=== PATIENT | female | born 1980 | race Caucasian/White ===

== ENCOUNTER 2024-10-29 12:57 | Emergency (ER) | payer MEDICARE, MEDICAID, SELFPAY ==
[2024-10-29] VITALS (9 sets, daily range): BP systolic 118–160; BP diastolic 70–90; PULSE 81–126; RESP 12–20; TEMP 37.1–37.7; O2SAT 94–99; BMI 34.3
--- NOTE | ~2024-10-29 | XR_ITS ---
CLINICAL HISTORY: Fever, chills, R O pneumonia 2 view chest x-ray Comparison: None Findings: No consolidation or effusion. Heart size is normal. No acute fracture. IMPRESSION: 1. No acute findings. This document has been electronically signed by: uYn Garner MD on 10/29/2024 18:20:11
--- NOTE | 2024-10-29 13:29 | ED_ITS ---
HPI - General Adult General Chief complaint: Upper Respiratory Symptoms Stated complaint: FEVER CHILLS HEADACHE Time Seen by Provider: 10/29/24 16:10 Source: patient Mode of arrival: EMS Limitations: no limitations History of Present Illness ED Provider: Dr. Edin Alcazar HPI narrative: 44-year-old female with a history of right hip bursitis, hypertension, insomnia, depression, PTSD, who presents emergency department for evaluation fever, chills, nausea, headache, throat/chest tightness, fatigue and body aches which began at noon. Patient also states she has been having lower pelvic pain for proximally 1 week. She did see your OBGYN states she had a pelvic exam and was diagnosed with bacterial vaginosis. She states she has been taking oral metronidazole and since this has been recurrent she has been advised to use metronidazole gel monthly. Patient states that despite taking the metronidazole she still having lower pelvic pain which she describes as a constant, severe, cramping sensation and she points to her lower abdomen when asked to localize the pain. She has not noticed any vaginal discharge. She states she was had urinary frequency but no dysuria. Related Data Home Medications ?Medication ?Instructions ?Recorded ?Confirmed acetaminophen 500 mg tablet 1,000 mg PO Q6H PRN Pain (Scale 10/31/24 10/31/24 (Tylenol Extra Strength) Score 1-3) amlodipine 2.5 mg tablet 2.5 mg PO DAILY 10/31/24 10/31/24 clonidine HCl 0.1 mg tablet 0.1 mg PO BEDTIME 10/31/24 10/31/24 cyanocobalamin (vitamin B-12) 1,000 mcg PO DAILY 10/31/24 10/31/24 1,000 mcg tablet hydroxyzine HCl 25 mg tablet 25 mg PO BEDTIME 10/31/24 10/31/24 ibuprofen 400 mg tablet 400 mg PO TID PRN Pain (Scale 10/31/24 10/31/24 Score 4-6) lansoprazole 15 mg capsule,delayed 15 mg PO DAILY 10/31/24 10/31/24 release metronidazole 0.75 % (37.5 mg/5 5 g vaginal 2XW 10/31/24 10/31/24 gram) vaginal gel morphine 15 mg immediate release 15 mg PO Q8H PRN Pain (Scale Score 02/17/25 02/17/25 tablet 7-10) sennosides 8.6 mg-docusate sodium 1 tab PO DAILY 10/31/24 10/31/24 50 mg tablet (Stimulant Laxative Plus) sertraline 50 mg tablet 50 mg PO DAILY 10/31/24 10/31/24 tramadol 50 mg tablet 50 mg PO Q6H PRN Pain (Scale Score 10/31/24 10/31/24 7-10) valacyclovir 1 gram tablet 1,000 mg PO DAILY PRN hsv flare 10/31/24 10/31/24 Previous Rx's ?Medication ?Instructions ?Recorded doxycycline hyclate 100 mg tablet 100 mg PO Q12H 14 days #28 tabs 10/29/24 metronidazole 500 mg tablet 500 mg PO BID 14 days #28 tabs 10/29/24 Allergies Allergy/AdvReac Type Severity Reaction Status Date / Time nitrofurantoin Allergy Severe RASH Verified 10/30/24 15:16 [From MACROBID] Penicillins [PENICILLINS] Allergy Severe RASH Verified 10/30/24 15:16 Review of Systems 2 Review of Systems: Yes all other systems are reviewed and are negative [facility] Past Medical History Medical History (Updated 10/30/24 @ 22:26 by Jennifer Hinds PA-C) Hx of trichomonal vaginitis Endometriosis PTSD (post-traumatic stress disorder) Depression Insomnia Bursitis HTN (hypertension) Social History Social History Unable to assess alcohol history related to: Unknown Smoked in Last 30 Days: No Use of substances other than those prescribed or required for medical reasons: No Advance Directives: No Advance Directives Information Provided: Yes service: No Physical Exam ED Vital Signs: Vital Signs - 24 hr 10/29/24 16:03 10/29/24 16:29 10/29/24 18:12 Temperature 98.7 F 99.8 F Pulse Rate 92 94 87 Respiratory Rate 18 18 12 Blood Pressure 131/74 129/81 127/70 Pulse Oximetry 96 94 96 Oxygen Delivery Method Room Air Room Air 10/29/24 18:33 10/29/24 19:30 10/29/24 19:47 Temperature 99.1 F 99.1 F Pulse Rate 84 81 81 Respiratory Rate 16 16 16 Blood Pressure 126/73 132/75 132/75 Pulse Oximetry 95 95 Oxygen Delivery Method Room Air Room Air 10/29/24 20:01 Temperature Pulse Rate Respiratory Rate Blood Pressure Pulse Oximetry 95 Oxygen Delivery Method Room Air BMI result Body Mass Index 34.3 Vital signs revealed an elevated heart rate, elevated respiratory rate patient had a reported fever of 100.9 degrees F by the paramedics Exam: General: Awake, alert in no distress Head: Normocephalic, atraumatic EENT: PERRL, Lids normal, sclera normal, conjunctiva normal, nose normal , ears normal, throat without erythema or exudates Neck: Supple, no adenopathy Lung: breath sounds symmetric, no wheezing, rales or rhonchi Chest: symmetric movement, nontender Heart: regular rate and rhythm, normal S1, S2 no murmurs or rubs Abdomen: soft, moderate to severe suprapubic tenderness, moderate bilateral lower abdominal tenderness, voluntary guarding but no involuntary guarding Pelvic exam: External: No external vaginal lesions Speculum exam: Thin perfuse, yellowish discharge from the cervix Bimanual exam: Moderate to severe cervical motion tenderness, moderate tenderness palpation over the uterus and adnexal regions bilaterally Back: no vertebral tenderness, no CVAT Extremities: no deformities, moves all extremities symmetrically Neuro: Awake, alert, oriented, normal speech, moves all extremities symmetrically Psych: Pleasant, cooperative Course Course Course Narrative: RME performed by Lina Ken PA-C. Patient is a 44 year old assigned female at presenting to the emergency department with fever, chills, body aches, nausea, and vomiting. Patient states that both of her parents have influenza and she has been helping take care of them. Detailed physical exam and review of systems are deferred to the tool and equipment rental clerk. Swabs ordered. Patient placed back in the waiting room pending room availability and results. Reevaluation(s) Reevaluation #1: 10/30/2024 - [id number] - received phone call from the lab, patient is 1/2 blood culture sets positive for Gram-negative bo. Spoke to patient, she was feeling unwell, recommended to immediately report back to the emergency department due to positive blood culture. Medications Administered Discontinued Medications Generic Name Dose Route Start Last Admin Trade Name Freq PRN Reason Stop Dose Admin Acetaminophen 975 mg 10/29/24 16:30 10/29/24 17:37 Acetaminophen 325 Mg Tablet PO 10/29/24 16:31 975 mg ONCE STA Administration Ceftriaxone Sodium 500 mg/ 0 mg 10/29/24 17:48 10/29/24 18:08 Lidocaine HCl 1 ml IM 10/29/24 17:49 1 kit ONCE ONE Administration Sodium Chloride 1,000 mls @ 999 mls/hr 10/29/24 16:28 10/29/24 18:11 Ns IV 10/29/24 17:28 Infused .Q1H1M STA Infusion Ketorolac Tromethamine 15 mg 10/29/24 16:28 10/29/24 17:20 Ketorolac Tromethamine 15 Mg/Ml Vial IVPUSH 10/29/24 16:29 15 mg ONCE STA Administration Metronidazole 500 mg 10/29/24 17:48 10/29/24 19:11 Metronidazole 500 Mg Tablet PO 10/29/24 17:49 500 mg ONCE ONE Administration Morphine Sulfate 4 mg 10/29/24 17:48 10/29/24 18:39 Morphine Sulfate 4 Mg/Ml Cartridge IVPUSH 10/29/24 17:49 4 mg ONCE STA Administration Protocol Ondansetron HCl 4 mg 10/29/24 16:28 10/29/24 17:20 Ondansetron Hcl 4 Mg/2 Ml Vial IVPUSH 10/29/24 16:29 4 mg ONCE ONE Administration Medical Decision Making Medical Decision Making MDM Narrative: 44-year-old female with a history of right hip bursitis, hypertension, insomnia, depression, PTSD, who presents emergency department for evaluation fever, chills, nausea, headache, throat/chest tightness, fatigue and body aches which began at noon and lower abdominal/pelvic pain x1 week seen by her splicing machine operator automatic is started on oral metronidazole for bacterial vaginosis with no improvement of her symptoms. Patient has noted urinary frequency, no dysuria and no vaginal discharge. Patient had a fever of 100.9 degrees F by the paramedics, had an elevated heart rate of 126 and elevated respiratory rate of 20-patient met SIRS criteria and was made sepsis alert at 16:31 hours. 16:31 Differential diagnosis: ?Includes but is not limited to viral syndrome, COVID- 19, influenza, RSV, pneumonia, pelvic inflammatory disease, Following evaluation was ordered: Patient was initially treated with the following: Course: 16:31 Patient met sirs criteria with elevated fever elevated pulse. Patient was made a sepsis alert. 17:49 My interpretation patient's laboratory evaluation is as follows: WBC elevated 17,200. CMP was normal. COVID-19, influenza and RSV were negative. Urinalysis positive for protein, leukocyte esterase. Negative for nitrates. Microscopic revealed 0-2 RBCs, 10-20 WBCs, 3-5 squamous cells, 4+ bacteria. Non clean catch urine for Neisseria gonorrhea and chlamydia Trichomonas is pending. I did add blood cultures x2 and a lactic acid to the patient's labs. The patient's positive urinalysis is most likely secondary to her vaginal discharge and PID as opposed to a urinary tract infection. Patient's pelvic exam did reveal a yellowish cervical discharge with moderate to severe cervical motion tenderness, positive tenderness over the uterus and adnexa bilaterally. Patient was presentation is consistent with acute pelvic inflammatory disease and I did discuss this with the patient. Patient was treated with ceftriaxone 500 mg IM mixed with 1% lidocaine to reduce the pain of the injection. Patient got only minimal relief of her pain with Tylenol 975 mg orally and Toradol 15 mg IV. Therefore I ordered morphine 4 mg IV. Patient will be discharged home with prescriptions for doxycycline 100 mg q.12 hours times 14 days, Flagyl (metronidazole) 500 mg q.12 hours times 14 days, ibuprofen 400 mg q.6 hours as needed, Tylenol 1000 mg q.6 hours as needed and for pain not relieved by these medications she was prescribed morphine 15 mg every 6 hours as needed for pain. Patient was told to follow-up with her watch assembler in 14 days for re- evaluation, she was not to have sex until she completes her antibiotics and is certain that her gonorrhea and chlamydia tests were negative. I told her if these tests are positive than her sexual partners need to be treated. She was given printed and verbal instructions and discharged home. Admission/Observation Consideration of admission/observation: Escalation of care including admission/observation considered (Yes) Lab Data [facility] Lab Attestation statement: I reviewed the patient's lab results. 10/29/24 13:40 10/29/24 13:40 Labs: Lab Results 10/29/24 10/29/24 10/29/24 Range/Units 13:40 16:39 17:03 WBC 17.2 H (4.8-10.8) X10*3/uL RBC 4.37 (4.20-5.50) X10*6/uL Hgb 13.3 (12.0-16.0) g/dl Hct 39.2 (37.0-47.0) % MCV 89.7 (80.0-98.0) fL MCH 30.4 (27.0-33.0) pg MCHC 33.9 (31.0-35.0) g/dl RDW 12.8 (11.0-16.0) % Plt Count 261 (160-400) X10*3/uL MPV 10.6 (9.4-12.3) fL Immature Gran % (Auto) 0.3 (0.0-0.4) % Neut % (Auto) 59.1 (45-73) % Lymph % (Auto) 37.7 (20-40) % [place] % (Auto) 1.6 L (2-11) % Eos % (Auto) 0.8 (0-4) % Baso % (Auto) 0.5 (0-2) % Lymph # (Auto) 6.5 H (1.2-4.9) X10*3/uL [place] # (Auto) 0.3 (0.1-1.2) X10*3/uL Eos # (Auto) 0.1 (0.0-0.4) X10*3/uL Baso # (Auto) 0.1 (0.0-0.2) X10*3/uL Abs Immat Gran (auto) 0.05 H (0.00-0.03) X10*3/uL Absolute Neuts (auto) 10.2 H (2.0-8.3) x10*3/uL Absolute Nucleated RBC 0.000 (0.0-0.012) X10*3/uL Nucleated RBC % (auto) 0.0 (0.0-0.2) /100WBC Smear Tech's Comments VERIFIED Sodium 141 (135-145) mmol/L Potassium 3.4 (3.3-5.1) mmol/L Chloride 106 (96-108) mmol/L Carbon Dioxide 23 (22-29) mmol/L Anion Gap 15 (12-20) BUN 11 (9-16) mg/dL Creatinine 0.72 (0.5-1.4) mg/dL Estim Creat Clear Calc 106.5 Estimated GFR > 60 Random Glucose 97 (60-115) mg/dL Lactic Acid 0.9 (0.5-2.0) mmol/L Calcium 8.5 (8.4-10.2) mg/dL Magnesium 1.8 (1.6-2.6) mg/dL Total Bilirubin 0.7 (0.0-1.0) mg/dL AST 19 (5-31) U/L ALT 19 (0-31) U/L Alkaline Phosphatase 92 (39-117) U/L Total Protein 7.0 (6.5-8.0) g/dL Albumin 3.8 (3.5-5.0) g/dL Lipase 22 (8-78) U/L Urine Color Yellow Urine Appearance Clear Urine pH 6.5 (5.0-9.0) Ur Specific [place] 1.020 (1.005-1.025) Urine Protein 30 (1+) H (Neg-Trace) mg/dL Urine Glucose (UA) Negative (Negative) mg/dL Urine Ketones Trace (Negative) mg/dL Urine Blood Negative (Negative) Urine Nitrite Negative (Negative) Ur Leukocyte Esterase Moderate (2+) H (Negative) Urine RBC 0-2 (0-2) /HPF Urine WBC 11-20 H (0-5) /HPF Ur Squamous Epith Cells 3-5 (0-2) /HPF Urine Bacteria 4+ (None Seen) Hyaline Casts 0-2 (0-2) /LPF Chlam trachomat DNA PCR NOT DETECTED (Not Detect.) Influenza Type A (PCR) NEGATIVE (Negative) Influenza Type B (PCR) NEGATIVE (Negative) N.gonorrhoeae DNA (PCR) NOT DETECTED (Not Detect.) RSV RNA Qual (PCR) NEGATIVE (Negative) SARS-CoV-2 RNA (RT-PCR) NEGATIVE (Negative) Prescription Management I considered prescription management with: Pain Medication (Ibuprofen, Tylenol, morphine) and Antibiotic (Doxycycline and Flagyl) Chronic Conditions Patient?s care impacted by: Hypertension Discharge Plan Discharge Clinical Impression: Acute pelvic inflammatory disease, Fever, Abdominal pain Patient Disposition: Home, Self-Care Additional Instructions: Pelvic inflammatory disease instructions: Your presentation and physical findings are consistent with pelvic inflammatory disease (PID). Approximately 30% of the time, pelvic inflammatory disease is caused by sexually transmitted diseases such as Trichomonas, gonorrhea or chlamydia. Approximately 70% of the time, pelvic inflammatory disease is caused by abnormal bacteria (anaerobic bacteria) in your vagina that can cause an infection ? Medications You received ceftriaxone 500 mg intramuscularly here in the emergency department Take doxycycline 100 mg, 1 pill twice a day for 14 days. Take metronidazole 500 mg, 1 pill twice a day for 14 days. These 3 antibiotics treat sexually transmitted diseases such as gonorrhea, chlamydia and Trichomonas as well as anaerobic bacteria that can cause pelvic inflammatory disease. Take ibuprofen 200 mg pills, 2 pills every 6 hours as needed for pain. Take Tylenol (acetaminophen) 2 pills every 6 hours as needed for pain. For pain not relieved by ibuprofen or Tylenol take morphine 15 mg pills, 1 pill every 6 hours as needed for pain. This medication will make you sleepy, do not drive or work while taking this medication. Morphine is a narcotic medication and can be addicting. If you are concerned about addiction you can ask the pharmacist for less pills or do not get this prescription filled. Do not have sex until you complete the 14 day course of antibiotics. Also, if your gonorrhea or chlamydia tests are positive then your sexual partner(s) will need to be treated for these infections otherwise if you have sex with the these partner(s) then you can get infected again. Follow-Up Follow-up with your gynecology in ?10-14 days. Pending laboratory tests: The doctor that follows up ?will need to review the following results with you: Gonorrhea and chlamydia (non clean catch urine) You can also check these results on the patient portal. Return precautions: Please return to the emergency department if your symptoms get worse if your pain does not go away in 24-48 hours or if you develop any symptoms that are concerning to you. Prescriptions: New metronidazole 500 mg tablet 500 mg PO BID 14 Days Qty: 28 0RF doxycycline hyclate 100 mg tablet 100 mg PO Q12H 14 Days Qty: 28 0RF No Action clonidine HCl 0.1 mg tablet 0.1 mg PO BEDTIME valacyclovir 1 gram tablet 1,000 mg PO DAILY PRN (Reason: hsv flare) metronidazole 0.75 % (37.5mg/5 gram) gel 5 g vaginal 2XW sennosides-docusate sodium [Stimulant Laxative Plus] 8.6-50 mg tablet 1 tab PO DAILY cyanocobalamin (vitamin B-12) 1,000 mcg Tablet 1,000 mcg PO DAILY amlodipine 2.5 mg tablet 2.5 mg PO DAILY tramadol 50 mg Tablet 50 mg PO Q6H PRN (Reason: Pain (Scale Score 7-10)) lansoprazole 15 mg capsule,delayed release(DR/EC) 15 mg PO DAILY hydroxyzine HCl 25 mg tablet 25 mg PO BEDTIME sertraline 50 mg tablet 50 mg PO DAILY acetaminophen [Tylenol Extra Strength] 500 mg tablet 1,000 mg PO Q6H PRN (Reason: Pain (Scale Score 1-3)) ibuprofen 400 mg tablet 400 mg PO TID PRN (Reason: Pain (Scale Score 4-6)) morphine 15 mg tablet 15 mg PO Q8H PRN (Reason: Pain (Scale Score 7-10)) Rx Instructions: Partial Fill upon patient request. Interventions: ED Discharge Assessment Last Done: 10/29/24 19:47 Discharge Date/Time: 10/29/24 20:01 Print Language: Taiwanese
[2024-10-29 14:03] LABS: Basophils Absolute Auto 0.1 X10*3/uL (0.0-0.2); Basophils Percent Auto 0.5 % (0-2); Eosinophils Absolute Auto 0.1 X10*3/uL (0.0-0.4); Eosinophils Percent Auto 0.8 % (0-4); Hematocrit 39.2 % (37.0-47.0); Hemoglobin 13.3 g/dl (12.0-16.0); Imm Gran Abs Auto 0.05 X10*3/uL (0.00-0.03); Imm Gran Pct Auto 0.3 % (0.0-0.4); Lymphocytes Percent Auto 37.7 % (20-40); MANUAL DIFF FLAG SCAN; Mean Corpuscular HGB Conc 33.9 g/dl (31.0-35.0); Mean Corpuscular Hemoglobin 30.4 pg (27.0-33.0); Mean Corpuscular Volume 89.7 fL (80.0-98.0); Mean Platelet Volume 10.6 fL (9.4-12.3); Monocytes Absolute Auto 0.3 X10*3/uL (0.1-1.2); Monocytes Percent Auto 1.6 % (2-11); Neutrophils Absolute Auto 10.2 x10*3/uL (2.0-8.3); Neutrophils Percent Auto 59.1 % (45-73); Platelet Count 261 X10*3/uL (160-400); Red Blood Count 4.37 X10*6/uL (4.20-5.50); Red Cell Distribution Width 12.8 % (11.0-16.0); SCAN SMEAR FLAG 1; White Blood Count 17.2 X10*3/uL (4.8-10.8)
[2024-10-29 14:04] LABS: Lymphocytes Absolute Auto 6.5 X10*3/uL (1.2-4.9)
[2024-10-29 14:14] LABS: Alanine Aminotransferase 19 U/L (0-31); Albumin Level 3.8 g/dL (3.5-5.0); Anion Gap 15 (12-20); Aspartate Amino Transferase 19 U/L (5-31); Bilirubin Total 0.7 mg/dL (0.0-1.0); Blood Urea Nitrogen 11 mg/dL (9-16); Calcium 8.5 mg/dL (8.4-10.2); Carbon Dioxide 23 mmol/L (22-29); Chloride 106 mmol/L (96-108); Creatinine Clr Calc Pharmacy 106.5; Estimated Glomerular Filt Rate > 60; Glucose Random 97 mg/dL (60-115); Magnesium 1.8 mg/dL (1.6-2.6); Potassium 3.4 mmol/L (3.3-5.1); Sodium 141 mmol/L (135-145)
[2024-10-29 14:36] LABS: Influenza A PCR NEGATIVE (Negative); Influenza B PCR NEGATIVE (Negative); Resp Syncy Virus RNA Qual PCR NEGATIVE (Negative); SARS COV2 PCR INHOUSE NEGATIVE (Negative)
[2024-10-29 14:53] LABS: Alkaline Phosphatase 92 U/L (39-117); SLIDE REVIEW VERIFIED
--- OUTSIDE RECORDS SUMMARY | 2024-10-29 16:11 | XMS_ITS | Encounter Summary ---
Author Organization [facility] Address [address] [place] [address] Care Team Providers Care Boil Off Machine Operator Cloth Name Role Phone Liat Nunez MD Primary Care Provider [phone] Encounter Details Date Type Department Care Team (Late st Contact Info) Description 06/21/2024 3:52 PM EDT Hospital Encounter TH HISTORIC ENCOUNTERS EASTERN CONVERSION ONLY Liat Nunez MD [address] [facility] [address] [place] [phone] Social History Tobacco Use Types Packs/Day Years Used Date Smoking Tobacco: Never Smokeless Tobacco: Never Alcohol Use Standard Drinks/Week Comments Yes 0 (1 standard drink = 0.6 oz pur e alcohol) Comments Unknown Sex and Gender Information Value Date Recorded Sex Assigned at Not on file Legal Sex Female 10:11 AM EST Gender Identity Not on file Sexual Orientation Not on file documented as of this encounter Plan of Treatment Upcoming Encounters Date Type Department Care Team (Late Contact Info) Description 11/23/2024 1:30 PM EDT Office Visit [facility] Hematology Oncology [address] [place] [phone] Michaela Bergeron MD [address] [place] [address] 02/13/2025 11:30 AM EDT Office Visit Internal Medicine - [place] [address] [facility] [address] [place] [phone] Liat Nunez MD [address] [facility] [address] [place] [phone] documented as of this encounter Visit Diagnoses Not on filedocumented in this encounter Care Teams Boil Off Machine Operator Cloth Relationship Specialty Start Date End Date Liat Nunez MD PCP - General Internal Medicine 07/19/18 07/29/24 documented as of this encounter
--- OUTSIDE RECORDS SUMMARY | 2024-10-29 16:11 | XMS_ITS | Clinical Summary ---
Author Organization [facility] Address [address] [place] [address] Care Team Providers Care Change Consultant Name Role Phone Liat Nunez MD Primary Care Provider [phone] Allergies Active Allergy Reactions Criticality Noted Date Comments Lisinopril 02/09/2020 rash Nitrofurantoin 09/19/2011 Other reaction(s): Rash, Rash/Dermatitis Penicillins Low 09/19/2011 Other reaction(s): Hives/Urticaria, Rash Medications Medication Sig Dispensed Refills Start Date End Date Status Acetaminophen Extra Strength 500 MG TABS TAKE 1 TABLET BY MOUTH EVERY 8 HOURS NEEDED FOR MILD PAIN 0 11/17/2023 Active Cholecalciferol 50 MCG (1999 UT) TABS Take 1 tablet by mouth daily. 0 04/21/2023 Active Citalopram Hydrobromide 30 MG CAPS Take by mouth. 0 04/21/2023 Active cloNIDine (CATAPRES) tablet 0.1 mg Take 1 tablet (0.1 mg total) by mouth 2 (two) times a day. 0 12/08/2023 Active hydrOXYzine (ATARAX) 25 MG tablet Take 1 tablet (25 mg total) by mouth 2 (two) times a day. 0 12/15/2023 Active loratadine (Claritin) 10 MG tablet Take 1 tablet (10 mg total) by mouth daily. 0 Active Lansoprazole (PREVACID PO) Take by mouth. 0 Active irbesartan (AVAPRO) 300 MG tablet Take 1 tablet (300 mg total) by mouth every night at bedtime. 0 Active Active Problems No known active problems Social History Tobacco Use Types Packs/Day Years Used Date Smoking Tobacco: Never Smokeless Tobacco: Never Tobacco Cessation:Counseling Given: Not Answered Alcohol Use Standard Drinks/Week Comments Never 0 (1 standard drink = 0.6 oz pur e alcohol) Sex and Gender Information Value Date Recorded Sex Assigned at Female 12/09/2023 7:48 AM EDT Gender Identity Not on file Sexual Orientation Not on file Job Start Date Occupation Industry Not on file Not on file Not on file Last Filed Vital Signs Vital Sign Reading Time Taken Comments Blood Pressure 151/99 01/26/2024 1:40 PM EDT Pulse 82 01/26/2024 1:40 PM EDT Temperature 36.6 ??C (97.8 ??F) 01/26/2024 1:40 PM ED T Respiratory Rate - - Oxygen Saturation 99% 01/26/2024 1:40 PM EDT Inhaled Oxygen Concentration - - Weight 93.4 kg (206 lb) 01/26/2024 1:40 PM EDT Height - - Body Mass Index - - Plan of Treatment Health Maintenance Due Date Last Done Comments Hepatitis B Vaccines (1 of 3 - 3-dose series) 1978 Hepatitis C Screening 1978 COVID-19 Vaccine (#1) 1983 Pneumococcal Vaccine (1 of 2 - PCV) 1984 Depression Screening 1990 Preventative Health Evaluation 1996 Cervical Cancer Screening (Pap Smear) 1999 Colon Cancer Screening (Colonoscopy) 2023 Influenza Vaccine (#1) 2024 DTap / Tdap / Td (3 - Td or Tdap) 04/10/2027 04/10/2017, 09/19/2011 RSV Ped < 20 months Aged Out No longe r eligible based on patient's age to complete this topic Care Teams Change Consultant Relationship Specialty Start Date End Date Liat Nunez MD [address] [place] [phone] PCP - General Internal Medicine 01/04/24
--- NOTE | 2024-10-29 16:28 | PC.NURSE ---
Provider to hold antibiotics orders until pelvic is completed.
--- NOTE | 2024-10-29 16:35 | PC.NURSE ---
Sepsis protocol initiated no antibiotic orders lala, fluids ordered.
[2024-10-29] MEDS: 0.9 % Sodium Chloride 1,000 ML 999 ML IV (16:37)
[2024-10-29 16:59] LABS: Lipase 22 U/L (8-78)
[2024-10-29 17:02] LABS: Lactic Acid 0.9 mmol/L (0.5-2.0)
[2024-10-29 17:13] LABS: Appearance Urine Clear; Color Urine Yellow; Glucose Urine UA Negative (Negative); Leukocyte Esterase Urine Moderate (2+) (Negative); Nitrite Urine Negative (Negative); PH 6.5 (5.0-9.0); UMIC TRIGGER UACC YES; Urine Blood Negative (Negative); Urine Ketones Trace mg/dL (Negative); Urine Protein 30 (1+) mg/dL (Neg-Trace)
[2024-10-29] MEDS: Ketorolac Tromethamine 15 MG/ML VIAL IVPUSH (17:20)
[2024-10-29] MEDS: ondansetron HCL 4 MG/2 ML VIAL IVPUSH (17:20)
[2024-10-29 17:26] LABS: Bacteria Urine 4+ (None Seen); Hyaline Casts Urine 0-2 /LPF (0-2); RBC Urine 0-2 /HPF (0-2); UACC Culture Trigger YES
[2024-10-29] MEDS: Acetaminophen 325 MG TABLET 975 MG PO (17:37)
[2024-10-29] MEDS: cefTRIAXone sodium 500 MG, Lidocaine HCl 1 % MPF 1 ML IM (18:08)
[2024-10-29] MEDS: Morphine Sulfate 4 MG/ML CARTRIDGE IVPUSH (18:39)
[2024-10-29] MEDS: metroNIDAZOLE 500 MG TABLET PO (19:11)
[2024-10-30 02:39] LABS: CT PCR NOT DETECTED (Not Detect.); NG PCR NOT DETECTED (Not Detect.)
== END 2024-10-29 20:01 | disposition home or self-care (01) ==
PROVIDERS: Physician Assistant Medical; Emergency Provider Emergency Medicine Emergency Medical Services; PCP Internal Medicine
DX: N73.0 Acute parametritis and pelvic cellulitis (principal); R50.9 Fever, unspecified; R51.9 Headache, unspecified; R11.0 Nausea; R07.89 Other chest pain; M79.10 Myalgia, unspecified site; R10.2 Pelvic and perineal pain; R10.9 Unspecified abdominal pain; Z03.818 Encounter for observation for suspected exposure to other biological agents ruled out; Z79.899 Other long term (current) drug therapy
CPT/HCPCS: 0241U; 36415; 71046; 80053; 81001; 83605; 83690; 83735; 85025; 87040; 87077; 87086; 87185; 87205; 87491; 87591; 96361; 96372; 96374; 96375; 99284; J0696; J1885; J2003; J2270; J2405

== ENCOUNTER → 2024-10-29 16:11 | Outpatient (BNV) | payer MEDICARE, MEDICAID, SELFPAY | PROVIDERS: Emergency Provider Emergency Medicine Emergency Medical Services; PCP Internal Medicine; Visit Provider Radiology Diagnostic Radiology | DX: R07.89 Other chest pain (principal); R50.9 Fever, unspecified | CPT/HCPCS: 71046 ==

== ENCOUNTER 2024-10-30 14:17 | Inpatient (IN) | payer OTHER, SELFPAY ==
--- NOTE | ~2024-10-30 | CT_ITS ---
CLINICAL HISTORY: right flank pain, pelvic pain CT abdomen and pelvis with contrast Comparison: None Findings: No consolidation or effusion. Unremarkable gallbladder and solid organs. No urolithiasis. Right upper pole kidney 2.6 cm central cyst. No bowel obstruction, pneumoperitoneum, or pneumatosis. Globus appearing uterine fundus with thickening of the endometrium, proximally measuring 2.1 cm. Normal appendix. No acute fracture. IMPRESSION: No acute findings. Globus appearing uterine fundus with apparent thickening of the endometrium measuring up to 2.1 cm. A pelvic ultrasound can be obtained for further evaluation. Right kidney upper pole 2.6 cm simple cyst, no further is required of the cyst. This document has been electronically signed by: Marilee Mills MD on 10/30/2024 20:56:41
[2024-10-30 15:14] VITALS: BP 148/88; PULSE 89; RESP 18; TEMP 36.2; O2SAT 98; BMI 34.0
--- NOTE | 2024-10-30 15:15 | ED_ITS ---
HPI - General Adult General Chief complaint: Recheck/Abnormal Lab/Rx Stated complaint: was told to come back to ED Time Seen by Provider: 10/30/24 17:45 Source: patient, RN notes reviewed and old records reviewed Mode of arrival: ambulatory Limitations: no limitations History of Present Illness ED Provider: Willem LOUIS narrative: 44-year-old female with past medical history significant for bursitis, hypertension, insomnia, depression, PTSD presents for evaluation of ?positive blood cultures. ? She was seen here yesterday due to lower abdominal and pelvic pain. She was diagnosed with pelvic inflammatory disease with positive cervical motion tenderness. She also has right abdominal pain and flank pain. She was called today and told to come back due to positive blood cultures. And a view of her blood cultures from yesterday she had both bottles positive for Gram-negative rods The patient was discharged with doxycycline, metronidazole and was given a dose of ceftriaxone IM in the hospital yesterday. She did not pick up attendant the prescription yet She denies any fevers but endorses continued lower abdominal/right-sided abdominal pain Related Data Previous Rx's ?Medication ?Instructions ?Recorded acetaminophen 500 mg tablet 1,000 mg (2 x 500 mg) PO Q6H PRN 10/29/24 (Tylenol Extra Strength) pain #20 tabs doxycycline hyclate 100 mg tablet 100 mg PO Q12H 14 days #28 tabs 10/29/24 ibuprofen 400 mg tablet 400 mg PO TID PRN fever or pain 10/29/24 #30 tabs metronidazole 500 mg tablet 500 mg PO BID 14 days #28 tabs 10/29/24 morphine 15 mg immediate release 15 mg PO Q8H PRN pain #10 tabs 10/29/24 tablet Allergies Allergy/AdvReac Type Severity Reaction Status Date / Time nitrofurantoin Allergy Severe RASH Verified 10/30/24 15:16 [From MACROBID] Penicillins [PENICILLINS] Allergy Severe RASH Verified 10/30/24 15:16 Review of Systems 2 Constitutional: Constitutional: Reports body ache(s), Denies chills, Denies fever(s) and Denies headache(s) Eyes: Eyes: Denies blurry vision ENT: Denies vertigo, Denies dizziness and Denies headache(s) Cardiovascular: Cardiovascular: Denies chest pain and Denies dyspnea Respiratory: Respiratory: Denies cough and Denies dyspnea Gastrointestinal: Gastrointestinal: Reports abdominal pain, Reports nausea and Denies vomiting Genitourinary: Genitourinary: Denies difficulty voiding, Denies dysuria and Denies vaginal discharge Musculoskeletal: Musculoskeletal: Reports back pain Integumentary/Breasts: Skin/Breast: Denies rash Neurologic: Denies vertigo, Denies dizziness and Denies headache(s) [facility] Social History Social History Unable to assess alcohol history related to: Unknown Advance Directives: No Advance Directives Information Provided: Yes Physical Exam ED Vital Signs: Vital Signs - 24 hr 10/30/24 15:14 10/30/24 20:58 Temperature 97.2 F 98.5 F Pulse Rate 89 76 Respiratory Rate 18 18 Blood Pressure 148/88 H 130/65 Pulse Oximetry 98 98 Oxygen Delivery Method Room Air Room Air BMI result Body Mass Index 34.0 Const General: healthy appearing, comfortable, no acute distress, alert and awake Nutritional Appearance: well nourished Orientation/consciousness: patient oriented x3 HENMT Head: Yes normocephalic and Yes atraumatic Eyes Eyelids: Yes eyelids normal Conjunctivae: conjunctivae normal Sclerae: sclerae normal Corneas: corneas normal Pupils: Equal, round and reactive pupils present EOM: EOMs intact bilaterally Neck Neck: Yes full ROM Resp Effort & Inspection: normal respiratory effort, able to speak in complete sentences and not labored GI Inspection: No distended Palpation (GI): Soft to palpation, not firm, Tenderness to palpation present (GI) in the RLQ and suprapubicly, Guarding due to palpation present (GI) (Suprapubic) and not rigid Skin General skin exam: no rashes or lesions noted and elasticity normal Neuro General: patient oriented x3 Cranial nerves: Yes Equal, round and reactive pupils present and Yes Bilaterally intact EOM present Cognition (Neuro): normal cognition Extrem Other: Moving all extremities well without any obvious deformities Course Course Course Narrative: This is a Rapid Medical Exam performed in triage by Denisa Hughes PA-C. Full HPI, ROS and PE to be performed by primary ED provider. 44yo F presenting to the ED c/o called to return to the ED for 1/2 +blood cultures for gram neg rods. Patient was seen in our ED last night, Dx with PID, denies taking Abx yet. PE: Uncomfortable. Abdomen soft with lower > right and right CVAT Plan: labs, blood cx, UA Medications Administered Discontinued Medications Generic Name Dose Route Start Last Admin Trade Name Heather PRN Reason Stop Dose Admin Acetaminophen 650 mg 10/30/24 15:18 10/30/24 15:38 Acetaminophen 325 Mg Tablet PO 10/30/24 15:19 650 mg ONCE ONE Administration Cefotetan Disodium 2 gm 10/30/24 18:16 10/30/24 19:21 Cefotetan Disodium 2 Gm Vial IVPUSH 10/30/24 18:17 2 gm ONCE ONE Administration Doxycycline Hyclate 100 mg/ 250 mls @ 166.67 mls/hr 10/30/24 18:16 10/30/24 19:21 Sodium Chloride IV 10/30/24 19:45 166.67 mls/hr ONCE ONE Administration Iohexol 100 ml 10/30/24 19:44 10/30/24 19:44 Iohexol 350 Mg/Ml 100 Ml Infus..Btl IV 10/30/24 19:45 85 ml ONCE ONE Administration Ketorolac Tromethamine 30 mg 10/30/24 18:16 10/30/24 19:20 Ketorolac Tromethamine 30 Mg/Ml Vial IVPUSH 10/30/24 18:17 30 mg ONCE ONE Administration Medical Decision Making Medical Decision Making [facility] Narrative: 44-year-old female presents for evaluation of positive blood cultures. She did have both bottles preliminary results positive for gram-negative rods. This is highly unlikely to be a contaminant. The patient was being treated for PID. I did order a CT scan of the abdomen pelvis given her continued abdominal pain and to help rule out obstructive uropathy versus pyelonephritis. The patient will be treated with cefotetan, doxycycline which should cover both PID and pyelonephritis/cystitis. She does have a leukocytosis but is not septic Differential Diagnosis Differential Diagnoses: The differential diagnosis associated with the presentation includes Bacteremia UTI PID Pyelonephritis Obstructive uropathy Intra-abdominal abscess Admission/Observation Consideration of admission/observation: Escalation of care including admission/observation considered Lab Data [facility] Lab Attestation statement: I reviewed the patient's lab results. Patient has a leukocytosis to 16.7 K. No anemia. Normal platelet count. No electrolyte abnormalities warranting intervention 10/30/24 15:35 10/30/24 15:35 Labs: Lab Results 02/16/25 Range/Units 15:35 WBC 16.7 H (4.8-10.8) X10*3/uL RBC 4.36 (4.20-5.50) X10*6/uL Hgb 13.4 (12.0-16.0) g/dl Hct 39.3 (37.0-47.0) % MCV 90.1 (80.0-98.0) fL MCH 30.7 (27.0-33.0) pg MCHC 34.1 (31.0-35.0) g/dl RDW 12.8 (11.0-16.0) % Plt Count 267 (160-400) X10*3/uL MPV 10.7 (9.4-12.3) fL Immature Gran % (Auto) 0.3 (0.0-0.4) % Neut % (Auto) 52.1 (45-73) % Lymph % (Auto) 40.6 H (20-40) % Edwards % (Auto) 5.2 (2-11) % Eos % (Auto) 1.4 (0-4) % Baso % (Auto) 0.4 (0-2) % Lymph # (Auto) 6.8 H (1.2-4.9) X10*3/uL Edwards # (Auto) 0.9 (0.1-1.2) X10*3/uL Eos # (Auto) 0.2 (0.0-0.4) X10*3/uL Baso # (Auto) 0.1 (0.0-0.2) X10*3/uL Abs Immat Gran (auto) 0.05 H (0.00-0.03) X10*3/uL Absolute Neuts (auto) 8.7 H (2.0-8.3) x10*3/uL Absolute Nucleated RBC 0.000 (0.0-0.012) X10*3/uL Nucleated RBC % (auto) 0.0 (0.0-0.2) /100WBC Smear Tech's Comments VERIFIED Sodium 141 (135-145) mmol/L Potassium 3.5 (3.3-5.1) mmol/L Chloride 107 (96-108) mmol/L Carbon Dioxide 24 (22-29) mmol/L Anion Gap 14 (12-20) BUN 7 L (9-16) mg/dL Creatinine 0.65 (0.5-1.4) mg/dL Estim Creat Clear Calc 117.3 Estimated GFR > 60 Random Glucose 103 (60-115) mg/dL Lactic Acid 1.0 (0.5-2.0) mmol/L Calcium 8.8 (8.4-10.2) mg/dL Magnesium 2.0 (1.6-2.6) mg/dL Total Bilirubin 0.4 (0.0-1.0) mg/dL Direct Bilirubin 0.2 (0.0-0.5) mg/dL AST 20 (5-31) U/L ALT 20 (0-31) U/L Alkaline Phosphatase 90 (39-117) U/L Total Protein 7.4 (6.5-8.0) g/dL Albumin 4.0 (3.5-5.0) g/dL Lipase 15 (8-78) U/L Urine Color Yellow Urine Appearance Clear Urine pH 7.5 (5.0-9.0) Ur Specific Alexander 1.010 (1.005-1.025) Urine Protein Negative (Neg-Trace) mg/dL Urine Glucose (UA) Negative (Negative) mg/dL Urine Ketones Negative (Negative) mg/dL Urine Blood Trace H (Negative) Urine Nitrite Negative (Negative) Ur Leukocyte Esterase Trace H (Negative) Urine RBC 6-10 H (0-2) /HPF Urine WBC 0-5 (0-5) /HPF Ur Squamous Epith Cells 0-2 (0-2) /HPF Urine Bacteria None Seen (None Seen) Hyaline Casts 0-2 (0-2) /LPF Urine Test NEGATIVE (NEGATIVE) Radiology Impression Discussion of test interpretation with radiology: I have reviewed the radiologist's reading. Radiologist Impression: Findings: No consolidation or effusion. Unremarkable gallbladder and solid organs. No urolithiasis. Right upper pole kidney 2.6 cm central cyst. No bowel obstruction, pneumoperitoneum, or pneumatosis. Globus appearing uterine fundus with thickening of the endometrium, proximally measuring 2.1 cm. Normal appendix. No acute fracture. IMPRESSION: No acute findings. Globus appearing uterine fundus with apparent thickening of the endometrium measuring up to 2.1 cm. A pelvic ultrasound can be obtained for further evaluation. Right kidney upper pole 2.6 cm simple cyst, no further is required of the cyst. This document has been electronically signed by: Marilee Mills MD on 10/30/2024 20:56:41 Discharge Plan Discharge Clinical Impression: Gram-negative bacteremia, Acute pelvic inflammatory disease Patient Disposition: Admitted As Inpatient Print Language: Nauruan
[2024-10-30] MEDS: Acetaminophen 325 MG TABLET 650 MG PO (15:38)
[2024-10-30 15:42] LABS: Basophils Absolute Auto 0.1 X10*3/uL (0.0-0.2); Basophils Percent Auto 0.4 % (0-2); Eosinophils Absolute Auto 0.2 X10*3/uL (0.0-0.4); Eosinophils Percent Auto 1.4 % (0-4); Hematocrit 39.3 % (37.0-47.0); Hemoglobin 13.4 g/dl (12.0-16.0); Imm Gran Abs Auto 0.05 X10*3/uL (0.00-0.03); Imm Gran Pct Auto 0.3 % (0.0-0.4); Lymphocytes Percent Auto 40.6 % (20-40); MANUAL DIFF FLAG SCAN; Mean Corpuscular HGB Conc 34.1 g/dl (31.0-35.0); Mean Corpuscular Hemoglobin 30.7 pg (27.0-33.0); Mean Corpuscular Volume 90.1 fL (80.0-98.0); Mean Platelet Volume 10.7 fL (9.4-12.3); Monocytes Absolute Auto 0.9 X10*3/uL (0.1-1.2); Monocytes Percent Auto 5.2 % (2-11); Neutrophils Absolute Auto 8.7 x10*3/uL (2.0-8.3); Neutrophils Percent Auto 52.1 % (45-73); Platelet Count 267 X10*3/uL (160-400); Red Blood Count 4.36 X10*6/uL (4.20-5.50); Red Cell Distribution Width 12.8 % (11.0-16.0); SCAN SMEAR FLAG 1; White Blood Count 16.7 X10*3/uL (4.8-10.8)
[2024-10-30 15:43] LABS: Lymphocytes Absolute Auto 6.8 X10*3/uL (1.2-4.9)
[2024-10-30 15:44] LABS: Appearance Urine Clear; Color Urine Yellow; Glucose Urine UA Negative (Negative); Leukocyte Esterase Urine Trace (Negative); Nitrite Urine Negative (Negative); PH 7.5 (5.0-9.0); UMIC TRIGGER UACC YES; Urine Blood Trace (Negative); Urine Ketones Negative (Negative); Urine Protein Negative (Neg-Trace)
[2024-10-30 15:45] LABS: UPreg QC Valid YES; Urine Pregnancy NEGATIVE (NEGATIVE)
[2024-10-30 15:49] LABS: Bacteria Urine None Seen (None Seen); Hyaline Casts Urine 0-2 /LPF (0-2); Squamous Epithelial Cell Urine 0-2 /HPF (0-2); WBC Urine 0-5 /HPF (0-5)
[2024-10-30 15:57] LABS: Alanine Aminotransferase 20 U/L (0-31); Alkaline Phosphatase 90 U/L (39-117); Anion Gap 14 (12-20); Aspartate Amino Transferase 20 U/L (5-31); Bilirubin Direct 0.2 mg/dL (0.0-0.5); Bilirubin Total 0.4 mg/dL (0.0-1.0); Blood Urea Nitrogen 7 mg/dL (9-16); Calcium 8.8 mg/dL (8.4-10.2); Carbon Dioxide 24 mmol/L (22-29); Chloride 107 mmol/L (96-108); Creatinine Clr Calc Pharmacy 117.3; Estimated Glomerular Filt Rate > 60; Glucose Random 103 mg/dL (60-115); Lipase 15 U/L (8-78); Potassium 3.5 mmol/L (3.3-5.1); Sodium 141 mmol/L (135-145); Total Protein 7.4 g/dL (6.5-8.0)
[2024-10-30 16:06] LABS: SLIDE REVIEW VERIFIED
[2024-10-30] MEDS: Ketorolac Tromethamine 30 MG/ML VIAL IVPUSH (19:20)
[2024-10-30] MEDS: Doxycycline Hyclate 100 MG in 0.9 % Sodium Chloride 250 ML 166.67 MG IV (19:21)
[2024-10-30] MEDS: cefoTEtan disodium 2 GM VIAL IVPUSH (19:21)
[2024-10-30] MEDS: iohexoL 350 MG/ML 100 ML INFUS..BTL IV (19:44)
[2024-10-30 20:58] VITALS: BP 130/65; PULSE 76; RESP 18; TEMP 36.9; O2SAT 98
[2024-10-30 22:21] VITALS: RESP 18
[2024-10-30] MEDS: Morphine Sulfate 4 MG/ML CARTRIDGE IVPUSH (22:21)
[2024-10-30] MEDS: ondansetron HCL 4 MG/2 ML VIAL IVPUSH (22:21)
--- NOTE | 2024-10-30 22:21 | PM.IMHP ---
History of Present Illness Date of Service: 10/30/24 <Jennifer Hinds PA-C - Last Filed: 10/30/24 22:37> Attending physician on admission: Bhavana Messina <MANDO Loja Last Filed: 10/30/24 22:37> Chief Complaint: +bacteremia <MANDO Loja Last Filed: 10/30/24 22:37> Patient is a 44-year-old female with a past medical history significant for HTN, bursitis, insomnia, depression, PTSD and multiple STIs including Trichomonas 1 month ago, who presented to the ED yesterday was diagnosed with PID and treated with ceftriaxone, Flagyl and doxycycline. She was called back to the ED today due to positive blood cultures with Gram negative rods. She continues to have lower abdominal discomfort in the suprapubic region and urinary frequency/urgency due to pressure. She denies dysuria or hematuria. She also denies any vaginal discharge. She reports she was recently diagnosed with BV and endometriosis and has not yet started her BV treatment. She does have recurrent BV. <MANDO Loja Last Filed: 10/30/24 22:37> Review of Systems Constitutional: Constitutional: Denies body ache(s), Denies chills, Denies fatigue, Denies fever(s) and Denies headache(s) <MANDO Loja Last Filed: 10/30/24 22:37> Eyes: Eyes: Denies change in vision and Denies photophobia <MANDO Loja Last Filed: 10/30/24 22:37> ENT: Denies headache(s) <MANDO Loja Last Filed: 10/30/24 22:37> Cardiovascular: Cardiovascular: Denies chest pain, Denies rapid heart rate, Denies leg edema, Denies lightheadedness, Denies dyspnea and Denies dyspnea on exertion <MANDO Loja Last Filed: 10/30/24 22:37> Respiratory: Respiratory: Denies chest congestion, Denies cough, Denies dyspnea, Denies dyspnea on exertion and Denies wheezing <MANDO Loja Last Filed: 10/30/24 22:37> Gastrointestinal: Gastrointestinal: Denies diarrhea, Denies nausea and Denies vomiting <Jennifer Hinds PA-C - Last Filed: 10/30/24 22:37> Genitourinary: Genitourinary: Denies hematuria, Denies difficulty voiding, Reports nocturia, Denies dysuria, Reports pelvic pain, Reports urinary urgency and Denies vaginal discharge <Jennifer Hinds PA-C - Last Filed: 10/30/24 22:37> Musculoskeletal: Musculoskeletal: Denies myalgias <Jennifer Hinds PA-C - Last Filed: 10/30/24 22:37> Integumentary/Breasts: Skin/Breast: Denies rash <Jennifer Hinds PA-C - Last Filed: 10/30/24 22:37> Neurologic: Denies confusion and Denies headache(s) <Jennifer Hinds PA-C - Last Filed: 10/30/24 22:37> Psychiatric: Psychiatric: Denies confusion <Jennifer Hinds PA-C - Last Filed: 10/30/24 22:37> Endocrine: Endocrine: Denies fatigue <Jennifer Hinds PA-C - Last Filed: 10/30/24 22:37> Hematologic/Lymphatic: Hematologic/Lymphatic: Denies easy bleeding and Denies easy bruising <Jennifer Hinds PA-C - Last Filed: 10/30/24 22:37> Allergic/Immunologic: Allergic/Immunologic: Denies wheezing <Jennifer Hinds PA-C - Last Filed: 10/30/24 22:37> [facility] Medical History: Medical History (Updated 10/30/24 @ 22:26 by Jennifer Hinds PA-C) Hx of trichomonal vaginitis Endometriosis PTSD (post-traumatic stress disorder) Depression Insomnia Bursitis HTN (hypertension) <Jennifer Hinds PA-C - Last Filed: 10/30/24 22:37> Functional capacity: independent ambulation <Jennifer Hinds PA-C - Last Filed: 10/30/24 22:37> Social History: Social History Unable to assess alcohol history related to: Unknown Advance Directives: No Advance Directives Information Provided: Yes <MANDO Loja Last Filed: 10/30/24 22:37> Meds Allergies/Adverse reactions: Allergies Allergy/AdvReac Type Severity Reaction Status Date / Time nitrofurantoin Allergy Severe RASH Verified 10/30/24 15:16 [From MACROBID] Penicillins [PENICILLINS] Allergy Severe RASH Verified 10/30/24 15:16 <MANDO Loja Last Filed: 10/30/24 22:37> Active Medications: Current Medications Acetaminophen (Acetaminophen 325 Mg Tablet) 650 mg PO Q6H PRN PRN Reason: Pain, Mild 1-3,fever,headache Calcium Carbonate (Calcium Carbonate 750 Mg Tab.Chew) 750 mg PO Q4H PRN PRN Reason: Heartburn Ceftriaxone Sodium (Ceftriaxone Sodium 2 Gm Vial) 2 gm IVPUSH Q24H GLORIA Enoxaparin Sodium (Enoxaparin Sodium 40 Mg/0.4 Ml Syringe) 40 mg SUBCUT Q24H GLORIA Metronidazole (Flagyl) 500 mg in 100 mls @ 100 mls/hr IV Q12H GLORIA Magnesium Hydroxide (Milk Of Magnesia 30 Ml Oral.Susp) 30 ml PO DAILY PRN PRN Reason: Constipation Melatonin (Melatonin 3 Mg Tablet) 6 mg PO BEDTIME PRN PRN Reason: Insomnia Ondansetron HCl (Ondansetron Hcl 4 Mg/2 Ml Vial) 4 mg IVPUSH Q8H PRN PRN Reason: Nausea and Vomiting Sodium Chloride (0.9 % Sodium Chloride Flush 3 Ml Syringe) 3 ml IVFLUSH QSHIFT GLORIA <MANDO Loja Last Filed: 10/30/24 22:37> Physical Exam Vital Signs and Narrative: Vital Signs: Last Vital Signs Temp 98.5 F 10/30/24 20:58 Pulse 76 10/30/24 20:58 Resp 18 10/30/24 20:58 BP 130/65 10/30/24 20:58 Pulse Ox 98 10/30/24 20:58 O2 Del Method Room Air 10/30/24 20:58 BMI result Body Mass Index 34.0 <MANDO Loja Last Filed: 10/30/24 22:37> General: AOx3, no acute distress Resp: CTA bilaterally CVS: S1, S2, RRR GI: +BS, lower abd tenderness, no distention Skin: Warm, dry Neuro: Cranial nerves II-XII grossly intact bilaterally. Motor grossly intact bilaterally Extremities: No LE edema Psych: Appropriate affect <Jennifer GuzmanMANDO carrion - Last Filed: 10/30/24 22:37> Const: General: No confusion <Jennifer GrajedaPOOL carrionSpencer - Last Filed: 10/30/24 22:37> Orientation/consciousness: No confusion <Jennifer GrajedaPOOL carrionSpencer - Last Filed: 10/30/24 22:37> Eyes: Direct Ophthalmoscopy: No photophobia <Jennifer Guzman, PASpencer - Last Filed: 10/30/24 22:37> Neuro: General: No confusion <Jennifer Guzman, MANDO - Last Filed: 10/30/24 22:37> Results Labs CBC and Chem 7: 10/30/24 15:35 10/30/24 15:35 <Jennifer GrajedaPOOL carrionSpencer - Last Filed: 10/30/24 22:37> Labs: Laboratory Results - last 24 hr 10/30/24 15:35 MCV 90.1 MCH 30.7 MCHC 34.1 RDW 12.8 Plt Count 267 MPV 10.7 Immature Gran % (Auto) 0.3 Neut % (Auto) 52.1 Lymph % (Auto) 40.6 H Hidalgo % (Auto) 5.2 Eos % (Auto) 1.4 Baso % (Auto) 0.4 Lymph # (Auto) 6.8 H Hidalgo # (Auto) 0.9 Eos # (Auto) 0.2 Baso # (Auto) 0.1 Abs Immat Gran (auto) 0.05 H Absolute Neuts (auto) 8.7 H Absolute Nucleated RBC 0.000 Nucleated RBC % (auto) 0.0 Smear Tech's Comments VERIFIED Anion Gap 14 Estim Creat Clear Calc 117.3 Estimated GFR > 60 Random Glucose 103 Lactic Acid 1.0 Calcium 8.8 Magnesium 2.0 Total Bilirubin 0.4 Direct Bilirubin 0.2 AST 20 ALT 20 Alkaline Phosphatase 90 Total Protein 7.4 Albumin 4.0 Lipase 15 Urine Color Yellow Urine Appearance Clear Urine pH 7.5 Ur Specific Floyd 1.010 Urine Protein Negative Urine Glucose (UA) Negative Urine Ketones Negative Urine Blood Trace H Urine Nitrite Negative Ur Leukocyte Esterase Trace H Urine RBC 6-10 H Urine WBC 0-5 Ur Squamous Epith Cells 0-2 Urine Bacteria None Seen Hyaline Casts 0-2 Urine Test NEGATIVE <Jennifer Hinds PA-C - Last Filed: 10/30/24 22:37> Assessment and Plan (1) Sepsis: Status: Acute <Jennifer Hinds PA-C - Last Filed: 10/30/24 22:37> (2) Gram-negative bacteremia: Status: Acute <Jennifer Hinds PA-C - Last Filed: 10/30/24 22:37> (3) Acute pelvic inflammatory disease: Status: Acute <Jennifer Hinds PA-C - Last Filed: 10/30/24 22:37> (4) UTI (urinary tract infection): Status: Acute <Jennifer Hinds PA-C - Last Filed: 10/30/24 22:37> Patient is a 44-year-old female with a past medical history significant for HTN, bursitis, insomnia, depression, PTSD and multiple STIs including Trichomonas 1 month ago, who presented to the ED yesterday was diagnosed with PID and treated with ceftriaxone, Flagyl and doxycycline. Sent home yesterday, but called back today due to +blood culture with gram negative rods. sepsis, gram neg bo bacteremia, PID, suspected UTI - WBC 16.7, vitals stable today but was tachy yesterday, lactic normal, blood cultures + gram neg rods from yesterday, repeat blood culture pending - + cervical motion tenderness on exam yesterday in ED, treated for PID yesterday with doxy, flagyl and ceftriaxone - A/P CT with globus appearing uterine fundus with the parent thickening of the endometrium measuring up to 2.1 cm. likely due to endometriosis patient is scheduled for outpatient pelvic ultrasound with her [employer] - UA yesterday with possible UTI, cx pending still - chlamydia and gonorrhea negative yesterday - continue ceftraixone, doxy and flagyl - monitor CBC and BMP HTN - no home meds, monitor obesity - BMI 34.0 - weight loss encouraged full code VTE prophy: lovenox Patient with sepsis secondary to Gram-negative bo bacteremia, PID and a suspected UTI, requiring admission for at least 2 midnights stay for IV antibiotics. <Jennifer Hinds PA-C - Last Filed: 10/30/24 22:37> Patient is a 44-year-old female with a past medical history significant for HTN, bursitis, insomnia, depression, PTSD and multiple STIs including Trichomonas 1 month ago, who presented to the ED yesterday was diagnosed with PID and treated with ceftriaxone, Flagyl and doxycycline. Sent home yesterday, but called back today due to +blood culture with gram negative rods. sepsis, gram neg bo bacteremia, PID, suspected UTI - WBC 16.7, vital stable, lactic normal, blood cultures + gram neg rods from yesterday, repeat blood culture pending - + cervical motion tenderness on exam yesterday in ED, treated for PID yesterday with doxy, flagyl and ceftriaxone - A/P CT with globus appearing uterine fundus with the parent thickening of the endometrium measuring up to 2.1 cm. likely due to endometriosis patient is scheduled for outpatient pelvic ultrasound with her [employer] - UA yesterday with possible UTI, cx pending still - chlamydia and gonorrhea negative yesterday - continue ceftraixone, doxy and flagyl - monitor CBC and BMP HTN - no home meds, monitor obesity - BMI 34.0 - weight loss encouraged full code VTE prophy: lovenox Patient with sepsis secondary to Gram-negative bo bacteremia, PID and a suspected UTI, requiring admission for at least 2 midnights stay for IV antibiotics. <Bhavana Messina MD - Last Filed: 10/30/24 22:37> Quality Stroke Does the patient have a stroke diagnosis?: No <Jennifer Hinds PA-C - Last Filed: 10/30/24 22:37> VTE Prior VTE?: No <Jennifer Hinds PA-C - Last Filed: 10/30/24 22:37> VTE Risk Level:: Medical - moderate - high <Jennifer Hinds PA-C - Last Filed: 10/30/24 22:37> VTE Device Contraindication: Treatment Not Indicated <Jennifer Hinds PA-C - Last Filed: 10/30/24 22:37> VTE Drug Contraindication: N/A - Med Ordered <Jennifer Hinds PA-C - Last Filed: 10/30/24 22:37>
--- NOTE | 2024-10-30 23:32 | PC.NURSE ---
This RN assumed pt care @ [id number]. Plan of care ongoing.
--- NOTE | 2024-10-31 00:09 | PC.NURSE ---
Per Dr Mcdonald pt should only receive Flagyl other meds should be given in the am. Plan of care ongoing.
--- NOTE | 2024-10-31 00:13 | PC.NURSE ---
This RN called and spoke to cardinal regarding changing rocephin for 0900. Plan of care ongoing.
[2024-10-31] MEDS: Enoxaparin Sodium 40 MG/0.4 ML SYRINGE SUBCUT ×2 (00:20→21:50)
[2024-10-31] MEDS: metroNIDAZOLE/NS 500 MG/100 ML PIGGYBACK 100 MG IV ×2 (00:20→10:03)
[2024-10-31] MEDS: 0.9 % Sodium Chloride Flush 3 ML SYRINGE IVFLUSH ×4 (00:20→21:45)
--- NOTE | 2024-10-31 00:29 | PC.NURSE ---
Pt medicated per [facility] Plan of care ongoing
[2024-10-31] MEDS: Acetaminophen 325 MG TABLET 650 MG PO ×2 (01:42→20:15)
[2024-10-31 03:09] VITALS: BP 129/75; PULSE 75; RESP 16; TEMP 36.8; O2SAT 98
--- NOTE | 2024-10-31 03:29 | PC.NURSE ---
Took over care From [place], pt sleeping at this time no sign of distress.
--- NOTE | 2024-10-31 03:43 | MHC.EDTECH ---
Pt requested food
--- NOTE | 2024-10-31 04:47 | PC.NURSE ---
pt is sleeping, no sign of distress
[2024-10-31 05:50] LABS: Basophils Absolute Auto 0.1 X10*3/uL (0.0-0.2); Basophils Percent Auto 0.4 % (0-2); Eosinophils Absolute Auto 0.2 X10*3/uL (0.0-0.4); Eosinophils Percent Auto 1.6 % (0-4); Hematocrit 35.5 % (37.0-47.0); Hemoglobin 12.1 g/dl (12.0-16.0); Imm Gran Abs Auto 0.05 X10*3/uL (0.00-0.03); Imm Gran Pct Auto 0.4 % (0.0-0.4); Lymphocytes Percent Auto 46.2 % (20-40); MANUAL DIFF FLAG SCAN; Mean Corpuscular HGB Conc 34.1 g/dl (31.0-35.0); Mean Corpuscular Hemoglobin 30.9 pg (27.0-33.0); Mean Corpuscular Volume 90.8 fL (80.0-98.0); Mean Platelet Volume 10.8 fL (9.4-12.3); Monocytes Absolute Auto 0.9 X10*3/uL (0.1-1.2); Monocytes Percent Auto 6.6 % (2-11); Neutrophils Absolute Auto 6.4 x10*3/uL (2.0-8.3); Neutrophils Percent Auto 44.8 % (45-73); Platelet Count 248 X10*3/uL (160-400); Red Blood Count 3.91 X10*6/uL (4.20-5.50); Red Cell Distribution Width 12.8 % (11.0-16.0); SCAN SMEAR FLAG 1; White Blood Count 14.1 X10*3/uL (4.8-10.8)
[2024-10-31 05:51] LABS: Lymphocytes Absolute Auto 6.5 X10*3/uL (1.2-4.9)
[2024-10-31 06:07] LABS: SLIDE REVIEW VERIFIED
[2024-10-31 06:10] LABS: Anion Gap 12 (12-20); Blood Urea Nitrogen 6 mg/dL (9-16); Calcium 8.8 mg/dL (8.4-10.2); Carbon Dioxide 25 mmol/L (22-29); Chloride 106 mmol/L (96-108); Creatinine Clr Calc Pharmacy 104.5; Estimated Glomerular Filt Rate > 60; Glucose Random 158 mg/dL (60-115); Potassium 2.9 mmol/L (3.3-5.1); Sodium 140 mmol/L (135-145)
--- NOTE | 2024-10-31 06:11 | PC.NURSE ---
critical lab reported to Dr. Messina
[2024-10-31] MEDS: Potassium Chloride Packet 20 MEQ PACKET 40 MEQ PO (06:24)
--- NOTE | 2024-10-31 06:27 | PC.NURSE ---
medicated per mar.
[2024-10-31] MEDS: cefTRIAXone sodium 2 GM VIAL IVPUSH (08:20)
[2024-10-31] MEDS: Ibuprofen 600 MG TABLET PO (08:27)
[2024-10-31] MEDS: ondansetron HCL 4 MG/2 ML VIAL IVPUSH (08:28)
[2024-10-31] MEDS: Doxycycline Hyclate 100 MG in 0.9 % Sodium Chloride 250 ML 166.67 MG IV ×2 (09:26→21:43)
--- NOTE | 2024-10-31 10:00 | MHC.CM.PN ---
PT REPORTS SHE LIVES ALONE AND HAS [employer] AROUND 15 HRS PER WEEK SHE USES NO DME SHE IS NOT INTERESTED IN COMPLETING A HCP PCP: RADHA WHITNEY IMM DELIVERED DCP: HOME, RESUME [employer] PT WILL ARRANGE TRANSPORT
[2024-10-31 12:04] VITALS: BP 126/71; PULSE 68; RESP 16; TEMP 37.2; O2SAT 96
--- NOTE | 2024-10-31 13:24 | HO.PM.IMPN ---
Subjective Subjective Date of Service: 10/31/24 Review of Systems Follow up sepsis, bacteremia, UTI no pain or discomfort Physical Exam Vital Signs: Vital Signs: Last Vital Signs Temp 98.9 F 10/31/24 12:04 Pulse 68 10/31/24 12:04 Resp 16 10/31/24 12:04 BP 126/71 10/31/24 12:04 Pulse Ox 96 10/31/24 12:04 O2 Del Method Room Air 10/31/24 12:04 BMI result Body Mass Index 34.0 Appearing in no acute distress head is normocephalic atraumatic eyes pupils are PERRLA sclera is anicteric mouth throat mucous membranes are intact and moist neck is supple no lymphadenopathy, no JVD noted lung sounds are clear to auscultation heart regular rate rhythm, clear S1, S2 positive bowel sounds, abdomen is soft, nontender neuro patient is alert x3, no focal deficits Objective Data Active Medications Acetaminophen (Acetaminophen 325 Mg Tablet) 650 mg PO Q6H PRN PRN Reason: Pain, Mild 1-3,fever,headache Last Admin: 10/31/24 01:42 Dose: 650 mg Documented By: NAY Calcium Carbonate (Calcium Carbonate 750 Mg Tab.Chew) 750 mg PO Q4H PRN PRN Reason: Heartburn Ceftriaxone Sodium (Ceftriaxone Sodium 2 Gm Vial) 2 gm IVPUSH Q24H [facility] Last Admin: 10/31/24 08:20 Dose: 2 gm Documented By: KIARRA Enoxaparin Sodium (Enoxaparin Sodium 40 Mg/0.4 Ml Syringe) 40 mg SUBCUT Q24H [facility] Last Admin: 10/31/24 00:20 Dose: 40 mg Documented By: NAY Metronidazole (Flagyl) 500 mg in 100 mls @ 100 mls/hr IV Q12H [facility] Last Infusion: 10/31/24 11:56 Dose: Infused Documented By: KIARRA Doxycycline Hyclate 100 mg/ (Sodium Chloride) 250 mls @ 166.67 mls/hr IV Q12H [facility] Last Infusion: 10/31/24 11:56 Dose: Infused Documented By: KIARRA Ibuprofen (Ibuprofen 600 Mg Tablet) 600 mg PO Q6H PRN PRN Reason: Pain, Moderate(Pain Scale 4-6) Last Admin: 10/31/24 08:27 Dose: 600 mg Documented By: KIARRA Magnesium Hydroxide (Milk Of Magnesia 30 Ml Oral.Susp) 30 ml PO DAILY PRN PRN Reason: Constipation Melatonin (Melatonin 3 Mg Tablet) 6 mg PO BEDTIME PRN PRN Reason: Insomnia Ondansetron HCl (Ondansetron Hcl 4 Mg/2 Ml Vial) 4 mg IVPUSH Q8H PRN PRN Reason: Nausea and Vomiting Last Admin: 10/31/24 08:28 Dose: 4 mg Documented By: KIARRA Sodium Chloride (0.9 % Sodium Chloride Flush 3 Ml Syringe) 3 ml IVFLUSH [facility] Last Admin: 10/31/24 08:22 Dose: 3 ml Documented By: KIARRA Labs 10/31/24 05:40 10/31/24 05:40 Labs: Laboratory Results - last 24 hr 10/30/24 10/31/24 15:35 05:40 MCV 90.1 90.8 MCH 30.7 30.9 MCHC 34.1 34.1 RDW 12.8 12.8 Plt Count 267 248 MPV 10.7 10.8 Immature Gran % (Auto) 0.3 0.4 Neut % (Auto) 52.1 44.8 L Lymph % (Auto) 40.6 H 46.2 H [place] % (Auto) 5.2 6.6 Eos % (Auto) 1.4 1.6 Baso % (Auto) 0.4 0.4 Lymph # (Auto) 6.8 H 6.5 H [place] # (Auto) 0.9 0.9 Eos # (Auto) 0.2 0.2 Baso # (Auto) 0.1 0.1 Abs Immat Gran (auto) 0.05 H 0.05 H Absolute Neuts (auto) 8.7 H 6.4 Absolute Nucleated RBC 0.000 0.000 Nucleated RBC % (auto) 0.0 0.0 Smear Tech's Comments VERIFIED VERIFIED Anion Gap 14 12 Estim Creat Clear Calc 117.3 104.5 Estimated GFR > 60 > 60 Random Glucose 103 158 H Lactic Acid 1.0 Calcium 8.8 8.8 Magnesium 2.0 Total Bilirubin 0.4 Direct Bilirubin 0.2 AST 20 ALT 20 Alkaline Phosphatase 90 Total Protein 7.4 Albumin 4.0 Lipase 15 Urine Color Yellow Urine Appearance Clear Urine pH 7.5 Ur Specific [place] 1.010 Urine Protein Negative Urine Glucose (UA) Negative Urine Ketones Negative Urine Blood Trace H Urine Nitrite Negative Ur Leukocyte Esterase Trace H Urine RBC 6-10 H Urine WBC 0-5 Ur Squamous Epith Cells 0-2 Urine Bacteria None Seen Hyaline Casts 0-2 Urine Test NEGATIVE Assessment and Plan (1) UTI (urinary tract infection): Status: Acute Plan Patient is a 44-year-old female with a past medical history significant for HTN, bursitis, insomnia, depression, PTSD and multiple STIs including Trichomonas 1 month ago, who presented to the ED yesterday was diagnosed with PID and treated with ceftriaxone, Flagyl and doxycycline. Sent home yesterday, but called back today due to +blood culture with gram negative rods. Sepsis, haemophilus bacteremia, PID, suspected UTI WBC 16.7, vitals stable + cervical motion tenderness on exam in ED, treated for PID with doxy, flagyl and ceftriaxone A/P CT with globus appearing uterine fundus with the parent thickening of the endometrium measuring up to 2.1 cm. likely due to endometriosis patient is scheduled for outpatient pelvic exam UA with possible UTI, cx pending still chlamydia and gonorrhea negative yesterday continue ceftraixone, doxy and flagyl monitor CBC and BMP ID consult hypokalemia replete HTN no home meds, monitor obesity BMI 34.0 weight loss encouraged full code VTE prophy: lovenox Quality Stroke Does the patient have a stroke diagnosis?: No VTE Prior VTE?: No VTE Risk Level:: Medical - moderate - high VTE Device Contraindication: Treatment Not Indicated VTE Drug Contraindication: N/A - Med Ordered
[2024-10-31 21:09] VITALS: BP 144/72; PULSE 82; RESP 18; TEMP 36.4; O2SAT 97
[2024-10-31 21:25] VITALS: BMI 32.5
[2024-10-31] MEDS: traMADoL HCL 50 MG TABLET 25 MG PO (21:54)
[2024-10-31 23:44] VITALS: BP 143/83; PULSE 64; RESP 16; TEMP 36; O2SAT 96
[2024-11-01] MEDS: metroNIDAZOLE/NS 500 MG/100 ML PIGGYBACK 100 MG IV ×2 (00:10→11:04)
[2024-11-01] MEDS: Ibuprofen 600 MG TABLET PO ×2 (00:12→08:47)
[2024-11-01] MEDS: 0.9 % Sodium Chloride Flush 3 ML SYRINGE IVFLUSH (07:14)
[2024-11-01 07:15] VITALS: BP 146/90; PULSE 68; RESP 18; TEMP 36.2; O2SAT 97
[2024-11-01 08:33] LABS: Anion Gap 12 (12-20); Blood Urea Nitrogen 13 mg/dL (9-16); Calcium 8.3 mg/dL (8.4-10.2); Carbon Dioxide 19 mmol/L (22-29); Chloride 110 mmol/L (96-108); Creatinine Clr Calc Pharmacy 120.3; Estimated Glomerular Filt Rate > 60; Glucose Random 104 mg/dL (60-115); Potassium 3.5 mmol/L (3.3-5.1); Sodium 137 mmol/L (135-145)
--- NOTE | 2024-11-01 08:36 | HO.PM.IMPN ---
Subjective Subjective Date of Service: 11/01/24 Review of Systems Follow up sepsis, bacteremia, UTI no pain or discomfort Physical Exam Vital Signs: Vital Signs: Last Vital Signs Temp 97.2 F 11/01/24 07:15 Pulse 68 11/01/24 07:15 Resp 18 11/01/24 07:15 BP 146/90 H 11/01/24 07:15 Pulse Ox 97 11/01/24 07:15 O2 Del Method Room Air 11/01/24 07:15 BMI result Body Mass Index 32.5 Appearing in no acute distress lung sounds are clear to auscultation heart regular rate rhythm, clear S1, S2 positive bowel sounds, abdomen is soft, nontender neuro patient is alert x3, no focal deficits Objective Data Active Medications Acetaminophen (Acetaminophen 325 Mg Tablet) 650 mg PO Q6H PRN PRN Reason: Pain, Mild 1-3,fever,headache Last Admin: 10/31/24 20:15 Dose: 650 mg Documented By: HODA Calcium Carbonate (Calcium Carbonate 750 Mg Tab.Chew) 750 mg PO Q4H PRN PRN Reason: Heartburn Ceftriaxone Sodium (Ceftriaxone Sodium 2 Gm Vial) 2 gm IVPUSH Q24H [facility] Last Admin: 10/31/24 08:20 Dose: 2 gm Documented By: KIARRA Enoxaparin Sodium (Enoxaparin Sodium 40 Mg/0.4 Ml Syringe) 40 mg SUBCUT Q24H [facility] Last Admin: 10/31/24 21:50 Dose: 40 mg Documented By: PRINCESS Metronidazole (Flagyl) 500 mg in 100 mls @ 100 mls/hr IV Q12H [facility] Last Infusion: 11/01/24 01:06 Dose: Infused Documented By: PRINCESS Doxycycline Hyclate 100 mg/ (Sodium Chloride) 250 mls @ 166.67 mls/hr IV Q12H [facility] Last Infusion: 11/01/24 00:10 Dose: Infused Documented By: PRINCESS Ibuprofen (Ibuprofen 600 Mg Tablet) 600 mg PO Q6H PRN PRN Reason: Pain, Moderate(Pain Scale 4-6) Last Admin: 11/01/24 00:12 Dose: 600 mg Documented By: PRINCESS Magnesium Hydroxide (Milk Of Magnesia 30 Ml Oral.Susp) 30 ml PO DAILY PRN PRN Reason: Constipation Melatonin (Melatonin 3 Mg Tablet) 6 mg PO BEDTIME PRN PRN Reason: Insomnia Ondansetron HCl (Ondansetron Hcl 4 Mg/2 Ml Vial) 4 mg IVPUSH Q8H PRN PRN Reason: Nausea and Vomiting Last Admin: 10/31/24 08:28 Dose: 4 mg Documented By: KIARRA Sodium Chloride (0.9 % Sodium Chloride Flush 3 Ml Syringe) 3 ml IVFLUSH QSHIFT [facility] Last Admin: 11/01/24 07:14 Dose: 3 ml Documented By: CLAUDIA Labs 10/31/24 05:40 11/01/24 08:06 Labs: Laboratory Results - last 24 hr 11/01/24 08:06 Anion Gap 12 Estim Creat Clear Calc 120.3 Estimated GFR > 60 Random Glucose 104 Calcium 8.3 L Microbiology Microbiology Results: Microbiology 10/30/24 22:45 Blood Culture - Preliminary Blood - Venous No growth after 24 hours. 10/30/24 15:35 Blood Culture - Preliminary Blood - Venous No growth after 24 hours. Assessment and Plan (1) UTI (urinary tract infection): Status: Acute Plan Patient is a 44-year-old female with a past medical history significant for HTN, bursitis, insomnia, depression, PTSD and multiple STIs including Trichomonas 1 month ago, who presented to the ED yesterday was diagnosed with PID and treated with ceftriaxone, Flagyl and doxycycline. Sent home yesterday, but called back today due to +blood culture with gram negative rods. Sepsis, haemophilus bacteremia, PID Sepsis resolved + cervical motion tenderness on exam in ED, treated for PID with doxy, flagyl and ceftriaxone A/P CT with globus appearing uterine fundus with the parent thickening of the endometrium measuring up to 2.1 cm. likely due to endometriosis patient is scheduled for outpatient pelvic exam chlamydia and gonorrhea negative yesterday continue ceftriaxone, doxy and flagyl ID consult Hypokalemia replete and resolved HTN amlodipine, clonidine Obesity class I BMI 32.5 weight loss encouraged full code VTE prophy: lovenox Quality Stroke Does the patient have a stroke diagnosis?: No VTE Prior VTE?: No VTE Risk Level:: Medical - moderate - high VTE Device Contraindication: Treatment Not Indicated VTE Drug Contraindication: N/A - Med Ordered
--- NOTE | 2024-11-01 08:56 | PHA.MEDREC ---
Pharmacy Consult ? Medication Reconciliation Pharmacy has completed the medication reconciliation. CHECKED NURSE MED REC WITH CLAIM HISTORY
[2024-11-01] MEDS: Doxycycline Hyclate 100 MG in 0.9 % Sodium Chloride 250 ML 166.67 MG IV (08:57)
[2024-11-01 09:38] VITALS: BP 144/90
[2024-11-01] MEDS: Sertraline HCL 50 MG TABLET PO (09:38)
[2024-11-01] MEDS: Cyanocobalamin (Vitamin B-12) 1,000 MCG TABLET 1000 MCG PO (09:38)
[2024-11-01] MEDS: amLODIPine Besylate 2.5 MG TABLET PO (09:38)
[2024-11-01] MEDS: cefTRIAXone sodium 2 GM VIAL IVPUSH (11:03)
--- NOTE | 2024-11-01 14:28 | PM.DS ---
DS: Providers Provider Date of Service: 11/01/24 Date of admission: 10/30/24 21:52 Date of discharge: 11/01/24 Primary care physician: Liat Nunez MD Consults: 10/31/24 14:57 Consult to Infectious Diseases Routine Consulting Provider: [facility] Reason for consultation: bacteremia DS: Diagnosis Discharge Diagnosis (1) UTI (urinary tract infection): Status: Acute DS: Summary Hospital Course Hospital Course: History and physical as per admitting provider. Patient is a 44-year-old female with a past medical history significant for HTN, bursitis, insomnia, depression, PTSD and multiple STIs including Trichomonas 1 month ago, who presented to the ED yesterday was diagnosed with PID and treated with ceftriaxone, Flagyl and doxycycline. She was called back to the ED today due to positive blood cultures with Gram negative rods. She continues to have lower abdominal discomfort in the suprapubic region and urinary frequency/urgency due to pressure. She denies dysuria or hematuria. She also denies any vaginal discharge. She reports she was recently diagnosed with BV and endometriosis and has not yet started her BV treatment. She does have recurrent BV. Sepsis, haemophilus bacteremia, PID. Sepsis resolved . + cervical motion tenderness on exam in ED, treated for PID with doxy, flagyl and ceftriaxone. A/P CT with globus appearing uterine fundus with the parent thickening of the endometrium measuring up to 2.1 cm. likely due to endometriosis patient is scheduled for outpatient pelvic exam . chlamydia and gonorrhea negative yesterday.Treated with ceftriaxone, doxy and flagyl, ID consult> rec Levaquin for 14 days. She should continue the abx she received in the ED previously as well. Hypokalemia . repleted and resolved HTN. amlodipine, clonidine Obesity class I. BMI 32.5. weight loss encouraged Time Attestation Discharge Coordination Time (in mins): 40 Quality: Safe Use of Opioids Does Pt have an Active Cancer Diagnosis on the Problem List?: No Quality: Stroke Does the patient have a stroke diagnosis?: No Physical Exam Vital Signs: Vital Signs: Last Vital Signs Temp 97.2 F 11/01/24 07:15 Pulse 68 11/01/24 07:15 Resp 18 11/01/24 07:15 BP 144/90 H 11/01/24 09:38 Pulse Ox 97 11/01/24 07:15 O2 Del Method Room Air 11/01/24 07:15 BMI result Body Mass Index 32.5 Appearing in no acute distress head is normocephalic atraumatic eyes pupils are PERRLA sclera is anicteric mouth throat mucous membranes are intact and moist neck is supple no lymphadenopathy, no JVD noted lung sounds are clear to auscultation heart regular rate rhythm, clear S1, S2 positive bowel sounds, abdomen is soft, nontender neuro patient is alert x3, no focal deficits DS: Data Data Completed and Pending Labs on day of discharge: Laboratory Results - last 24 hr 11/01/24 08:06 Sodium 137 Potassium 3.5 D Chloride 110 H Carbon Dioxide 19 L Anion Gap 12 BUN 13 Creatinine 0.62 Estim Creat Clear Calc 120.3 Estimated GFR > 60 Random Glucose 104 Calcium 8.3 L Preliminary micro results at discharge 10/30/24 22:45 Blood Culture - Preliminary Blood - Venous No growth after 24 hours. 10/30/24 15:35 Blood Culture - Preliminary Blood - Venous No growth after 24 hours. Discharge Plan Discharge Anticipated Discharge Date/Time: 11/01/24 14:07 Patient Disposition: Home, Self-Care Discharge Diagnosis: Haemophilus species bacteremia Discharge Medications: New levofloxacin 500 mg tablet 500 mg PO DAILY Qty: 14 0RF Continued metronidazole 500 mg tablet 500 mg PO BID 14 Days Qty: 28 0RF doxycycline hyclate 100 mg tablet 100 mg PO Q12H 14 Days Qty: 28 0RF clonidine HCl 0.1 mg tablet 0.1 mg PO BEDTIME valacyclovir 1 gram tablet 1,000 mg PO DAILY PRN (Reason: hsv flare) metronidazole 0.75 % (37.5mg/5 gram) gel 5 g vaginal 2XW sennosides-docusate sodium [Stimulant Laxative Plus] 8.6-50 mg tablet 1 tab PO DAILY cyanocobalamin (vitamin B-12) 1,000 mcg Tablet 1,000 mcg PO DAILY amlodipine 2.5 mg tablet 2.5 mg PO DAILY tramadol 50 mg Tablet 50 mg PO Q6H PRN (Reason: Pain (Scale Score 7-10)) lansoprazole 15 mg capsule,delayed release(DR/EC) 15 mg PO DAILY hydroxyzine HCl 25 mg tablet 25 mg PO BEDTIME sertraline 50 mg tablet 50 mg PO DAILY acetaminophen [Tylenol Extra Strength] 500 mg tablet 1,000 mg PO Q6H PRN (Reason: Pain (Scale Score 1-3)) ibuprofen 400 mg tablet 400 mg PO TID PRN (Reason: Pain (Scale Score 4-6)) morphine 15 mg tablet 15 mg PO Q8H PRN (Reason: Pain (Scale Score 7-10)) Rx Instructions: Partial Fill upon patient request. Discharge Orders: Discharge Order (Routine); Ordered 11/01/24 Ordered By: Kay Alvarez Diet: Advance to usual diet Activity on Discharge: As tolerated Stand Alone Forms: Patient Portal Discharge page Print Language: Cambodian Care Plan Goals: Complete all antibiotics Health Concerns: Haemophilus species bacteremia Plan of Treatment: Follow-up with primary care provider as needed Follow up with Gynecology for next scheduled appointment Take all medications as prescribed Assessment: See discharge summary
--- NOTE | 2024-11-01 14:29 | MHC.CLN ---
NUTRITION ROUTINE NUTRITION CONSULT. SUSPECT CONSULT TRIGGERED DUE TO UNSURE OF WEIGHT LOSS . PATIENT OBESE WITH BMI=32.5. NO ADDITIONAL WEIGHT HX VIEWED. DIET=REGULAR AND NO NOTED CONCERNS WITH CURRENT PO INTAKE.
--- NOTE | 2024-11-01 14:45 | MHC.CM.PN ---
Patient is discharged to home self care today. She has arranged for a ride home.
[2024-11-01 15:09] VITALS: BP 137/82; PULSE 78; RESP 18; TEMP 36.6; O2SAT 97
--- NOTE | 2024-11-01 23:35 | P.CNID_ITS ---
History of Present Illness Data of Consult Service Date: 10/25/24 Requesting physician: Kay Alvarez Primary Care Provider: Liat Nunez MD HPI Reason for consult: bacteremia She presents with RLQ pain for two to three days and had fever to 101 at home. She had cervical motion tenderness thought to be PID. She has hemophilus influenza bacteremia. She has no cough or respiratory symptoms. Review of Systems 2 Review of Systems: Yes all other systems are reviewed and are negative PMFSH Past Medical History Medical History Hx of trichomonal vaginitis Endometriosis PTSD (post-traumatic stress disorder) Depression Insomnia Bursitis HTN (hypertension) Family History Family history: reviewed and not pertinent Social History Social History Household Members: None Housing: Apartment Do you presently have visiting nurse or other home services: Yes (RN ANESTHESIOLOGY) Unable to assess alcohol history related to: Unknown Patient Tobacco Use Status: Never used Tobacco Substance Use Type: Marijuana service: No Meds Allergies Allergy/AdvReac Type Severity Reaction Status Date / Time nitrofurantoin Allergy Severe RASH Verified 10/30/24 15:16 [From MACROBID] Penicillins [PENICILLINS] Allergy Severe RASH Verified 10/30/24 15:16 Home Medications ?Medication ?Instructions ?Recorded ?Confirmed ?Last Taken ?Type acetaminophen 500 mg tablet 1,000 mg PO Q6H PRN Pain (Scale 10/31/24 10/31/24 10/29/24 History (Tylenol Extra Strength) Score 1-3) amlodipine 2.5 mg tablet 2.5 mg PO DAILY 10/31/24 10/31/24 10/29/24 History clonidine HCl 0.1 mg tablet 0.1 mg PO BEDTIME 10/31/24 10/31/24 10/29/24 History cyanocobalamin (vitamin B-12) 1,000 mcg PO DAILY 10/31/24 10/31/24 10/29/24 History 1,000 mcg tablet hydroxyzine HCl 25 mg tablet 25 mg PO BEDTIME 10/31/24 10/31/24 10/29/24 History ibuprofen 400 mg tablet 400 mg PO TID PRN Pain (Scale 10/31/24 10/31/24 10/29/24 History Score 4-6) lansoprazole 15 mg capsule,delayed 15 mg PO DAILY 10/31/24 10/31/24 10/29/24 History release metronidazole 0.75 % (37.5 mg/5 5 g vaginal 2XW 10/31/24 10/31/24 10/29/24 History gram) vaginal gel morphine 15 mg immediate release 15 mg PO Q8H PRN Pain (Scale Score 10/31/24 10/31/24 10/29/24 History tablet 7-10) sennosides 8.6 mg-docusate sodium 1 tab PO DAILY 10/31/24 10/31/24 10/29/24 History 50 mg tablet (Stimulant Laxative Plus) sertraline 50 mg tablet 50 mg PO DAILY 10/31/24 10/31/24 10/29/24 History tramadol 50 mg tablet 50 mg PO Q6H PRN Pain (Scale Score 10/31/24 10/31/24 10/29/24 History 7-10) valacyclovir 1 gram tablet 1,000 mg PO DAILY PRN hsv flare 10/31/24 10/31/24 10/29/24 History Physical Exam 2 Vital Signs: Vital Signs: Last Vital Signs Temp 98 F 11/01/24 15:09 Pulse 78 11/01/24 15:09 Resp 18 11/01/24 15:09 BP 137/82 11/01/24 15:09 Pulse Ox 97 11/01/24 15:09 O2 Del Method Room Air 11/01/24 15:09 BMI result Body Mass Index 32.5 Const: General: cooperative HEENT: Head: Yes normal to inspection Face and sinus: Yes normal facial exam Mouth: Normal oral and palatal mucosa present Teeth and gingiva: d entition normal Eyes: General: appearance normal, both eyes and all related structures P upils: Equal, round and reactive pupils present Resp: Effort & Inspection: normal respiratory effort Cardio: Rate: regular rate Rhythm: regular rhythm GI: Other: RLQ pain,no rebound Palpation (GI): Soft to palpation and nontender : General: Yes no CVA tenderness Back/Spine/Pelvis: Back: no CVA tenderness Skin: General skin exam: no rashes or lesions noted Neuro: General: moves all extremities Cranial nerves: Yes Equal, round and reactive pupils present Extrem: General: Yes normal to inspection Psych: Appearance: grossly normal Results Labs 10/31/24 05:40 11/01/24 08:06 Labs: BMP 11/01/24 08:06 Sodium 137 Potassium 3.5 D Chloride 110 H Carbon Dioxide 19 L BUN 13 Creatinine 0.62 Calcium 8.3 L Microbiology Microbiology Results: Microbiology 10/30/24 15:35 Blood - Venous Blood Culture - Preliminary No growth after 48 hours. 10/30/24 22:45 Blood - Venous Blood Culture - Preliminary No growth after 24 hours. Assessment and Plan (1) Sepsis: Status: Acute (2) Acute pelvic inflammatory disease: Status: Acute Plan She has Hemophilus influenza bacteremia. This is unusual with PID but possible. Would check HIV and HepatitisC. Po Levaquin for 14 days. Followup STD check.
== END 2024-11-01 16:11 | disposition home or self-care (01) | DRG 872 ==
LOC: HO.ED 21:04 → HO.EDOVER 22:02 → HO.S3 10-31 19:40
PROVIDERS: Physician Assistant; Admitting Provider Student in an Organized Health Care Education/Training Program; Emergency Provider Emergency Medicine Emergency Medical Services; PCP Internal Medicine; Visit Provider Nurse Practitioner Acute Care
DX: A41.9 Sepsis, unspecified organism (principal); N73.0 Acute parametritis and pelvic cellulitis; E87.6 Hypokalemia; F43.10 Post-traumatic stress disorder, unspecified; B96.89 Other specified bacterial agents as the cause of diseases classified elsewhere; I10 Essential (primary) hypertension; E66.811 Obesity, class 1; Z71.3 Dietary counseling and surveillance; N80.9 Endometriosis, unspecified; Z79.899 Other long term (current) drug therapy
CPT/HCPCS: 36415; 74177; 80048; 80076; 81001; 81025; 83605; 83690; 83735; 85025; 87040; 99285; J0696; J1650; J1836; J1885; J2270; J2405; Q9967

== ENCOUNTER → 2024-10-30 18:16 | Outpatient (BNV) | payer OTHER, SELFPAY | PROVIDERS: Emergency Provider Emergency Medicine Emergency Medical Services; Visit Provider Student in an Organized Health Care Education/Training Program | DX: R10.2 Pelvic and perineal pain (principal); N80.9 Endometriosis, unspecified; N28.1 Cyst of kidney, acquired | CPT/HCPCS: 74177 ==

== ENCOUNTER → 2024-10-30 21:52 | Outpatient (BNV) | payer OTHER, SELFPAY | PROVIDERS: Admitting Provider Student in an Organized Health Care Education/Training Program; Emergency Provider Emergency Medicine Emergency Medical Services; Visit Provider Physician Assistant | DX: N39.0 Urinary tract infection, site not specified (principal) | CPT/HCPCS: 99223; 99232; 99239 ==

== ENCOUNTER → 2024-10-30 21:52 | Outpatient (BNV) | payer OTHER, SELFPAY | PROVIDERS: Admitting Provider Student in an Organized Health Care Education/Training Program; Emergency Provider Emergency Medicine Emergency Medical Services; PCP Internal Medicine; Visit Provider Internal Medicine | DX: A41.9 Sepsis, unspecified organism (principal); N73.0 Acute parametritis and pelvic cellulitis | CPT/HCPCS: 99222 ==

== ENCOUNTER 2025-06-02 12:23 | Emergency (ER) | payer OTHER, SELFPAY ==
--- OUTSIDE RECORDS SUMMARY | 2024-06-21 15:52 | XMS_ITS | Encounter Summary ---
Author Organization [facility] Address [address] [place] [address] Care Team Providers Care Strawhat Sizer Name Role Phone Liat Nnuez MD Primary Care Provider [phone] Encounter Details Date Type Department Care Team (Late st Contact Info) Description 06/21/2024 3:52 PM EDT Hospital Encounter TH HISTORIC ENCOUNTERS [facility] CONVERSION ONLY Liat Nunez MD [address] [phone] Social History Tobacco Use Types Packs/Day Years Used Date Smoking Tobacco: Never Smokeless Tobacco: Never Alcohol Use Standard Drinks/Week Comments Yes 0 (1 standard drink = 0.6 oz pur e alcohol) Interpersonal Safety Answer Date Record ed Physical Abuse 01/27/2025 Verbal Abuse 01/27/2025 Comments No Sex and Gender Information Value Date Recorded Sex Assigned at Female 02/20/2025 1:28 PM EDT Legal Sex Female 10:11 AM EST Gender Identity Female 02/20/2025 1:28 PM EDT Sexual Orientation Choose not to disclose 2024 1:28 PM EDT documented as of this encounter Plan of Treatment Upcoming Encounters Date Type Department Care Team (Late st Contact Info) Description 06/05/2025 2:00 PM EDT Hospital Encounter [facility] Endoscopy [address] [place] [phone] Carter Chadwick MD 299 [facility] [address] [place] [address] Concepcion Serna CRNA [address] [place] [address] Kyra Lopes MD [address] [place] [address] 07/26/2025 2:00 PM EST Office Visit Internal Medicine - [place] 175 [facility] 200 [place] [address] Sabrina Lynn NP 175 [facility] [address] [place] [address] 12/06/2025 1:00 PM EDT Office Visit [facility] Hematology Oncology [address] [place] [phone] Michaela Bergeron MD [address] [place] [address] documented as of this encounter Goals Goal [...] on filedocumented in this encounter Care Teams Strawhat Sizer Relationship Specialty Start Date End Date Liat Nunez MD PCP - General Internal Medicine 07/19/18 07/29/24 documented as of this encounter
[2025-06-02 12:30] VITALS: BP 152/88; PULSE 74; O2SAT 98
[2025-06-02 12:53] VITALS: BP 142/85; PULSE 68; RESP 16; TEMP 36.1; O2SAT 97; BMI 32.3
--- NOTE | 2025-06-02 13:00 | ECG_ITS ---
Test Reason : N/V/D Blood Pressure : */* mmHG Vent. Rate : 69 BPM Atrial Rate : 69 BPM P-R Int : 170 ms QRS Dur : 86 ms QT Int : 418 ms P-R-T Axes : 37 74 32 degrees QTcB Int : 447 ms Normal sinus rhythm Normal ECG No previous ECGs available Referred By: Ranjana Montanez Electronically Signed By: JAMILAH GIBSON
[2025-06-02 13:24] VITALS: RESP 18
[2025-06-02 13:29] LABS: Hematocrit 40.3 % (37.0-47.0); Hemoglobin 13.8 g/dl (12.0-16.0); Imm Gran Abs Auto 0.07 X10*3/uL (0.00-0.03); Imm Gran Pct Auto 0.3 % (0.0-0.4); MANUAL DIFF FLAG SCAN; Mean Corpuscular HGB Conc 34.2 g/dl (31.0-35.0); Mean Corpuscular Hemoglobin 30.6 pg (27.0-33.0); Mean Corpuscular Volume 89.4 fL (80.0-98.0); NRBC Abs Auto 0.000 X10*3/uL (0.0-0.012); NRBC Pct Auto 0.0 /100WBC (0.0-0.2); Platelet Count 272 X10*3/uL (160-400); Red Blood Count 4.51 X10*6/uL (4.20-5.50); SCAN SMEAR FLAG 1; White Blood Count 20.2 X10*3/uL (4.8-10.8)
[2025-06-02 13:30] LABS: Lymphocytes Absolute Auto 13.4 X10*3/uL (1.2-4.9)
--- OUTSIDE RECORDS SUMMARY | 2025-06-02 13:52 | XMS_ITS | Encounter Summary ---
Author Organization [facility] Address [address] [place] [address] Care Team Providers Care Plunger Machine Operator Name Role Phone Liat Nunez MD Primary Care Provider [phone] Encounter Details Date Type Department Care Team (Late st Contact Info) Description 05/30/2025 Telephone Internal Medicine - [place] [address] [facility] [address] [place] [phone] Liat Nunez MD [address] [facility] [address] [place] [phone] Social History Tobacco Use Types Packs/Day Years [...] PM EDT documented as of this encounter Progress Notes * Oralia Bueno MA - 05/31/2025 3:21 PM EDT Called patient, and informed she must get referral from surgeon's office. * Liat Nunez MD - 05/31/2025 2:44 PM EDT Patient needs to contact the surgeon whoever did the surgery * Sarah Gagnon MA - 05/31/2025 2:34 PM EDT Patient is calling because physical therapy for shoulder pain due to a surgery she had is not working and would like to now if she could have an referral to go to [facility] they provide message therapy andshe said it helps. * Torrie Kothari - 05/30/2025 2:42 PM EDT Patient extremely abrupt in conversation today did not explain why her physical therapy is not working Unsure of where this therapy is done however her request for PCP to order Massage therapy for her documented in this encounter Plan of Treatment Upcoming Encounters Date Type Department Care Team (Late st Contact Info) Description 06/05/2025 2:00 PM EDT Hospital Encounter [facility] Endoscopy [address] [place] [phone] Carter Chadwick MD [address] [facility] [address] [place] [address] Concepcion Serna CRNA [address] [place] [address] Kyra Lopes MD [address] [place] [address] 07/26/2025 2:00 PM EST Office Visit Internal Medicine - [place] [address] [phone] Sabrina Lynn NP [address] [address] 12/06/2025 1:00 PM EDT Office Visit [facility] Hematology Oncology [address] [place] [phone] Michaela Bergeron MD [address] [place] [address] documented as of this encounter Goals Goal [...] on filedocumented in this encounter Care Teams Plunger Machine Operator Relationship Specialty Start Date End Date Liat Nunez MD [address] [phone] PCP - General Internal Medicine 07/30/24 documented as of this encounter
--- OUTSIDE RECORDS SUMMARY | 2025-06-02 13:52 | XMS_ITS | Clinical Summary ---
Author Organization [facility] Address [address] [place] [phone] Phone Care Team Providers Care Business Intelligence Manager Name Role Phone Liat Nunez MD Primary Care Provider [phone] Social History Tobacco Use Types Packs/Day Years Used Date Smoking Tobacco: Never Assessed Education Answer Date Recorded Are you interested in more education? Not on denia e 05/25/2025 Are you concerned about learning? Not on file 05/25/2025 No 05/25/2025 No 05/25/2025 Digital Access Answer Date Recorded No 05/25/2025 No 05/25/2025 Reliable internet access at home? Not on file 05/25/2025 Device with a working camera? Not on file Comments Unknown Sex and Gender Information Value Date Recorded Sex Assigned at Not on file Legal Sex Female 12:51 PM EDT Gender Identity Not on file Sexual Orientation Not on file Plan of Treatment Upcoming Encounters Date Type Department Care Team (Late st Contact Info) Description 06/06/2025 1:00 PM EDT Office Visit [facility] Orthopedics & Sports Medicine [address] [place] [phone] Flavio Robles MD [address] [place] [address] Orthopedics & Sports Medicine, [facility] [place], [place] [phone] Health Maintenance Due Date Last Done Comments Adult Td,Tdap Booster 1978 LIPID PANEL 1978 DEPRESSION SCREENING 1990 SMOKING Hx and SMOKELESS TOB ACCO SCREENING 1991 HEPATITIS C SCREENING 1996 HIV ONE-TIME SCREENING (18-6 5 YEARS) 1996 PAP SMEAR 1999 MAMMOGRAM 2018 COLOGUARD 2023 COLONOSCOPY 2023 COLORECTAL CANCER SCREENING 2023 FIT TEST 2023 FOBT 2023 SIGMOIDOSCOPY 2023 VIRTUAL COLONOSCOPY 2023 INFLUENZA VACCINE (#1) 2025 COVID-19 VACCINE (1 - 2023-2 5 season) 2025 HEPATITIS A VACCINES Aged Out No long er eligible based on patient's age to complete this topic HIB VACCINES Aged Out No longer eligi ble based on patient's age to complete this topic MENINGOCOCCAL VACCINES (ACWY) Aged Out No longer eligible based on patient's age to complete this topic MENINGOCOCCAL VACCINES (B) Aged Out N o longer eligible based on patient's age to complete this topic PNEUMOCOCCAL VACCINES (0-49 years) Aged Out No longer eligible based on patient's age to complete this topic Medical Devices Not on file Insurance [facility] MEDICARE REPLACEMENT [place] [id number] [facility] MEDICARE REPLACEMENT [facility] MEDICARE REPLACEMENT [facility] MEDICARE REPLACEMENT [facility] MEDICARE REPLACEMENT [facility] ONE CARE MEDICARE REPLACEMENT Care Teams Business Intelligence Manager Relationship Specialty Start Date End Date Liat Nunez MD [address] [address] PCP - General Internal Medicine 05/25/25 Additional Source Comments The information contained in this document represents components of the legal health record. It is not the complete legal health record.[facility]
--- OUTSIDE RECORDS SUMMARY | 2025-06-02 13:52 | XMS_ITS | Clinical Summary ---
Author Organization [facility] Address [address] [place] [address] Phone Care Team Providers Care Manager Cash Name Role Phone Liat Nunez MD Primary Care Provider [phone] Allergies Active Allergy Reactions Criticality Noted Date Comments Lisinopril Rash Low 02/09/2020 rash Nitrofurantoin Rash Low 09/19/2011 Other reaction(s): Rash, Rash/Dermatitis Penicillins Rash Low 09/19/2011 Other reaction(s): Hives/Urticaria, Rash Medications acetaminophen (TYLENOL) 500 mg tablet 11/17/19 24 Active cloNIDine (CATAPRES) 0.1 mg tablet Take 1 tablet (0.1 mg total) by mouth 2 (two) times a day. 12/08/19 24 Active hydrOXYzine HCL (ATARAX) 25 mg tablet Take 1 tablet (25 mg total) by mouth 2 (two) times a day. 12/15/19 24 Active loratadine (CLARITIN) 10 mg tablet Take 1 tablet (10 mg total) by mouth daily. Active LANSOPRAZOLE ORAL Take by mouth. Active amLODIPine (NORVASC) 2.5 mg tablet Take 1 tablet (2.5 mg total) by mouth 1 (one) time each day. 30 each 5 09/27/19 25 Active senna-docusate (PERICOLACE) 8.6-50 mg per tablet Take 1 tablet by mouth 1 (one) time each day. 30 each 3 09/27/19 25 026 Active doxycycline hyclate (VIBRA-TABS) 100 mg tablet 11/08/19 25 Active metroNIDAZOLE (FLAGYL) 500 mg tablet Take 1 tablet (500 mg total) by mouth 2 (two) times a day. for 14 days 10/30/19 25 Active ibuprofen (ADVIL,MOTRIN) 600 mg tablet Take 1 tablet (600 mg total) by mouth. Active omeprazole (PriLOSEC) [address] capsule TAKE 1 CAPSULE BY MOUTH DAILY 90 capsule 2 02/14/20 25 Active irbesartan (AVAPRO) 300 mg tablet TAKE 1 TABLET BY MOUTH DAILY 90 tablet 1 02/21/20 25 Active propranoloL (INDERAL) 20 mg tablet Take 1 tablet (20 mg total) by mouth 2 (two) times a day. 03/14/20 25 Active tiZANidine (ZANAFLEX) 4 mg tablet Take 1 tablet (4 mg total) by mouth if needed for muscle spasms. Active sertraline (ZOLOFT) 100 mg tablet Take 1 tablet (100 mg total) by mouth 1 (one) time each day. Active cholecalciferol (VITAMIN D-3) 50 mcg (2,000 unit) tabletIndications: Vitamin D deficiency Take 1 tablet (2,000 Units total) by mouth 1 (one) time each day. 90 tablet 03/23/20 25 Active magnesium oxide 400 mg magnesium capsuleIndications :Leg cramps Take 1 capsule by mouth at bedtime. 90 capsule 03/23/20 25 Active ketoconazole (NIZORAL) 2 % shampooIndications :Tinea capitis Shampoo daily, leave on for 5-10 minutes on scalp, then rinse. 120 mL 11 03/23/20 25 Active hydrocortisone 2.5 % creamIndications:I tch Apply topically 2 (two) times a day if needed for irritation or rash. 30 g 03/23/20 25 026 Active phentermine 15 mg capsuleIndications :BMI 34.0-34.9,adult,HT N (hypertension), benign,Hyperlipide gallo, unspecified hyperlipidemia type Take 1 capsule (15 mg total) by mouth 1 (one) time each day before breakfast. Max Daily Amount: 15 mg 30 each 3 04/13/20 25 Active bisacodyL (DULCOLAX) 5 mg EC tablet Take 2 tablets by mouth right before beginning bowel prep. See instructions provided by the office 2 tablet 05/22/20 25 Active polyethylene glycol (Golytely) 236-22.74-6.74 -5.86 gram solution Take 4L by mouth once for one dose. May substitue any PEG. Starting at 2PM the day before your procedure drink 1 8oz glasses at your own pace until you complete half of the gallon. Finish 2nd half of the gallon at 8PM. 4000 mL 05/22/20 25 Active Active Problems Problem Noted Date Diagnosed Date Atypical lobular hyperplasia (ALH) of left breas t 11/22/2024 Class 1 obesity 11/22/2024 Herpes 11/22/2024 PTSD (post-traumatic stress disorder) 11/14/2024 Depression 11/14/2024 HTN (hypertension), benign 11/14/2024 Adenomyosis 07/20/2023 Tremor of left hand 04/22/2023 Pyelonephritis, acute 04/25/2022 Chalazion 08/14/2021 Onychomycosis 08/14/2021 Kidney calculi 06/11/2018 Anxiety 04/16/2018 Hyperlipidemia 01/12/2018 Vitamin B12 deficiency 01/12/2018 Insomnia 07/02/2016 GERD (gastroesophageal reflux disease) 5 Vitamin D deficiency 11/07/2013 Arthritis 06/07/2013 Overview (11/22/2024): Comments: left hip Cervical disc herniation 10/27/2012 Overview (11/22/2024): Last Assessment & Plan: Ms. Evans is suffering with neck pain and shoulder pain. I explained to her that I did not think that her shoulder pain was coming from the neck. She has a disc bulge at C6-7 but no nerve impingement. We talked about physical therapy for the neck pain as well as acupuncture. I did provide a prescription for physical therapy and some information on acupuncture. I warned her against chiropractic treatment neck but told her it is okay back. She can follow-up with us in the future on an as-needed basis. Resolved Problems Problem Noted Date Diagnosed Date Resolved Date Foreign body in left foot 01/16/2025 Encounters Date Type Department Care Team Description 05/30/2025 Telephone Internal Medicine [facility] 175 [facility] [address] [place] [phone] Liat Nunez MD 05/22/2025 1:45 PM EDT Office Visit Orthopedic Surgery [facility] 250 175 [facility] [address] [place] [phone] Carlos Osborn DPM Pain (Primary Dx); Contusion of left great toe with damage to nail, subsequent encounter; Lumbosacral radiculopathy; Dermatophytosis, nail 04/17/2025 Telephone Internal Medicine [facility] 175 [facility] [address] [place] [phone] Liat Nunez MD 03/30/2025 Telephone Internal Medicine [facility] 175 [facility] [address] [place] [phone] Liat Nunez MD 03/23/2025 2:00 PM EDT Office Visit Internal Medicine [facility] 175 [facility] [address] [place] [phone] Sabrina Lynn NP Constipation, unspecified constipation type (Primary Dx); Colon cancer screening; Family history of colon cancer; Itch; Tinea capitis; Leg cramps; BMI 34.0-34.9,adult; Depression, unspecified depression type; Chronic pain of both shoulders; HTN (hypertension), benign; Hyperlipidemia, unspecified hyperlipidemia type; Vitamin D deficiency 03/22/2025 12:30 PM EDT Treatment [address] [address] Daniel Brenner, PT Cervicalgia (Primary Dx) 03/14/2025 1:30 PM EDT Treatment [address] [phone] Daniel Brenner, PT Cervicalgia (Primary Dx) 03/06/2025 3:00 PM EDT Treatment [address] [address] Daniel Brenner, PT Cervicalgia (Primary Dx) 03/02/2025 11:00 AM EDT Office Visit Orthopedic Surgery - [place] 250 175 [facility] [address] [place] [address] Carlos Osborn, DPM Pain in left foot (Primary Dx); Contusion of left great toe with damage to nail, subsequent encounter; Cellulitis of left foot from Last 3 Months Surgical History Surgery Date Site/Laterality Comments OTHER SURGICAL HISTORY PROCEDURE: HISTORY OTHER; COMMENT: excision of Bartolin's gland/cyst OTHER SURGICAL HISTORY PROCEDURE: DENIES PREVIOUS SURGERY ROTATOR CUFF REPAIR 11/17/2023 Left PROCEDURE: HISTORICAL ROTATOR CUFF REPAIR; COMMENT: left rotator cuff augmentation and subacromial decompression Medical History Medical History Date Comments Anxiety 04/16/2018 DX:Anxiety Arthritis 06/07/2013 DX:Arthritis; CO MMENT: Comments: left hip Bulging disc 10/27/2012 DX:Bulging disc Depression 07/02/2016 DX:Depression GERD (gastroesophageal reflux disease) DX:GERD (gastroesophageal reflux disease) Hyperlipidemia 01/12/2018 DX:Hyperlipidemi a Hypertension 04/16/2018 DX:Hypertension Insomnia 07/02/2016 DX:Insomnia Kidney calculi 06/11/2018 DX:Kidney calcul i Vitamin B12 deficiency 01/12/2018 DX:Vitami n B12 deficiency Vitamin D deficiency 11/07/2013 DX:Vitamin D deficiency Family History Relation Name Status Comments Father Alive htn, hyperlipid Mother Alive htn, hyperlipid , dm Social History Tobacco Use Types Packs/Day Years Used Date Smoking Tobacco: Never Smokeless Tobacco: Never Tobacco Cessation:Counseling Given: Not Answered Alcohol Use Standard Drinks/Week Comments Yes 0 [...] not to disclose 2024 1:28 PM EDT Obstetrics History Last Filed Vital Signs Vital Sign Reading Time Taken Comments Blood Pressure 132/84 03/23/2025 2:01 PM EDT Pulse 72 03/23/2025 2:01 PM EDT Temperature 36.2 C (97.1 F) 03/23/2025 2:01 PM EDT Respiratory Rate 18 03/23/2025 2:01 PM EDT Oxygen Saturation 99% 03/23/2025 2:01 PM EDT Inhaled Oxygen Concentration - - Weight 92.5 kg (204 lb) 03/23/2025 2:01 PM EDT Height 162.6 cm (5' 4.02 ) 03/23/2025 2:01 PM ED T Body Mass Index 34.99 03/23/2025 2:01 PM EDT Plan of Treatment Upcoming Encounters Date Type Department Care Team (Late st Contact Info) Description 06/05/2025 2:00 PM EDT Hospital Encounter [facility] Endoscopy [address] [place] [phone] Carter Chadwick MD [address] [address] Concepcion Serna CRNA [address] [place] [address] Kyra Lopes MD [address] [place] [address] 07/26/2025 2:00 PM EST Office Visit Internal Medicine - [place] 175 [facility] [address] [place] [phone] Sabrina Lynn NP 175 [facility] 200 [place] [address] 12/06/2025 1:00 PM EDT Office Visit [facility] Hematology Oncology [address] [place] [phone] Michaela Bergeron MD [address] [place] [address] Health Maintenance Due Date Last Done Comments Breast Cancer Screening 1978 Hepatitis B Vaccines (1 of 3 - 19+ 3-dose series) 1997 Cervical Cancer Screening: P ap Smear 1999 Colorectal Cancer Screening: Colonoscopy 08/23/2022 HIV Screening 08/23/2022 Hepatitis C Screening 08/23/2022 Medicare Annual Wellness Visit 08/23/2022 Social Influencers of Health Screening 08/23/2022 Depression Screening 09/14/2024 COVID-19 Vaccine (1 - 2023-2 5 season) 2025 Influenza Vaccine (#1) 2025 08/07/2010 Hypertension/CHF/CAD Annual BMP Blood Test 07/30/2025 07/30/2024 DTaP,Tdap,and Td Vaccines (4 - Td or Tdap) 04/10/2027 04/10/2017, 03/16/2013, 09/19/2011 Cholesterol Screening (Lipid Panel) 11/22/2029 11/22/2024 HIB Vaccines Aged Out No longer eligi ble based on patient's age to complete this topic HPV Vaccines Aged Out No longer eligi ble based on patient's age to complete this topic Hepatitis A Vaccines Aged Out No long er eligible based on patient's age to complete this topic IPV Vaccines Aged Out No longer eligi ble based on patient's age to complete this topic MMR Vaccines Aged Out No longer eligi ble based on patient's age to complete this topic Meningococcal ACWY Vaccine Aged Out N o longer eligible based on patient's age to complete this topic Meningococcal B Vaccine Aged Out No l onger eligible based on patient's age to complete this topic Pneumococcal Vaccine: Pediatrics (0 to 5 Years) and At-Risk Patients (6 to 49 Years) Aged Out No longer eligible b ased on patient's age to complete this topic RSV Immunization Patients Under 20 months Aged Out No longer eligible b ased on patient's age to complete this topic Varicella Vaccines Aged Out No longer eligible based on patient's age to complete this topic Goals Goal Patient Goal Type Associated Problems Recent Progress Patient-Stated? Author PT LTGs General No Daniel Brenner, PT Note: Pt will report cervical pain no greater than 5/10 with cervical AROM testing Pt will report cervical pain no greater than 3/10 with morning ADLs Pt will be independent with HEP Procedures Procedure Name Priority Date/Time Associated Diagnosis Comments LIPID PANEL WITH REFLEX TO DIRECT LDL Routine 11/22/2024 2:46 PM EDT Dyslipidemia Adult general medical examination Other fatigue COMPREHENSIVE METABOLIC PANEL STAT 07/30/2024 9:16 PM EST from Last 3 Months or Most Recently Relevant to Health Maintenance Results * (ABNORMAL) Lipid panel with reflex to direct LDL (11/22/2024 2:46 PM EDT) Cholesterol 235(H) 0 - 200 mg/dL LAB CHEMISTRY METHOD 11/22/2024 5:47 PM EDT [facility] Triglycerides 192(H) 0 - 150 mg/dL LAB CHEMISTRY METHOD 11/22/2024 5:47 PM EDT [facility] HDL 69 >=40 mg/dL LAB CHEMISTRY METHOD 11/22/2024 5:47 PM EDT [facility] LDL Calculated 128(H) 0 - 100 mg/dL LAB CHEMISTRY METHOD 11/22/2024 5:47 PM EDT [facility] VLDL Cholesterol Cristino 38.4 mg/dL LAB CHEMISTRY METHOD 11/22/2024 5:47 PM EDT [facility] Non HDL Chol. (LDL+VLDL) 166(H) <145 mg/dL LAB CHEMISTRY METHOD 11/22/2024 5:47 PM EDT [facility] Chol/HDL Ratio 3.4 0.0 - 4.4 LAB CHEMISTRY METHOD 11/22/2024 5:47 PM EDT [facility] Blood Venous blood specimen / Unknown Venipuncture / Unknown 11/22/2024 2:46 PM EDT 11/22/2024 4:15 PM EDT us Liat Nunez MD LAB BLOOD ORDERABLES Final Res ult [facility] [address] [place] [address], [place] [phone] * Comprehensive metabolic panel (07/30/2024 9:16 PM EST) Sodium 141 133 - 145 mmol/L LAB CHEMISTRY METHOD 07/30/2024 10:01 PM [facility] Potassium 3.6 3.5 - 5.5 mmol/L LAB CHEMISTRY METHOD 07/30/2024 10:01 PM [facility] Chloride 107 96 - 110 mmol/L LAB CHEMISTRY METHOD 07/30/2024 10:01 PM [facility] CO2 27 21 - 32 mmol/L LAB CHEMISTRY METHOD 07/30/2024 10:01 PM [facility] Anion Gap 7 3 - 11 LAB CHEMISTRY METHOD 07/30/2024 10:01 PM [facility] Glucose 96 70 - 100 mg/dL LAB CHEMISTRY METHOD 07/30/2024 10:01 PM [facility] BUN 15 5 - 25 mg/dL LAB CHEMISTRY METHOD 07/30/2024 10:01 PM [facility] Creatinine 0.87 0.50 - 1.10 mg/dL LAB CHEMISTRY METHOD 07/30/2024 10:01 PM [facility] eGFR 83 >=60 mL/min/1. 73m2 LAB CHEMISTRY METHOD 07/30/2024 10:01 PM [facility] Comment:Calculation based on the Chronic Kidney Disease Epidemiology Collaboration (CKD-EPI) equation refit without adjustment for race. BUN/Creatinine Ratio 17.2 LAB CHEMISTRY METHOD 07/30/2024 10:01 PM [facility] Calcium 9.2 8.5 - 10.5 mg/dL LAB CHEMISTRY METHOD 07/30/2024 10:01 PM [facility] AST (SGOT) 17 10 - 42 unit/L LAB CHEMISTRY METHOD 07/30/2024 10:01 PM [facility] ALT (SGPT) 22 10 - 60 unit/L LAB CHEMISTRY METHOD 07/30/2024 10:01 PM EST [facility] Alkaline Phosphatase 98 42 - 121 unit/L LAB CHEMISTRY METHOD 07/30/2024 10:01 PM [facility] Total Protein 7.0 6.0 - 8.0 g/dL LAB CHEMISTRY METHOD 07/30/2024 10:01 PM EST [facility] Albumin 4.0 3.2 - 5.0 g/dL LAB CHEMISTRY METHOD 07/30/2024 10:01 PM [facility] Total Bilirubin 0.9 0.0 - 1.4 mg/dL LAB CHEMISTRY METHOD 07/30/2024 10:01 PM [facility] Blood Venous blood specimen / Unknown Venipuncture / Unknown 07/30/2024 9:16 PM EST 07/30/2024 9:32 PM EST us Lore Sharpe MD LAB BLOOD ORDERABLES Fin al Result [facility] [address] [place] [address], from Last 3 Months or Most Recently Relevant to Health Maintenance Insurance [facility] MEDICARE Member Subscriber Plan / Payer (Ef fective 2019-Present) Name:ANJELICA EVANS Relation to Subscriber:Self Name:Anjelica Evans I Payer ID:[id number] Group ID:[id number] Type:Not on file Address: [place] [address] [place] [id number] Advance Directives * Full Code - Default (Latest Code Status on File) Date Activated Date Inactivated Comments 01/27/2025 1:07 PM 01/27/2025 5:44 PM This is orde r is used when code status has not been discussed with the patient, or code status is otherwise unknown/unconfirmed To update the patient's code status, place a code status order. Do not modify or discontinue any currently active code status orders. Care Teams Manager Cash Relationship Specialty Start Date End Date Liat Nunez MD [address] [place] [phone] PCP - General Internal Medicine 07/30/24
--- OUTSIDE RECORDS SUMMARY | 2025-06-02 13:52 | XMS_ITS | Clinical Summary ---
Author Organization [facility] Address [address] [place] [address] Care Team Providers Care Core Driller Helper Name Role Phone Liat Nunez MD Primary Care Provider [phone] Allergies Active Allergy Reactions Criticality Noted Date [...] 82 01/26/2024 1:40 PM EDT Temperature 36.6 C (97.8 F) 01/26/2024 1:40 PM EDT Respiratory Rate - - Oxygen Saturation 99% 01/26/2024 1:40 PM EDT Inhaled Oxygen Concentration - - Weight 93.4 kg (206 lb) 01/26/2024 1:40 PM EDT Height - - Body Mass Index - - Plan of Treatment Health Maintenance Due Date Last Done Comments Hepatitis B Vaccines (1 of 3 - 3-dose series) 1978 Hepatitis C Screening 1978 COVID-19 Vaccine (#1) 1978 Depression Screening 1990 Preventative Health Evaluation 1996 Cervical Cancer Screening (Pap Smear) 1999 Colon Cancer Screening (Colonoscopy) 2023 Influenza Vaccine (#1) 2025 DTap / Tdap / Td (3 - Td or Tdap) 04/10/2027 04/10/2017, 09/19/2011 Pneumococcal Vaccine Aged Out No long er eligible based on patient's age to complete this topic RSV Ped < 20 months Aged Out No longe r eligible based on patient's age to complete this topic Care Teams Core Driller Helper Relationship Specialty Start Date End Date Liat Nunez MD [address] [place] [phone] PCP - General Internal Medicine 01/04/24
--- NOTE | 2025-06-02 14:01 | ED.NAVMDI ---
HPI - Nausea/Vomiting/Diarrhea General Chief complaint: Abdominal Pain Stated complaint: NAUSEA,VOMITING PER EMS Time Seen by Provider: 06/02/25 12:48 Source: patient, EMS and old records reviewed Mode of arrival: EMS Limitations: no limitations History of Present Illness ED Provider: CHASITY LOUIS Narrative: 45 yo female with PMH of PID, endometriosis, STI in past here with c/o this AM waking up with diffuse abd pain, body aches, n/v. States she is very weak and feels tired/dizzy. She denies diarrhea, travel hx, food exposures sick contacts. She denies any bleeding. She was given ODT zofran en route by EMS but no improvement. She states she does get these episodes with endometriosis. MD elicited complaint: nausea, vomiting and abdominal pain Pertinent past history: other Onset (ago): hour(s) (few) Description of vomiting: food contents and watery Associated nausea: Yes Associated abdominal pain: Yes Location of pain: diffuse Radiation: diffuse Pain consistency: constant Severity: severe Quality: aching Exacerbating factors: eating, vomiting and movement Relieving factors: none Context: other Associated symptoms: headaches, loss of appetite, malaise, nausea/vomiting and weakness Related Data Home Medications ?Medication ?Instructions ?Recorded ?Confirmed acetaminophen 500 mg tablet 1,000 mg PO Q6H PRN Pain (Scale 10/31/24 10/31/24 (Tylenol Extra Strength) Score 1-3) amlodipine 2.5 mg tablet 2.5 mg PO DAILY 10/31/24 10/31/24 clonidine HCl 0.1 mg tablet 0.1 mg PO BEDTIME 10/31/24 10/31/24 cyanocobalamin (vitamin B-12) 1,000 mcg PO DAILY 10/31/24 10/31/24 1,000 mcg tablet hydroxyzine HCl 25 mg tablet 25 mg PO BEDTIME 10/31/24 10/31/24 ibuprofen 400 mg tablet 400 mg PO TID PRN Pain (Scale 10/31/24 10/31/24 Score 4-6) lansoprazole 15 mg capsule,delayed 15 mg PO DAILY 10/31/24 10/31/24 release metronidazole 0.75 % (37.5 mg/5 5 g vaginal 2XW 10/31/24 10/31/24 gram) vaginal gel morphine 15 mg immediate release 15 mg PO Q8H PRN Pain (Scale Score 10/31/24 10/31/24 tablet 7-10) sennosides 8.6 mg-docusate sodium 1 tab PO DAILY 10/31/24 10/31/24 50 mg tablet (Stimulant Laxative Plus) sertraline 50 mg tablet 50 mg PO DAILY 10/31/24 10/31/24 tramadol 50 mg tablet 50 mg PO Q6H PRN Pain (Scale Score 10/31/24 10/31/24 7-10) valacyclovir 1 gram tablet 1,000 mg PO DAILY PRN hsv flare 10/31/24 10/31/24 aripiprazole 5 mg tablet 5 mg PO BEDTIME 04/10/25 Previous Rx's ?Medication ?Instructions ?Recorded doxycycline hyclate 100 mg tablet 100 mg PO Q12H 14 days #28 tabs 10/29/24 metronidazole 500 mg tablet 500 mg PO BID 14 days #28 tabs 10/29/24 fluconazole 150 mg tablet 150 mg PO Q3D 2 doses #2 tabs 11/01/24 levofloxacin 500 mg tablet 500 mg PO DAILY #14 tabs 11/01/24 propranolol 10 mg tablet 10 mg PO BID #180 tabs 03/27/25 metronidazole 500 mg tablet 500 mg PO BID 7 days #14 tabs 06/02/25 ondansetron 4 mg disintegrating 4 mg PO Q8H PRN nausea and 06/02/25 tablet vomiting #20 tabs Allergies Allergy/AdvReac Type Severity Reaction Status Date / Time nitrofurantoin (From Allergy Severe RASH Verified 06/02/25 12:55 MACROBID) Penicillins (PENICILLINS) Allergy Severe RASH Verified 06/02/25 12:55 Review of Systems Gastrointestinal: Gastrointestinal: Reports nausea PMFSH Past Medical History Medical History (Updated 06/03/25 @ 00:00 by Background Taj) Familial tremor Hx of trichomonal vaginitis Endometriosis PTSD (post-traumatic stress disorder) Depression Insomnia Bursitis HTN (hypertension) Social History Social History Household Members: None Housing: Apartment Do you presently have visiting nurse or other home services: Yes ([employer]) Unable to assess alcohol history related to: Unknown Patient Tobacco Use Status: Never used Tobacco Smoked in Last 30 Days: No Use of substances other than those prescribed or required for medical reasons: No Substance Use Type: Marijuana Advance Directives: No Advance Directives Information Provided: No Patient : No service: No Physical Exam Vital Signs: Vital Signs: Last Vital Signs Temp 98 F 06/02/25 18:38 Pulse 77 06/02/25 18:38 Resp 18 06/02/25 18:38 BP 122/78 06/02/25 18:38 Pulse Ox 98 06/02/25 18:38 O2 Del Method Room Air 06/02/25 18:38 BMI result Body Mass Index 32.3 Course Course Course Narrative: patient asleep signed out to Dr. Brown pending UA, PO challenge Medications Administered Discontinued Medications Generic Name Dose Route Start Last Admin Trade Name Freq PRN Reason Stop Dose Admin Ketorolac Tromethamine 15 mg 06/02/25 13:01 06/02/25 13:24 Ketorolac Tromethamine 15 Mg/Ml Vial IVPUSH 06/02/25 13:02 15 mg ONCE ONE Administration Morphine Sulfate 4 mg 06/02/25 13:01 06/02/25 13:24 Morphine Sulfate 4 Mg/Ml Cartridge IVPUSH 06/02/25 13:02 4 mg ONCE ONE Administration Protocol Prochlorperazine Edisylate 5 mg 06/02/25 13:01 06/02/25 13:25 Prochlorperazine Edisylate 10 Mg/2 Ml Vial IVPUSH 06/02/25 13:02 5 mg ONCE ONE Administration Medical Decision Making Medical Decision Making [facility] Narrative: 45 yo female with PMH of endometriosis here with c/o diffuse abdominal pain n/v she states she gets this with her endometriosis. She does not relay vaginal discharge. She has no localized ttp to suggest GB pathology or appendicitis. She states she gets this alot with her endometriosis. She will need labs, UA, IV pain control. It is diffuse pain doubt torsion. All symptoms started together. Differential Diagnosis Differential Diagnoses: The differential diagnosis associated with the presentation includes endometriosis, cyclical vomiting, viral syndrome Admission/Observation Consideration of admission/observation: Escalation of care including admission/observation considered Lab Data [facility] Lab Attestation statement: I reviewed the patient's lab results. chronic leukocytosis hx of same in past 06/02/25 13:19 06/02/25 13:59 Labs: Lab Results 06/02/25 06/02/25 06/02/25 Range/Units 13:19 13:59 14:53 WBC 20.2 H (4.8-10.8) X10*3/uL RBC 4.51 (4.20-5.50) X10*6/uL Hgb 13.8 (12.0-16.0) g/dl Hct 40.3 (37.0-47.0) % MCV 89.4 (80.0-98.0) fL MCH 30.6 (27.0-33.0) pg MCHC 34.2 (31.0-35.0) g/dl RDW 13.7 (11.0-16.0) % Plt Count 272 (160-400) X10*3/uL MPV 10.1 (9.4-12.3) fL Immature Gran % (Auto) 0.3 (0.0-0.4) % Neut % (Auto) 29.3 L (45-73) % Lymph % (Auto) 66.6 H (20-40) % [place] % (Auto) 2.6 (2-11) % Eos % (Auto) 0.8 (0-4) % Baso % (Auto) 0.4 (0-2) % Lymph # (Auto) 13.4 H (1.2-4.9) X10*3/uL [place] # (Auto) 0.5 (0.1-1.2) X10*3/uL Eos # (Auto) 0.2 (0.0-0.4) X10*3/uL Baso # (Auto) 0.1 (0.0-0.2) X10*3/uL Abs Immat Gran (auto) 0.07 H (0.00-0.03) X10*3/uL Absolute Neuts (auto) 5.9 (2.0-8.3) x10*3/uL Absolute Nucleated RBC 0.000 (0.0-0.012) X10*3/uL Nucleated RBC % (auto) 0.0 (0.0-0.2) /100WBC Smear Tech's Comments VERIFIED Sodium 142 (135-145) mmol/L Potassium 3.5 (3.3-5.1) mmol/L Chloride 106 (96-108) mmol/L Carbon Dioxide 28 (22-29) mmol/L Anion Gap 12 (12-20) BUN 11 (9-16) mg/dL Creatinine 0.63 (0.5-1.4) mg/dL Estim Creat Clear Calc 125.2 Estimated GFR > 60 Random Glucose 99 (60-115) mg/dL Calcium 8.1 L (8.4-10.2) mg/dL Magnesium 2.1 (1.6-2.6) mg/dL Total Bilirubin 0.4 (0.0-1.0) mg/dL Direct Bilirubin 0.2 (0.0-0.5) mg/dL AST 19 (5-31) U/L ALT 19 (0-31) U/L Alkaline Phosphatase 82 (39-117) U/L Total Protein 6.7 (6.5-8.0) g/dL Albumin 4.1 (3.5-5.0) g/dL Lipase 16 (8-78) U/L Beta HCG, Quant < 2 mIU/mL Chlam trachomat DNA PCR NOT DETECTED (Not Detect.) N.gonorrhoeae DNA (PCR) NOT DETECTED (Not Detect.) T. vaginalis (PCR) NOT DETECTED (Not Detect) Bact vaginosis (PCR) POSITIVE A (Negative) C. krusei/glabrata (PCR) NOT DETECTED (Not Detect) Abril group (PCR) NOT DETECTED (Not Detect) Independent Interpretation I performed an independent interpretation of an: EKG Interpretation: Rate: 69 Rhythm: NSR [place]: normal Normal P waves. Normal [place]. Normal QRS complex. ST T wave : normal no BRENDA qTC: 447 prior studies: no acute ischemia The study has been interpreted contemporaneously by me. . Independent Historian Clinical information obtained from an independent historian. History obtained from or confirmed by: EMS External Record Review External record reviewed: Inpatient record and Outpatient record Discharge Plan Discharge Clinical Impression: Endometriosis, Nausea & vomiting Patient Disposition: Home, Self-Care Instructions: Endometriosis (ED), Acute Nausea and Vomiting (ED) Additional Instructions: eat a bland diet rest and stay hydrated return for any fevers over 100.4, unable to eat or drink or any other concerns Prescriptions: New ondansetron 4 mg tablet,disintegrating 4 mg PO Q8H PRN (Reason: nausea and vomiting) Qty: 20 0RF metronidazole 500 mg tablet 500 mg PO BID 7 Days Qty: 14 0RF No Action propranolol 10 mg tablet 10 mg PO BID Qty: 180 0RF metronidazole 500 mg tablet 500 mg PO BID 14 Days Qty: 28 0RF doxycycline hyclate 100 mg tablet 100 mg PO Q12H 14 Days Qty: 28 0RF clonidine HCl 0.1 mg tablet 0.1 mg PO BEDTIME valacyclovir 1 gram tablet 1,000 mg PO DAILY PRN (Reason: hsv flare) metronidazole 0.75 % (37.5mg/5 gram) gel 5 g vaginal 2XW sennosides-docusate sodium [Stimulant Laxative Plus] 8.6-50 mg tablet 1 tab PO DAILY cyanocobalamin (vitamin B-12) 1,000 mcg Tablet 1,000 mcg PO DAILY amlodipine 2.5 mg tablet 2.5 mg PO DAILY tramadol 50 mg Tablet 50 mg PO Q6H PRN (Reason: Pain (Scale Score 7-10)) lansoprazole 15 mg capsule,delayed release(DR/EC) 15 mg PO DAILY hydroxyzine HCl 25 mg tablet 25 mg PO BEDTIME sertraline 50 mg tablet 50 mg PO DAILY acetaminophen [Tylenol Extra Strength] 500 mg tablet 1,000 mg PO Q6H PRN (Reason: Pain (Scale Score 1-3)) ibuprofen 400 mg tablet 400 mg PO TID PRN (Reason: Pain (Scale Score 4-6)) morphine 15 mg tablet 15 mg PO Q8H PRN (Reason: Pain (Scale Score 7-10)) Rx Instructions: Partial Fill upon patient request. levofloxacin 500 mg tablet 500 mg PO DAILY Qty: 14 0RF fluconazole 150 mg tablet 150 mg PO Q3D Qty: 2 0RF aripiprazole 5 mg tablet 5 mg PO BEDTIME Interventions: ED Discharge Assessment Last Done: 06/02/25 18:38 Discharge Date/Time: 06/02/25 18:49 Print Language: Green[place]
[2025-06-02 14:28] LABS: Alanine Aminotransferase 19 U/L (0-31); Albumin Level 4.1 g/dL (3.5-5.0); Alkaline Phosphatase 82 U/L (39-117); Anion Gap 12 (12-20); Aspartate Amino Transferase 19 U/L (5-31); Blood Urea Nitrogen 11 mg/dL (9-16); Calcium 8.1 mg/dL (8.4-10.2); Carbon Dioxide 28 mmol/L (22-29); Chloride 106 mmol/L (96-108); Creatinine Clr Calc Pharmacy 125.2; Estimated Glomerular Filt Rate > 60; Lipase 16 U/L (8-78); Magnesium 2.1 mg/dL (1.6-2.6); Potassium 3.5 mmol/L (3.3-5.1); Sodium 142 mmol/L (135-145); Total Protein 6.7 g/dL (6.5-8.0)
[2025-06-02 16:04] LABS: Bacterial Vaginosis PCR POSITIVE (Negative); Candida Group PCR NOT DETECTED (Not Detect); Candida glab krusei PCR NOT DETECTED (Not Detect); Trichomonas vaginalis PCR NOT DETECTED (Not Detect)
[2025-06-02 18:38] VITALS: BP 122/78; PULSE 77; RESP 18; TEMP 36.6; O2SAT 98
[2025-06-03 16:58] LABS: CT PCR NOT DETECTED (Not Detect.); NG PCR NOT DETECTED (Not Detect.)
== END 2025-06-02 18:49 | disposition home or self-care (01) ==
PROVIDERS: Emergency Medicine; Emergency Provider Emergency Medicine Emergency Medical Services; PCP Internal Medicine
DX: R11.2 Nausea with vomiting, unspecified (principal); M79.10 Myalgia, unspecified site; R51.9 Headache, unspecified; R53.1 Weakness; R10.2 Pelvic and perineal pain; Z79.899 Other long term (current) drug therapy
CPT/HCPCS: 36415; 80048; 80076; 81515; 83690; 83735; 84702; 85025; 87491; 87591; 93005; 96374; 96375; 99284; J0737; J1885; J2270

== ENCOUNTER → 2025-06-02 13:00 | Outpatient (BNV) | payer OTHER, SELFPAY | PROVIDERS: Emergency Provider Emergency Medicine Emergency Medical Services; PCP Internal Medicine; Visit Provider Internal Medicine | DX: R11.2 Nausea with vomiting, unspecified (principal); R19.7 Diarrhea, unspecified | CPT/HCPCS: 93010 ==

== ENCOUNTER 2025-08-27 15:40 | Emergency (ER) | payer OTHER, SELFPAY ==
--- OUTSIDE RECORDS SUMMARY | 2024-06-21 14:52 | XMS_ITS | Encounter Summary ---
Author Organization [email or web address] Address [address] [place] [address] Care Team Providers Care Sales Account Executive Name Role Phone Liat Nunez MD Primary Care Provider [phone] Encounter Details Date Type Department Care Team (Late st Contact Info) Description 06/21/2024 3:52 PM EDT Hospital Encounter TH HISTORIC ENCOUNTERS [facility]AST[facility] CONVERSION ONLY Liat Nunez MD [address] [place] [phone] Social History Tobacco Use Types Packs/Day Years [...] PM EST Christa Bernard i, RN * [place] Suicide Severity Rating Scale (Screener/Recent Self-Report) Question Answer Date of Assessment Author 1. Wish to be (Past 1 Month) No 07/30/2024 8:23 PM EST Won Echevarria ra, GALE 2. Non-Specific Active Suicidal Thoughts (Past 1 Month) No 07/30/2024 8:23 PM EST Won Echevarria ra, RN 6. Suicidal Behavior (Lifetime) No 07/30/2024 8:23 PM EST Won Echevarria ra, RN documented as of this encounter Plan of Treatment Upcoming Encounters Date Type Department Care Team (Late st Contact Info) Description 08/28/2025 1:30 PM EST Hospital Encounter [facility]oscopy [address] [place] [phone] Carter Chadwick MD 299 [facility] [address] [place] [address] Daxa Trujillo CRNA [address] [place] [address] Kyra Lopes MD [address] [place] [address] 09/04/2025 1:30 PM EST Office Visit Internal Medicine - [place] [facility] [address] [place] [phone] Sabrina Lynn NP 175 [facility] [address] [place] [address] 09/06/2025 10:45 AM EST Consult Bariatric Surgery - [place] [facility] [address] [place] [phone] Brenna De MD [address] [place] [phone] 10/02/2025 1:45 PM EST Office Visit [facility] Hematology Oncology [address] [place] [phone] Michaela Bergeron MD [address] [place] [address] 11/27/2025 1:00 PM EDT Office Visit Internal Medicine - [place] [facility] [address] [place] [phone] Sabrina Lynn NP 175 [facility] [address] [place] [address] documented as of this encounter Goals Goal [...] on filedocumented in this encounter Care Teams Sales Account Executive Relationship Specialty Start Date End Date Liat Nunez MD PCP - General Internal Medicine 07/19/18 07/29/24 documented as of this encounter
--- OUTSIDE RECORDS SUMMARY | 2025-08-23 09:30 | XMS_ITS | Encounter Summary ---
Author Organization [facility] Address [address] [place] [address] Care Team Providers Care Lehr Tender Name Role Phone Liat Nunez MD Primary Care Provider [phone] Reason for Referral * Consultation (Routine) - Closed Specialty Diagnoses / Procedures Referred By Randal rothman Referred To Contact Pain Medicine Diagnoses Other chronic pain Sabrina Lynn NP [address] [address] Phone: tel: fax: [facility] [address] [place], [place] Phone: tel: fax: Referral ID Status Reason Start Date Expiration Date V isits Requested Visits Authorized [id number] Closed Specialty Services Required 08/23/2025 08/23/2026 1 1 * Consultation (Routine) - Pending Review Specialty Diagnoses / Procedures Referred By Randal rothman Referred To Contact Rheumatology Diagnoses Bilateral hand pain Sabrina Lynn NP [address] [address] Phone: tel: fax: Referral ID Status Reason Start Date Expiration Date Visits Requested Visits Authorized [id number] Pending Review Specialty Services Required 5 08/23/2026 1 1 * Consultation (Routine) - Authorized Specialty Diagnoses / Procedures Referred By Randal rothman Referred To Contact Family Nutrition Services / Bariatrics Diagnoses BMI 36.0-36.9,adult Sabrina Lynn NP 175 [facility] [address] [place] [address] Phone: tel: fax: Bariatric Surgery [place] 175 [facility] [address] [place] [address] Phone: tel: fax: Referral ID Status Reason Start Date Expiration Date Visits Requested Visits Authorized [id number] Authorized Specialty Services Required 08/23/2026 1 1 Reason for Visit * Reason Comments Follow-up Encounter Details Date Type Department Care Team (Latest Contact Info) Description 08/23/2025 9:30 AM EST Office Visit Internal Medicine - [place] 175 [facility] [address] [place] [phone] Sabrina Lynn NP 175 [facility] [address] [place] [address] Screening for ischemic heart disease (Primary Dx); Vitamin B12 deficiency; Vitamin D deficiency; Leukocytosis, unspecified type; BMI 36.0-36.9,adult; Bilateral hand pain; Obesity, morbid (CMS/HCC V24, CMS/HCC V28); Other chronic pain; Left hip pain; Abdominal cramps; Cervical disc herniation; Endometriosis; Menopausal and perimenopausal disorder; PTSD (post-traumatic stress disorder); Severe major depressive disorder (CMS/HCC V24, CMS/HCC V28); Anxiety; Primary hypertension; Hyperlipidemia, unspecified hyperlipidemia type Social History Tobacco Use Types Packs/Day Years [...] PM EDT documented as of this encounter Last Filed Vital Signs Vital Sign Reading Time Taken Comments Blood Pressure 138/88 08/23/2025 9:47 AM EST Pulse 76 08/23/2025 9:47 AM EST Temperature 36.2 C (97.1 F) 08/23/2025 9:47 AM EST Respiratory Rate - - Oxygen Saturation 98% 08/23/2025 9:47 AM EST Inhaled Oxygen Concentration - - Weight 96.4 kg (212 lb 9.6 oz) 08/23/2025 9:47 A M EST Height - - Body Mass Index 36.49 07/26/2025 2:12 PM EST documented in this encounter Ordered Prescriptions Prescription Sig Dispense Quantity Refills Last Filled Start Date End Date dicyclomine (BENTYL) 20 mg tabletIndications: Abdominal cramps Take 1 tablet (20 mg total) by mouth 4 (four) times a day if needed (abdominal pain or cramps). 60 tablet 5 08/23/2025 08/23/2026 documented in this encounter Progress Notes * Sabrina Lynn NP - 08/23/2025 9:30 AM EST Please complete Xrays at [address] Walk-in. * Sabrina Lynn NP - 08/23/2025 9:30 AM EST CHIEF COMPLAINT: Follow-up IDENTIFIER: Anjelica Evans is a 45 y.o. old female. History of Present Illness Anjelica is a 45-year-old female who presents for a follow-up visit. Weight Gain - Reports weight gain attributed to her medication regimen and desires weight loss. - Tried phentermine but experienced weight gain. - Insurance declined initial weight loss injection. - Requesting to see weight management. Left Hip Pain - Persistent left hip pain necessitates cane use, interfering with daily activities. - Chronic lower back and leg pain limit standing. - Referred to arthritis treatment center with no significant improvement. - History of injections and medications for hip pain. - Scheduled for Tenex procedure on left hip in 09/2025. - Has raised toilet seat for sitting discomfort. Abdominal Pain and Bloating - Severe, persistent abdominal pain and bloating. - Under powder blender care, scheduled for colonoscopy. - Seeks alternative treatment as current medication provides minimal relief. Hand and Feet Pain - Swelling and pain in both hands, similar to numbness in feet, with sharp, aose-ttz-[id number] pain. - Exacerbated by raising hands. - Avoids performing strenuous activities, has PROMOTIONS SPECIALIST for chores at home. - Taking Celebrex for tremors. Neck and Shoulder Pain - Missed two neck injection appointments. - Initiated massage therapy, beneficial for shoulder pain. Currently taking vitamin B12 and vitamin D supplements daily. ROS: See HPI. PAST MEDICAL HISTORY: Patient Active Problem List Diagnosis Date Noted Severe major depressive disorder ([facility] V24, [facility] V28) 08/23/2025 Obesity, morbid ([facility] V24, [facility] V28) 08/23/2025 Atypical lobular hyperplasia (ALH) of left breast 11/22/2024 Class 1 obesity 11/22/2024 Herpes 11/22/2024 PTSD (post-traumatic stress disorder) 11/14/2024 Depression 11/14/2024 HTN (hypertension), benign 11/14/2024 Adenomyosis 07/20/2023 Tremor of left hand 04/22/2023 Pyelonephritis, acute 04/25/2022 Chalazion 08/14/2021 Onychomycosis 08/14/2021 Kidney calculi 06/11/2018 Anxiety 04/16/2018 Hyperlipidemia 01/12/2018 Vitamin B12 deficiency 01/12/2018 Insomnia 07/02/2016 GERD (gastroesophageal reflux disease) 07/03/2015 Vitamin D deficiency 11/07/2013 Arthritis 06/07/2013 Cervical disc herniation 10/27/2012 Surgical History[1] SOCIAL HISTORY: Social History Tobacco Use Smoking status: Never Smokeless tobacco: Never Substance Use Topics Alcohol use: Yes FAMILY HISTORY: Family History[2] Family Status Relation Name Status Mother Alive htn, hyperlipid, dm Father Alive htn, hyperlipid No partnership data on file MEDICATIONS DISCONTINUED/REORDERED: There are no discontinued medications. ACTIVE MEDICATIONS: Medications Taking[3] ALLERGIES: Allergies[4] PHYSICAL EXAM: Visit Vitals BP 138/88 (BP Location: Right arm, Patient Position: Sitting, BP Cuff Size: Adult) Pulse 76 Temp 36.2 ??C (97.1 ??F) (Temporal) Wt 96.4 kg (212 lb 9.6 oz) SpO2 98% BMI 36.49 kg/m?? OB Status Having periods Smoking Status Never BSA 2.01 m?? Physical Exam Constitutional: Appearance: Normal appearance. She is obese. Cardiovascular: Rate and Rhythm: Normal rate and regular rhythm. Pulses: Normal pulses. Heart sounds: Normal heart sounds. Pulmonary: Effort: Pulmonary effort is normal. Breath sounds: Normal breath sounds. Abdominal: General: There is distension. Neurological: General: No focal deficit present. Mental Status: She is alert and oriented to person, place, and time. Psychiatric: Mood and Affect: Mood is depressed. Behavior: Behavior normal. LABS/IMAGING: Lab on 07/26/2025 Component Date Value Ref Range Status LDH 07/26/2025 219 120 - 246 unit/L Final Cholesterol 07/26/2025 226 (H) 0 - 200 mg/dL Final Triglycerides 07/26/2025 218 (H) 0 - 150 mg/dL Final HDL 07/26/2025 53 >=40 mg/dL Final LDL Calculated 07/26/2025 129 (H) 0 - 100 mg/dL Final VLDL Cholesterol Philomena 07/26/2025 43.6 mg/dL Final Non HDL Chol. (LDL+VLDL) 07/26/2025 173 (H) <145 mg/dL Final Chol/HDL Ratio 07/26/2025 4.3 0.0 - 4.4 Final Sodium 07/26/2025 140 133 - 145 mmol/L Final Potassium 07/26/2025 3.9 3.5 - 5.5 mmol/L Final Chloride 07/26/2025 104 96 - 110 mmol/L Final CO2 07/26/2025 30 21 - 32 mmol/L Final Anion Gap 07/26/2025 6 3 - 11 Final Glucose 07/26/2025 83 70 - 100 mg/dL Final BUN 07/26/2025 15 5 - 25 mg/dL Final Creatinine 07/26/2025 0.62 0.50 - 1.10 mg/dL Final eGFR 07/26/2025 111 >=60 mL/min/1.73m2 Final BUN/Creatinine Ratio 07/26/2025 24.2 Final Calcium 07/26/2025 8.9 8.5 - 10.5 mg/dL Final AST (SGOT) 07/26/2025 12 10 - 42 unit/L Final ALT (SGPT) 07/26/2025 29 10 - 60 unit/L Final Alkaline Phosphatase 07/26/2025 95 42 - 121 unit/L Final Total Protein 07/26/2025 6.7 6.0 - 8.0 g/dL Final Albumin 07/26/2025 3.7 3.2 - 5.0 g/dL Final Total Bilirubin 07/26/2025 0.4 0.0 - 1.4 mg/dL Final Hemoglobin A1C 07/26/2025 5.6 <6.5 % Final Mean Bld Glu Estim. 07/26/2025 114 mg/dL Final TSH 07/26/2025 1.13 0.40 - 4.00 mcIU/mL Final Magnesium 07/26/2025 2.2 1.9 - 2.6 mg/dL Final Vitamin B-12 07/26/2025 232 (L) 250 - 900 pcg/mL Final Vit D, 25-Hydroxy 07/26/2025 12.3 (L) 30.0 - 80.0 ng/mL Final HIV Combo AB/AG 07/26/2025 Negative Negative Final T. Pallidum Antibodies 07/26/2025 Negative Negative Final Hepatitis C Antibody 07/26/2025 Negative Negative Final WBC 07/26/2025 21.1 (H) 4.8 - 10.8 K/mcL Final RBC 07/26/2025 4.20 3.80 - 4.80 M/mcL Final Hemoglobin 07/26/2025 12.8 11.5 - 16.0 g/dL Final Hematocrit 07/26/2025 39.1 35.0 - 47.0 % Final MCV 07/26/2025 93.1 79.0 - 98.0 FL Final MCH 07/26/2025 30.5 27.0 - 32.0 pcg Final MCHC 07/26/2025 32.7 32.0 - 37.0 g/dL Final RDW 07/26/2025 13.1 11.0 - 15.0 % Final Platelets 07/26/2025 292 130 - 400 K/mcL Final MPV 07/26/2025 11.4 (H) 7.0 - 11.0 FL Final NRBC 07/26/2025 0.0 <1.0 % Final NRBC Absolute 07/26/2025 0.00 <0.10 K/mcL Final Specific [place] Urine 07/26/2025 1.018 1.003 - 1.030 Final pH, Urine 07/26/2025 7.5 5.0 - 8.0 pH Final Leukocytes, Urine 07/26/2025 Negative Negative Final Nitrite, Urine 07/26/2025 Negative Negative Final Protein, Urine 07/26/2025 Negative <=Trace mg/dL Final Glucose, Urine 07/26/2025 Negative Negative mg/dL Final Ketones, Urine 07/26/2025 Negative Negative mg/dL Final Urobilinogen, Urine 07/26/2025 0.2 0.2 - 1.0 mg/dL Final Bilirubin, Urine 07/26/2025 Negative Negative Final Blood, Urine 07/26/2025 Negative Negative Final Neisseria gonorrhoeae PCR 07/26/2025 Negative Negative Final Chlamydia trachomatis PCR 07/26/2025 Negative Negative Final Neutrophils % 07/26/2025 54.0 % Final Lymphocytes % 07/26/2025 40.0 % Final Monocytes % 07/26/2025 4.0 % Final Eosinophils % 07/26/2025 2.0 % Final Basophils % 07/26/2025 0.0 % Final Neutrophils Absolute Manual 07/26/2025 11.39 (H) 1.50 - 7.00 K/mcL Final Lymphocytes Absolute 07/26/2025 8.44 (H) 1.00 - 5.00 K/mcL Final Monocytes Absolute Manual 07/26/2025 0.84 0.20 - 1.00 K/mcL Final Eosinophils Absolute Manual 07/26/2025 0.42 0.00 - 0.50 K/mcL Final Basophils Absolute Manual 07/26/2025 0.00 0.00 - 0.20 K/mcL Final Rbc Morphology 07/26/2025 See comment (A) Consistent with indices, Normal for [place] Final Platelet Morphology - [facility] 07/26/2025 See Note (A) Normal Final Results Labs - Cholesterol: Elevated but improved since last check - Vitamin B12: Low - Vitamin D: Low - White Blood Count: Elevated but stable IMPRESSION: 1. Screening for ischemic heart disease 2. Vitamin B12 deficiency 3. Vitamin D deficiency 4. Leukocytosis, unspecified type 5. BMI 36.0-36.9,adult 6. Bilateral hand pain 7. Obesity, morbid (CMS/HCC V24, CMS/HCC V28) 8. Other chronic pain 9. Left hip pain 10. Abdominal cramps 11. Cervical disc herniation 12. Endometriosis 13. Menopausal and perimenopausal disorder 14. PTSD (post-traumatic stress disorder) 15. Severe major depressive disorder (CMS/HCC V24, CMS/[facility] V28) 16. Anxiety 17. Primary hypertension 18. Hyperlipidemia, unspecified hyperlipidemia type PLAN: 1. Screening for ischemic heart disease Lipid panel with reflex to direct LDL 2. Vitamin B12 deficiency Vitamin B12 3. Vitamin D deficiency Vitamin D 25 hydroxy 4. Leukocytosis, unspecified type CBC and differential Ferritin Folate Iron and TIBC 5. BMI 36.0-36.9,adult Ambulatory referral to Weight Management 6. Bilateral hand pain Rheumatoid factor Ambulatory referral to Rheumatology XR Hand 3+ Views bilat KATIE IFA with titer and pattern C-reactive protein 7. Obesity, morbid (CMS/HCC V24, CMS/HCC V28) 8. Other chronic pain Ambulatory referral to Pain Medicine 9. Left hip pain 10. Abdominal cramps dicyclomine (BENTYL) 20 mg tablet 11. Cervical disc herniation 12. Endometriosis 13. Menopausal and perimenopausal disorder 14. PTSD (post-traumatic stress disorder) 15. Severe major depressive disorder (CMS/[facility] V24, CMS/[facility] V28) 16. Anxiety 17. Primary hypertension 18. Hyperlipidemia, unspecified hyperlipidemia type Assessment & Plan 1. Vitamin B12 deficiency Low levels. - Taking B12 supplement daily. 2. Vitamin D deficiency Low levels. - Taking vitamin D supplement daily. 3. Elevated white blood cell count Elevated but stable. - Follow-up with air and hydronic balancing technician in 11/2025. Repeat blood work ordered. 4. Weight management Reports weight gain despite weight loss medications. - Referral to weight management recruiter for further evaluation and potential medication management. Zepbound considered if approved by insurance. 5. Hand pain and swelling Significant pain and swelling with [id number]-[id number] sensation. - Hand x-rays ordered for arthritis. Referral to rheumatology for further evaluation. 6. Hip pain Chronic left hip pain affecting daily activities. - Scheduled for Tenex procedure in 09/2025 in [facility]. Hip replacement considered if symptoms persist. 7. Abdominal pain Significant pain and bloating. - Bentyl prescribed for stomach cramps, to be taken as needed. Colonoscopy scheduled. 9. Chronic Pain - Referred to pain management. - Continue Celebrex 200 mg twice daily. 10. Cervical Disc Herniation Neck pain contributing to headaches. - Prescribed amitriptyline for migraines. - Missed two neck injection appointments, initiated massage therapy, beneficial for shoulder pain. 11. Endometriosis Bloating and abdominal discomfort attributed to endometriosis. - Following up with CHIEF DATA OFFICER. - Medication prescribed to manage menstrual cycle, not yet started. 12. Menopausal Symptoms Night sweats and mood swings suggesting menopause. - Medication prescribed to manage symptoms, not yet started. 13. PTSD, depression, and anxiety. - On sertraline 100 mg, effective. - Sees therapist weekly and psychiatrist monthly. - Letter detailing diagnoses and limitations provided for aviation consultant to support disability claim. However, patient needs more paper work filled out, patient will submit to front clerk. 14. Hypertension - Continue irbesartan 300 daily. Stable. 15. Hyperlipidemia - Recommend low-fat, heart healthy diet and moderate exercise as tolerated. Blood work ordered to monitor lipid levels. Recommend follow-up in 4 months. Advised the patient to call me if any problems. Patient understands the plan. Patient is in agreement with the plan. I have obtained verbal consent from Anjelica Evans prior to the recording. I have advised Anjelica Evans that she may refuse the recording and require the recording to be turned off at any time during this encounter. Sabrina Lynn NP on 08/23/2025 at 3:31 PM EST [1] Past Surgical History: Procedure Laterality Date OTHER SURGICAL HISTORY PROCEDURE: HISTORY OTHER; COMMENT: excision of Bartolin's gland/cyst OTHER SURGICAL HISTORY PROCEDURE: DENIES PREVIOUS SURGERY ROTATOR CUFF REPAIR Left 11/17/2023 PROCEDURE: HISTORICAL ROTATOR CUFF REPAIR; COMMENT: left rotator cuff augmentation and subacromial decompression [2] No family history on file. [3] No outpatient medications have been marked as taking for the 08/23/25 encounter (Office Visit) Roxana Lynn NP. [4] Allergies Allergen Reactions Lisinopril Rash rash Nitrofurantoin Rash Other reaction(s): Rash, Rash/Dermatitis Penicillins Rash Other reaction(s): Hives/Urticaria, Rash documented in this encounter Plan of Treatment Upcoming Encounters Date Type Department Care Team (Late st Contact Info) Description 08/28/2025 1:30 PM EST Hospital Encounter [facility] Endoscopy [address] [place] [phone] Carter Chadwick MD 299 [facility] [address] [place] [address] Daxa Trujillo CRNA [address] [place] [address] Kyra Lopes MD [address] [place] [id number] 09/04/2025 1:30 PM EST Office Visit Internal Medicine - [place] 175 [facility] [address] [place] [phone] Sabrina Lynn NP 175 [facility] [address] [place] [address] 09/06/2025 10:45 AM EST Consult Bariatric Surgery - [place] 175 [facility] [address] [place] [phone] Brenna De MD [address] [place] [phone] 10/02/2025 1:45 PM EST Office Visit [facility] Hematology Oncology [address] [place] [phone] Michaela Bergeron MD [address] [place], [place] [phone] 11/27/2025 1:00 PM EDT Office Visit Internal Medicine - [place] 175 [facility] [address] [place] [phone] Sabrina Lynn NP 175 [facility] [address] [place] [address] Scheduled Orders Name Type Priority Associated Diagnoses Orde r Schedule XR Hand 3+ Views bilat Imaging Routine Bilateral hand pain Expected: 08/23/2025, Expires: 08/23/2026 Scheduled Referrals Name Type Priority Associated Diagnoses Order Schedule Ambulatory referral to Weight Management Outpatient Referral Routine BMI 36.0-36.9,adult 1 Occurrences starting 08/23/2025 until 08/23/2026 Ambulatory referral to Rheumatology Outpatient Referral Routine Bilateral hand pain 1 Occurrences starting 08/23/2025 until 08/23/2026 Ambulatory referral to Pain Medicine Outpatient Referral Routine Other chronic pain 1 Occurrences starting 08/23/2025 until 08/23/2026 documented as of this encounter Goals Goal Patient Goal Type Associated Problems Recent Progress Patient-Stated? Author PT LTGs General No Daniel Brenner, PT Note: Pt will report cervical pain no greater than 5/10 with cervical AROM testing Pt will report cervical pain no greater than 3/10 with morning ADLs Pt will be independent with HEP Autogenerated Goal Care Plan Autogenerated Problem No Radha Massey documented as of this encounter Results * C-reactive protein (08/23/2025 10:27 AM EST) C-Reactive Protein <0.50 <=0.50 mg/dL 08/23/2025 4:37 PM EST [facility] ([facility]) [facility] Blood Venous blood specimen / Unknown Venipuncture / Unknown 08/23/2025 10:27 AM EST 08/23/2025 10:27 AM EST us Sabrina Lynn SHIPPING AND RECEIVING COORDINATOR LAB BLOOD ORDERABLES Final Resul t [facility]) [facility] [address] [place] [address], [place] [phone] * (ABNORMAL) KATIE IFA with titer and pattern (08/23/2025 10:27 AM EST) KATIE Positive (A) Negative 08/24/2025 2:47 PM [facility] Comment:KATIE performed by ind irect immunofluorescence (IFA) using HEp-2 substrate. KATIE Pattern Homogene ous(A) (none) 08/24/2025 2:47 PM EST [facility] Comment:May be Associated wi th SLE and drug-induced SLE. Titer 1:320(A) <1:160 08/24/2025 2:47 PM EST [facility] Comment: Approximately 3% of healthy persons have KATIE titer of 1:320 or higher Further testing for other autoantibodies should be prompted by specific clinical findings/impressions. Blood Venous blood specimen / Unknown Venipuncture / Unknown 08/23/2025 10:27 AM EST 08/23/2025 10:27 AM EST Sabrina Lynn SHIPPING AND RECEIVING COORDINATOR LAB BLOOD ORDERABLES Final Resul t [facility] [address] [place] [address], [place] [phone] * Rheumatoid factor (08/23/2025 10:27 AM EST) Pathologist [facility] Rheumatoid Factor 4.5 <15.0 I Unit/mL 08/23/2025 4:21 PM EST [facility] Blood Venous blood specimen / Unknown Venipuncture / Unknown 08/23/2025 10:27 AM EST 08/23/2025 10:27 AM EST Sabrina Lynn SHIPPING AND RECEIVING COORDINATOR LAB BLOOD ORDERABLES Final Resul t [facility] [address] [place] [address], [place] [phone] * (ABNORMAL) Iron and TIBC (08/23/2025 10:27 AM EST) [facility] Iron 46 40 - 150 mcg/dL 08/23/2025 4:21 PM EST [facility] TIBC 379 250 - 450 mcg/dL 08/23/2025 4:21 PM EST [facility] Iron Saturation 12(L) 15 - 50 % 4:21 PM EST [facility] Blood Venous blood specimen / Unknown Venipuncture / Unknown 08/23/2025 10:27 AM EST 08/23/2025 10:27 AM EST us Sabrina Lynn NP LAB BLOOD ORDERABLES Final Resul t Performing Organization Address City/[facility]/ZIP Co de Phone Number [facility] [address] [place] [address], [place] [phone] * Folate (08/23/2025 10:27 AM EST) [facility] Folate 14.2 >=5.4 ng/ml 08/23/2025 4:16 PM EST [facility] Blood Venous blood specimen / Unknown Venipuncture / Unknown 08/23/2025 10:27 AM EST 08/23/2025 10:27 AM EST Narrative [facility] - 08/23/2025 4:16 PM EST Over the counter supplements containing high doses of biotin may interfere with this assay. If interference is suspected, patients shoud be retested after refraining from biotin supplements for 72 hours. us Sabrina Lynn NP LAB BLOOD ORDERABLES Final Resul t Performing Organization Address City/[facility]/ZIP Co de Phone Number [facility] [address] [place] [address], [place] [phone] * Ferritin (08/23/2025 10:27 AM EST) [facility] Ferritin 27 7 - 271 ng/mL 08/23/2025 4:15 PM EST [facility] Blood Venous blood specimen / Unknown Venipuncture / Unknown 08/23/2025 10:27 AM EST 08/23/2025 10:27 AM EST us Sabrina Lynn SHIPPING AND RECEIVING COORDINATOR LAB BLOOD ORDERABLES Final Resul t Performing Organization Address City/[facility]/ZIP Co de Phone Number [facility] [address] [place] [address], [place] [phone] * (ABNORMAL) Vitamin D 25 hydroxy (08/23/2025 10:27 AM EST) [facility] Vit D, 25-Hydroxy 27.8(L) 30.0 - 80.0 ng/mL 08/23/2025 6:18 PM EST [facility] Blood Venous blood specimen / Unknown Venipuncture / Unknown 08/23/2025 10:27 AM EST 08/23/2025 10:27 AM EST us Sabrina Lynn SHIPPING AND RECEIVING COORDINATOR LAB BLOOD ORDERABLES Final Resul t Performing Organization Address [facility] de Phone Number [facility] [address] [place] [address], [place] [phone] * Vitamin B12 (08/23/2025 10:27 AM EST) [facility] Vitamin B-12 430 211 - 911 pcg/mL 08/23/2025 4:42 PM EST [facility] Blood Venous blood specimen / Unknown Venipuncture / Unknown 08/23/2025 10:27 AM EST 08/23/2025 10:27 AM EST us Sabrina Lynn SHIPPING AND RECEIVING COORDINATOR LAB BLOOD ORDERABLES Final Resul t Performing Organization Address City/[facility]/ZIP Co de Phone Number [facility] [address] [place] [address], [place] [phone] * (ABNORMAL) Lipid panel with reflex to direct LDL (08/23/2025 10:27 AM EST) Cholesterol 218(H) 0 - 200 mg/dL 08/23/2025 4:21 PM [facility] Triglycerides 161(H) 0 - 150 mg/dL 08/23/2025 4:21 PM [facility] HDL 56 >=40 mg/dL 08/23/2025 4:21 PM [facility] LDL Calculated 130(H) 0 - 100 mg/dL 08/23/2025 4:21 PM [facility] Comment:Estimated LDL is philomena culated using the Friedewald equation: Total cholesterol - HDL cholesterol - (Triglycerides/5) VLDL Cholesterol Philomena 32.2 mg/dL 08/23/2025 4:21 PM [facility] Non HDL Chol. (LDL+VLDL) 162(H) <145 mg/dL 08/23/2025 4:21 PM [facility] Chol/HDL Ratio 3.9 0.0 - 4.4 08/23/2025 4:21 PM [facility] Blood Venous blood specimen / Unknown Venipuncture / Unknown 08/23/2025 10:27 AM EST 08/23/2025 10:27 AM EST us Sabrina Lynn NP LAB BLOOD ORDERABLES Final Resul t [facility] [address] [place] [address], [place] [phone] documented in this encounter Visit Diagnoses Diagnosis Screening for ischemic heart disease- Primary Vitamin B12 deficiency Other B-complex deficiencies Vitamin D deficiency Leukocytosis, unspecified type BMI 36.0-36.9,adult Bilateral hand pain Obesity, morbid (CMS/HCC V24, CMS/HCC V28) Morbid obesity Other chronic pain Left hip pain Pain in joint, pelvic region and thigh Abdominal cramps Abdominal pain, unspecified site Cervical disc herniation Displacement of cervical intervertebral disc without myelopathy Endometriosis Endometriosis, site unspecified Menopausal and perimenopausal disorder PTSD (post-traumatic stress disorder) Posttraumatic stress disorder Severe major depressive disorder ([facility] V24, [facility] V28) Anxiety Anxiety state, unspecified Primary hypertension Unspecified essential hypertension Hyperlipidemia, unspecified hyperlipidemia type documented in this encounter Additional Health Concerns Active Problems Noted Date Diagnosed Date Autogenerated Problem 07/04/2025 Assessment Noted Time PHQ-9 Depression Total Score: 24 025 2:13 PM EST documented as of this encounter Care Teams Lehr Tender Relationship Specialty Start Date End Date Liat Nunez MD [address] [place] [phone] PCP - General Internal Medicine 07/30/24 documented as of this encounter
--- OUTSIDE RECORDS SUMMARY | 2025-08-23 10:30 | XMS_ITS | Encounter Summary ---
Author Organization [facility] Address [address] [place] [address] Care Team Providers Care Picker Machine Operator Name Role Phone Liat Nunez MD Primary Care Provider [phone] Encounter Details Date Type Department Care Team (Late Contact Info) Description 08/23/2025 10:30 AM EST Lab Draw Station - 175 [facility] [address] [phone] Screening for ischemic heart disease; Vitamin B12 deficiency; Vitamin D deficiency; Leukocytosis, unspecified type; Bilateral hand pain Social History Tobacco Use Types Packs/Day Years [...] Department Care Team (Late Contact Info) Description 08/28/2025 1:30 PM EST Hospital Encounter [facility] Endoscopy [address] [place] [address] Carter Chadwick MD 299 [facility] [address] [place] [address] Daxa Trujillo CRNA [address] [place] [address] Kyra Lopes MD [address] [place] [address] 09/04/2025 1:30 PM EST Office Visit Internal Medicine - [place] [address] [phone] Sabrina Lynn NP [address] [address] 09/06/2025 10:45 AM EST Consult Bariatric Surgery - [place] 175 [facility] [address] [place] [phone] Brenna De MD 230 [place] [phone] 10/02/2025 1:45 PM EST Office Visit [facility] Hematology Oncology [address] [place] [phone] Michaela Bergeron MD [address] [place] [address] 11/27/2025 1:00 PM EDT Office Visit Internal Medicine - [place] [address] [phone] Sabrina Lynn NP [address] [address] documented as of this encounter Goals Goal [...] Radha Massey documented as of this encounter Procedures Procedure Name Priority Date/Time Associated Diagnosis Comments LIPID PANEL WITH REFLEX TO DIRECT LDL Routine 08/23/2025 10:27 AM EST Screening for ischemic heart disease MANUAL DIFFERENTIAL - SYSMEX WAM Routine 08/23/2025 10:27 AM EST Leukocytosis, unspecified type KATIE IFA WITH TITER AND PATTERN Routine 08/23/2025 10:27 AM EST Bilateral hand pain CBC WITH AUTO DIFFERENTIAL Routine 08/23/2025 10:27 AM EST Leukocytosis, unspecified type IRON AND TIBC Routine 08/23/2025 10:27 AM EST Leukocytosis, unspecified type VITAMIN D 25 HYDROXY Routine 08/23/2025 10:27 AM EST Vitamin D deficiency CBC AND DIFFERENTIAL Routine 08/23/2025 10:27 AM EST Leukocytosis, unspecified type RHEUMATOID FACTOR Routine 08/23/2025 10: 27 AM EST Bilateral hand pain C-REACTIVE PROTEIN Routine 08/23/2025 10 :27 AM EST Bilateral hand pain FOLATE Routine 08/23/2025 10:27 AM EST Leukocytosis, unspecified type FERRITIN Routine 08/23/2025 10:27 AM EST Leukocytosis, unspecified type VITAMIN B12 Routine 08/23/2025 10:27 AM EST Vitamin B12 deficiency documented in this encounter Results * (ABNORMAL) Manual differential (08/23/2025 10:27 AM EST) Neutrophils % 17.0 % LAB HEMETOLOGY METHOD 08/23/2025 3:43 PM [facility] Lymphocytes % 77.0 % LAB HEMETOLOGY METHOD 08/23/2025 3:43 PM [facility] Monocytes % 5.0 % LAB HEMETOLOGY METHOD 08/23/2025 3:43 PM [facility] Eosinophils % 0.0 % LAB HEMETOLOGY METHOD 08/23/2025 3:43 PM [facility] Basophils % 1.0 % LAB HEMETOLOGY METHOD 08/23/2025 3:43 PM [facility] Neutrophils Absolute Manual 3.72 1.50 - 7.00 K/mcL LAB HEMETOLOGY METHOD 08/23/2025 3:43 PM [facility] Lymphocytes Absolute 16.86(H) 1.00 - 5.00 K/mcL LAB HEMETOLOGY METHOD 08/23/2025 3:43 PM [facility] Monocytes Absolute Manual 1.09(H) 0.20 - 1.00 K/mcL LAB HEMETOLOGY METHOD 08/23/2025 3:43 PM [facility] Eosinophils Absolute Manual 0.00 0.00 - 0.50 K/mcL LAB HEMETOLOGY METHOD 08/23/2025 3:43 PM [facility] Basophils Absolute Manual 0.22(H) 0.00 - 0.20 K/mcL LAB HEMETOLOGY METHOD 08/23/2025 3:43 PM [facility] Rbc Morphology Consistent with indices Consistent with indices, Normal for [place] LAB HEMETOLOGY METHOD 08/23/2025 3:43 PM [facility] Platelet Morphology - WAM Normal Normal LAB HEMETOLOGY METHOD 08/23/2025 3:43 PM [facility] Blood Venous blood specimen / Unknown Venipuncture / Unknown 08/23/2025 10:27 AM EST 08/23/2025 10:27 AM EST us Sabrina Lynn BATCH WEIGHER LAB BLOOD ORDERABLES Final Resul t [facility] [address] [place] [address], [place] [phone] * (ABNORMAL) CBC auto differential (08/23/2025 10:27 AM EST) WBC 21.9(H) 4.8 - 10.8 K/mcL LAB HEMETOLOGY METHOD 08/23/2025 3:43 PM [facility] RBC 4.30 3.80 - 4.80 M/mcL LAB HEMETOLOGY METHOD 08/23/2025 3:43 PM [facility] Hemoglobin 13.0 11.5 - 16.0 g/dL LAB HEMETOLOGY METHOD 08/23/2025 3:43 PM [facility] Hematocrit 39.8 35.0 - 47.0 % LAB HEMETOLOGY METHOD 08/23/2025 3:43 PM [facility] MCV 91.7 79.0 - 98.0 FL LAB HEMETOLOGY METHOD 08/23/2025 3:43 PM [facility] MCH 30.0 27.0 - 32.0 pcg LAB HEMETOLOGY METHOD 08/23/2025 3:43 PM [facility] MCHC 32.7 32.0 - 37.0 g/dL LAB HEMETOLOGY METHOD 08/23/2025 3:43 PM [facility] RDW 12.7 11.0 - 15.0 % LAB HEMETOLOGY METHOD 08/23/2025 3:43 PM [facility] Platelets 293 130 - 400 K/mcL LAB HEMETOLOGY METHOD 08/23/2025 3:43 PM [facility] MPV 10.9 7.0 - 11.0 FL LAB HEMETOLOGY METHOD 08/23/2025 3:43 PM EST [facility] NRBC 0.0 <1.0 % LAB HEMETOLOGY METHOD 08/23/2025 3:43 PM EST [facility] NRBC Absolute 0.00 <0.10 K/mcL LAB HEMETOLOGY METHOD 08/23/2025 3:43 PM EST [facility] Blood Venous blood specimen / Unknown Venipuncture / Unknown 08/23/2025 10:27 AM EST 08/23/2025 10:27 AM EST Narrative [facility] - 08/23/2025 3:43 PM EST [address] Sabrina Lynn NP LAB BLOOD ORDERABLES Final Resul t Performing Organization Address [facility]/ZIP Co de Phone Number [facility] [address] [place] [address], [place] [phone] * C-reactive protein (08/23/2025 10:27 AM EST) C-Reactive Protein <0.50 <=0.50 mg/dL 08/23/2025 4:37 PM EST [facility] Blood Venous blood specimen / Unknown Venipuncture / Unknown 08/23/2025 10:27 AM EST 08/23/2025 10:27 AM EST Sabrina Lynn NP LAB BLOOD ORDERABLES Final Resul t Performing Organization Address [facility]/ZIP Co de Phone Number [facility] [address] [place] [address], [place] [phone] * (ABNORMAL) KATIE IFA with titer and pattern (08/23/2025 10:27 AM EST) KATIE Positive (A) Negative 08/24/2025 2:47 PM EST [facility] Comment:KATIE performed by ind irect immunofluorescence (IFA) using HEp-2 substrate. KATIE Pattern Homogene ous(A) (none) 08/24/2025 2:47 PM EST [facility] Comment:May be Associated wi th SLE and drug-induced SLE. Titer 1:320(A) <1:160 08/24/2025 2:47 PM EST [facility] Comment: Approximately 3% of healthy persons have KATIE titer of 1:320 or higher Further testing for other autoantibodies should be prompted by specific clinical findings/impressions. Blood Venous blood specimen / Unknown Venipuncture / Unknown 08/23/2025 10:27 AM EST 08/23/2025 10:27 AM EST Sabrina Lynn BATCH WEIGHER LAB BLOOD ORDERABLES Final Resul t Performing Organization Address [facility]/ZIP Co de Phone Number [facility] [address] [place] [address], * Rheumatoid factor (08/23/2025 10:27 AM EST) Pathologist [facility] Rheumatoid Factor 4.5 <15.0 I Unit/mL 08/23/2025 4:21 PM EST [facility] Blood Venous blood specimen / Unknown Venipuncture / Unknown 08/23/2025 10:27 AM EST 08/23/2025 10:27 AM EST Sabrina Lynn BATCH WEIGHER LAB BLOOD ORDERABLES Final Resul t Performing Organization Address City/[facility]/ZIP Co de Phone Number [facility] [address] [place] [address], [place] [phone] * (ABNORMAL) Iron and TIBC (08/23/2025 10:27 AM EST) Iron 46 40 - 150 mcg/dL 08/23/2025 4:21 PM [facility] TIBC 379 250 - 450 mcg/dL 08/23/2025 4:21 PM EST [facility] Iron Saturation 12(L) 15 - 50 % 4:21 PM EST [facility] Blood Venous blood specimen / Unknown Venipuncture / Unknown 08/23/2025 10:27 AM EST 08/23/2025 10:27 AM EST us Sabrina Lynn BATCH WEIGHER LAB BLOOD ORDERABLES Final Resul t Performing Organization Address City/[facility] Co de Phone Number [facility] [address] [place] [address], [place] [phone] * Folate (08/23/2025 10:27 AM EST) Folate 14.2 >=5.4 ng/ml 08/23/2025 4:16 PM EST [facility] Blood Venous blood specimen / Unknown Venipuncture / Unknown 08/23/2025 10:27 AM EST 08/23/2025 10:27 AM EST Narrative [facility] - 08/23/2025 4:16 PM EST Over the counter supplements containing high doses of biotin may interfere with this assay. If interference is suspected, patients shoud be retested after refraining from biotin supplements for 72 hours. us Sabrina Lynn BATCH WEIGHER LAB BLOOD ORDERABLES Final Resul t Performing Organization Address City/[facility]/ZIP Co de Phone Number [facility] [address] [place] [address], [place] [phone] * Ferritin (08/23/2025 10:27 AM EST) Ferritin 27 7 - 271 ng/mL 08/23/2025 4:15 PM EST [facility] Blood Venous blood specimen / Unknown Venipuncture / Unknown 08/23/2025 10:27 AM EST 08/23/2025 10:27 AM EST us Sabrina Lynn BATCH WEIGHER LAB BLOOD ORDERABLES Final Resul t Performing Organization Address [facility] de Phone Number [facility] [address] [place] [address], [place] [phone] * (ABNORMAL) Vitamin D 25 hydroxy (08/23/2025 10:27 AM EST) Vit D, 25-Hydroxy 27.8(L) 30.0 - 80.0 ng/mL 08/23/2025 6:18 PM EST [facility] Blood Venous blood specimen / Unknown Venipuncture / Unknown 08/23/2025 10:27 AM EST 08/23/2025 10:27 AM EST Sabrina Eganюлия BATCH WEIGHER LAB BLOOD ORDERABLES Final Resul t Performing Organization Address [facility] de Phone Number [facility] [address] [place] [address], [place] [phone] * Vitamin B12 (08/23/2025 10:27 AM EST) Pathologist [facility] Vitamin B-12 430 211 - 911 pcg/mL 08/23/2025 4:42 PM EST [facility] Blood Venous blood specimen / Unknown Venipuncture / Unknown 08/23/2025 10:27 AM EST 08/23/2025 10:27 AM EST Sabrina Lynn BATCH WEIGHER LAB BLOOD ORDERABLES Final Resul t Performing Organization Address City/[facility] Co de Phone Number [facility] [address] [place] [address], [place] [phone] * (ABNORMAL) Lipid panel with reflex to direct LDL (08/23/2025 10:27 AM EST) Cholesterol 218(H) 0 - 200 mg/dL 08/23/2025 4:21 PM EST [facility] Triglycerides 161(H) 0 - 150 mg/dL 08/23/2025 4:21 PM EST [facility] HDL 56 >=40 mg/dL 08/23/2025 4:21 PM EST [facility] LDL Calculated 130(H) 0 - 100 mg/dL 08/23/2025 4:21 PM EST [facility] Comment:Estimated LDL is philomena culated using [...] 08/23/2025 10:27 AM EST us Sabrina Lynn BATCH WEIGHER LAB BLOOD ORDERABLES Final Resul t [facility] [address] [place] [address], documented in this encounter Visit Diagnoses Diagnosis Screening for ischemic heart disease Vitamin B12 deficiency Other B-complex deficiencies Vitamin D deficiency Leukocytosis, unspecified type Bilateral hand pain documented in this encounter Additional Health Concerns Active Problems Noted Date Diagnosed Date Autogenerated Problem 07/04/2025 Assessment Noted Time PHQ-9 Depression Total Score: 24 025 2:13 PM EST documented as of this encounter Care Teams Picker Machine Operator Relationship Specialty Start Date End Date Liat Nunez MD [address] [phone] PCP - General Internal Medicine 07/30/24 documented as of this encounter
--- OUTSIDE RECORDS SUMMARY | 2025-08-24 23:59 | XMS_ITS | Continuity of Care Document ---
Author Organization [facility] Address [address] [address]- Care Team Providers Care Bridges Supervisor Name Role Phone Enrique STEPHENSON, Liat Rivera Primary Care Physician [phone] Encounter [facility] Date(s): 07/25/25 - 08/24/25 [facility] [address] [address]- Attending Physician: Yesi Mcallister Encounter Type: Triage Allergies, Adverse Reactions, Alerts Substance Criticality Severity Reaction Reaction Severity Status Macrobid Rash Active penicillins Low criticality Mild Rash Ac tive Immunizations Given and Recorded Vaccine Date Status Refusal Reason tetanus/diphtheria/pertussis, acel(Tdap) 03/16/13 Given Fluzone (oldterm) 1 08/07/10 Given 1Admin Note: 04/23/10 VIS Given. Medications amLODIPine 2.5 mg oral tablet 30 each, 0 Refill(s), 0 Refills, 11/08/24 6:35:00 PM EST, Partial fill upon patient request if the prescription is for a schedule II opioid drug. Start Date: 11/08/24 Status: Ordered Medication Dispense Status: Completed Total Allowed Fills: 1 Fills Dispensed: 0 cloNIDine 0.1 mg oral tablet 180 each, 0 Refill(s), TAKE 1 TABLET BY MOUTH TWICE DAILY, Refills 0, 10/08/23 4:49:00 PM EST, Partial fill upon patient request if the prescription is for a schedule II opioid drug. Start Date: 10/08/23 Status: Ordered Medication Dispense Status: Completed Total Allowed Fills: 1 Fills Dispensed: 0 hydrOXYzine hydrochloride 25 mg oral tablet 60 each, 0 Refill(s), TAKE 1 TABLET BY MOUTH TWICE DAILY, 0 Refills, 10/08/23 4:48:00 PM EST, Partial fill upon patient request if the prescription is for a schedule II opioid drug. Start Date: 10/08/23 Status: Ordered Medication Dispense Status: Completed Total Allowed Fills: 1 Fills Dispensed: 0 norethindrone 5 mg oral tablet 5 mg, 1, tablet, By Mouth, Daily, # 90 tablet, Refills 4, Tot. Refills 4, Maintenance, 07/19/25 5:38:00 PM EST, Route to Pharmacy Electronically, [id number], Partial fill upon patientrequest if the prescription is for a schedule II opioid drug., 165, cm, 06/26/25 16:18:00 EDT, Height, 91, kg, 12/27/24 13:00:00 EDT, Dry Weight Start Date: 07/19/25 Status: Ordered Medication Dispense Status: Completed Quantity: 90.0 Unit: tablet Total Allowed Fills: 5 Fills Dispensed: 0 omeprazole 20 mg oral enteric coated capsule 90 each, 0 Refill(s), TAKE 1 CAPSULE BY MOUTH DAILY, 0 Refills, 10/08/23 4:50:00 PM EST, Partial fill upon patient request if the prescription is for a schedule II opioid drug. Start Date: 10/08/23 Status: Ordered Medication Dispense Status: Completed Total Allowed Fills: 1 Fills Dispensed: 0 Senokot S 50 mg-187 mg oral tablet 1 Unknown, oral, 3 Refill(s), Take 1 tablet by mouth 1 (one) time each day., 0 Refills, 09/26/24 7:00:00 PM EST, Partial fill upon patient request if the prescription is for a schedule II opioid drug. Start Date: 09/26/24 Status: Ordered Medication Dispense Status: Completed Total Allowed Fills: 1 Fills Dispensed: 0 sertraline 100 mg oral tablet 30 each, 0 Refill(s), 0 Refills, 11/08/24 6:37:00 PM EST, Partial fill upon patient request if the prescription is for a schedule II opioid drug. Start Date: 11/08/24 Status: Ordered Medication Dispense Status: Completed Total Allowed Fills: 1 Fills Dispensed: 0 Vitamin B-12 500 mcg oral tablet 90 each, 0 Refill(s), TAKE 1 TABLET BY MOUTH DAILY, 0 Refills, 10/08/23 4:51:00 PM EST, Partial fillupon patient request if the prescription is for a schedule II opioid drug. Start Date: 10/08/23 Status: Ordered Medication Dispense Status: Completed Total Allowed Fills: 1 Fills Dispensed: 0 Vitamin D3 2000 intl units oral tablet 90 each, 0 Refill(s), TAKE 1 TABLET BY MOUTH DAILY, 0 Refills, 10/08/23 4:51:00 PM EST, Partial fillupon patient request if the prescription is for a schedule II opioid drug. 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 Active of life partner 1 Confirmed 04/06/18 Active Depression Confirmed Active Herpes Confirmed Active History of PID Confirmed Active Obese class I Confirmed Active Adenomyosis Confirmed 07/20/23 Active 1suicide, found by patient Social History Social History Type Response Smoking Status Never (less than 100 in lifetime) entered on: 06/09/24 Sexual Orientation Self described orien tation: ; Straight or heterosexual Sex Sex Representation Female (finding) Laboratory * Lili Vela CNM: PERFORM Event Display: Laboratory Results Scanned Authored Date: above note re e coli was written by tx, not kedar browne. * Skylar Browne CNM: PERFORM Event Display: Laboratory Results Scanned Authored Date: urine culture shows >100k e coli. pt phoned by jose tijerina-asympt. will not tx asb at this time. pt aware of s/sx uti. note-chart does not include alleged allergy to macrobid-will add. Imaging * Melody Angela: PERFORM Event Display: Radiology Results Scanned Authored Date: Patient Care team information Care Team Personnel Name: Enrique STEPHENSON, Liat Rivera Position: Reference Physician Member Role: PCP Address: [address] [facility], [address] [place] [address]- [place] Telecom: Name: Mk Phelan RN Position: S RN Member Role: Primary Care Nurse Name: Meron De Los Santos RN Position: S RN Member Role: Primary Care Nurse Name: Kip STEPHENSON, Johnathan Serna Position: [facility] PHYSICIST NUCLEAR MD Member Role: Lifetime PHYSICIST NUCLEAR Physician Address: [address] [facility] [place] [address]- [place] Telecom: Care Team Related Persons Name: TOD RANDOLPH Name: LESLEE COLEMAN Insurance Providers Guarantor name: [employer] Plan Information #: 1 Payer: [facility] Payer Identifier: YOANDY Member Number: [id number] Group Number: [id number] Subscriber Identifier: NA Relationship to Subscriber: self Coverage Type: Medicare Managed Care (Includes Medicare Advantage Plans) Coverage Verification Date: NA Telecom: NA Address: NA
--- NOTE | ~2025-08-27 | CT_ITS ---
CLINICAL HISTORY: Diffuse abdominal pain. CT abdomen and pelvis with contrast Comparison: CT/SR - CT ABDOMEN PELVIS W IV CON - 10/30/24 19:39 EST Findings: Hiatal hernia. Right renal upper pole cortical low-attenuation lesion, 2.6 cm; renal cysts. Left renal lower pole 0.4 cm, right renal lower pole 0.4 cm nonobstructing nephroliths. The liver and spleen, adrenals and pancreas are within normal limits. No bowel obstruction, pneumoperitoneum, or pneumatosis. Diverticulosis. The appendix is within normal limits. No ascites. The bones are intact. IMPRESSION: 1. Hiatal hernia. 2. Diverticulosis. 3. Bilateral nonobstructing nephroliths, largest 0.4 cm. 4. No acute intraabdominal or pelvic findings. This document has been electronically signed by: Holland Cervantes MD on 08/27/2025 19:23:16
[2025-08-27 15:48] VITALS: BP 180/94; PULSE 115; O2SAT 100
[2025-08-27 15:49] VITALS: BP 184/95; PULSE 98; RESP 24; TEMP 36.6; O2SAT 96; BMI 32.6
--- NOTE | 2025-08-27 15:58 | ED.ABDPAIN ---
HPI - Abdominal Pain General Chief Complaint: Abdominal Pain Stated Complaint: ABD PAIN,NAUSEA,WEAKNESS X3D PER EMS Time Seen by Provider: 08/27/25 16:39 History of Present Illness HPI narrative: Patient is a 45-year-old female presents today with having abdominal pain for the last 4 days. Associated with some nausea decreased p.o. intake. Patient from home. Has diffuse abdominal pain. Has a history of elevated white count in the past. Feels very weak tired has a history of endometriosis her last menstrual period was a month ago patient claims she is not sexually active. There is no vaginal discharge. She had a bowel movement yesterday. There is no chest pain there is no shortness of breath there is no abdominal surgery done in the past. Patient is from home. The pain is diffuse. Related Data Home Medications ?Medication ?Instructions ?Recorded ?Confirmed acetaminophen 500 mg tablet 1,000 mg PO Q6H PRN Pain (Scale 10/31/24 08/03/25 (Tylenol Extra Strength) Score 1-3) amlodipine 2.5 mg tablet 2.5 mg PO DAILY 10/31/24 08/03/25 clonidine HCl 0.1 mg tablet 0.1 mg PO BEDTIME 10/31/24 08/03/25 cyanocobalamin (vitamin B-12) 1,000 mcg PO DAILY 10/31/24 08/03/25 1,000 mcg tablet hydroxyzine HCl 25 mg tablet 25 mg PO BEDTIME 10/31/24 08/03/25 ibuprofen 400 mg tablet 400 mg PO TID PRN Pain (Scale 10/31/24 08/03/25 Score 4-6) lansoprazole 15 mg capsule,delayed 15 mg PO DAILY 10/31/24 08/03/25 release morphine 15 mg immediate release 15 mg PO Q8H PRN Pain (Scale Score 10/31/24 10/31/24 tablet 7-10) sennosides 8.6 mg-docusate sodium 1 tab PO DAILY 10/31/24 08/03/25 50 mg tablet (Stimulant Laxative Plus) sertraline 50 mg tablet 50 mg PO DAILY 10/31/24 08/03/25 tramadol 50 mg tablet 50 mg PO Q6H PRN Pain (Scale Score 10/31/24 08/03/25 7-10) valacyclovir 1 gram tablet 1,000 mg PO DAILY PRN hsv flare 10/31/24 08/03/25 aripiprazole 5 mg tablet 5 mg PO BEDTIME 04/10/25 08/03/25 cholecalciferol (vitamin D3) 50 50 mcg PO DAILY 08/17/25 08/17/25 mcg (2,000 unit) tablet irbesartan 300 mg tablet 300 mg PO DAILY 08/17/25 08/17/25 Previous Rx's ?Medication ?Instructions ?Recorded doxycycline hyclate 100 mg tablet 100 mg PO Q12H 14 days #28 tabs 10/29/24 fluconazole 150 mg tablet 150 mg PO Q3D 2 doses #2 tabs 11/01/24 propranolol 10 mg tablet 10 mg PO BID #180 tabs 03/27/25 ondansetron 4 mg disintegrating 4 mg PO Q8H PRN nausea and 06/02/25 tablet vomiting #20 tabs Allergies Allergy/AdvReac Type Severity Reaction Status Date / Time nitrofurantoin (From Allergy Severe RASH Verified 08/27/25 15:51 MACROBID) Penicillins (PENICILLINS) Allergy Severe RASH Verified 08/27/25 15:51 lisinopril Allergy Unknown Unknown Verified 08/27/25 15:51 Review of Systems Review of Systems Positive abdominal pain PMFSH Past Medical History Attestation statement: The following information was validated with the patient. Medical History Arthritis GERD (gastroesophageal reflux disease) Familial tremor Hx of trichomonal vaginitis Endometriosis PTSD (post-traumatic stress disorder) Depression Insomnia Bursitis HTN (hypertension) Surgical History No pertinent past surgical history Social History Social History Household Members: None Housing: Apartment Do you presently have visiting nurse or other home services: Yes ([employer]ANCH COORDINATOR) Unable to assess alcohol history related to: Unknown Patient Tobacco Use Status: Never used Tobacco Smoked in Last 30 Days: No Use of substances other than those prescribed or required for medical reasons: Unknown Substance Use Type: Marijuana Advance Directives: No Advance Directives Information Provided: No Patient : No service: No Physical Exam ED Exam Exam: Appearance: Alert. Oriented X3. No acute distress. Eyes: Pupils equal, round and reactive to light. ENT: Pharynx normal. Neck: Normal inspection. Neck supple. No lymph nodes noted. No crepitus CVS: Normal heart rate and rhythm. Pulses normal. Normal S1 and S2 Respiratory: No respiratory distress. Breath sounds normal. No Wheezing. No rales Abdomen: Soft and nontender. No rigidity. No distention. good BS x4 Skin: Skin warm and dry. Normal skin color. Normal skin turgor. Extremities: No lower extremity edema. Neurovascular intact to all extremities. No Lacerations. No Rash Neuro: Oriented X 3. No motor deficit. No sensory deficit. Moving all extermities. No slurred speech Vital Signs: Vital Signs - 24 hr 08/27/25 15:49 08/27/25 17:40 Temperature 97.9 F 98 F Pulse Rate 98 82 Respiratory Rate 24 H 16 Blood Pressure 184/95 H 127/74 Pulse Oximetry 96 98 Oxygen Delivery Method Room Air Room Air BMI result Body Mass Index 32.6 Course Course Course Narrative: This is a Rapid Medical Examination (RME) performed by Dorcas Morris PA-C in triage. Full HPI, ROS, assessment and treatment plan per primary provider in the Main ED. Hx: 45 yo F BIBA for eval of diffuse abdominal pain and nausea w/o vomiting x4 days, hx endometreosis, states this feels similar. feels weak/dizzy. taking motrin/tylenol/zofran at home without improvement. Plan: labs, UA - declining meds in triage. Medical Decision Making Medical Decision Making [facility] Narrative: patient is a 45-year-old female presented today with having abdominal pain for the last 4 days. Associated with some nausea. There is diffuse tenderness. There is no rebound or guarding has a history of endometriosis. Patient's white count was significantly elevated at approximately 30. 60% neutrophils. No bandemia. Patient CT scan of the abdomen pelvis showed no acute obstruction no abscess no perforation. Patient lactate was normal no signs of severe sepsis. We were going to admit patient for monitoring overnight. I discussed the case with the hospitalist. He came down and evaluated the patient. He reviewed patient's chart and he also had access to patient's charting from [facility]. [place] patient white count is probably related to a chronic issue. Wants patient to be discharged. Discussed with patient. Understood that if her pain worsens she should come back immediately. Patient is in no acute distress. She should follow-up closely with her electrical and instrument technician and with her primary physician. Patient is in stable condition. Differential Diagnosis Differential Diagnoses: The differential diagnosis associated with the presentation includes Acute abdomen Admission/Observation Consideration of admission/observation: Escalation of care including admission/observation considered Consult Healthcare Provider Management of the patient was discussed with: Hospitalist Lab Data MDM Lab Attestation statement: I reviewed the patient's lab results. 08/27/25 16:36 08/27/25 16:36 Labs: Lab Results 08/27/25 08/27/25 08/27/25 Range/Units 16:36 18:29 19:25 WBC 31.6 H* (4.8-10.8) X10*3/uL RBC 4.50 (4.20-5.50) X10*6/uL Hgb 13.5 (12.0-16.0) g/dl Hct 39.7 (37.0-47.0) % MCV 88.2 (80.0-98.0) fL MCH 30.0 (27.0-33.0) pg MCHC 34.0 (31.0-35.0) g/dl RDW 12.9 (11.0-16.0) % Plt Count 269 (160-400) X10*3/uL MPV 11.3 (9.4-12.3) fL Immature Gran % (Auto) Cancelled Neut % (Auto) Cancelled Lymph % (Auto) Cancelled [place] % (Auto) Cancelled Eos % (Auto) Cancelled Baso % (Auto) Cancelled Lymph # (Auto) Cancelled [place] # (Auto) Cancelled Eos # (Auto) Cancelled Baso # (Auto) Cancelled Abs Immat Gran (auto) Cancelled Absolute Neuts (auto) Cancelled Absolute Nucleated RBC 0.000 (0.0-0.012) X10*3/uL Nucleated RBC % (auto) 0.0 (0.0-0.2) /100WBC Neutrophils % (Manual) 29 L (45-73) % Band Neutrophils % 2 L (3-5) % Lymphocytes % (Manual) 62 H (20-40) % Atypical Lymphs % (Man) 2 (0-6) % Monocytes % (Manual) 3 (2-11) % Eosinophils % (Manual) 2 (0-4) % Abs Neuts (Manual) 9.8 H (2.0-8.3) X10*3/uL Lymphocytes # (Manual) 19.6 H (1.2-4.9) X10*3/uL Atyp Lymphs # (Manual) 0.6 x10*3/uL Monocytes # (Manual) 0.9 (0.1-1.2) X10*3/uL Eosinophils # (Manual) 0.6 H (0.0-0.4) X10*3/uL Platelet Estimate NORMAL (NORMAL) Plt Morphology Comment NORMAL RBC Morphology NORMAL Sodium 143 (135-145) mmol/L Potassium 3.4 (3.3-5.1) mmol/L Chloride 107 (96-108) mmol/L Carbon Dioxide 22 (22-29) mmol/L Anion Gap 17 (12-20) BUN 11 (9-16) mg/dL Creatinine 0.86 (0.5-1.4) mg/dL Estim Creat Clear Calc 85.9 Estimated GFR > 60 Random Glucose 95 (60-115) mg/dL Lactic Acid 1.5 (0.5-2.0) mmol/L Calcium 8.8 D (8.4-10.2) mg/dL Magnesium 2.0 (1.6-2.6) mg/dL Total Bilirubin 0.6 (0.0-1.0) mg/dL AST 26 (5-31) U/L ALT 20 (0-31) U/L Alkaline Phosphatase 87 (39-117) U/L Total Protein 7.5 (6.5-8.0) g/dL Albumin 4.8 (3.5-5.0) g/dL Lipase 15 (8-78) U/L Beta HCG, Quant < 2 mIU/mL Urine Color Yellow Urine Appearance Clear Urine pH 6.5 (5.0-9.0) Ur Specific [place] >= 1.030 H (1.005-1.025) Urine Protein Negative (Neg-Trace) mg/dL Urine Glucose (UA) Negative (Negative) mg/dL Urine Ketones Trace (Negative) mg/dL Urine Blood Trace H (Negative) Urine Nitrite Negative (Negative) Ur Leukocyte Esterase Negative (Negative) Urine RBC 3-5 H (0-2) /HPF Urine WBC 0-5 (0-5) /HPF Ur Squamous Epith Cells 3-5 (0-2) /HPF Urine Bacteria 1+ (None Seen) Hyaline Casts 0-2 (0-2) /LPF Independent Interpretation I performed an independent interpretation of an: CT Scan ( CT scan of the abdomen grossly negative.) Radiology Impression Discussion of test interpretation with radiology: I have reviewed the radiologist's reading. External Record Review External record reviewed: Inpatient record Chronic Conditions History of elevated white count Social Determinants Patient?s care significantly limited by Social Determinants of Health including: Problems related to primary support group Medications Administered Discontinued Medications Generic Name Dose Route Start Last Admin Trade Name Freq PRN Reason Stop Dose Admin Hydromorphone HCl 0.5 mg 08/27/25 17:51 08/27/25 18:05 Hydromorphone Hcl 0.5 Mg/0.5 Ml Syringe IVPUSH 08/27/25 17:52 0.5 mg ONCE ONE Administration Protocol Sodium Chloride 1,000 mls @ 999 mls/hr 08/27/25 18:00 08/27/25 19:55 Ns IV 08/27/25 19:00 Infused .Q1H1M GLORIA Infusion Sodium Chloride 1,000 mls @ 999 mls/hr 08/27/25 18:00 08/27/25 21:01 Ns IV 08/27/25 19:00 Infused .Q1H1M GLORIA Infusion Ceftriaxone Sodium 2 gm/ 50 mls @ 100 mls/hr 08/27/25 18:14 08/27/25 19:05 Sodium Chloride IV 08/27/25 18:43 Infused ONCE ONE Infusion Metronidazole 500 mg in 100 mls @ 100 mls/hr 08/27/25 18:14 08/27/25 19:55 Flagyl IV 08/27/25 19:13 Infused ONCE ONE Infusion Iohexol 100 ml 08/27/25 18:50 08/27/25 18:50 Iohexol 350 Mg/Ml 100 Ml Infus..Btl IV 08/27/25 18:51 85 ml ONCE ONE Administration Ondansetron HCl 4 mg 08/27/25 15:52 08/27/25 15:56 Ondansetron Odt 4 Mg Tab.Rapdis TRANSLINGU 08/27/25 15:53 Not Given ONCE ONE Ondansetron HCl 4 mg 08/27/25 18:33 08/27/25 18:49 Ondansetron Hcl 4 Mg/2 Ml Vial IVPUSH 08/27/25 18:34 4 mg ONCE ONE Administration Discharge Plan Discharge Clinical Impression: Abdominal pain Patient Disposition: Home, Self-Care Instructions: Abdominal Pain (ED) Additional Instructions: your white count was very high today. Worsened abdominal pain return to the emergency department. Please closely follow-up with your electrical and instrument technician oncologist. Prescriptions: No Action propranolol 10 mg tablet 10 mg PO BID Qty: 180 0RF doxycycline hyclate 100 mg tablet 100 mg PO Q12H 14 Days Qty: 28 0RF clonidine HCl 0.1 mg tablet 0.1 mg PO BEDTIME valacyclovir 1 gram tablet 1,000 mg PO DAILY PRN (Reason: hsv flare) sennosides-docusate sodium [Stimulant Laxative Plus] 8.6-50 mg tablet 1 tab PO DAILY cyanocobalamin (vitamin B-12) 1,000 mcg Tablet 1,000 mcg PO DAILY amlodipine 2.5 mg tablet 2.5 mg PO DAILY tramadol 50 mg Tablet 50 mg PO Q6H PRN (Reason: Pain (Scale Score 7-10)) lansoprazole 15 mg capsule,delayed release(DR/EC) 15 mg PO DAILY hydroxyzine HCl 25 mg tablet 25 mg PO BEDTIME sertraline 50 mg tablet 50 mg PO DAILY acetaminophen [Tylenol Extra Strength] 500 mg tablet 1,000 mg PO Q6H PRN (Reason: Pain (Scale Score 1-3)) ibuprofen 400 mg tablet 400 mg PO TID PRN (Reason: Pain (Scale Score 4-6)) morphine 15 mg tablet 15 mg PO Q8H PRN (Reason: Pain (Scale Score 7-10)) Rx Instructions: Partial Fill upon patient request. fluconazole 150 mg tablet 150 mg PO Q3D Qty: 2 0RF ondansetron 4 mg tablet,disintegrating 4 mg PO Q8H PRN (Reason: nausea and vomiting) Qty: 20 0RF cholecalciferol (vitamin D3) 50 mcg (2,000 unit) tablet 50 mcg PO DAILY irbesartan 300 mg tablet 300 mg PO DAILY aripiprazole 5 mg tablet 5 mg PO BEDTIME Referrals: Liat Nunez MD [Primary Care Provider, Internal Medicine] - 08/29/25 Print Language: Setswana
[2025-08-27 16:55] LABS: NRBC Abs Auto 0.000 X10*3/uL (0.0-0.012); NRBC Pct Auto 0.0 /100WBC (0.0-0.2); PLT CLUMP 1
[2025-08-27 16:56] LABS: Hematocrit 39.7 % (37.0-47.0); Hemoglobin 13.5 g/dl (12.0-16.0); Mean Corpuscular HGB Conc 34.0 g/dl (31.0-35.0); Mean Corpuscular Hemoglobin 30.0 pg (27.0-33.0); Mean Corpuscular Volume 88.2 fL (80.0-98.0); Red Blood Count 4.50 X10*6/uL (4.20-5.50)
--- OUTSIDE RECORDS SUMMARY | 2025-08-27 17:05 | XMS_ITS | Clinical Summary ---
Author Organization [facility] Prior to 02/11/25 Address [address] [place] [address] Care Team Providers Care Pediatric Occupational Therapist Name Role Phone Liat Nunez MD Primary Care Provider [phone] Allergies Active Allergy Reactions Criticality Noted Date [...] age to complete this topic Care Teams Pediatric Occupational Therapist Relationship Specialty Start Date End Date Liat Nunez MD [address] [phone] PCP - General Internal Medicine 01/04/24
--- OUTSIDE RECORDS SUMMARY | 2025-08-27 17:05 | XMS_ITS | Encounter Summary ---
Author Organization [facility] Address [address] [place] [address] Care Team Providers Care Jigman Name Role Phone Liat Nunez MD Primary Care Provider [phone] Encounter Details Date Type Department Care Team (Late st Contact Info) Description 07/27/2025 Results Follow-Up Internal Medicine - [place] 175 [facility] [address] [place] [phone] Sabrina Lynn NP 175 [facility] [address] [place] [address] Social History Tobacco Use Types Packs/Day Years [...] PM EDT documented as of this encounter Ordered Prescriptions Prescription Sig Dispense Quantity Refills Last Filled Start Date End Date cyanocobalamin 2,000 mcg ER tabletIndications: Vitamin B12 deficiency Take 1 tablet (2,000 mcg total) by mouth 1 (one) time each day. 90 tablet 3 07/27/2025 07/27/2026 cholecalciferol (VITAMIN D-3) 50 mcg (2,000 unit) tabletIndications: Vitamin D deficiency Take 1 tablet (2,000 Units total) by mouth 1 (one) time each day. 90 tablet 3 07/27/2025 08/24/2025 documented in this encounter Plan of Treatment Upcoming Encounters Date Type Department Care Team (Late st Contact Info) Description 08/28/2025 1:30 PM EST Hospital Encounter [facility] Endoscopy [address] [place] [phone] Carter Chadwick MD 299 [facility] [address] [place] [address] Daxa Trujillo CRNA [address] [place], [place] [id number] Kyra Lopes MD [address] [place] [id number] 09/04/2025 1:30 PM EST Office Visit Internal Medicine - [place] 175 [facility] [address] [place] [phone] Sabrina Lynn NP 175 [facility] [address] [place] [address] 09/06/2025 10:45 AM EST Consult Bariatric Surgery - [place] 175 [facility] [address] [place] [phone] Brenna De MD [address] [place] [phone] 10/02/2025 1:45 PM EST Office Visit [facility] Hematology Oncology [address] [place] [phone] Michaela Bergeron MD [address] [place] [address] 11/27/2025 1:00 PM EDT Office Visit Internal Medicine - [place] 175 [facility] [address] [place] [address] Sabrina Lynn NP [address] [address] documented as of this encounter Goals Goal Patient Goal Type Associated Problems Recent Progress Patient-Stated? Author PT LTGs General No Daniel Brenner, PT Note: Pt will report cervical pain no greater than 5/10 with cervical AROM testing Pt will report cervical pain no greater than 3/10 with morning ADLs Pt will be independent with HEP Autogenerated Goal Care Plan Autogenerated Problem No Kevin Masseysheyla Payan documented as of this encounter Visit Diagnoses Diagnosis Vitamin B12 deficiency- Primary Other B-complex deficiencies Vitamin D deficiency documented in this encounter Discontinued Medications Medication Sig Discontinue Reason Start Date End Da te cholecalciferol (VITAMIN D-3) 50 mcg (2,000 unit) tabletIndications:Vitami n D deficiency Take 1 tablet (2,000 Units total) by mouth 1 (one) time each day. Reorder 03/23/2025 07/27/2025 documented as of this encounter Additional Health Concerns Active Problems Noted Date Diagnosed Date Autogenerated Problem 07/04/2025 Assessment Noted Time PHQ-9 Depression Total Score: 24 025 2:13 PM EST documented as of this encounter Care Teams Jigman Relationship Specialty Start Date End Date Liat Nunez MD [address] [phone] PCP - General Internal Medicine 07/30/24 documented as of this encounter
--- OUTSIDE RECORDS SUMMARY | 2025-08-27 17:05 | XMS_ITS | Clinical Summary ---
Author Organization [facility] Address [address] [place] [address] Phone Care Team Providers Care Bean Dumper Name Role Phone Liat Nunez MD Primary Care Provider [phone] Allergies Active Allergy Reactions Criticality Noted Date [...] daily. Active LANSOPRAZOLE ORAL Take by mouth. Activ e amLODIPine (NORVASC) 2.5 mg tablet Take 1 tablet (2.5 mg total) by mouth 1 (one) time each day. 30 each 5 09/27/19 25 Active senna-docusate (PERICOLACE) 8.6-50 mg per tablet Take 1 tablet by mouth 1 (one) time each day. 30 each 3 09/27/19 25 2025 Active doxycycline hyclate (VIBRA-TABS) 100 mg tablet 11/08/19 25 Active metroNIDAZOLE (FLAGYL) 500 mg tablet Take 1 tablet (500 mg total) by mouth 2 (two) times a day. for 14 days 10/30/19 25 Active irbesartan (AVAPRO) 300 mg tablet [...] mouth 1 (one) time each day. Active magnesium oxide 400 mg magnesium capsuleIndicat ions:Leg cramps Take 1 capsule by mouth at bedtime. 90 capsule 03/23/20 25 Active ketoconazole (NIZORAL) 2 % shampooIndicat ions:Tinea capitis Shampoo daily, leave on for 5-10 minutes on scalp, then rinse. 120 mL 11 03/23/20 25 Active hydrocortisone 2.5 % creamIndicatio ns:Itch Apply topically 2 (two) times a day if needed for irritation or rash. 30 g 3 03/23/20 25 2025 Active bisacodyL (DULCOLAX) 5 mg EC tablet [...] at 8PM. 4000 mL 05/22/20 25 Active ibuprofen (ADVIL,MOTRIN) 600 mg tablet Take 1 tablet (600 mg total) by mouth every 8 (eight) hours if needed for mild pain. 60 tablet 2 07/03/20 25 Active celecoxib (CeleBREX) 200 mg capsuleIndicat ions:Total body pain Take 1 capsule (200 mg total) by mouth 2 (two) times a day. 60 each 5 07/26/20 25 2025 Active amitriptyline (ELAVIL) 25 mg tabletIndicati ons:Other migraine with status migrainosus, intractable Take 1 tablet (25 mg total) by mouth at bedtime as needed (migraines). 30 each 11 07/26/20 25 2025 Active cyanocobalamin 2,000 mcg ER tabletIndicati ons:Vitamin B12 deficiency Take 1 tablet (2,000 mcg total) by mouth 1 (one) time each day. 90 tablet 3 07/27/20 25 2025 Active polyethylene glycol (Golytely) 236-22.74-6.74 -5.86 gram solution Take 4L by mouth once for one dose. May substitue any PEG. Starting at 2PM the day before your procedure drink 1 8oz glasses at your own pace until you complete half of the gallon. Finish 2nd half of the gallon at 8PM. 4000 mL 08/14/20 25 Active bisacodyL (DULCOLAX) 5 mg EC tablet Take 2 tablets by mouth right before beginning bowel prep. See instructions provided by the office 2 tablet 08/14/20 25 Active dicyclomine (BENTYL) 20 mg tabletIndicati ons:Abdominal cramps Take 1 tablet (20 mg total) by mouth 4 (four) times a day if needed (abdominal pain or cramps). 60 tablet 5 08/23/20 25 2025 Active omeprazole (PriLOSEC) [address] capsule TAKE 1 CAPSULE BY MOUTH DAILY 90 capsule 2 08/24/20 25 Active cholecalcifero l (VITAMIN D-3) 50 mcg (2,000 unit) tabletIndicati ons:Vitamin D deficiency Take 1 tablet (2,000 Units total) by mouth 1 (one) time each day. 90 tablet 3 08/24/20 25 Active omeprazole (PriLOSEC) [address] capsule TAKE 1 CAPSULE BY MOUTH DAILY 90 capsule 2 02/14/20 25 2024 Discontinued cholecalcifero l (VITAMIN D-3) 50 mcg (2,000 unit) tabletIndicati ons:Vitamin D deficiency Take 1 tablet (2,000 Units total) by mouth 1 (one) time each day. 90 tablet 3 07/27/20 25 2024 Discontinued(R eorder) Active Problems Problem Noted Date Diagnosed Date Severe major depressive disorder 08/23/2025 Obesity, morbid 08/23/2025 Atypical lobular hyperplasia (ALH) of left breas [...] Encounters Date Type Department Care Team Description 08/24/2025 Results Follow-Up Internal Medicine - [address] [place] [address] Sabrina Lynn NP 08/23/2025 10:30 AM EST Lab Draw Station - [address] [address] Screening for ischemic heart disease; Vitamin B12 deficiency; Vitamin D deficiency; Leukocytosis, unspecified type; Bilateral hand pain 08/23/2025 9:30 AM EST Office Visit Internal Medicine - [address] [phone] Sabrina Lynn NP Screening for ischemic heart disease (Primary Dx); Vitamin B12 deficiency; Vitamin D deficiency; Leukocytosis, unspecified type; BMI 36.0-36.9,adult; Bilateral hand pain; Obesity, morbid (CMS/HCC V24, CMS/HCC V28); Other chronic pain; Left hip pain; Abdominal cramps; Cervical disc herniation; Endometriosis; Menopausal and perimenopausal disorder; PTSD (post-traumatic stress disorder); Severe major depressive disorder (CMS/HCC V24, CMS/HCC V28); Anxiety; Primary hypertension; Hyperlipidemia, unspecified hyperlipidemia type 07/27/2025 Results Follow-Up Internal Medicine - [address] [address] Sabrina Lynn NP 07/26/2025 3:15 PM EST Lab Draw Station - [address] [phone] Lymphoproliferative disease (CMS/HCC V24, CMS/HCC V28); Screening for ischemic heart disease; Routine adult health maintenance; Screening for diabetes mellitus; Vitamin B12 deficiency; Vitamin D deficiency; Urinary frequency; Screen for STD (sexually transmitted disease) 07/26/2025 2:00 PM EST Office Visit Internal Medicine - [address] [address] Sabrina Lynn NP Routine adult health maintenance (Primary Dx); Screening for ischemic heart disease; Screening for diabetes mellitus; Vitamin B12 deficiency; Vitamin D deficiency; Total body pain; BMI 36.0-36.9,adult; Urinary frequency; Screen for STD (sexually transmitted disease); Encounter for screening mammogram for malignant neoplasm of breast; Other migraine with status migrainosus, intractable; Left hip pain; Cervical disc herniation; Hip pain, unspecified laterality; Endometriosis; Perimenopause; Anxiety and depression; PTSD (post-traumatic stress disorder); Primary hypertension; Hyperlipidemia, unspecified hyperlipidemia type 06/28/2025 Telephone Orthopedic Surgery [facility] 160 175 [facility] 160 [place] [phone] Alvarez Castorena MD 06/06/2025 Telephone Orthopedic Surgery [facility] 250 175 [facility] 250 [place] [address] Yoli Pineda 06/05/2025 Telephone Internal Medicine [facility] 175 [facility] 200 [place] [phone] Gail Arrington RN 06/05/2025 Telephone Gastroenterology [address] 299 [facility] [address] [place] [phone] Carter Chadwick MD 05/30/2025 Telephone Internal Medicine [facility] 175 [facility] 200 [place] [phone] Liat Nunez MD from Last 3 Months Immunizations Immunization Administration Dates Next Due Influenza trivalent, 0.5mL, preservative free (Fluarix; FluLaval; Fluzone) ages 6mo and older (Afluria) 3 years and older 07/26/2025 Surgical History Surgery Date Site/Laterality Comments OTHER [...] Depression 07/02/2016 DX:Depression GERD (gastroesophageal reflux disease) 5 DX:GERD (gastroesophageal reflux disease) Hyperlipidemia 01/12/2018 DX:Hyperlipidemi [...] not to disclose 2024 1:28 PM EDT Last Filed Vital Signs Vital Sign Reading Time Taken Comments Blood Pressure 138/88 08/23/2025 9:47 AM EST Pulse 76 08/23/2025 9:47 AM EST Temperature 36.2 C (97.1 F) 08/23/2025 9:47 AM EST Respiratory Rate 18 03/23/2025 2:01 PM EDT Oxygen Saturation 98% 08/23/2025 9:47 AM EST Inhaled Oxygen Concentration - - Weight 96.4 kg (212 lb 9.6 oz) 08/23/2025 9:47 A M EST Height 162.6 cm (5' 4 ) 07/26/2025 2:12 PM EST Body Mass Index 36.49 07/26/2025 2:12 PM EST Plan of Treatment Upcoming Encounters Date Type Department Care Team (Late st Contact Info) Description 08/28/2025 1:30 PM EST Hospital Encounter [facility] Endoscopy [address] [place] [phone] Carter Chadwick MD [address] [address] Daxa Trujillo CRNA [address] [place], [place] [phone] Kyra Lopes MD [address] [place] [address] 09/04/2025 1:30 PM EST Office Visit Internal Medicine - [place] 175 [facility] 200 [place] [phone] Sabrina Lynn NP 175 [facility] 200 [place] [address] 09/06/2025 10:45 AM EST Consult Bariatric Surgery - [place] 175 [facility] 120 [place] [phone] Brenna De MD [address] [place] [phone] 10/02/2025 1:45 PM EST Office Visit [facility] Hematology Oncology [address] [place] [phone] Michaela Bergeron MD [address] [place] [address] 11/27/2025 1:00 PM EDT Office Visit Internal Medicine - [place] 175 [facility] 200 [place] [phone] Sabrina Lynn NP 175 [facility] 200 [place] [address] Health Maintenance Due Date Last Done Comments Breast Cancer Screening 1978 Colorectal Cancer Screening: Colonoscopy 1978 Hepatitis B Vaccines (1 of 3 - 19+ 3-dose series) 1997 Cervical Cancer Screening: P ap Smear 1999 Medicare Annual Wellness Visit 08/23/2022 Social Influencers of Health Screening 08/23/2022 COVID-19 Vaccine (1 - 2024-2 6 season) 2025 Hypertension/CHF/CAD Annual BMP Blood Test 07/26/2026 07/26/2025, 07/30/2024 DTaP,Tdap,and Td Vaccines (4 - Td or Tdap) 04/10/2027 04/10/2017, 03/16/2013, 09/19/2011 Cholesterol Screening (Lipid Panel) 08/23/2030 08/23/2025, 07/26/2025, 11/22/2024 RSV Immunization Adult Patients (1 - 1-dose 75+ series) 2053 Depression Screening Completed 07/26/2025 HIV Screening Completed 07/26/2025 Hepatitis C Screening Completed 07/26/2025 Influenza Vaccine Completed 07/26/2025, 08/07/2010 HIB Vaccines Aged Out No longer eligi [...] Care Plan Autogenerated Problem No Radha Massey Procedures Procedure Name Priority Date/Time Associated Diagnosis Comments MANUAL DIFFERENTIAL - SYSMEX WAM Routine 08/23/2025 10:27 AM EST Leukocytosis, unspecified type CBC WITH AUTO DIFFERENTIAL Routine 08/23/2025 10:27 AM EST Leukocytosis, unspecified type C-REACTIVE PROTEIN Routine 08/23/2025 10 :27 AM EST Bilateral hand pain KATIE IFA WITH TITER AND PATTERN Routine 08/23/2025 10:27 AM EST Bilateral hand pain RHEUMATOID FACTOR Routine 08/23/2025 10: 27 AM EST Bilateral hand pain IRON AND TIBC Routine 08/23/2025 10:27 AM EST Leukocytosis, unspecified type FOLATE Routine 08/23/2025 10:27 AM EST Leukocytosis, unspecified type FERRITIN Routine 08/23/2025 10:27 AM EST Leukocytosis, unspecified type CBC AND DIFFERENTIAL Routine 08/23/2025 10:27 AM EST Leukocytosis, unspecified type VITAMIN D 25 HYDROXY Routine 08/23/2025 10:27 AM EST Vitamin D deficiency VITAMIN B12 Routine 08/23/2025 10:27 AM EST Vitamin B12 deficiency LIPID PANEL WITH REFLEX TO DIRECT LDL Routine 08/23/2025 10:27 AM EST Screening for ischemic heart disease MANUAL DIFFERENTIAL - SYSMEX WAM Routine 07/26/2025 3:13 PM EST Lymphoproliferative disease (CMS/HCC V24, CMS/HCC V28) URINALYSIS WITH REFLEX MICROSCOPIC Routine 07/26/2025 3:13 PM EST Urinary frequency CBC WITH AUTO DIFFERENTIAL Routine 07/26/2025 3:13 PM EST Lymphoproliferative disease (CMS/HCC V24, CMS/HCC V28) HEPATITIS C ANTIBODY Routine 07/26/2025 3:13 PM EST Screen for STD (sexually transmitted disease) TREPONEMA PALLIDUM ANTIBODY WITH REFLEX TO RPR AND PARTICLE AGGLUTINATION Routine 07/26/2025 3:13 PM EST Screen for STD (sexually transmitted disease) HIV 1, 2 ANTIBODY, P24 ANTIGEN WITH REFLEX TO DIFFERENTIATION Routine 07/26/2025 3:13 PM EST Screen for STD (sexually transmitted disease) URINALYSIS WITH REFLEX MICROSCOPIC Routine 07/26/2025 3:13 PM EST Urinary frequency VITAMIN D 25 HYDROXY Routine 07/26/2025 3:13 PM EST Vitamin D deficiency VITAMIN B12 Routine 07/26/2025 3:13 PM EST Vitamin B12 deficiency MAGNESIUM Routine 07/26/2025 3:13 PM EST Routine adult health maintenance THYROID STIMULATING HORMONE WITH REFLEX TO FREE T4 AND FREE T3 Routine 07/26/2025 3:13 PM EST Routine adult health maintenance HEMOGLOBIN A1C Routine 07/26/2025 3:13 PM EST Screening for diabetes mellitus COMPREHENSIVE METABOLIC PANEL Routine 07/26/2025 3:13 PM EST Routine adult health maintenance LIPID PANEL WITH REFLEX TO DIRECT LDL Routine 07/26/2025 3:13 PM EST Screening for ischemic heart disease LACTATE DEHYDROGENASE Routine 07/26/2025 3:13 PM EST Lymphoproliferative disease (CMS/HCC V24, CMS/HCC V28) CBC AND DIFFERENTIAL Routine 07/26/2025 3:13 PM EST Lymphoproliferative disease (CMS/HCC V24, CMS/HCC V28) CHLAMYDIA TRACHOMATIS AND NEISSERIA GONORRHOEAE PCR Routine 07/26/2025 3:13 PM EST Screen for STD (sexually transmitted disease) from Last 3 Months Results * (ABNORMAL) Lipid panel with reflex to direct LDL (08/23/2025 10:27 AM EST) Only the most recent of2 resultswithin the time period is included. Cholesterol 218(H) 0 - 200 mg/dL 08/23/2025 4:21 PM [facility] Triglycerides 161(H) 0 - 150 mg/dL 08/23/2025 4:21 PM [facility] HDL 56 >=40 mg/dL 08/23/2025 4:21 PM [facility] LDL Calculated 130(H) 0 - 100 mg/dL 08/23/2025 4:21 PM [facility] Comment:Estimated LDL is philomena culated using the Friedewald equation: Total cholesterol - HDL cholesterol - (Triglycerides/5) VLDL Cholesterol Philomena 32.2 mg/dL 08/23/2025 4:21 PM [facility] Non HDL Chol. (LDL+VLDL) 162(H) <145 mg/dL 08/23/2025 4:21 PM [facility] Chol/HDL Ratio 3.9 0.0 - 4.4 08/23/2025 4:21 PM [facility] Blood Venous blood specimen / Unknown Venipuncture / Unknown 08/23/2025 10:27 AM EST 08/23/2025 10:27 AM EST us Sabrina Lynn NP LAB BLOOD ORDERABLES Final Resul t [facility] [address] [place] [address], [place] [phone] * (ABNORMAL) Manual differential (08/23/2025 10:27 AM EST) Only the most recent of2 resultswithin the time period is included. Neutrophils % 17.0 % LAB HEMETOLOGY METHOD 08/23/2025 3:43 PM [facility] Lymphocytes % 77.0 % LAB HEMETOLOGY METHOD 08/23/2025 3:43 PM [facility] Monocytes % 5.0 % LAB HEMETOLOGY METHOD 08/23/2025 3:43 PM [facility] Eosinophils % 0.0 % LAB HEMETOLOGY METHOD 08/23/2025 3:43 PM [facility] Basophils % 1.0 % LAB HEMETOLOGY METHOD 08/23/2025 3:43 PM [facility] Neutrophils Absolute Manual 3.72 1.50 - 7.00 K/mcL LAB HEMETOLOGY METHOD 08/23/2025 3:43 PM [facility] Lymphocytes Absolute 16.86(H) 1.00 - 5.00 K/mcL LAB HEMETOLOGY METHOD 08/23/2025 3:43 PM [facility] Monocytes Absolute Manual 1.09(H) 0.20 - 1.00 K/mcL LAB HEMETOLOGY METHOD 08/23/2025 3:43 PM [facility] Eosinophils Absolute Manual 0.00 0.00 - 0.50 K/mcL LAB HEMETOLOGY METHOD 08/23/2025 3:43 PM [facility] Basophils Absolute Manual 0.22(H) 0.00 - 0.20 K/mcL LAB HEMETOLOGY METHOD 08/23/2025 3:43 PM [facility] Rbc Morphology Consistent with indices Consistent with indices, Normal for [place] LAB HEMETOLOGY METHOD 08/23/2025 3:43 PM [facility] Platelet Morphology - WAM Normal Normal LAB HEMETOLOGY METHOD 08/23/2025 3:43 PM [facility] Blood Venous blood specimen / Unknown Venipuncture / Unknown 08/23/2025 10:27 AM EST 08/23/2025 10:27 AM EST us Sabrina Lynn NP LAB BLOOD ORDERABLES Final Resul t [facility] [address] [place] [address], [place] [phone] * (ABNORMAL) KATIE IFA with titer and pattern (08/23/2025 10:27 AM EST) Pathologist [facility] KATIE Positive (A) Negative 08/24/2025 2:47 PM EST [facility] Comment:KATIE performed by ind irect immunofluorescence (IFA) using HEp-2 substrate. KATIE Pattern Homogene ous(A) (none) 08/24/2025 2:47 PM EST [facility] Comment:May be Associated wi th SLE and drug-induced SLE. Titer 1:320(A) <1:160 08/24/2025 2:47 PM EST [facility] Comment: Approximately 3% of healthy persons have KATIE titer of 1:320 or higher Further testing for other autoantibodies should be prompted by specific clinical findings/impressions. Blood Venous blood specimen / Unknown Venipuncture / Unknown 08/23/2025 10:27 AM EST 08/23/2025 10:27 AM EST us Sabrina Lynn NP LAB BLOOD ORDERABLES Final Resul t [facility] [address] [place] [address], [place] [phone] * (ABNORMAL) CBC auto differential (08/23/2025 10:27 AM EST) Only the most recent of2 resultswithin the time period is included. Pathologist [facility] WBC 21.9(H) 4.8 - 10.8 K/mcL LAB HEMETOLOGY METHOD 08/23/2025 3:43 PM EST [facility] RBC 4.30 3.80 - 4.80 M/mcL LAB HEMETOLOGY METHOD 08/23/2025 3:43 PM EST [facility] Hemoglobin 13.0 11.5 - 16.0 g/dL LAB HEMETOLOGY METHOD 08/23/2025 3:43 PM [facility] Hematocrit 39.8 35.0 - 47.0 % LAB HEMETOLOGY METHOD 08/23/2025 3:43 PM [facility] MCV 91.7 79.0 - 98.0 FL LAB HEMETOLOGY METHOD 08/23/2025 3:43 PM [facility] MCH 30.0 27.0 - 32.0 pcg LAB HEMETOLOGY METHOD 08/23/2025 3:43 PM [facility] MCHC 32.7 32.0 - 37.0 g/dL LAB HEMETOLOGY METHOD 08/23/2025 3:43 PM [facility] RDW 12.7 11.0 - 15.0 % LAB HEMETOLOGY METHOD 08/23/2025 3:43 PM [facility] Platelets 293 130 - 400 K/mcL LAB HEMETOLOGY METHOD 08/23/2025 3:43 PM [facility] MPV 10.9 7.0 - 11.0 FL LAB HEMETOLOGY METHOD 08/23/2025 3:43 PM [facility] NRBC 0.0 <1.0 % LAB HEMETOLOGY METHOD 08/23/2025 3:43 PM [facility] NRBC Absolute 0.00 <0.10 K/mcL LAB HEMETOLOGY METHOD 08/23/2025 3:43 PM [facility] Blood Venous blood specimen / Unknown Venipuncture / Unknown 08/23/2025 10:27 AM EST 08/23/2025 10:27 AM EST [facility] - 08/23/2025 3:43 PM EST [id number] us Sabrina Lynn NP LAB BLOOD ORDERABLES Final Resul t [facility] [address] [place] [address], [place] [phone] * (ABNORMAL) Iron and TIBC (08/23/2025 10:27 AM EST) Pathologist [facility] Iron 46 40 - 150 mcg/dL 08/23/2025 4:21 PM EST [facility] TIBC 379 250 - 450 mcg/dL 08/23/2025 4:21 PM EST [facility] Iron Saturation 12(L) 15 - 50 % 4:21 PM [facility] Blood Venous blood specimen / Unknown Venipuncture / Unknown 08/23/2025 10:27 AM EST 08/23/2025 10:27 AM EST Naomi Leah [employer] ARCHITECT LAB BLOOD ORDERABLES Final Resul t Performing Organization Address City/[facility]/ZIP Co de Phone Number [facility] [address] [place] [address], * (ABNORMAL) Vitamin D 25 hydroxy (08/23/2025 10:27 AM EST) Only the most recent of2 resultswithin the time period is included. [facility] Vit D, 25-Hydroxy 27.8(L) 30.0 - 80.0 ng/mL 08/23/2025 6:18 PM EST [facility] Blood Venous blood specimen / Unknown Venipuncture / Unknown 08/23/2025 10:27 AM EST 08/23/2025 10:27 AM EST Naomi Julisa [employer]CH[employer]ECT LAB BLOOD ORDERABLES Final Resul t [facility] [address] [place] [address], * Rheumatoid factor (08/23/2025 10:27 AM EST) [facility] Rheumatoid Factor 4.5 <15.0 I Unit/mL 08/23/2025 4:21 PM EST [facility] Blood Venous blood specimen / Unknown Venipuncture / Unknown 08/23/2025 10:27 AM EST 08/23/2025 10:27 AM EST us Sabrina Lynn [employer] LAB BLOOD ORDERABLES Final Resul t [facility] [address] [place] [address], [place] [phone] * C-reactive protein (08/23/2025 10:27 AM EST) C-Reactive Protein <0.50 <=0.50 mg/dL 08/23/2025 4:37 PM EST [facility] Blood Venous blood specimen / Unknown Venipuncture / Unknown 08/23/2025 10:27 AM EST 08/23/2025 10:27 AM EST us Sabrina Eganюлия [employer]CH[employer] LAB BLOOD ORDERABLES Final Resul t Performing Organization Address City/[facility]/ZIP Co de Phone Number [facility] [address] [place] [address], [place] [phone] * Folate (08/23/2025 10:27 AM EST) Folate 14.2 >=5.4 ng/ml 08/23/2025 4:16 PM EST [facility] Blood Venous blood specimen / Unknown Venipuncture / Unknown 08/23/2025 10:27 AM EST 08/23/2025 10:27 AM EST Narrative [facility] - 08/23/2025 4:16 PM EST Over the counter supplements containing high doses of biotin may interfere with this assay. If interference is suspected, patients shoud be retested after refraining from biotin supplements for 72 hours. us Sabrina Lynn [employer] ARCHITECT LAB BLOOD ORDERABLES Final Resul t Performing Organization Address [facility] de Phone Number [facility] [address] [place] [address], * Ferritin (08/23/2025 10:27 AM EST) Pathologist [facility] Ferritin 27 7 - 271 ng/mL 08/23/2025 4:15 PM EST [facility] Blood Venous blood specimen / Unknown Venipuncture / Unknown 08/23/2025 10:27 AM EST 08/23/2025 10:27 AM EST us Sabrina Eganюлия ENRIQUEZ LAB BLOOD ORDERABLES Final Resul t Performing Organization Address [facility] de Phone Number [facility] [address] [place] [address], [place] [phone] * Vitamin B12 (08/23/2025 10:27 AM EST) Only the most recent of2 resultswithin the time period is included. [facility] Vitamin B-12 430 211 - 911 pcg/mL 08/23/2025 4:42 PM EST [facility] Blood Venous blood specimen / Unknown Venipuncture / Unknown 08/23/2025 10:27 AM EST 08/23/2025 10:27 AM EST us Sabrina Eganюлия ENRIQUEZ LAB BLOOD ORDERABLES Final Resul t Performing Organization Address City/[facility] Co de Phone Number [facility] [address] [place] [address], [place] [phone] * Hepatitis C antibody (07/26/2025 3:13 PM EST) [facility] Hepatitis C Antibody Negative Negative LAB CHEMISTRY METHOD 07/26/2025 7:51 PM EST [facility] Blood Venous blood specimen / Unknown Venipuncture / Unknown 07/26/2025 3:13 PM EST 07/26/2025 3:13 PM EST Sabrina Lynn NP LAB BLOOD ORDERABLES Final Resul t Performing Organization Address [facility]/ZIP Co de Phone Number [facility] [address] [place] [address], [place] [phone] * HIV 1,2 antibody, p24 antigen with reflex to differentiation (07/26/2025 3:13 PM EST) [facility] HIV Combo AB/AG Negative Negative LAB CHEMISTRY METHOD 07/26/2025 7:52 PM EST [facility] Blood Venous blood specimen / Unknown Venipuncture / Unknown 07/26/2025 3:13 PM EST 07/26/2025 3:13 PM EST Narrative [facility] - 07/26/2025 7:52 PM EST This assay is a 4th generation assay allowing for earlier detection of HIV infection by detecting the presence of the HIV-1 p24 antigen as well as the traditional antibodies to HIV type 1 (including group O) and type 2. Use of a 4th generation assay is the current CDC recommendation for HIV screening. Sabrina Lynn LAB BLOOD ORDERABLES Final Resul t Performing Organization Address [facility] de Phone Number [facility] [address] [place] [address], [place] [phone] * Urinalysis with reflex microscopic (07/26/2025 3:13 PM EST) [facility] Specific [place] Urine 1.018 1.003 - 1.030 LAB URINALYSIS - AUTOMATED METHOD 07/26/2025 7:05 PM EST [facility] pH, Urine 7.5 5.0 - 8.0 pH LAB URINALYSIS - AUTOMATED METHOD 07/26/2025 7:05 PM [facility] Leukocytes, Urine Negative Negative LAB URINALYSIS - AUTOMATED METHOD 07/26/2025 7:05 PM [facility] Nitrite, Urine Negative Negative LAB URINALYSIS - AUTOMATED METHOD 07/26/2025 7:05 PM [facility] Protein, Urine Negative <=Trace mg/dL LAB URINALYSIS - AUTOMATED METHOD 07/26/2025 7:05 PM [facility] Glucose, Urine Negative Negative mg/dL LAB URINALYSIS - AUTOMATED METHOD 07/26/2025 7:05 PM [facility] Ketones, Urine Negative Negative mg/dL LAB URINALYSIS - AUTOMATED METHOD 07/26/2025 7:05 PM [facility] Urobilinogen, Urine 0.2 0.2 - 1.0 mg/dL LAB URINALYSIS - AUTOMATED METHOD 07/26/2025 7:05 PM [facility] Bilirubin, Urine Negative Negative LAB URINALYSIS - AUTOMATED METHOD 07/26/2025 7:05 PM [facility] Blood, Urine Negative Negative LAB URINALYSIS - AUTOMATED METHOD 07/26/2025 7:05 PM [facility] Urine Urine specimen obtained by clean catch procedure / Unknown Non-blood Collection / Unknown 07/26/2025 3:13 PM EST 07/26/2025 3:13 PM EST us Sabrina Lynn [employer] LAB URINE ORDERABLES Final Resul t [facility] [address] [place] [address], * Treponema pallidum antibody with reflex to RPR and particle agglutination (07/26/2025 3:13 PM EST) T. Pallidum Antibodies Negative Negative LAB CHEMISTRY METHOD 07/26/2025 9:25 PM [facility] Blood Venous blood specimen / Unknown Venipuncture / Unknown 07/26/2025 3:13 PM EST 07/26/2025 3:13 PM EST us Sabrina Lynn [employer] LAB BLOOD ORDERABLES Final Resul t Performing Organization Address City/[facility]/ZIP Co de Phone Number [facility] [address] [place] [address], [place] [phone] * Thyroid stimulating hormone with reflex to free t4 and free t3 (07/26/2025 3:13 PM EST) [facility] TSH 1.13 0.40 - 4.00 mcIU/mL LAB CHEMISTRY METHOD 07/26/2025 9:14 PM EST [facility] Blood Venous blood specimen / Unknown Venipuncture / Unknown 07/26/2025 3:13 PM EST 07/26/2025 3:13 PM EST Sabrina Lynn [employer] LAB BLOOD ORDERABLES Final Resul t Performing Organization Address [facility]/ZIP Co de Phone Number [facility] [address] [place] [address], [place] [phone] * Chlamydia trachomatis and Neisseria gonorrhoeae molecular study (07/26/2025 3:13 PM EST) [facility] Neisseria gonorrhoeae PCR Negative Negative LAB MOLECULAR DIAGNOSTICS METHOD 07/27/2025 9:16 AM EST [facility] Chlamydia trachomatis PCR Negative Negative LAB MOLECULAR DIAGNOSTICS METHOD 07/27/2025 9:16 AM EST [facility] Urine Urine specimen from urethra / Unknown Non-blood Collection / Unknown 07/26/2025 3:13 PM EST 07/26/2025 3:13 PM EST us Sabrina Lynn [employer] LAB MICROBIOLOGY - GENERAL ORDER ROCHELLE Final Result Performing Organization Address City/[facility]/ZIP Co de Phone Number [facility] [address] [place] [address], [place] [phone] * Magnesium (07/26/2025 3:13 PM EST) [facility] Magnesium 2.2 1.9 - 2.6 mg/dL LAB CHEMISTRY METHOD 07/26/2025 7:00 PM EST [facility] Blood Venous blood specimen / Unknown Venipuncture / Unknown 07/26/2025 3:13 PM EST 07/26/2025 3:13 PM EST Sabrina Lynn [employer] LAB BLOOD ORDERABLES Final Resul t Performing Organization Address City/[facility]/ZIP Co de Phone Number [facility] [address] [place] [address], [place] [phone] * Lactate dehydrogenase (07/26/2025 3:13 PM EST) [facility] LDH 219 120 - 246 unit/L LAB CHEMISTRY METHOD 07/26/2025 7:00 PM EST [facility] Blood Venous blood specimen / Unknown Venipuncture / Unknown 07/26/2025 3:13 PM EST 07/26/2025 3:13 PM EST Michaela Bergeron MD LAB BLOOD ORDERABLES Final R esult Performing Organization Address City/[facility]/ZIP Co de Phone Number [facility] [address] [place] [address], [place] [phone] * Hemoglobin A1c (07/26/2025 3:13 PM EST) [facility] Hemoglobin A1C 5.6 <6.5 % LAB CHEMISTRY METHOD 07/26/2025 9:54 PM EST [facility] Mean Bld Glu Estim. 114 mg/dL LAB CHEMISTRY METHOD 07/26/2025 9:54 PM EST [facility] Blood Venous blood specimen / Unknown Venipuncture / Unknown 07/26/2025 3:13 PM EST 07/26/2025 3:13 PM EST Sabrina Lynn [employer] LAB BLOOD ORDERABLES Final Resul t [facility] [address] [place] [address], * Comprehensive metabolic panel (07/26/2025 3:13 PM EST) Sodium 140 133 - 145 mmol/L LAB CHEMISTRY METHOD 07/26/2025 7:25 PM EST [facility] Potassium 3.9 3.5 - 5.5 mmol/L LAB CHEMISTRY METHOD 07/26/2025 7:25 PM [facility] Chloride 104 96 - 110 mmol/L LAB CHEMISTRY METHOD 07/26/2025 7:25 PM [facility] CO2 30 21 - 32 mmol/L LAB CHEMISTRY METHOD 07/26/2025 7:25 PM [facility] Anion Gap 6 3 - 11 LAB CHEMISTRY METHOD 07/26/2025 7:25 PM [facility] Glucose 83 70 - 100 mg/dL LAB CHEMISTRY METHOD 07/26/2025 7:25 PM [facility] BUN 15 5 - 25 mg/dL LAB CHEMISTRY METHOD 07/26/2025 7:25 PM [facility] Creatinine 0.62 0.50 - 1.10 mg/dL LAB CHEMISTRY METHOD 07/26/2025 7:25 PM [facility] eGFR 111 >=60 mL/min/1. 73m2 LAB CHEMISTRY METHOD 07/26/2025 7:25 PM [facility] Comment:Calculation based on the Chronic Kidney Disease Epidemiology Collaboration (CKD-EPI) equation refit without adjustment for race. BUN/Creatinine Ratio 24.2 LAB CHEMISTRY METHOD 07/26/2025 7:25 PM [facility] Calcium 8.9 8.5 - 10.5 mg/dL LAB CHEMISTRY METHOD 07/26/2025 7:25 PM [facility] AST (SGOT) 12 10 - 42 unit/L LAB CHEMISTRY METHOD 07/26/2025 7:25 PM EST [facility] ALT (SGPT) 29 10 - 60 unit/L LAB CHEMISTRY METHOD 07/26/2025 7:25 PM [facility] Alkaline Phosphatase 95 42 - 121 unit/L LAB CHEMISTRY METHOD 07/26/2025 7:25 PM [facility] Total Protein 6.7 6.0 - 8.0 g/dL LAB CHEMISTRY METHOD 07/26/2025 7:25 PM EST [facility] Albumin 3.7 3.2 - 5.0 g/dL LAB CHEMISTRY METHOD 07/26/2025 7:25 PM [facility] Total Bilirubin 0.4 0.0 - 1.4 mg/dL LAB CHEMISTRY METHOD 07/26/2025 7:25 PM [facility] Blood Venous blood specimen / Unknown Venipuncture / Unknown 07/26/2025 3:13 PM EST 07/26/2025 3:13 PM EST us Sabrina Lynn NP LAB BLOOD ORDERABLES Final Resul t [facility] [address] [place] [address], [place] [phone] from Last 3 Months Additional Health Concerns Active Problems Noted Date Diagnosed Date Autogenerated Problem 07/04/2025 Insurance [facility] MEDICARE Member Subscriber Plan / Payer (Ef fective 2019-Present) Name:ANJELICA EVANS Relation to Subscriber:Self Name:Anjelica Evans I Payer ID:[id number] Group ID:[id number] Type:Not on file Address: [place] [address] [place] [place] [phone] Advance Directives * Full Code - Default [...] currently active code status orders. Care Teams Bean Dumper Relationship Specialty Start Date End Date Liat Nunez MD [address] [place] [phone] PCP - General Internal Medicine 07/30/24
--- OUTSIDE RECORDS SUMMARY | 2025-08-27 17:05 | XMS_ITS | Data Portability ---
Author Organization [place], [facility] Address [address] [place] [id number] Care Team Providers Care Floor Representative Name Role Phone HIM CCA Referring Provider [phone] RADHA WHITNEY Primary Care Provider [phone] Assessment Encounter Date Assessment Date Assessment LastModified by Organization Details LastModified Time 11/20/2023 11/20/2023 I provided real -time medical direction via phone for this encounter and was available for additional phone-based assistance as needed. I have reviewed and agree with the Assessment and Plan as documented by the Police Service Technician. Patient given the opportunity to ask questions. This service was called for an assessment of Dressing change As per above, patient with a chronic wound and needed assistance for dressing change. Per asparagus cutter on the scene, patient s vitals Stable and the patient has no complaint. Please see uploaded pictures. Impression: Wound care Plan: dressing change discussed with asparagus cutter on the scene. There are no concerning signs and symptoms of infection. We discussed the diagnostic uncertainty of home visits and the risk associated with this. In this case, the patient and I felt this to be an acceptable and reasonable amount of risk given the benefit of avoiding an ED visit. We discussed the need to seek care urgently/emergen tly in the setting of any new or worsening serious symptoms [email or web address] Not available 11/20/2023 20:23:43 12/02/2024 12/02/2024 I have reviewed and agree with the Assessment and Plan as documented by the Police Service Technician. I provided real-time medical direction via phone for this encounter, and was available for additional phone based assistance as needed. I would add/emphasize: Patient seen for URI symptoms. AVSS and well-appearing/a febrile. Nonproductive cough. COVID and flu swabs negative. Respirations unlabored. Requesting cough suppressant for which benzonatate is prescribed. Red flags that should prompt ED evaluation discussed pallfather Not available 12/03/2024 07:58:15 Plan of Treatment Reminders Order Date Submit Date Provider Last Modified By Organization Details Last Modified Time Details Appointments None recorded. Lab rapid SARS CoV 2 Ag, QL IA, respiratory specimen [address], [id number] 12:54:11 rapid flu (A+B) [address], [id number] 12:53:51 Referral None recorded. Procedures None recorded. Surgeries None recorded. Imaging None recorded. Medication Orders benzonatate 200 mg capsule 2024 [id number], [address] [place] [address], [phone], 12:37:26 Patient TargetsNo targets recorded. Patient InstructionsNo instructions recorded. Reason for Referral None Reported. Results Created Date Observation Date Name Description Value Unit Range Abnormal Flag Note LastModifiedBy Organization Detail LastModifiedTime Result Notes None recorded. Medical Equipment None Reported. Allergies Allergen ID Allergen Name Allergen Category Reaction Reaction Severity Criticality Documentation Date Start Date Code Code System Note Provider Name and Address Organization Details Recorded Time 95409 Macrobid medicatio n Not available Not available Not available 12/02/2024 31016 1 RxNorm Not Available [facility] - production 11:22:27 Medications Name Sig Start Date Stop Date Status Note LastModified by Organization Details LastModified Time hydrocortiso ne 0.5 % topical cream APPLY 1 GRAM TOPICALLY TWICE DAILY active Not Available Not Available Not Available clonidine HCl 0.1 mg tablet TAKE 1 TABLET BY MOUTH EVERY NIGHT AT BEDTIME active Not Available Not Available No t Available acetaminophe n 325 mg tablet TAKE 2 TABLETS BY MOUTH EVERY 4 HOURS NEEDED FOR PAIN. DO NOT EXCEED 4000MG/DAY active Not Available Not Available N ot Available ketoconazole 2 % shampoo APPLY 1 GRAM TOPICALLY DAILY NEEDED FOR ITCHING active Not Available Not Available No t Available clindamycin HCl 300 mg capsule TAKE 1 CAPSULE BY MOUTH THREE TIMES DAILY FOR 7 DAYS active Not Available Not Available N ot Available citalopram 40 mg tablet TAKE 1 TABLET BY MOUTH EVERY DAY active Not Available Not Available No t Available cefpodoxime 200 mg tablet TAKE 1 TABLET BY MOUTH TWICE DAILY FOR 10 DAYS active Not Available Not Available No t Available cefpodoxime 100 mg tablet TAKE 1 TABLET BY MOUTH TWICE DAILY active Not Available Not Available No t Available ibuprofen 800 mg tablet TAKE 1 TABLET BY MOUTH EVERY 8 HOURS WITH FOOD NEEDED FOR PAIN active Not Available Not Available No t Available tizanidine 4 mg tablet TAKE 1 TABLET BY MOUTH THREE TIMES DAILY active Not Available Not Available Not Available fluconazole 150 mg tablet TAKE 1 TABLET BY MOUTH EVERY 3 DAYS FOR 2 DOSES active Not Available Not Available No t Available benzonatate 200 mg capsule TAKE 1 CAPSULE BY MOUTH THREE TIMES DAILY NEEDED FOR COUGH active Not Available Not Available No t Available valacyclovir 1 gram tablet TAKE 1 TABLET BY MOUTH DAILY FOR 5 DAYS active Not Available Not Available N ot Available cephalexin 250 mg capsule TAKE 2 CAPSULES BY MOUTH TWICE DAILY FOR 10 DAYS active Not Available Not Available No t Available prazosin 1 mg capsule TAKE 1 CAPSULE BY MOUTH EVERY DAY AT BEDTIME active Not Available Not Available No t Available meloxicam 15 mg tablet TAKE 1 TABLET BY MOUTH EVERY DAY TAKE WITH FOOD OR MILK active Not Available Not Available No t Available metronidazol e 0.75 % (37.5 mg/5 gram) vaginal gel APPLY 5GM AT NIGHT 2 TIMES A WEEK FOR THE NEXT 4-6 MONTHS active Not Available Not Available N ot Available sertraline 100 mg tablet TAKE 1 TABLET BY MOUTH DAILY active Not Available Not Available Not Available miconazole nitrate 2 % vaginal cream APPLY 1 APPLICATION VAGINALLY EVERY NIGHT AT BEDTIME FOR 7 DAYS active Not Available Not Available N ot Available metronidazol e 500 mg tablet TAKE 1 TABLET BY MOUTH TWICE DAILY FOR 14 DAYS active Not Available Not Available No t Available ciprofloxaci n 250 mg tablet TAKE 1 TABLET BY MOUTH EVERY 12 HOURS FOR 5 DAYS active Not Available Not Available N ot Available valacyclovir 500 mg tablet TAKE 1 TABLET BY MOUTH TWICE DAILY FOR 3 DAYS active Not Available Not Available No t Available sulfamethoxa zole 800 mg-trimethop rim 160 mg tablet TAKE 1 TABLET BY MOUTH EVERY 12 HOURS FOR 5 DAYS active Not Available Not Available N ot Available tramadol 50 mg tablet TAKE 1 TABLET BY MOUTH EVERY 6 HOURS NEEDED FOR PAIN active Not Available Not Available No t Available acetaminophe n 500 mg tablet TAKE 2 TABLETS BY MOUTH EVERY 6 HOURS NEEDED FOR PAIN active Not Available Not Available No t Available famciclovir 125 mg tablet TAKE 1 TABLET BY MOUTH TWICE DAILY FOR 5 DAYS active Not Available Not Available No t Available ciclopirox 8 % topical solution APPLY EVERY DAY TO NAILS. CLEAN MEDICATION OFF OF NAIL PLATE EVERY 3 DAYS WITH RUBBING ALCOHOL active Not Available Not Available No t Available citalopram 20 mg tablet TAKE 1 TABLET BY MOUTH DAILY active Not Available Not Available Not Available cyanocobalam in (vit B-12) 500 mcg tablet TAKE 1 TABLET BY MOUTH DAILY active Not Available Not Available Not Available aspirin 325 mg tablet,delay ed release TAKE 1 TABLET BY MOUTH DAILY FOR BLOOD CLOT PREVENTION active Not Available Not Available N ot Available tamsulosin 0.4 mg capsule TAKE 1 CAPSULE BY MOUTH DAILY active Not Available Not Available Not Available oxycodone 5 mg capsule TAKE 1 CAPSULE BY MOUTH EVERY 6 HOURS NEEDED FOR SEVERE PAIN active Not Available Not Available Not Available ibuprofen 400 mg tablet TAKE 1 TABLET BY MOUTH THREE TIMES DAILY NEEDED FOR FEVER OR PAIN active Not Available Not Available No t Available lansoprazole 15 mg capsule,jose l yed release TAKE 1 CAPSULE BY MOUTH DAILY active Not Available Not Available Not Available omeprazole 20 mg capsule,jose l yed release TAKE 1 CAPSULE BY MOUTH DAILY active Not Available Not Available Not Available clindamycin 2 % vaginal cream APPLY 1 APPLICATOR VAGINALLY FOR 5 DAYS active Not Available Not Available N ot Available hydroxyzine HCl 25 mg tablet TAKE 1 TABLET BY MOUTH EVERY NIGHT AT BEDTIME active Not Available Not Available No t Available ibuprofen 600 mg tablet TAKE 1 TABLET BY MOUTH EVERY 6 HOURS NEEDED FOR PAIN active Not Available Not Available No t Available polyethylene glycol 3350 17 gram/dose oral powder TAKE 17 GRAMS AND DISSOLVE IN LIQUID EVERY DAY NEEDED FOR CONSTIPATIO N active Not Available Not Available No t Available levofloxacin 500 mg tablet TAKE 1 TABLET BY MOUTH DAILY active Not Available Not Available Not Available methylpredni solone 4 mg tablets in a dose pack FOLLOW PACKAGE DIRECTIONS active Not Available Not Available N ot Available SSD 1 % topical cream APPLY A SMALL AMOUNT TO THE WOUND ONCE DAILY BEFORE DRESSING WITH BANDAID active Not Available Not Available No t Available morphine 15 mg immediate release tablet TAKE 1 TABLET BY MOUTH EVERY 8 HOURS NEEDED FOR PAIN active Not Available Not Available No t Available ondansetron 4 mg disintegrati ng tablet DISSOLVE 1 TABLET UNDER THE TONGUE THREE TIMES DAILY NEEDED FOR NAUSEA OR VOMITING active Not Available Not Available No t Available clotrimazole 1 % topical cream APPLY TOPICALLY TWICE DAILY FOR 14 DAYS active Not Available Not Available Not Available sertraline 50 mg tablet TAKE 1 TABLET BY MOUTH DAILY active Not Available Not Available Not Available doxycycline hyclate 100 mg tablet TAKE 1 TABLET BY MOUTH EVERY 12 HOURS FOR 14 DAYS active Not Available Not Available Not Available irbesartan 300 mg tablet TAKE 1 TABLET BY MOUTH DAILY active Not Available Not Available Not Available loratadine 10 mg tablet TAKE 1 TABLET BY MOUTH ONCE DAILY active Not Available Not Available No t Available oxycodone 5 mg tablet TAKE 1 TABLET BY MOUTH EVERY 6 HOURS active Not Available Not Available No t Available aripiprazole 5 mg tablet TAKE 1 TABLET BY MOUTH EVERY DAY active Not Available Not Available No t Available cholecalcife rol (vitamin D3) 50 mcg (2,000 unit) tablet TAKE 1 TABLET BY MOUTH DAILY active Not Available Not Available Not Available Stimulant Laxative Plus 8.6 mg-50 mg tablet TAKE 1 TABLET BY MOUTH EVERY DAY active Not Available Not Available No t Available Vitals Date Recorded Respiratory rate Oxygen saturation Heart rate Body temperature Body weight Systolic And Diastolic Provider Name and Address Organization Details Last Updated DateTime 4 18 /min 98 % 82 /min 98.2 [degF] 17022.4 g 155/105 mm[Hg] Not Available [facility] 4 17:58:05 Date Recorded Respiratory rate Body temperature Oxygen saturation Heart rate Systolic And Diastolic Provider Name and Address Organization Details Last Updated DateTime 5 16 /min 98.7 [degF] 99 % 66 /min 136/82 mm[Hg] Not Available [facility] 5 12:35:59 Social History None recorded. Functional Status None recorded. Mental Status None recorded. Family History Nothing Reported. Medical History No medical history recorded. Gynecological HistoryNo gynecological history recorded. Obstetrics History GPAL:G 0 P 0 0 0 0 Past Encounters Encounter ID Performer Location Encounter Start Date Encounter Closed Date Diagnosis/Indication Diagnosis SNOMED-CT Code Diagnosis ICD10 Code Diagnosis IMO Codes Diagnosis Note [id number] Isamar Karimi MD [facility] [address] [place] [phone] 11/20/2023 17:58:00 11/22/2023 16:24:05 Change of dressing 88412282 Z48.00 [id number] Carter Pickering MD [address] [phone] 12/02/2024 12:35:57 12/05/2024 13:38:15 Cough 38933867 R05.9 Health Concerns Section Related Observation LastModified by Organization Detai ls LastModified Time None Recorded Concern Status LastModified by Organization Details LastModified Time None Recorded Advance Directives Directive None Recorded Payers Insurance Date Sequence Insurance Name Policy Number Policy Styles Covered Member ID Styles Member ID Guarantor Name 12/02/2024 1 [facility] - DOS ON OR AFTER 2022 - DUAL ELIGIBLE - [facility] [employer] AND ONE [employer] (MEDICARE REPLACEMENT/ADV ANTAGE - HMO) Anjelica Evans [id number] Anjelica Evans Notes Date Note Type Note Provider Name and Address Organization Details Recorded Time 11/20/2023 text/html HPI: Member call transferred from [facility], member reports she is post left rotator cuff repair, 11/17/23. Member is due to remove bandages today, but needs assistance with bandage change. Member is not able to independently change her bandage, d/t limited mobility, and bandage being very securely placed. Member is requesting assistance in changing her bandages. Member states she has d/c instructions and bandages at home. Per member, d/c instructions are, to remove old bandages 48hr post surgery. .................. .................. .................. .................. .................. .................. .................. ............... [facility] Nurse Triage Notes (Jonel Conroy): Comments: HPI was reviewed and no additional information is needed .................. .................. .................. .................. .................. .................. .................. ............... Police Service Technician Note From Preston Szymanski: Pt needed assistance changing her dressing after recent shoulder surgery. Pt denies fever NVD, cp sob. Incision site did not appear infected. No redness or drainage. Area not hot to touch. Baseline vitals assessed, afebrile, dressing changed and bacitracin applied to wound. [facility] contacted. Pt education on signs indicating ER. Pt advised to follow post surgery instructions for wound care. .................. .................. .................. .................. .................. .................. .................. ............... Disposition: Fulfilled Isamar Karimi MD [address] [place] [address],[address], [place], [phone], [place] 11/20/2023 20:24:03 12/02/2024 text/html HPI: Call received by rep of [employer] that George distraught about her medical and social situations. Made outreach call to CC and Mbr. 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 Allergies to Macrobid and PCN. Initial outreach call to George at [phone] and reached member who stated she has so much going on in her life physically and mentally with generalized body pain, left hip pain, depression and new cough and general malaise. Mbr stated her sides hurt when she coughs however denies fever or SOB. Mbr stated she has been denied disability and will be appealing and is very upset and depressed about this. Mbr stated she was told to leave her apt by her Landlord but has not received a summons yet. Mbr stated she has to be out in December of this year. Mbr stated she looked at an apartment in [place] yesterday and she has applications in other apartments and assistance programs to help her find an apartment. Mbr stated she did have [facility] call her and help her a few weeks ago and informed her that someone was supposed to be sent out to help her with disability paperwork and housing because Mbr stated she is overwhelmed with everything. Mbr stated no one has come yet. Mbr stated she put a call into her Therapist yesterday and awaiting philomena back. Offered [facility] for resp s/s, cough and Mbr agreed. Confirmed address and phone/ [phone]. .................. .................. .................. .................. .................. .................. .................. ............... [facility] Nurse Triage Notes (Jonel Conroy): Chief Complaints: Cough PMH: Severe Persistent Mental Illness (SPMI) PMH Reviewed at 12/02/2024:22 Allergies Reviewed at 12/02/2024 - :22 Comments: Reviewed [facility] Police Service Technician Organization Information for [facility] [employer] Legal Name: [employer]. Address: [address] [place] [id number], Operations Systems Specialist: Otoniel Feng MD CLIA No.: [id number] Police Service Technician POC Test Results from [facility] - ALS Rapid COVID antigen (12:33:58) COVID: - Rapid influenza antigen (12:33:59) Flu: - .................. .................. .................. .................. .................. .................. .................. ............... Police Service Technician Note From [facility]: Dispatched to the call address for the female with a cough. Notes also advised that Pt was dealing with a whole host of personal, housing and emotional concerns. Pt states she has had a mild dry persistent cough for a week or so now. She denies chest pain, shortness of breath/difficulty breathing, n/v/d, urinary symptoms, headaches or any other complaints. Pt advised that she is being assisted in dealing with her other issues via her nonfarm animal caretaker and other recourses via [facility]. Pt advised she just wanted to make sure she did not have flu/covid and was looking for something for the cough. Pt was found sitting at kitchen table, CAOx4, airway open and patent, breathing non labored, able to speak in full sentences, -JVD, -HEENT, skin PWD with good turgor, pupils PERRL, +CMSx4, lungs CTA, abd soft non tender/distended, -edema/swelling, Afebrile, mucous membranes pink and moist. Rapid Covid/Flu tests (-). Cough, likely viral in nature. Pt was assessed with full set of vitals. Rapid Covid and flu test conducted. [facility] consulted. Pt advised that a prescription cough medication (Benzonatate) would be called into her preferred pharmacy. It was recommended that she follow up with her PCP for this issue. This asparagus cutter made sure Pt had the crisis hotline phone number on hand incase she needed it and was advised to not hesitate to use it. Red flags discussed. ALL times are approx. [facility] Lab Orders: rapid SARS CoV 2 Ag, QL IA, respiratory specimen: Performed Comment: - rapid flu (A+B): Performed Comment: - .................. .................. .................. .................. .................. .................. .................. ............... [facility] Consulted: Carter Pickering .................. .................. .................. .................. .................. .................. .................. ............... Disposition: Fulfilled Carter Pickering MD [address] [facility],[address], [place], [address], [place] 12/03/2024 07:58:26 OBGyn Episode No OBEpisode recorded.
--- OUTSIDE RECORDS SUMMARY | 2025-08-27 17:05 | XMS_ITS | Clinical Summary ---
Author Organization [facility] Address [address] [place] [address] Phone Care Team Providers Care House Shorer Name Role Phone Liat Nunez MD Primary Care Provider [phone] Allergies Active Allergy Reactions Criticality Noted Date Comments Lisinopril Rash Low 02/09/2020 rash Nitrofurantoin Rash Low 09/19/2011 Other reaction(s): Rash, Rash/Dermatitis Nitrofurantoin Monohyd/M-Cryst Rash Low 06/06/2025 Penicillins Unknown,Rash Low 09/19/2011 Other reaction(s): Hives/Urticaria, Rash Medications hydrOXYzine (ATARAX) 25 MG tablet Take 25 mg by mouth 2 (two) times a day. 12/15/19 24 Active ibuprofen (ADVIL,MOTRIN) 600 MG tablet Take 600 mg by mouth. Active irbesartan (AVAPRO) 300 MG tablet Take 300 mg by mouth daily. 02/21/20 25 Active ketoconazole (NIZORAL) 2 % shampoo Shampoo daily, leave on for 5-10 minutes on scalp, then rinse. 03/23/20 25 Active loratadine (CLARITIN) 10 mg tablet Take 10 mg by mouth daily. Active magnesium oxide 400 mg magnesium Cap Take 1 capsule by mouth nightly at bedtime. 03/23/20 25 Active metroNIDAZOLE (FLAGYL) 500 MG tablet Take 500 mg by mouth 2 (two) times a day. for 14 days 10/30/19 25 Active metroNIDAZOLE (METROGEL) 0.75 % (37.5mg/5 gram) vaginal gel INSERT 1 APPLICATION VAGINALLY EVERY NIGHT AT BEDTIME FOR 5 DAYS 03/14/20 25 Active ondansetron (ZOFRAN-ODT) 4 MG disintegrating tablet 06/02/20 25 Active phentermine 15 MG capsule Take 15 mg by mouth. 04/13/20 25 Active senna-docusate (PERICOLACE) 8.6-50 mg Take 1 tablet by mouth. 09/26/19 25 026 Active sertraline (ZOLOFT) 100 MG tablet Take 100 mg by mouth. 11/08/19 25 Active traMADoL (ULTRAM) 50 mg tablet take 1 tablet by mouth every 4 to 6 hours as needed for pain 05/22/20 25 Active propranoloL (INDERAL) 20 MG immediate release tablet Take 20 mg by mouth 3 (three) times a day. Active calcium carbonate-vitamin D3 1,250 mg (500 mg elemental)-400 units per tablet Take 1 tablet by mouth daily. Active omeprazole (PRILOSEC) 20 MG tablet Take 20 mg by mouth daily. Active cloNIDine HCL (CATAPRES) 0.1 MG tablet Take 0.1 mg by mouth 2 (two) times a day. Active diclofenac potassium (CATAFLAM) 50 MG tablet Take 50 mg by mouth 3 (three) times a day. Active Encounters Date Type Department Care Team Description 07/18/2025 2:08 PM EST - 07/18/2025 11:59 PM EST Hospital Encounter [address] [address] Flavio Robles MD Discharge Disposition: Home or Self Care 07/18/2025 2:07 PM EST Hospital Encounter [address] [address] Flavio Robles MD Discharge Disposition: Home or Self Care 07/18/2025 1:30 PM EST Office Visit [facility] & [facility] Medicine [address] [place] [id number] Flavio Robles MD Pain (Primary Dx); Primary osteoarthritis of left hip; Lumbar radiculopathy; Left leg weakness; Occasional tremors 06/06/2025 1:00 PM EDT Office Visit [facility] [address] [place] [phone] Flavio Robles MD Pain (Primary Dx); Lumbar radiculopathy; Occasional tremors; Primary osteoarthritis of left hip; Left leg weakness from Last 3 Months Social History Tobacco Use Types Packs/Day Years [...] on file Sexual Orientation Not on file Last Filed Vital Signs Vital Sign Reading Time Taken Comments Blood Pressure - - Pulse - - Temperature - - Respiratory Rate - - Oxygen Saturation - - Inhaled Oxygen Concentration - - Weight 90.7 kg (200 lb) 07/18/2025 1:15 PM EST Height 167.6 cm (5' 6 ) 07/18/2025 1:15 PM EST Body Mass Index 32.28 07/18/2025 1:15 PM EST Plan of Treatment Upcoming Encounters Date Type Department Care Team (Late st Contact Info) Description 10/03/2025 10:30 AM EST Procedure visit [facility] Neurology [address] [place] [address] Bharath Chandler MD [address] [place] [address], [address] [place] [address] [email or web address] Health Maintenance Due Date Last Done Comments Adult Td,Tdap Booster 1978 CREATININE LEVEL 1978 POTASSIUM LEVEL 1978 DEPRESSION SCREENING 1990 SMOKING Hx and SMOKELESS TOB ACCO SCREENING 1991 HEPATITIS C SCREENING 1996 HIV ONE-TIME SCREENING (18-6 5 YEARS) 1996 PAP SMEAR 1999 SCREENING FOR DIABETES 2013 MAMMOGRAM 2018 COLOGUARD 2023 COLONOSCOPY 2023 COLORECTAL CANCER SCREENING 2023 FIT TEST 2023 FOBT 2023 SIGMOIDOSCOPY 2023 VIRTUAL COLONOSCOPY 2023 INFLUENZA VACCINE (#1) 2025 COVID-19 VACCINE ( - 2024-2 6 season) 2025 LIPID PANEL 11/22/2029 11/22/2024 HEPATITIS A VACCINES Aged Out No long [...] this topic Medical Devices Not on file Procedures Procedure Name Priority Date/Time Associated Diagnosis Comments XR HIP 1 VW LEFT PLUS PELVIS Routine 07/18/2025 2:17 PM EST Pain Primary osteoarthritis of left hip XR LUMBOSACRAL SPINE 2-3 VIEWS Routine 07/18/2025 2:17 PM EST Pain Primary osteoarthritis of left hip from Last 3 Months Results * XR HIP 1 VW LEFT PLUS PELVIS (07/18/2025 2:17 PM EST) Narrative SYSTEMGENERATED, DOCUMENTATION - 07/18/2025 2:17 PM EST This image report has been auto-finalized and has not been read by a Radiologist. Interpretation has been included in the provider encounter note for this date of service. Flavio Robles MD [facility] XR PELVIS Final Result * XR LUMBOSACRAL SPINE 2-3 VIEWS (07/18/2025 2:17 PM EST) Narrative SYSTEMGENERATED, DOCUMENTATION - 07/18/2025 2:17 PM EST This image report has been auto-finalized and has not been read by a Radiologist. Interpretation has been included in the provider encounter note for this date of service. Flavio Robles MD IMG XR SPINE Final Result from Last 3 Months Insurance [facility] ONE CARE MEDICARE REPLACEMENT [facility] MEDICARE REPLACEMENT [facility] CARE MEDICARE REPLACEMENT [facility] CARE MEDICARE REPLACEMENT [facility] MEDICARE REPLACEMENT [facility] MEDICARE REPLACEMENT Care Teams House Shorer Relationship Specialty Start Date End Date Liat Nunez MD [address] [place] [phone] PCP - General Internal Medicine 05/25/25 Additional Source Comments The information contained in this document represents components of the legal health record. It is not the complete legal health record.[facility]
--- OUTSIDE RECORDS SUMMARY | 2025-08-27 17:05 | XMS_ITS | Encounter Summary ---
Author Organization [facility] Address [address] [place] [address] Care Team Providers Care Ell Teacher Name Role Phone Liat Nunez MD Primary Care Provider [phone] Reason for Referral * Consultation (Routine) - Authorized Specialty Diagnoses / Procedures Referred By Randal rothman Referred To Contact Hematology and Oncology Diagnoses Leukocytosis, unspecified type Sabrina Lynn NP [address] [address] Phone: tel: fax: [facility] Hematology Oncology [address] [place] [address] Phone: tel: fax: Referral ID Status Reason Start Date Expiration Date Visits Requested Visits Authorized [id number] Authorized Specialty Services Required 08/24/2026 1 1 Encounter Details Date Type Department Care Team ([facility] st Contact Info) Description 08/24/2025 Results Follow-Up Internal Medicine - [place] [address] [phone] Sabrina Lynn NP [address] [address] Social History Tobacco Use Types Packs/Day Years [...] Refills Last Filled Start Date End Date cholecalciferol (VITAMIN D-3) 50 mcg (2,000 unit) tabletIndications:V itamin D deficiency Take 1 tablet (2,000 Units total) by mouth 1 (one) time each day. 90 tablet 3 08/24/2025 documented in this encounter Plan of Treatment Upcoming Encounters Date Type Department Care Team (Late st Contact Info) Description 08/28/2025 1:30 PM EST Hospital Encounter [facility] Endoscopy [address] [place] [phone] Carter Chadwick MD 299 [facility] [address] [place] [address] Daxa Trujillo CRNA [address] [place] [address] Kyra Lopes MD 114 [place] [address] 09/04/2025 1:30 PM EST Office Visit Internal Medicine - [place] 175 [facility] [address] [place] [phone] Sabrina Lynn NP 175 [facility] 200 [place] [address] 09/06/2025 10:45 AM EST Consult Bariatric Surgery - [place] 175 [facility] [address] [place] [phone] Brenna De MD 230 [place] [phone] 10/02/2025 1:45 PM EST Office Visit [facility] Hematology Oncology [address] [place] [phone] Michaela Bergeron MD [address] [place] [address] 11/27/2025 1:00 PM EDT Office Visit Internal Medicine [facility] 175 [facility] [address] [place] [phone] Sabrina Lynn NP 175 [facility] [address] [place] [address] Scheduled Referrals Name Type Priority Associated Diagnoses Order Schedule Ambulatory referral to Hematology / Oncology Outpatient Referral Routine Leukocytosis, unspecified type 1 Occurrences starting 08/24/2025 until 08/24/2026 documented as of this encounter Goals Goal [...] Radha Massey documented as of this encounter Visit Diagnoses Diagnosis Leukocytosis, unspecified type- Primary Vitamin D deficiency documented in this encounter Discontinued Medications Medication Sig Discontinue Reason Start Date End Da te cholecalciferol (VITAMIN D-3) 50 mcg (2,000 unit) tabletIndications:Vitami n D deficiency Take 1 tablet (2,000 Units total) by mouth 1 (one) time each day. Reorder 07/27/2025 08/24/2025 documented as of this encounter Additional Health Concerns Active Problems Noted Date Diagnosed Date Autogenerated Problem 07/04/2025 Assessment Noted Time PHQ-9 Depression Total Score: 24 025 2:13 PM EST documented as of this encounter Care Teams Ell Teacher Relationship Specialty Start Date End Date Liat Nunez MD [address] [place] [phone] PCP - General Internal Medicine 07/30/24 documented as of this encounter
[2025-08-27 17:07] LABS: WBC ABN SCTR FOR CBC 1
[2025-08-27 17:08] LABS: White Blood Count 31.6 X10*3/uL (4.8-10.8)
[2025-08-27 17:15] LABS: Alanine Aminotransferase 20 U/L (0-31); Albumin Level 4.8 g/dL (3.5-5.0); Alkaline Phosphatase 87 U/L (39-117); Anion Gap 17 (12-20); Aspartate Amino Transferase 26 U/L (5-31); Blood Urea Nitrogen 11 mg/dL (9-16); Calcium 8.8 mg/dL (8.4-10.2); Carbon Dioxide 22 mmol/L (22-29); Chloride 107 mmol/L (96-108); Creatinine Clr Calc Pharmacy 85.9; Estimated Glomerular Filt Rate > 60; Lipase 15 U/L (8-78); Magnesium 2.0 mg/dL (1.6-2.6); Potassium 3.4 mmol/L (3.3-5.1); Sodium 143 mmol/L (135-145); Total Protein 7.5 g/dL (6.5-8.0)
[2025-08-27 17:40] VITALS: BP 127/74; PULSE 82; RESP 16; TEMP 36.6; O2SAT 98
[2025-08-27 17:58] LABS: Atypical Lymph Absolute Manual 0.6 x10*3/uL; Atypical Lymphs Percent Manual 2 % (0-6); Band Neutrophils Percent 2 % (3-5); Eosinophils Absolute Manual 0.6 X10*3/uL (0.0-0.4); Eosinophils Percent Manual 2 % (0-4); Lymphocytes Absolute Manual 19.6 X10*3/uL (1.2-4.9); Lymphocytes Percent Manual 62 % (20-40); Monocytes Absolute Manual 0.9 X10*3/uL (0.1-1.2); Monocytes Percent Manual 3 % (2-11); Neutrophils Absolute Manual 9.8 X10*3/uL (2.0-8.3); Neutrophils Percent Manual 29 % (45-73)
[2025-08-27 17:59] LABS: RBC Morphology NORMAL
[2025-08-27 18:04] LABS: Platelet Count 269 X10*3/uL (160-400)
[2025-08-27] MEDS: iohexoL 350 MG/ML 100 ML INFUS..BTL IV (18:50)
[2025-08-27] MEDS: metroNIDAZOLE/NS 500 MG/100 ML PIGGYBACK 100 MG IV (18:52)
[2025-08-27 19:37] LABS: Appearance Urine Clear; Glucose Urine UA Negative (Negative); PH 6.5 (5.0-9.0); Specific Gravity - Urine >= 1.030 (1.005-1.025); UMIC TRIGGER UACC YES
--- NOTE | 2025-08-27 19:43 | PC.NURSE ---
this RN assumed care of this pt @1900, pt A+Ox4, assisted to the bathroom, pt ambulated w/ slow steady gait and provided urine sample, sample collected and sent to the lab
[2025-08-27 22:20] VITALS: BP 132/76; PULSE 79; RESP 18; TEMP 36.5; O2SAT 98
[2025-08-27 22:24] VITALS: BP 132/76; PULSE 79; RESP 18; TEMP 36.5; O2SAT 98
[2025-08-27 22:29] LABS: Uric Acid 5.7 mg/dL (2.4-5.7)
[2025-08-28 07:54] LABS: HIV Num 1 0.06 S/CO (0.00-0.99)
== END 2025-08-27 22:37 | disposition home or self-care (01) ==
PROVIDERS: Physician Assistant Medical; Emergency Provider Emergency Medicine Emergency Medical Services; PCP Internal Medicine
DX: R10.9 Unspecified abdominal pain (principal); R11.0 Nausea; I10 Essential (primary) hypertension; D72.829 Elevated white blood cell count, unspecified; Z79.899 Other long term (current) drug therapy
CPT/HCPCS: 36415; 74177; 80053; 81001; 83605; 83690; 83735; 84550; 84702; 85007; 85025; 85027; 87040; 87205; 87389; 87912; 99284; J0696; J1171; J1836; J2405; Q9967

== ENCOUNTER → 2025-08-27 17:50 | Outpatient (BNV) | payer OTHER, SELFPAY | PROVIDERS: Emergency Provider Emergency Medicine Emergency Medical Services; PCP Internal Medicine; Visit Provider Radiology Diagnostic Radiology | DX: K80.20 Calculus of gallbladder without cholecystitis without obstruction (principal); N20.0 Calculus of kidney; K44.9 Diaphragmatic hernia without obstruction or gangrene | CPT/HCPCS: 74177 ==

== ENCOUNTER 2025-08-29 03:53 | Inpatient (IN) | payer OTHER, SELFPAY ==
--- OUTSIDE RECORDS SUMMARY | 2024-06-21 14:52 | XMS_ITS | Encounter Summary ---
Author Organization [employer] Address [address] [place] [address] Care Team Providers Care Sectionizer Name Role Phone Liat Nunez MD Primary Care Provider [phone] Encounter Details Date Type Department Care Team (Late st Contact Info) Description 06/21/2024 3:52 PM EDT Hospital Encounter TH HISTORIC ENCOUNTERS [facility]ASTERN CONVERSION ONLY Liat Nunez MD [address] [place] [phone] Social History Tobacco Use Types Packs/Day Years [...] PM EDT documented as of this encounter Functional Status * Calculated C-SSRS Risk Score (Lifetime/Recent) Answer Date of Assessment Author No Risk Indicated 07/30/2024 8:23 PM EST Christa Bernard i, RN * [facility] Suicide Severity Rating Scale (Screener/Recent Self-Report) Question Answer Date of Assessment Author 1. Wish to be (Past 1 Month) No 07/30/2024 8:23 PM EST Won Echevarria ra, RN 2. Non-Specific Active Suicidal Thoughts (Past 1 Month) No 07/30/2024 8:23 PM EST Won Echevarria ra, RN 6. Suicidal Behavior (Lifetime) No 07/30/2024 8:23 PM EST Won Echevarria ra, RN documented as of this encounter Plan of Treatment Upcoming Encounters Date Type Department Care Team (Late st Contact Info) Description 09/04/2025 1:30 PM EST Office Visit Internal Medicine [facility] [address] [phone] Sabrina Lynn NP [address] [address] 09/06/2025 10:45 AM EST Consult Bariatric Surgery - [place] 175 [facility] [address] [place] [phone] Brenna De MD [address] [place] [phone] 10/02/2025 1:45 PM EST Office Visit [facility] Hematology Oncology [address] [place] [phone] Michaela Bergeron MD [address] [place] [address] 11/27/2025 1:00 PM EDT Office Visit Internal Medicine [facility] [address] [phone] Sabrina Lynn NP [address] [address] documented as of this encounter Goals Goal [...] on filedocumented in this encounter Care Teams Sectionizer Relationship Specialty Start Date End Date Liat Nunez MD PCP - General Internal Medicine 07/19/18 07/29/24 documented as of this encounter
--- OUTSIDE RECORDS SUMMARY | 2025-08-28 13:30 | XMS_ITS | Encounter Summary ---
Author Organization [facility] Address [address] [place] [address] Care Team Providers Care [employer] Special Education Teacher Name Role Phone Liat Nunez MD Primary Care Provider [phone] Reason for Visit * Auth/Cert (Routine) Specialty Diagnoses / Procedures Referred By Randal rothman Referred To Contact Diagnoses Encounter for screening for malignant neoplasm of colon Procedures COLONOSCOPY CO COLONOSCOPY FLEXIBLE DIAGNOSTIC W COLLECTION SPECIMEN BRUSHING/WASHING [facility] [address] [place] [phone] [facility] Endoscopy [address] [place] [address] Phone: tel: Referral ID Status Reason Start Date Expiration Date Visits Re quested Visits Authorized [id number] 1 1 Encounter Details Date Type Department Care Team (Late st Contact Info) Description 08/28/2025 1:30 PM EST Hospital Encounter [facility] Endoscopy [address] [place] [phone] Carter Chadwick MD [address] [address] Daxa Trujillo CRNA [address] [place] [address] Baltazar Horvath MD [address] [place] [address] [address] [place] [address] Social History Tobacco Use Types Packs/Day Years [...] Upcoming Encounters Date Type Department Care Team ([facility] st Contact Info) Description 09/04/2025 1:30 PM EST Office Visit Internal Medicine [facility] [address] [phone] Sabrina Lynn NP [address] [address] 09/06/2025 10:45 AM EST Consult Bariatric Surgery - [place] 175 [facility] 120 [place] [phone] Brenna De MD 230 [place] [address] 10/02/2025 1:45 PM EST Office Visit [facility] Hematology Oncology [address] [place] [phone] Michaela Bergeron MD [address] [place] [address] 11/27/2025 1:00 PM EDT Office Visit Internal Medicine [facility] [address] [phone] Sabrina Lynn NP [address] [address] Scheduled Orders Name Type Priority Associated Diagnoses Orde r Schedule COLONOSCOPY Anesthesia - MAC; [facility] ENDOSCOPY Endoscopy Routine Colon cancer screening Expected: 08/28/2025, Expires: 06/05/2026 documented as of this encounter Goals Goal [...] Diagnoses Not on filedocumented in this encounter Additional Health Concerns Active Problems Noted Date Diagnosed Date Autogenerated Problem 07/04/2025 Assessment Noted Time PHQ-9 Depression Total Score: 24 025 2:13 PM EST documented as of this encounter Care Teams [employer] Special Education Teacher Relationship Specialty Start Date End Date Liat Nunez MD [address] [place] [phone] PCP - General Internal Medicine 07/30/24 documented as of this encounter
[2025-08-29] VITALS (9 sets, daily range): BP systolic 116–168; BP diastolic 62–87; PULSE 66–86; RESP 14–20; TEMP 36.3–37.6; O2SAT 95–99; BMI 36.0
--- OUTSIDE RECORDS SUMMARY | 2025-08-29 04:17 | XMS_ITS | Encounter Summary ---
Author Organization [facility] Address [address] [place] [address] Care Team Providers Care Inspector Floor Sub Assembly Name Role Phone Liat Nunez MD Primary Care Provider [phone] Reason for Referral * Consultation (Routine) - Authorized Specialty Diagnoses / Procedures Referred By Randal rothman Referred To Contact Hematology and Oncology Diagnoses Leukocytosis, unspecified type Sabrina Lynn NP [address] [address] Phone: tel: fax: [facility] Hematology Oncology [address] [place] [address] Phone: tel: fax: Referral ID Status Reason Start Date Expiration Date Visits Requested Visits Authorized [id number] Authorized Specialty Services Required 08/24/2026 1 1 Encounter Details Date Type Department Care Team ([facility] st Contact Info) Description 08/24/2025 Results Follow-Up Internal Medicine - [place] [address] [phone] Sabrina Lynn NP [address] [address] Social History Tobacco Use Types Packs/Day Years [...] PM EST Office Visit Internal Medicine - [place] 175 [facility] [address] [place] [phone] Sabrina Lynn NP 175 [facility] 200 [place] [address] 09/06/2025 10:45 AM EST Consult Bariatric Surgery - [place] 175 [facility] [address] [place] [phone] Brenna De MD 230 [place] [phone] 10/02/2025 1:45 PM EST Office Visit [facility] Hematology Oncology [address] [place] [phone] Michaela Bergeron MD [address] [place] [address] 11/27/2025 1:00 PM EDT Office Visit Internal Medicine - [place] 175 [facility] [address] [place] [address] Sabrina Lynn NP [address] [address] Scheduled Referrals Name Type Priority Associated Diagnoses [...] documented as of this encounter Care Teams Inspector Floor Sub Assembly Relationship Specialty Start Date End Date Liat Nunez MD [address] [phone] PCP - General Internal Medicine 07/30/24 documented as of this encounter
--- OUTSIDE RECORDS SUMMARY | 2025-08-29 04:17 | XMS_ITS | Clinical Summary ---
Author Organization [facility] Address [address] [place] [address] Phone Care Team Providers Care Tube Washer Name Role Phone Liat Nunez MD Primary Care Provider [phone] Allergies Active Allergy Reactions Criticality Noted Date [...] Encounters Date Type Department Care Team Description 08/28/2025 1:30 PM [facility] Hospital Encounter [facility] Endoscopy [address] [place] [address] NettaCarter rodriguez MD Johnson, Lorraine, CRNA Gomes, Sheldon B, MD 08/28/[address] [facility] Hematology Oncology [address] [place] [phone] Michaela Bergeron MD 08/24/2025 Results Follow-Up Internal Medicine [address] [phone] Sabrina Lynn NP 08/23/2025 10:30 AM EST Lab Draw Station - [address] [place] [phone] Screening for ischemic heart disease; Vitamin B12 deficiency; Vitamin D deficiency; Leukocytosis, unspecified type; Bilateral hand pain 08/23/2025 9:30 AM EST Office Visit Internal Medicine [address] [phone] Sabrina Lynn NP Screening for ischemic heart [...] hyperlipidemia type 07/27/2025 Results Follow-Up Internal Medicine [address] [phone] Sabrina Lynn NP 07/26/2025 3:15 PM EST Lab Draw Station - [address] [place] [phone] Lymphoproliferative disease (CMS/HCC V24, CMS/HCC V28); Screening for ischemic heart disease; Routine adult health maintenance; Screening for diabetes mellitus; Vitamin B12 deficiency; Vitamin D deficiency; Urinary frequency; Screen for STD (sexually transmitted disease) 07/26/2025 2:00 PM EST Office Visit Internal Medicine [address] [phone] Sabrina Lynn NP Routine adult health maintenance [...] Primary hypertension; Hyperlipidemia, unspecified hyperlipidemia type 06/28/2025 [facility] 160 175 [facility] 160 [place] [phone] Alvarez Castorena MD 06/06/2025 [facility] 250 175 [facility] 250 [place] [address] Yoli Pineda 06/05/2025 Telephone Internal Medicine [facility] 175 [facility] 200 [place] [phone] Gail Arrington RN 06/05/2025 Telephone Gastroenterology - 299 [facility] 299 [facility] [address] [place] [phone] Carter Chadwick MD 05/30/2025 [facility] 175 [facility] 200 [place] [address] Liat Nunez MD from Last 3 Months [...] PM EST Office Visit Internal Medicine - [address] [place] [address] Sabrina Lynn NP 175 [facility] 200 [place] [address] 09/06/2025 10:45 AM EST Consult Bariatric Surgery - [place] 175 [facility] 120 [place] [phone] Brenna De MD 230 [place] [phone] 10/02/2025 1:45 PM EST Office Visit [facility] Hematology Oncology [address] [place] [phone] Michaela Bergeron MD [address] [place] [address] 11/27/2025 1:00 PM EDT Office Visit Internal Medicine - [place] 175 [facility] 200 [place] [address] Sabrina Lynn NP 175 [facility] 200 [place] [address] Health Maintenance Due Date Last Done Comments Breast Cancer Screening 1978 Colorectal Cancer Screening: Colonoscopy 1978 Hepatitis B Vaccines (1 of 3 - 19+ 3-dose series) 1997 Cervical Cancer Screening: P ap Smear 1999 Medicare Annual Wellness Visit 08/23/2022 Social Influencers of Health Screening 08/23/2022 COVID-19 Vaccine ( - 2024-2 6 season) 2025 Hypertension/CHF/CAD Annual [...] - 200 mg/dL 08/23/2025 4:21 PM EST [facility] Triglycerides 161(H) 0 - 150 mg/dL 08/23/2025 4:21 PM [facility] HDL 56 >=40 mg/dL 08/23/2025 4:21 PM [facility] LDL Calculated 130(H) 0 - 100 mg/dL 08/23/2025 4:21 PM [facility] Comment:Estimated LDL is philomena culated using the Friedewald equation: Total cholesterol - HDL cholesterol - (Triglycerides/5) VLDL Cholesterol Philomena 32.2 mg/dL 08/23/2025 4:21 PM [facility] Non HDL Chol. (LDL+VLDL) 162(H) <145 mg/dL 08/23/2025 4:21 PM [facility] Chol/HDL Ratio 3.9 0.0 - 4.4 08/23/2025 4:21 PM [facility] Blood Venous blood specimen / Unknown Venipuncture / Unknown 08/23/2025 10:27 AM EST 08/23/2025 10:27 AM EST us Sabrina Lynn NP LAB BLOOD ORDERABLES Final Resul t [facility] [address] [place] [address], [place] [phone] * (ABNORMAL) Manual differential (08/23/2025 10:27 AM EST) Only the most recent of2 resultswithin the time period is included. Neutrophils % 17.0 % LAB HEMETOLOGY METHOD 08/23/2025 3:43 PM [facility] Lymphocytes % 77.0 % LAB HEMETOLOGY METHOD 08/23/2025 3:43 PM [facility] Monocytes % 5.0 % LAB HEMETOLOGY METHOD 08/23/2025 3:43 PM [facility] Eosinophils % 0.0 % LAB HEMETOLOGY METHOD 08/23/2025 3:43 PM EST [facility] Basophils % 1.0 % LAB HEMETOLOGY METHOD 08/23/2025 3:43 PM [facility] Neutrophils Absolute Manual 3.72 1.50 - 7.00 K/mcL LAB HEMETOLOGY METHOD 08/23/2025 3:43 PM [facility] Lymphocytes Absolute 16.86(H) 1.00 - 5.00 K/mcL LAB HEMETOLOGY METHOD 08/23/2025 3:43 PM EST [facility] Monocytes Absolute Manual 1.09(H) 0.20 - 1.00 K/mcL LAB HEMETOLOGY METHOD 08/23/2025 3:43 PM [facility] Eosinophils Absolute Manual 0.00 0.00 - 0.50 K/mcL LAB HEMETOLOGY METHOD 08/23/2025 3:43 PM EST [facility] Basophils Absolute Manual 0.22(H) 0.00 - 0.20 K/mcL LAB HEMETOLOGY METHOD 08/23/2025 3:43 PM [facility] Rbc Morphology Consistent with indices Consistent with indices, Normal for [place] LAB HEMETOLOGY METHOD 08/23/2025 3:43 PM EST [facility] Platelet Morphology - WAM Normal Normal LAB HEMETOLOGY METHOD 08/23/2025 3:43 PM [facility] Blood Venous blood specimen / Unknown Venipuncture / Unknown 08/23/2025 10:27 AM EST 08/23/2025 10:27 AM EST us Sabrina Lynn NP LAB BLOOD ORDERABLES Final Resul t [facility] [address] [place] [address], [place] [phone] * (ABNORMAL) KATIE IFA with titer and pattern (08/23/2025 10:27 AM EST) Pathologist [facility] KATIE Positive (A) Negative 08/24/2025 2:47 PM EST [facility] Comment:KATIE performed by ind irect immunofluorescence (IFA) using HEp-2 substrate. KATIE Pattern Homogene ous(A) (none) 08/24/2025 2:47 PM EST [facility] Comment:May be Associated wi th SLE and drug-induced SLE. Titer 1:320(A) <1:160 08/24/2025 2:47 PM EST [facility] Comment: Approximately 3% of healthy persons have KATIE titer of 1:320 or higher Further testing for other autoantibodies should be prompted by specific clinical findings/impressions. Blood Venous blood specimen / Unknown Venipuncture / Unknown 08/23/2025 10:27 AM EST 08/23/2025 10:27 AM EST Sabrina Lynn NP LAB BLOOD ORDERABLES Final Resul t [facility] [address] [place] [address], * (ABNORMAL) CBC auto differential (08/23/2025 10:27 AM EST) Only the most recent of2 resultswithin the time period is included. Pathologist [facility] WBC 21.9(H) 4.8 - 10.8 K/mcL LAB HEMETOLOGY METHOD 08/23/2025 3:43 PM [facility] RBC 4.30 3.80 - 4.80 M/mcL LAB HEMETOLOGY METHOD 08/23/2025 3:43 PM [facility] Hemoglobin 13.0 11.5 - 16.0 g/dL LAB HEMETOLOGY METHOD 08/23/2025 3:43 PM [facility] Hematocrit 39.8 35.0 - 47.0 % LAB HEMETOLOGY METHOD 08/23/2025 3:43 PM [facility] MCV 91.7 79.0 - 98.0 FL LAB HEMETOLOGY METHOD 08/23/2025 3:43 PM EST [facility] MCH 30.0 27.0 - 32.0 pcg LAB HEMETOLOGY METHOD 08/23/2025 3:43 PM [facility] MCHC 32.7 32.0 - 37.0 g/dL LAB HEMETOLOGY METHOD 08/23/2025 3:43 PM EST [facility] RDW 12.7 11.0 - 15.0 % LAB HEMETOLOGY METHOD 08/23/2025 3:43 PM EST [facility] Platelets 293 130 - 400 K/mcL LAB HEMETOLOGY METHOD 08/23/2025 3:43 PM [facility] MPV 10.9 7.0 - 11.0 FL LAB HEMETOLOGY METHOD 08/23/2025 3:43 PM EST [facility] NRBC 0.0 <1.0 % LAB HEMETOLOGY METHOD 08/23/2025 3:43 PM [facility] NRBC Absolute 0.00 <0.10 K/mcL LAB HEMETOLOGY METHOD 08/23/2025 3:43 PM [facility] Blood Venous blood specimen / Unknown Venipuncture / Unknown 08/23/2025 10:27 AM EST 08/23/2025 10:27 AM EST Narrative [facility] - 08/23/2025 3:43 PM EST [id number] us Sabrina Lynn NP LAB BLOOD ORDERABLES Final Resul t [facility] [address] [place] [address], * (ABNORMAL) Iron and TIBC (08/23/2025 10:27 AM EST) [facility] Signature Iron 46 40 - 150 mcg/dL 08/23/2025 4:21 PM EST [facility] TIBC 379 250 - 450 mcg/dL 08/23/2025 4:21 PM EST [facility] Iron Saturation 12(L) 15 - 50 % 4:21 PM EST [facility] Blood Venous blood specimen / Unknown Venipuncture / Unknown 08/23/2025 10:27 AM EST 08/23/2025 10:27 AM EST [facility] LAB BLOOD ORDERABLES Final Resul t Performing Organization Address City/[facility]/ZIP Co de Phone Number [facility] [address] [place] [address], [place] [phone] * (ABNORMAL) Vitamin D 25 hydroxy (08/23/2025 10:27 AM EST) Only the most recent of2 resultswithin the time period is included. Vit D, 25-Hydroxy 27.8(L) 30.0 - 80.0 ng/mL 08/23/2025 6:18 PM EST [facility] Blood Venous blood specimen / Unknown Venipuncture / Unknown 08/23/2025 10:27 AM EST 08/23/2025 10:27 AM EST Sabrina Eganюлия CLAMSHELL ENGINEER LAB BLOOD ORDERABLES Final Resul t [facility] [address] [place] [address], [place] [phone] * Rheumatoid factor (08/23/2025 10:27 AM EST) Rheumatoid Factor 4.5 <15.0 I Unit/mL 08/23/2025 4:21 PM EST [facility] Blood Venous blood specimen / Unknown Venipuncture / Unknown 08/23/2025 10:27 AM EST 08/23/2025 10:27 AM EST Sabrina Lynn CLAMSHELL ENGINEER LAB BLOOD ORDERABLES Final Resul t Performing Organization Address City/[facility]/ZIP Co de Phone Number [facility] [address] [place] [address], [place] [phone] * C-reactive protein (08/23/2025 10:27 AM EST) C-Reactive Protein <0.50 <=0.50 mg/dL 08/23/2025 4:37 PM EST [facility] Blood Venous blood specimen / Unknown Venipuncture / Unknown 08/23/2025 10:27 AM EST 08/23/2025 10:27 AM EST Sabrina Lynn LAB BLOOD ORDERABLES Final Resul t Performing Organization Address [facility] de Phone Number [facility] [address] [place] [address], [place] [phone] * Folate (08/23/2025 10:27 AM EST) Pathologist [facility] Folate 14.2 >=5.4 ng/ml 08/23/2025 4:16 PM EST [facility] Blood Venous blood specimen / Unknown Venipuncture / Unknown 08/23/2025 10:27 AM EST 08/23/2025 10:27 AM EST Narrative [facility] - 08/23/2025 4:16 PM EST Over the counter supplements containing high doses of biotin may interfere with this assay. If interference is suspected, patients shoud be retested after refraining from biotin supplements for 72 hours. us Sabrina Lynn CLAMSHELL ENGINEER LAB BLOOD ORDERABLES Final Resul t Performing Organization Address City/[facility] Co de Phone Number [facility] [address] [place] [address], [place] [phone] * Ferritin (08/23/2025 10:27 AM EST) Pathologist [facility] Ferritin 27 7 - 271 ng/mL 08/23/2025 4:15 PM EST [facility] Blood Venous blood specimen / Unknown Venipuncture / Unknown 08/23/2025 10:27 AM EST 08/23/2025 10:27 AM EST us Sabrina Lynn CLAMSHELL ENGINEER LAB BLOOD ORDERABLES Final Resul t Performing Organization Address City/[facility] de Phone Number [facility] [address] [place] [address], [place] [phone] * Vitamin B12 (08/23/2025 10:27 AM EST) Only the most recent of2 resultswithin the time period is included. [facility] Vitamin B-12 430 211 - 911 pcg/mL 08/23/2025 4:42 PM EST [facility] Blood Venous blood specimen / Unknown Venipuncture / Unknown 08/23/2025 10:27 AM EST 08/23/2025 10:27 AM EST us Sabrina Lynn CLAMSHELL ENGINEER LAB BLOOD ORDERABLES Final Resul t Performing Organization Address [facility] de Phone Number [facility] [address] [place] [address], [place] [phone] * Hepatitis C antibody (07/26/2025 3:13 PM EST) [facility] Hepatitis C Antibody Negative Negative LAB CHEMISTRY METHOD 07/26/2025 7:51 PM EST [facility] Blood Venous blood specimen / Unknown Venipuncture / Unknown 07/26/2025 3:13 PM EST 07/26/2025 3:13 PM EST us Sabrina Lynn CLAMSHELL ENGINEER LAB BLOOD ORDERABLES Final Resul t Performing Organization Address City/[facility]/ZIP Co de Phone Number [facility] [address] [place] [address], [place] [phone] * HIV 1,2 antibody, p24 antigen with reflex to differentiation (07/26/2025 3:13 PM EST) [facility] HIV Combo AB/AG Negative Negative LAB CHEMISTRY METHOD 07/26/2025 7:52 PM [facility] Blood Venous blood specimen / Unknown Venipuncture / Unknown 07/26/2025 3:13 PM EST 07/26/2025 3:13 PM EST [facility] - 07/26/2025 7:52 PM EST This assay is a 4th generation assay allowing for earlier detection of HIV infection by detecting the presence of the HIV-1 p24 antigen as well as the traditional antibodies to HIV type 1 (including group O) and type 2. Use of a 4th generation assay is the current CDC recommendation for HIV screening. Sabrina Lynn NP LAB BLOOD ORDERABLES Final Resul t [facility] [address] [place] [address], [place] [phone] * Urinalysis with reflex microscopic (07/26/2025 3:13 PM EST) [facility] Specific [place] Urine 1.018 1.003 - 1.030 LAB URINALYSIS - AUTOMATED METHOD 07/26/2025 7:05 PM [facility] pH, Urine 7.5 5.0 - 8.0 pH LAB URINALYSIS - AUTOMATED METHOD 07/26/2025 7:05 PM [facility] Leukocytes, Urine Negative Negative LAB URINALYSIS - AUTOMATED METHOD 07/26/2025 7:05 PM [facility] Nitrite, Urine Negative Negative LAB URINALYSIS - AUTOMATED METHOD 07/26/2025 7:05 PM [facility] Protein, Urine Negative <=Trace mg/dL LAB URINALYSIS - AUTOMATED METHOD 07/26/2025 7:05 PM [facility] Glucose, Urine Negative Negative mg/dL LAB URINALYSIS - AUTOMATED METHOD 07/26/2025 7:05 PM [facility] Ketones, Urine Negative Negative mg/dL LAB URINALYSIS - AUTOMATED METHOD 07/26/2025 7:05 PM [facility] Urobilinogen, Urine 0.2 0.2 - 1.0 mg/dL LAB URINALYSIS - AUTOMATED METHOD 07/26/2025 7:05 PM [facility] Bilirubin, Urine Negative Negative LAB URINALYSIS - AUTOMATED METHOD 07/26/2025 7:05 PM [facility] Blood, Urine Negative Negative LAB URINALYSIS - AUTOMATED METHOD 07/26/2025 7:05 PM [facility] Urine Urine specimen obtained by clean catch procedure / Unknown Non-blood Collection / Unknown 07/26/2025 3:13 PM EST 07/26/2025 3:13 PM EST us Sabrina Lynn NP LAB URINE ORDERABLES Final Resul t Performing Organization Address [facility]/ZIP Co de Phone Number [facility] [address] [place] [address], [place] [phone] * Treponema pallidum antibody with reflex to RPR and particle agglutination (07/26/2025 3:13 PM EST) T. Pallidum Antibodies Negative Negative LAB CHEMISTRY METHOD 07/26/2025 9:25 PM [facility] Blood Venous blood specimen / Unknown Venipuncture / Unknown 07/26/2025 3:13 PM EST 07/26/2025 3:13 PM EST us Sabrina Lynn CLAMSHELL ENGINEER LAB BLOOD ORDERABLES Final Resul t Performing Organization Address City/[facility]/ZIP Co de Phone Number [facility] [address] [place] [address], [place] [phone] * Thyroid stimulating hormone with reflex to free t4 and free t3 (07/26/2025 3:13 PM EST) [facility] TSH 1.13 0.40 - 4.00 mcIU/mL LAB CHEMISTRY METHOD 07/26/2025 9:14 PM EST [facility] Blood Venous blood specimen / Unknown Venipuncture / Unknown 07/26/2025 3:13 PM EST 07/26/2025 3:13 PM EST us Sabrina Lynn NP LAB BLOOD ORDERABLES Final Resul t [facility] [address] [place] [address], [place] [phone] * Chlamydia trachomatis and Neisseria gonorrhoeae molecular study (07/26/2025 3:13 PM EST) [facility] Neisseria gonorrhoeae PCR Negative Negative LAB MOLECULAR DIAGNOSTICS METHOD 07/27/2025 9:16 AM EST [facility] Chlamydia trachomatis PCR Negative Negative LAB MOLECULAR DIAGNOSTICS METHOD 07/27/2025 9:16 AM [facility] Urine Urine specimen from urethra / Unknown Non-blood Collection / Unknown 07/26/2025 3:13 PM EST 07/26/2025 3:13 PM EST us Sabrina Lynn NP LAB MICROBIOLOGY - GENERAL ORDER ROCHELLE Final Result [facility] [address] [place] [address], [place] [phone] * Magnesium (07/26/2025 3:13 PM EST) [facility] Magnesium 2.2 1.9 - 2.6 mg/dL LAB CHEMISTRY METHOD 07/26/2025 7:00 PM EST [facility] Blood Venous blood specimen / Unknown Venipuncture / Unknown 07/26/2025 3:13 PM EST 07/26/2025 3:13 PM EST Tishanellie Lynn CLAMSHELL ENGINEER LAB BLOOD ORDERABLES Final Resul t Performing Organization Address [facility]/ZIP Co de Phone Number [facility] [address] [place] [address], [place] [phone] * Lactate dehydrogenase (07/26/2025 3:13 PM EST) Pathologist [facility] LDH 219 120 - 246 unit/L LAB CHEMISTRY METHOD 07/26/2025 7:00 PM EST [facility] Blood Venous blood specimen / Unknown Venipuncture / Unknown 07/26/2025 3:13 PM EST 07/26/2025 3:13 PM EST Michaela Bergeron MD LAB BLOOD ORDERABLES Final R esult Performing Organization Address [facility] Co de Phone Number [facility] [address] [place] [address], [place] [phone] * Hemoglobin A1c (07/26/2025 3:13 PM EST) [facility] Hemoglobin A1C 5.6 <6.5 % LAB CHEMISTRY METHOD 07/26/2025 9:54 PM EST [facility] Mean Bld Glu Estim. 114 mg/dL LAB CHEMISTRY METHOD 07/26/2025 9:54 PM EST [facility] Blood Venous blood specimen / Unknown Venipuncture / Unknown 07/26/2025 3:13 PM EST 07/26/2025 3:13 PM EST Sabrina Lynn CLAMSHELL ENGINEER LAB BLOOD ORDERABLES Final Resul t Performing Organization Address [facility]/ZIP Co de Phone Number [facility] [address] [place] [address], [place] [phone] * Comprehensive metabolic panel (07/26/2025 3:13 PM EST) Sodium 140 133 - 145 mmol/L LAB CHEMISTRY METHOD 07/26/2025 7:25 PM [facility] Potassium 3.9 3.5 - 5.5 mmol/L LAB CHEMISTRY METHOD 07/26/2025 7:25 PM [facility] Chloride 104 96 - 110 mmol/L LAB CHEMISTRY METHOD 07/26/2025 7:25 PM [facility] CO2 30 21 - 32 mmol/L LAB CHEMISTRY METHOD 07/26/2025 7:25 PM [facility] Anion Gap 6 3 - 11 LAB CHEMISTRY METHOD 07/26/2025 7:25 PM [facility] Glucose 83 70 - 100 mg/dL LAB CHEMISTRY METHOD 07/26/2025 7:25 PM [facility] BUN 15 5 - 25 mg/dL LAB CHEMISTRY METHOD 07/26/2025 7:25 PM [facility] Creatinine 0.62 0.50 - 1.10 mg/dL LAB CHEMISTRY METHOD 07/26/2025 7:25 PM [facility] eGFR 111 >=60 mL/min/1. 73m2 LAB CHEMISTRY METHOD 07/26/2025 7:25 PM [facility] Comment:Calculation based on the Chronic Kidney Disease Epidemiology Collaboration (CKD-EPI) equation refit without adjustment for race. BUN/Creatinine Ratio 24.2 LAB CHEMISTRY METHOD 07/26/2025 7:25 PM [facility] Calcium 8.9 8.5 - 10.5 mg/dL LAB CHEMISTRY METHOD 07/26/2025 7:25 PM [facility] AST (SGOT) 12 10 - 42 unit/L LAB CHEMISTRY METHOD 07/26/2025 7:25 PM [facility] ALT (SGPT) 29 10 - 60 unit/L LAB CHEMISTRY METHOD 07/26/2025 7:25 PM EST [facility] Alkaline Phosphatase 95 42 - 121 unit/L LAB CHEMISTRY METHOD 07/26/2025 7:25 PM EST [facility] Total Protein 6.7 6.0 - 8.0 g/dL LAB CHEMISTRY METHOD 07/26/2025 7:25 PM EST [facility] Albumin 3.7 3.2 - 5.0 g/dL LAB CHEMISTRY METHOD 07/26/2025 7:25 PM [facility] Total Bilirubin 0.4 0.0 - 1.4 mg/dL LAB CHEMISTRY METHOD 07/26/2025 7:25 PM [facility] Blood Venous blood specimen / Unknown Venipuncture / Unknown 07/26/2025 3:13 PM EST 07/26/2025 3:13 PM EST us Sabrina Lynn NP LAB BLOOD ORDERABLES Final Resul t [facility] [address] [place] [address], [place] [phone] from Last 3 Months Additional Health Concerns Active Problems Noted Date Diagnosed Date Autogenerated Problem 07/04/2025 Insurance [facility] Member Subscriber Plan / Payer (Ef fective 2019-Present) Name:ANJELICA EVANS Relation to Subscriber:Self Name:Anjelica Evans I Payer ID:[id number] Group ID:[id number] Type:Not on file Address: [place] [address] [place] [phone] Advance Directives * Full Code - Default [...] currently active code status orders. Care Teams Tube Washer Relationship Specialty Start Date End Date Liat Nunez MD [address] [place] [phone] PCP - General Internal Medicine 07/30/24
--- OUTSIDE RECORDS SUMMARY | 2025-08-29 04:17 | XMS_ITS | Encounter Summary ---
Author Organization [facility] Address [address] [place] [address] Care Team Providers Care Recreation Attendant Supervisor Name Role Phone Liat Nunez MD Primary Care Provider [phone] Reason for Visit * Reason Onset Date Comments special procdure r/s 06/05/2025 Encounter Details Date Type Department Care Team ([facility] st Contact Info) Description 06/05/2025 Telephone Gastroenterology - [address] [phone] Carter Chadwick MD [address] [address] Social History Tobacco Use Types Packs/Day Years [...] as of this encounter Progress Notes * Consuelo Serrano - 08/28/2025 10:37 AM EST rescheduled * Fouzia Hong - 08/28/2025 10:26 AM EST Pt is calling to r/s today's procedure due to not feeling well. * Jelly Gonzalez - 06/05/2025 10:32 AM EDT RESCHEDULED. * La Worrell - 06/05/2025 9:30 AM EDT Patient calling to r/s procedure because she was in the ER over the weekend and received antibiotics that she has to take with food. Please cb to loretta. documented in this encounter Plan of Treatment Upcoming Encounters Date Type Department Care Team (Late st Contact Info) Description 09/04/2025 1:30 PM EST Office Visit Internal Medicine - [place] [address] [phone] Sabrina Lynn NP 175 [facility] 200 [place] [address] 09/06/2025 10:45 AM EST Consult Bariatric Surgery - [place] 175 [facility] 120 [place] [phone] Brenna De MD 230 [place] [phone] 10/02/2025 1:45 PM EST Office Visit [facility] Hematology Oncology [address] [place] [phone] Michaela Bergeron MD 271 [place] [address] 11/27/2025 1:00 PM EDT Office Visit Internal Medicine - [place] 175 [facility] 200 [place] [phone] Sabrina Lynn, MINA 175 [facility] 200 [place] [address] documented as of this encounter Goals Goal [...] Noted Date Diagnosed Date Autogenerated Problem 07/04/2025 documented as of this encounter Care Teams Recreation Attendant Supervisor Relationship Specialty Start Date End Date Liat Nunez MD 175 [facility] 200 [place] [phone] PCP - General Internal Medicine 07/30/24 documented as of this encounter
--- OUTSIDE RECORDS SUMMARY | 2025-08-29 04:17 | XMS_ITS | Data Portability ---
Author Organization [employer], [facility] Address [address] [place] [phone] Care Team Providers Care Change Management Facilitator Name Role Phone HIM CCA Referring Provider RADHA WHITNEY Primary Care Provider [phone] Assessment Encounter Date Assessment Date Assessment LastModified by Organization Details LastModified Time 11/20/2023 11/20/2023 I provided real -time medical direction via phone for this encounter and was available for additional phone-based assistance as needed. I have reviewed and agree with the Assessment and Plan as documented by the Coal Pipeline Operator. Patient given the opportunity to ask questions. This service was called for an assessment of Dressing change As per above, patient with a chronic wound and needed assistance for dressing change. Per infantryman on the scene, patient s vitals Stable and the patient has no complaint. Please see uploaded pictures. Impression: Wound care Plan: dressing change discussed with infantryman on the scene. There are no concerning [...] Assessment and Plan as documented by the Coal Pipeline Operator. I provided real-time medical direction via phone [...] 2 Ag, QL IA, respiratory specimen [address], [address] 12:54:11 rapid flu (A+B) [address], [address] 12:53:51 Referral None recorded. Procedures None recorded. Surgeries None recorded. Imaging None recorded. Medication Orders benzonatate 200 mg capsule 2024 [id number], [address] [place] [address], [id number], 12:37:26 Patient TargetsNo targets recorded. Patient InstructionsNo [...] Name and Address Organization Details Recorded Time 81963 Macrobid medicatio n Not available Not available Not available 12/02/2024 94158 1 RxNorm Not Available [facility] - production [...] /min 98 % 82 /min 98.2 [degF] 46280.4 g 155/105 mm[Hg] Not Available [employer] [facility] 4 17:58:05 Date Recorded Respiratory rate Body temperature Oxygen saturation Heart rate Systolic And Diastolic Provider Name and Address Organization Details Last Updated DateTime 5 16 /min 98.7 [degF] 99 % 66 /min 136/82 mm[Hg] Not Available [employer] 5 12:35:59 Social History None recorded. Functional Status None recorded. Mental Status None recorded. Family History Nothing Reported. Medical History No medical history recorded. Gynecological HistoryNo gynecological history recorded. Obstetrics History GPAL:G 0 P 0 0 0 0 Past Encounters Encounter ID Performer Location Encounter Start Date Encounter Closed Date Diagnosis/Indication Diagnosis SNOMED-CT Code Diagnosis ICD10 Code Diagnosis IMO Codes Diagnosis Note [id number] Isamar Karimi MD Main - [facility] [address] [place] [phone] 11/20/2023 17:58:00 11/22/2023 16:24:05 Change of dressing 19989049 Z48.00 [id number] Carter Pickering MD [address] [phone] 12/02/2024 12:35:57 12/05/2024 13:38:15 Cough 56942337 R05.9 Health Concerns Section Related Observation LastModified by Organization Detai ls LastModified Time None Recorded Concern Status LastModified by Organization Details LastModified Time None Recorded Advance Directives Directive None Recorded Payers Insurance Date Sequence Insurance Name Policy Number Policy Styles Covered Member ID Styles Member ID Guarantor Name 12/02/2024 1 [facility] - DOS ON OR AFTER 2022 - DUAL ELIGIBLE - ALF OPTIONS AND ONE CARE (MEDICARE REPLACEMENT/ADV ANTAGE - HMO) Anjelica Evans [id number] Anjelica Evans Notes Date Note Type Note Provider Name and Address Organization Details Recorded Time 11/20/2023 text/html HPI: Member call transferred from [facility], member reports she is post left rotator [...] .................. .................. .................. .................. .................. .................. ............... Coal Pipeline Operator Note From Preston Szymanski: Pt needed assistance [...] .................. ............... Disposition: Fulfilled Isamar Karimi MD [address] [place] [address],[address], [place], [phone], [employer] 11/20/2023 20:24:03 12/02/2024 text/html HPI: Call received [...] PCN. Initial outreach call to George at [phone] and reached member who stated she has [...] stated she looked at an apartment in [place] yesterday and she has applications in other apartments and assistance programs to help her find an apartment. Mbr stated she did have [facility] call her and help her a few [...] and Mbr agreed. Confirmed address and phone/ [phone]. .................. .................. .................. .................. .................. .................. .................. ............... CRC Nurse Triage Notes (Jonel Conroy): Chief Complaints: Cough PMH: Severe Persistent Mental Illness (SPMI) PMH Reviewed at 12/02/2024:22 Allergies Reviewed at 12/02/2024 - :22 Comments: Reviewed [facility] Coal Pipeline Operator Organization Information for [employer] Legal Name: [employer]. Address: [address] [place] [address], Counter Supply Worker: Otoniel Feng MD CLIA No.: [id number] Coal Pipeline Operator POC Test Results from [employer] - ALS Rapid COVID antigen (12:33:58) COVID: - Rapid influenza antigen (12:33:59) Flu: - .................. .................. .................. .................. .................. .................. .................. ............... Coal Pipeline Operator Note From [employer]: Dispatched to the [...] dealing with her other issues via her cna caregiver and other recourses via [facility]. Pt advised she just wanted to make [...] vitals. Rapid Covid and flu test conducted. [facility] consulted. Pt advised that a prescription cough medication (Benzonatate) would be called into her preferred pharmacy. It was recommended that she follow up with her PCP for this issue. This infantryman made sure Pt had the crisis hotline phone number on hand incase she needed it and was advised to not hesitate to use it. Red flags discussed. ALL times are approx. [facility] Lab Orders: rapid SARS CoV 2 Ag, QL IA, respiratory specimen: Performed Comment: - rapid flu (A+B): Performed Comment: - .................. .................. .................. .................. .................. .................. .................. ............... [facility] Consulted: Carter Pickering .................. .................. .................. .................. .................. .................. .................. ............... Disposition: Fulfilled Carter Pickering MD 30 [facility],[address], [place], [address], [employer] 12/03/2024 07:58:26 OBGyn Episode No OBEpisode recorded.
--- OUTSIDE RECORDS SUMMARY | 2025-08-29 04:17 | XMS_ITS | Clinical Summary ---
Author Organization [facility] Address [address] [place] [address] Phone Care Team Providers Care Operator Assistant I Cementing Name Role Phone Liat Nunez MD Primary Care Provider [phone] Allergies Active Allergy Reactions Criticality Noted Date [...] - 07/18/2025 11:59 PM EST Hospital Encounter [address] [address] Flavio Robles MD Discharge Disposition: Home or Self Care 07/18/2025 2:07 PM EST Hospital Encounter [address] [address] Flavio Robles MD Discharge Disposition: Home or Self Care 07/18/2025 1:30 PM EST Office Visit [facility] Orthopedics & Sports Medicine [address] [place] [address] Flavio Robles MD Pain (Primary Dx); Primary osteoarthritis of left hip; Lumbar radiculopathy; Left leg weakness; Occasional tremors 06/06/2025 1:00 PM EDT Office Visit [facility] Orthopedics & Sports Medicine [address] [place] [address] Flavio Robles MD Pain (Primary Dx); Lumbar [...] Description 10/03/2025 10:30 AM EST Procedure visit [facility] Neurology [address] [place] [address] Bharath Chandler MD [address] [place] [address], [address] [place] [address] [email or web address] Health Maintenance Due Date Last Done Comments [...] this date of service. Flavio Robles MD [facility] XR PELVIS Final Result * XR LUMBOSACRAL SPINE 2-3 VIEWS (07/18/2025 2:17 PM EST) Narrative SYSTEMGENERATED, DOCUMENTATION - 07/18/2025 2:17 PM EST This image report has been auto-finalized and has not been read by a Radiologist. Interpretation has been included in the provider encounter note for this date of service. Flavio Robles MD IMG XR SPINE Final Result from Last 3 Months Insurance [facility] ONE CARE MEDICARE REPLACEMENT [facility] MEDICARE REPLACEMENT [facility] CARE MEDICARE REPLACEMENT [facility] CARE MEDICARE REPLACEMENT [facility] MEDICARE REPLACEMENT [facility] MEDICARE REPLACEMENT Care Teams Operator Assistant I Cementing Relationship Specialty Start Date End Date Liat Nunez MD [address] [place] [phone] PCP - General Internal Medicine 05/25/25 Additional Source Comments The information contained in this document represents components of the legal health record. It is not the complete legal health record.[facility]
--- OUTSIDE RECORDS SUMMARY | 2025-08-29 04:17 | XMS_ITS | Encounter Summary ---
Author Organization [facility] Address [address] [place] [address] Care Team Providers Care Biology Laboratory Assistant Name Role Phone Liat Nunez MD Primary Care Provider [phone] Encounter Details Date Type Department Care Team (Late st Contact Info) Description 08/28/2025 Telephone [facility] Hematology Oncology [address] [place] [phone] Michaela Bergeron MD [address] [place] [address] Social History Tobacco Use Types Packs/Day Years [...] as of this encounter Progress Notes * Qiana Beatty [place] - 08/28/2025 10:45 AM EST Spoke to Anjelica let her know I have sent request to [facility] for lab results and then we will call her back * Giuliana Clem - 08/28/2025 10:20 AM EST Patient was referred back and scheduled for 10/02 but looking to get in sooner as she was in [place] over weekend and not feeling well and wbc very high, please advise and call her at [phone] documented in this encounter Plan of Treatment Upcoming Encounters Date Type Department Care Team (Late st Contact Info) Description 09/04/2025 1:30 PM EST Office Visit Internal Medicine - [place] [address] [phone] Sabrina Lynn NP [address] [address] 09/06/2025 10:45 AM EST Consult Bariatric Surgery - [place] [address] [phone] Brenna De MD [address] [place] [phone] 10/02/2025 1:45 PM EST Office Visit [facility] Hematology Oncology [address] [place] [phone] Michaela Bergeron MD 271 [place] [address] 11/27/2025 1:00 PM EDT Office Visit Internal Medicine [facility] [address] [phone] Sabrina Lynn NP [address] [address] documented as of this encounter Goals Goal [...] documented as of this encounter Care Teams Biology Laboratory Assistant Relationship Specialty Start Date End Date Liat Nunez MD 175 [facility] 200 [place] [address] PCP - General Internal Medicine 07/30/24 documented as of this encounter
--- OUTSIDE RECORDS SUMMARY | 2025-08-29 04:17 | XMS_ITS | Encounter Summary ---
Author Organization [facility] Address [address] [place] [address] Care Team Providers Care Men'S Custom Hair Piece Consultant Name Role Phone Liat Nunez MD Primary Care Provider [phone] Encounter Details Date Type Department Care Team (Late st Contact Info) Description 07/27/2025 Results Follow-Up Internal Medicine - [place] 175 [facility] 200 [place] [phone] Sabrina Lynn NP 175 [facility] 200 [place] [address] Social History Tobacco Use Types Packs/Day Years [...] PM EST Office Visit Internal Medicine - [place] [address] [phone] Sabrina Lynn NP [address] [address] 09/06/2025 10:45 AM EST Consult Bariatric Surgery - [address] [phone] Brenna De MD [address] [place] [phone] 10/02/2025 1:45 PM EST Office Visit [facility] Hematology Oncology [address] [place] [phone] Michaela Bergeron MD [address] [place] [address] 11/27/2025 1:00 PM EDT Office Visit Internal Medicine - [place] [address] [phone] Sabrina Lynn NP [address] [address] documented as of this encounter Goals Goal [...] documented as of this encounter Care Teams Men'S Custom Hair Piece Consultant Relationship Specialty Start Date End Date Liat Nunez MD [address] [place] [phone] PCP - General Internal Medicine 07/30/24 documented as of this encounter
--- OUTSIDE RECORDS SUMMARY | 2025-08-29 04:17 | XMS_ITS | Clinical Summary ---
Author Organization [facility] Prior to 02/11/25 Address [address] [place] [address] Care Team Providers Care Social Service Coordinator Name Role Phone Liat Nunez MD Primary Care Provider [phone] Allergies Active Allergy Reactions Criticality Noted Date [...] age to complete this topic Care Teams Social Service Coordinator Relationship Specialty Start Date End Date Liat Nunez MD [address] [phone] PCP - General Internal Medicine 01/04/24
--- NOTE | 2025-08-29 04:19 | ED.GENADULT ---
HPI - General Adult General Chief complaint: Recheck/Abnormal Lab/Rx Stated complaint: needs iv called back Time Seen by Provider: 08/29/25 04:08 Source: patient Limitations: no limitations History of Present Illness ED Provider: Emily Santos PA-C HPI narrative: 45-year-old female with a history of right hip bursitis, hypertension, insomnia, depression, PTSD, PID, endometriosis, presents with abnormal lab values. Patient was called back to the emergency department given positive blood cultures, she was seen on August 27, had a negative CT scan Of the abdomen and pelvis at that time. Since she returned home, the patient states she has had generalized malaise, with ongoing loose stool. Denies sick contacts with similar symptoms, travel outside the country, recent antibiotics or hospitalization. Denies known fever. Related Data Home Medications ?Medication ?Instructions ?Recorded ?Confirmed acetaminophen 500 mg tablet 1,000 mg PO Q6H PRN Pain (Scale 10/31/24 08/03/25 (Tylenol Extra Strength) Score 1-3) amlodipine 2.5 mg tablet 2.5 mg PO DAILY 10/31/24 08/03/25 clonidine HCl 0.1 mg tablet 0.1 mg PO BEDTIME 10/31/24 08/03/25 cyanocobalamin (vitamin B-12) 1,000 mcg PO DAILY 10/31/24 08/03/25 1,000 mcg tablet hydroxyzine HCl 25 mg tablet 25 mg PO BEDTIME 10/31/24 08/03/25 ibuprofen 400 mg tablet 400 mg PO TID PRN Pain (Scale 10/31/24 08/03/25 Score 4-6) lansoprazole 15 mg capsule,delayed 15 mg PO DAILY 10/31/24 08/03/25 release morphine 15 mg immediate release 15 mg PO Q8H PRN Pain (Scale Score 10/31/24 10/31/24 tablet 7-10) sennosides 8.6 mg-docusate sodium 1 tab PO DAILY 10/31/24 08/03/25 50 mg tablet (Stimulant Laxative Plus) sertraline 50 mg tablet 50 mg PO DAILY 10/31/24 08/03/25 tramadol 50 mg tablet 50 mg PO Q6H PRN Pain (Scale Score 10/31/24 08/03/25 7-10) valacyclovir 1 gram tablet 1,000 mg PO DAILY PRN hsv flare 10/31/24 08/03/25 aripiprazole 5 mg tablet 5 mg PO BEDTIME 04/10/25 08/03/25 cholecalciferol (vitamin D3) 50 50 mcg PO DAILY 08/17/25 08/17/25 mcg (2,000 unit) tablet irbesartan 300 mg tablet 300 mg PO DAILY 08/17/25 08/17/25 Previous Rx's ?Medication ?Instructions ?Recorded doxycycline hyclate 100 mg tablet 100 mg PO Q12H 14 days #28 tabs 10/29/24 fluconazole 150 mg tablet 150 mg PO Q3D 2 doses #2 tabs 11/01/24 propranolol 10 mg tablet 10 mg PO BID #180 tabs 03/27/25 ondansetron 4 mg disintegrating 4 mg PO Q8H PRN nausea and 06/02/25 tablet vomiting #20 tabs Allergies Allergy/AdvReac Type Severity Reaction Status Date / Time nitrofurantoin (From Allergy Severe RASH Verified 08/29/25 03:59 MACROBID) Penicillins (PENICILLINS) Allergy Severe RASH Verified 08/29/25 03:59 lisinopril Allergy Unknown Unknown Verified 08/29/25 03:59 Review of Systems Review of Systems: Yes all other systems are reviewed and are negative Constitutional: Constitutional: Denies fatigue, Denies fever(s) and Reports malaise Cardiovascular: Cardiovascular: Denies chest pain and Denies dyspnea Respiratory: Respiratory: Denies cough and Denies dyspnea Gastrointestinal: Gastrointestinal: Reports abdominal pain, Reports diarrhea, Reports loose stools, Denies nausea and Denies vomiting Genitourinary: Genitourinary: Denies dysuria and Denies vaginal discharge Endocrine: Endocrine: Denies fatigue PMF Past Medical History Attestation statement: The following information was validated with the patient. Medical History Arthritis GERD (gastroesophageal reflux disease) Familial tremor Hx of trichomonal vaginitis Endometriosis PTSD (post-traumatic stress disorder) Depression Insomnia Bursitis HTN (hypertension) Surgical History No pertinent past surgical history Social History Social History Household Members: None Housing: Apartment Do you presently have visiting nurse or other home services: Yes ([employer]) Patient Tobacco Use Status: Never used Tobacco Smoked in Last 30 Days: No Use of substances other than those prescribed or required for medical reasons: No Substance Use Type: Marijuana Advance Directives: No Advance Directives Information Provided: Yes service: No Physical Exam ED Vital Signs: Vital Signs - 24 hr 08/29/25 03:56 Temperature 98.7 F Pulse Rate 86 Respiratory Rate 18 Blood Pressure 136/83 Pulse Oximetry 95 Oxygen Delivery Method Room Air BMI result Body Mass Index 36.0 Const Other: alert Orientation/consciousness: patient oriented x3 Resp Effort & Inspection: normal respiratory effort Cardio Other: normal peripheral perfusion GI Other: soft nontender no guarding Skin Other: warm dry no rash Neuro General: patient oriented x3, gait normal, no focal motor deficits and CN's II-XI intact bilaterally Psych Other: cooperative Course Reevaluation(s) Reevaluation #1: At 4:11 a.m. on August 29, a sepsis focused exam was performed, patient returns due to positive blood cultures, in addition to screening labs we are repeating of the cultures and a lactic, she will receive cefepime and IV fluid. Time: 04:11 Reevaluation #2: Patient is now concerned for potential STD infection, she still denies vaginal discharge. Performing a pelvic exam we will collect GC chlamydia and a wet prep Time: 04:50 Medications Administered Discontinued Medications Generic Name Dose Route Start Last Admin Trade Name Freq PRN Reason Stop Dose Admin Cefepime HCl 2 gm in 50 mls @ 100 mls/hr 08/29/25 04:11 08/29/25 04:25 Maxipime IV 08/29/25 04:40 100 mls/hr ONCE ONE Administration Medical Decision Making Medical Decision Making MDM Narrative: 45-year-old female with a history of right hip bursitis, hypertension, insomnia, depression, PTSD, PID, endometriosis, presents with abnormal lab values. Patient was called back to the emergency department given positive blood cultures, she was seen on August 27, had a negative CT scan Of the abdomen and pelvis at that time. Since she returned home, the patient states she has had generalized malaise, with ongoing loose stool. Denies sick contacts with similar symptoms, travel outside the country, recent antibiotics or hospitalization. Denies known fever. No relevant chronic issues History: Per patient I have considered the following differential diagnoses: Sepsis Plan: Patient meets sepsis criteria she has positive blood cultures, we are repeating labs including blood cultures and lactic, giving IV fluid starting cefepime given her allergy profile, adding on a GI panel given active diarrhea, we will repeat the UA. I have independently reviewed the following tests: Labs: pending at the time of admission Differential Diagnosis Differential Diagnoses: The differential diagnosis associated with the presentation includes see MDM Admission/Observation Consideration of admission/observation: Escalation of care including admission/observation considered will be admitted Consult Healthcare Provider Management of the patient was discussed with: Hospitalist Lab Data [facility] Lab Attestation statement: I reviewed the patient's lab results. 08/29/25 04:20 08/29/25 04:20 Labs: Lab Results 08/29/25 Range/Units 04:20 WBC 23.6 H (4.8-10.8) X10*3/uL RBC 4.26 (4.20-5.50) X10*6/uL Hgb 12.8 (12.0-16.0) g/dl Hct 38.2 (37.0-47.0) % MCV 89.7 (80.0-98.0) fL MCH 30.0 (27.0-33.0) pg MCHC 33.5 (31.0-35.0) g/dl RDW 13.1 (11.0-16.0) % Plt Count 299 (160-400) X10*3/uL MPV 10.5 (9.4-12.3) fL Immature Gran % (Auto) 0.2 (0.0-0.4) % Neut % (Auto) 18.1 L (45-73) % Lymph % (Auto) 73.5 H (20-40) % Rapides % (Auto) 5.6 (2-11) % Eos % (Auto) 2.2 (0-4) % Baso % (Auto) 0.4 (0-2) % Lymph # (Auto) 17.3 H (1.2-4.9) X10*3/uL Rapides # (Auto) 1.3 H (0.1-1.2) X10*3/uL Eos # (Auto) 0.5 H (0.0-0.4) X10*3/uL Baso # (Auto) 0.1 (0.0-0.2) X10*3/uL Abs Immat Gran (auto) 0.05 H (0.00-0.03) X10*3/uL Absolute Neuts (auto) 4.3 (2.0-8.3) x10*3/uL Absolute Nucleated RBC 0.000 (0.0-0.012) X10*3/uL Nucleated RBC % (auto) 0.0 (0.0-0.2) /100WBC Sodium 142 (135-145) mmol/L Potassium 3.3 (3.3-5.1) mmol/L Chloride 111 H (96-108) mmol/L Carbon Dioxide 20 L (22-29) mmol/L Anion Gap 14 (12-20) BUN 10 (9-16) mg/dL Creatinine 0.73 (0.5-1.4) mg/dL Estim Creat Clear Calc 106.6 Estimated GFR > 60 Random Glucose 104 (60-115) mg/dL Lactic Acid 1.3 (0.5-2.0) mmol/L Calcium 8.4 (8.4-10.2) mg/dL Magnesium 1.9 (1.6-2.6) mg/dL Total Bilirubin 0.4 (0.0-1.0) mg/dL AST 25 (5-31) U/L ALT 17 (0-31) U/L Alkaline Phosphatase 76 (39-117) U/L Total Protein 6.6 (6.5-8.0) g/dL Albumin 4.2 (3.5-5.0) g/dL Critical Care Time Critical Care Time Critical Care Time: Yes Total Critical Care Time: 35 Attestation: Megha Santos PA-C have personally performed 35 minutes of critical care time not including lines and procedures; sepsis Discharge Plan Discharge Clinical Impression: Gram-negative bacteremia Patient Disposition: Admitted As Inpatient
[2025-08-29] MEDS: cefEPime HCl/D5W 2 GM/50 ML PIGGYBACK IV ×2 (04:25→16:37)
[2025-08-29 04:29] LABS: Hematocrit 38.2 % (37.0-47.0); Hemoglobin 12.8 g/dl (12.0-16.0); Mean Corpuscular HGB Conc 33.5 g/dl (31.0-35.0); Mean Corpuscular Hemoglobin 30.0 pg (27.0-33.0); Mean Corpuscular Volume 89.7 fL (80.0-98.0); NRBC Abs Auto 0.000 X10*3/uL (0.0-0.012); NRBC Pct Auto 0.0 /100WBC (0.0-0.2); Platelet Count 299 X10*3/uL (160-400); Red Blood Count 4.26 X10*6/uL (4.20-5.50)
--- NOTE | 2025-08-29 04:32 | PM.IMHP ---
History of Present Illness Date of Service: 08/29/25 Attending physician on admission: Modesto Wills Chief Complaint: +blood culture 45-year-old female with a history of right hip bursitis, hypertension, insomnia, depression, PTSD, PID, endometriosis, and bacteremia, who was called back to the ED due to a positive blood culture. Patient was seen in the ED on August 27 for generalized malaise, abdominal pain and loose stool. CT scan at that time was negative and patient was discharged home. she does have a history of endometriosis, last menstrual cycle was 1 month ago, no possibility of at this time, not sexually active, cycles are irregular. No vaginal discharge at this time. She was called back today due to a preliminary positive blood culture. She does have a history of bacteremia secondary to Haemophilus influenza. she denies any fever, chills, nausea, vomiting, urinary symptoms including frequency, urgency or dysuria. she does note new onset upper respiratory symptoms including cough, congestion, sore throat and rhinorrhea. of note she is very anxious about her chronic leukocytosis and abd pain with hx of bacteremia. she also states she has chronic constipation and abd pain. multiple family members with colon cancer. she has had to miss her colonoscopy multiple times due to acute medical issues. Review of Systems Constitutional: Constitutional: Denies body ache(s), Denies chills, Reports fatigue, Denies fever(s) and Denies headache(s) Eyes: Eyes: Denies change in vision ENT: Denies headache(s), Reports nasal congestion, Reports nasal discharge and Reports sore throat Cardiovascular: Cardiovascular: Denies chest pain, Denies rapid heart rate, Denies leg edema, Denies lightheadedness and Denies dyspnea Respiratory: Respiratory: Denies chest congestion, Reports cough, Denies dyspnea and Denies wheezing Gastrointestinal: Gastrointestinal: Reports as per HPI Genitourinary: Genitourinary: Denies dysuria, Denies pelvic pain and Denies urinary urgency Musculoskeletal: Musculoskeletal: Denies back pain Integumentary/Breasts: Skin/Breast: Denies rash Neurologic: Denies confusion and Denies headache(s) Psychiatric: Psychiatric: Denies confusion Endocrine: Endocrine: Reports fatigue Hematologic/Lymphatic: Hematologic/Lymphatic: Denies easy bleeding Allergic/Immunologic: Allergic/Immunologic: Denies wheezing [facility] Medical History Arthritis GERD (gastroesophageal reflux disease) Familial tremor Hx of trichomonal vaginitis Endometriosis PTSD (post-traumatic stress disorder) Depression Insomnia Bursitis HTN (hypertension) Functional capacity: independent ambulation Surgical History No pertinent past surgical history Social History Household Members: None Housing: Apartment Do you presently have visiting nurse or other home services: Yes ([employer]) Patient Tobacco Use Status: Never used Tobacco Substance Use Type: Marijuana Advance Directives: No Advance Directives Information Provided: Yes service: No Meds Allergies Allergy/AdvReac Type Severity Reaction Status Date / Time nitrofurantoin (From Allergy Severe RASH Verified 08/29/25 03:59 MACROBID) Penicillins (PENICILLINS) Allergy Severe RASH Verified 08/29/25 03:59 lisinopril Allergy Unknown Unknown Verified 08/29/25 03:59 Active Medications: Current Medications Sodium Chloride (Ns) 2,857.62 mls @ 2,857.62 mls/hr 30 ml/kg infuse over 1 hr (2857.62 ml) IV .Q1H STA Stop: 08/29/25 05:08 Cefepime HCl (Maxipime) 2 gm in 50 mls @ 100 mls/hr IV ONCE ONE Stop: 08/29/25 04:40 Last Admin: 08/29/25 04:25 Dose: 100 mls/hr Home Medications ?Medication ?Instructions ?Recorded ?Confirmed ?Last Taken ?Type acetaminophen 500 mg tablet 1,000 mg PO Q6H PRN Pain (Scale 10/31/24 08/03/25 10/29/24 History (Tylenol Extra Strength) Score 1-3) amlodipine 2.5 mg tablet 2.5 mg PO DAILY 10/31/24 08/03/25 10/29/24 History clonidine HCl 0.1 mg tablet 0.1 mg PO BEDTIME 10/31/24 08/03/25 10/29/24 History cyanocobalamin (vitamin B-12) 1,000 mcg PO DAILY 10/31/24 08/03/25 10/29/24 History 1,000 mcg tablet hydroxyzine HCl 25 mg tablet 25 mg PO BEDTIME 10/31/24 08/03/25 10/29/24 History ibuprofen 400 mg tablet 400 mg PO TID PRN Pain (Scale 10/31/24 08/03/25 10/29/24 History Score 4-6) lansoprazole 15 mg capsule,delayed 15 mg PO DAILY 10/31/24 08/03/25 10/29/24 History release morphine 15 mg immediate release 15 mg PO Q8H PRN Pain (Scale Score 10/31/24 10/31/24 10/29/24 History tablet 7-10) sennosides 8.6 mg-docusate sodium 1 tab PO DAILY 10/31/24 08/03/25 10/29/24 History 50 mg tablet (Stimulant Laxative Plus) sertraline 50 mg tablet 50 mg PO DAILY 10/31/24 08/03/25 10/29/24 History tramadol 50 mg tablet 50 mg PO Q6H PRN Pain (Scale Score 10/31/24 08/03/25 10/29/24 History 7-10) valacyclovir 1 gram tablet 1,000 mg PO DAILY PRN hsv flare 10/31/24 08/03/25 10/29/24 History aripiprazole 5 mg tablet 5 mg PO BEDTIME 04/10/25 08/03/25 Unknown History cholecalciferol (vitamin D3) 50 50 mcg PO DAILY 08/17/25 08/17/25 Unknown History mcg (2,000 unit) tablet irbesartan 300 mg tablet 300 mg PO DAILY 08/17/25 08/17/25 Unknown History Physical Exam Vital Signs and Narrative: Vital Signs: Last Vital Signs Temp 98.7 F 08/29/25 03:56 Pulse 86 08/29/25 03:56 Resp 18 08/29/25 03:56 BP 136/83 08/29/25 03:56 Pulse Ox 95 08/29/25 03:56 O2 Del Method Room Air 08/29/25 03:56 BMI result Body Mass Index 36.0 General: AOx3, no acute distress Resp: CTA bilaterally CVS: S1, S2, RRR GI: +BS, mild tenderness R abd and LLQ, no distention Skin: Warm, dry Neuro: Cranial nerves II-XII grossly intact bilaterally. Motor grossly intact bilaterally Extremities: No pitting edema Psych: Appropriate affect Const: General: No confusion Orientation/consciousness: No confusion Neuro: General: No confusion Results Labs 08/29/25 04:20 08/29/25 04:20 Assessment and Plan (1) Gram-negative bacteremia: Status: Acute Plan 45-year-old female with a history of right hip bursitis, hypertension, insomnia, depression, PTSD, PID, endometriosis, and hx Haemophilus bacteremia, who was called back to the ED due to a positive blood culture. bacteremia, recent ED visit - chronic leukocytosis, improved from 08/27 - cefepime pending culture - GI panel - RPP - vaginal swab pending - ID consult - monitor CBC and BMP HTN - Continue home therapies insomnia - continue home therapies PTSD - continue home therapies class 2 obesity - BMI 36.0, weight loss encouraged med rec pending full code VTE prophy: lovenox patient with positive blood culture, requiring admission for at least 2 midnight stay for IV antibiotics pending culture sensitivity. Quality Stroke Does the patient have a stroke diagnosis?: No VTE Prior VTE?: No VTE Risk Level:: Medical - moderate - high VTE Device Contraindication: Treatment Not Indicated VTE Drug Contraindication: N/A - Med Ordered
[2025-08-29 04:46] LABS: Alanine Aminotransferase 17 U/L (0-31); Albumin Level 4.2 g/dL (3.5-5.0); Alkaline Phosphatase 76 U/L (39-117); Anion Gap 14 (12-20); Aspartate Amino Transferase 25 U/L (5-31); Blood Urea Nitrogen 10 mg/dL (9-16); Calcium 8.4 mg/dL (8.4-10.2); Carbon Dioxide 20 mmol/L (22-29); Chloride 111 mmol/L (96-108); Creatinine Clr Calc Pharmacy 106.6; Estimated Glomerular Filt Rate > 60; Magnesium 1.9 mg/dL (1.6-2.6); Potassium 3.3 mmol/L (3.3-5.1); Sodium 142 mmol/L (135-145); Total Protein 6.6 g/dL (6.5-8.0)
[2025-08-29 04:48] LABS: WBC ABN SCTR FOR CBC 1; White Blood Count 23.6 X10*3/uL (4.8-10.8)
[2025-08-29] MEDS: 0.9 % Sodium Chloride 2,857.62 ML 2857.62 ML IV (04:51)
[2025-08-29 04:54] LABS: Atypical Lymph Absolute Manual 1.2 x10*3/uL; Atypical Lymphs Percent Manual 5 % (0-6); Band Neutrophils Percent 2 % (3-5); Basophils Abs Manual 0.2 X10*3/uL (0.0-0.2); Basophils Percent Manual 1 % (0-2); Eosinophils Absolute Manual 0.5 X10*3/uL (0.0-0.4); Eosinophils Percent Manual 2 % (0-4); Lymphocytes Absolute Manual 13.9 X10*3/uL (1.2-4.9); Lymphocytes Percent Manual 59 % (20-40); Monocytes Absolute Manual 0.7 X10*3/uL (0.1-1.2); Monocytes Percent Manual 3 % (2-11); Neutrophils Absolute Manual 7.1 X10*3/uL (2.0-8.3); Neutrophils Percent Manual 28 % (45-73)
[2025-08-29 04:59] LABS: Burr Cells 1+ (0-2) /OIF; Ovalocytes 1+ (5-14) /OIF; RBC Morphology NOTED
[2025-08-29 06:05] LABS: Appearance Urine Cloudy; Glucose Urine UA Negative (Negative); PH 7.0 (5.0-9.0); Specific Gravity - Urine 1.010 (1.005-1.025)
[2025-08-29] MEDS: oxyCODONE HCl Immed Release 5 MG TABLET PO ×2 (07:36→20:26)
[2025-08-29] MEDS: 0.9 % Sodium Chloride Flush 3 ML SYRINGE IVFLUSH ×3 (07:36→20:30)
[2025-08-29 08:41] LABS: Chlamydia pneumoniae PCR Not Detected (Not Detect.); Coronavirus 229E PCR Not Detected (Not Detect.); Coronavirus HKU1 PCR Not Detected (Not Detect.); Coronavirus NL63 PCR Not Detected (Not Detect.); Coronavirus OC43 PCR Not Detected (Not Detect.); RSV PCR Not Detected (Not Detect.); Rhino/Enterovirus PCR Not Detected (Not Detect.)
[2025-08-29 08:52] LABS: Influenza A H1 PCR Not Detected (Not Detect.); Influenza A H1-2009 PCR Not Detected (Not Detect.); Influenza A H3 PCR Not Detected (Not Detect.); SARS-CoV-2 PCR Not Detected (Not Detect.)
--- NOTE | 2025-08-29 09:10 | PHA.MEDREC ---
Addendum entered by Leigh Don [facility] 08/29/25 12:05: Pt states she hasn't been taking Gallifrey (norethindrone) lately, and that she talked to her OBGYN about stopping this yesterday. This was removed from the med list. Addendum entered by Leigh Don RPh 08/29/25 09:21: Reviewed by [facility] Original Note: Pharmacy Consult ? Medication Reconciliation Pharmacy has completed the medication reconciliation. Spoke with pt and she confirmed her medications. Pt confirmed she is taking Ariprazole 5mg tabs 1 @ bedtime for her tremors; no recent claims and spoke with pt pharmacy and they have not filled those since 05/2023, she takes Propanolol 20mg BID for her tremors; pt has not filled those since 03/23 for 30 days from her pharmacy, she confirmed she is now taking Sertraline 100mg once daily, she still has Tramadol and Tizanidine at home as needed for pain; LF Tramadol 05/22 QTY 42 for 7 day and Tizanidine 01/13 QTY 90 for 30 and Valcyclovir 1000mg daily as needed for flare ups.
[2025-08-29 11:11] LABS: Bacterial Vaginosis PCR POSITIVE (Negative); Candida Group PCR NOT DETECTED (Not Detect); Candida glab krusei PCR NOT DETECTED (Not Detect); Trichomonas vaginalis PCR NOT DETECTED (Not Detect)
[2025-08-29 12:01] LABS: CT PCR NOT DETECTED (Not Detect.); NG PCR NOT DETECTED (Not Detect.)
--- NOTE | 2025-08-29 12:09 | MHC.CM.PN ---
IMM DELIVERED. PT LIVES ALONE AND USES A CANE/WALKER. PT HAS [employer] VIA [employer] [address] 11 HRS PER WEEK. PT DECLINES COMPLETING A HCP AT THIS TIME BUT WILL THINK ABOUT IT BEFORE DC. PCP DR. WHITNEY DP: HOME VS HOME WITH SERVICES/HI SHOULD PT NEED IV ABT RX. REFERRALS SENT TO [facility] (PT'S FIRST CHOICE). PT HAS CAR IN LOT. CM WILL CONTINUE TO FOLLOW FOR ANY CHANGE TO DC PLAN/NEEDS.
[2025-08-29 12:29] LABS: E. coli EAEC Not Detected (Not Detect.); E. coli EPEC Not Detected (Not Detect.); E. coli ETEC Not Detected (Not Detect.); E. coli STEC Not Detected (Not Detect.); Shigella sp./EIEC Not Detected (Not Detect.)
--- NOTE | 2025-08-29 13:07 | PM.EVENT ---
Event Note Date of Service: 08/29/25 Event Note: Patient seen and examined at bedside this morning, mentions that she has been having worsening abdominal pain, has missed her most recent colonoscopy screening, mentioned that she has been having loose stools, dark colored for the past couple of days. Mentions that she has positive family history for colon cancer. Time Spent With Patient Time: Total time managing care of this patient today ____ minutes.
--- NOTE | 2025-08-29 13:36 | P.CNGI_ITS ---
History of Present Illness Data of Consult Service Date: 08/29/25 Requesting physician: Ke Maurice Primary Care Provider: Liat Nunez MD HPI Reason for consult: Diarrhea 45 y.o F with PMH of HTN, depression, PTSD who was asked to return to ER for pos blood cultures. GI was consulted for diarrhea. Pt reports she was initially seen in ER on 08/27 for abdominal pain nausea and diarrhea. had high WBC count of 31 that day but per discussion with admitting hospitalist admission was deferred as pt reported hx of chronic leukocytosis for which she sees Hematology in [facility]. BCx drawn 08/27 returned pos for GNR bacteremia and pt was called to return to ER. Pt main complaint was R sided abd pain with nausea. No sick contacts but does get food from outside frequently LFTs, UA and stool panel negative so far. CT Abd/pel without any acute GI abnl. In terms of diarrhea, this is chronic ongoing x months. Fam hx + for CRC in sister. Her PCP had tried to set her up colo at [facility] a few times but each time pt had to cancel due to personal reaasons. Review of Systems 2 Review of Systems: Yes all other systems are reviewed and are negative PMFSH Past Medical History Medical History Arthritis GERD (gastroesophageal reflux disease) Familial tremor Hx of trichomonal vaginitis Endometriosis PTSD (post-traumatic stress disorder) Depression Insomnia Bursitis HTN (hypertension) Surgical History Surgical History No pertinent past surgical history Social History Social History Household Members: None Housing: Apartment Do you presently have visiting nurse or other home services: Yes Patient Tobacco Use Status: Never used Tobacco Smoked in Last 30 Days: No Use of substances other than those prescribed or required for medical reasons: No Substance Use Type: Marijuana Currently Displaying Signs/Symptoms of Drug Intoxication Withdrawal: No Have you been hit, kicked, punched, or otherwise hurt by someone within the past year? If so, by whom?: No Do you feel safe in your current relationship?: No Current Relationship Is there a partner from a previous relationship who is making you feel unsafe now?: No Are you made to feel afraid or neglected: No Advance Directives: No Advance Directives Information Provided: Yes Do you have a plan to hurt others: No Plan Recently lost weight without trying: No Nutrition Risks: No Nutritional Risk Patient : No : No Poor oral hygiene: No service: No Meds Allergies Allergy/AdvReac Type Severity Reaction Status Date / Time nitrofurantoin (From Allergy Severe RASH Verified 08/29/25 03:59 MACROBID) Penicillins (PENICILLINS) Allergy Severe RASH Verified 08/29/25 03:59 lisinopril Allergy Unknown Unknown Verified 08/29/25 03:59 Active Medications: Current Medications Acetaminophen (Acetaminophen 325 Mg Tablet) 975 mg PO Q6H PRN PRN Reason: Pain, Mild 1-3,fever,headache Last Admin: 08/29/25 12:03 Dose: 975 mg Amitriptyline HCl (Amitriptyline Hcl 25 Mg Tablet) 25 mg PO BEDTIME [facility] Aripiprazole (Aripiprazole 5 Mg Tablet) 5 mg PO BEDTIME [facility] Calcium Carbonate (Calcium Carbonate 750 Mg Tab.Chew) 750 mg PO Q4H PRN PRN Reason: Heartburn Clonidine HCl (Clonidine Hcl 0.1 Mg Tablet) 0.1 mg PO BEDTIME [facility]; Protocol Cyanocobalamin (Cyanocobalamin (Vitamin B-12) 1,000 Mcg Tablet) 1,000 mcg PO DAILY [facility] Dicyclomine HCl (Dicyclomine Hcl 10 Mg Capsule) 20 mg PO QID [facility] Last Admin: 08/29/25 12:03 Dose: 20 mg Enoxaparin Sodium (Enoxaparin Sodium 40 Mg/0.4 Ml Syringe) 40 mg SUBCUT Q24H [facility] Last Admin: 08/29/25 05:09 Dose: 40 mg Hydroxyzine HCl (Hydroxyzine Hcl 25 Mg Tablet) 25 mg PO BEDTIME [facility] Cefepime HCl (Maxipime) 2 gm in 50 mls @ 100 mls/hr IV Q12H [facility] Magnesium Hydroxide (Milk Of Magnesia 30 Ml Oral.Susp) 30 ml PO DAILY PRN PRN Reason: Constipation Melatonin (Melatonin 3 Mg Tablet) 6 mg PO BEDTIME PRN PRN Reason: Insomnia Omeprazole (Omeprazole 20 Mg Capsule.Dr) 20 mg PO DAILY@0630 [facility] Last Admin: 08/29/25 12:04 Dose: 20 mg Ondansetron HCl (Ondansetron Hcl 4 Mg/2 Ml Vial) 4 mg IVPUSH Q8H PRN PRN Reason: Nausea and Vomiting Oxycodone HCl (Oxycodone Hcl Immed Release 5 Mg Tablet) 5 mg PO Q6H PRN PRN Reason: Pain, Severe (Pain Scale 7-10) Last Admin: 08/29/25 07:36 Dose: 5 mg Propranolol HCl (Propranolol Hcl 20 Mg Tablet) 20 mg PO BID [facility]; Protocol Senna/Docusate Sodium (Sennosides/Docusate Sodium Tablet) 1 tab PO DAILY PRN PRN Reason: Constipation Sertraline HCl (Sertraline Hcl 100 Mg Tablet) 100 mg PO DAILY [facility] Sodium Chloride (0.9 % Sodium Chloride Flush 3 Ml Syringe) [facility] Last Admin: 08/29/25 07:36 Dose: 3 ml Vitamin D (Cholecalciferol (Vitamin D3) 25 Mcg Tablet) 50 mcg PO DAILY [facility] Home Medications ?Medication ?Instructions ?Recorded ?Confirmed ?Last Taken ?Type acetaminophen 500 mg tablet 1,000 mg PO Q6H PRN Pain ( Scale 10/31/24 08/29/25 10/29/24 History (Tylenol Extra Strength) Score 1-3) clonidine HCl 0.1 mg tablet 0.1 mg PO BEDTIME 10/31/24 08/29/25 2 Days Ago History ~08/27/25 cyanocobalamin (vitamin B-12) 1,000 mcg PO DAILY 10/3108/29/25 2 Days Ago History 1,000 mcg tablet ~08/27/25 hydroxyzine HCl 25 mg tablet 25 mg PO BEDTIME 10/31/24 08/29/25 2 Days Ago History ~08/27/25 lansoprazole 15 mg capsule,delayed 15 mg PO DAILY 10/1508/29/25 2 Days Ago History release ~08/27/25 sennosides 8.6 mg-docusate sodium 1 tab PO DAILY PRN C onstipation 10/31/24 08/29/25 10/29/24 History 50 mg tablet (Stimulant Laxative Plus) tramadol 50 mg tablet 50 mg PO Q6H PRN Pain (Scale Score 10/31/24 08/29/25 10/29/24 History 7-10) valacyclovir 1 gram tablet 1,000 mg PO DAILY PRN hsv f lare 10/31/24 08/29/25 10/29/24 History aripiprazole 5 mg tablet 5 mg PO BEDTIME 04/10/25 2 Days Ago History ~08/27/25 cholecalciferol (vitamin D3) 50 50 mcg PO DAILY 08/29/25 2 Days Ago History mcg (2,000 unit) tablet ~08/27/25 amitriptyline 25 mg tablet 25 mg PO BEDTIME 08/29/25 1 10/30/24 2 Days Ago History ~08/27/25 celecoxib 200 mg capsule 200 mg PO BID 08/29/2508/29 2 Days Ago History ~08/27/25 dicyclomine 20 mg tablet 20 mg PO QID 08/29/25 2 Days Ago History ~08/27/25 omeprazole 20 mg capsule,delayed 20 mg PO DAILY@0630 1 10/30/24 08/29/25 2 Days Ago History release ~08/27/25 propranolol 20 mg tablet 20 mg PO BID 08/29/25 2 Days Ago History ~08/27/25 sertraline 100 mg tablet 100 mg PO DAILY 08/29/25 2 Days Ago History ~08/27/25 tizanidine 4 mg tablet 4 mg PO TID PRN Pain 5 08/29/25 Unknown History Physical Exam 2 Exam: Exam: No apparent distress Nonicteric Abdomen soft, nondistended, nontender Alert and oriented x3 Vital Signs: Vital Signs: Last Vital Signs Temp 98.4 F 08/29/25 09:21 Pulse 79 08/29/25 09:21 Resp 20 08/29/25 09:21 BP 140/79 H 08/29/25 09:21 Pulse Ox 98 08/29/25 09:21 O2 Del Method Room Air 08/29/25 09:21 BMI result Body Mass Index 36.0 Results Labs 08/29/25 04:20 08/29/25 04:20 Labs: Short CBC 08/29/25 Range/Units 04:20 WBC 23.6 H (4.8-10.8) X10*3/uL Hgb 12.8 (12.0-16.0) g/dl Hct 38.2 (37.0-47.0) % Plt Count 299 (160-400) X10*3/uL BMP 08/29/25 04:20 Sodium 142 Potassium 3.3 Chloride 111 H Carbon Dioxide 20 L BUN 10 Creatinine 0.73 Calcium 8.4 Liver Function 08/29/25 Range/Units 04:20 Total Bilirubin 0.4 (0.0-1.0) mg/dL AST 25 (5-31) U/L ALT 17 (0-31) U/L Alkaline Phosphatase 76 (39-117) U/L Albumin 4.2 (3.5-5.0) g/dL Urine 08/29/25 Range/Units 05:57 Urine Color Yellow Urine Appearance Cloudy Urine pH 7.0 (5.0-9.0) Ur Specific [place] 1.010 (1.005-1.025) Urine Protein Negative (Neg-Trace) mg/dL Urine Glucose (UA) Negative (Negative) mg/dL Assessment and Plan (1) Gram-negative bacteremia: Status: Acute (2) Chronic diarrhea: Status: Acute (3) Family history of colon cancer: Status: Acute Plan Discussed with the pt that acute GI sx likely 2/2 infectious illness. Speciation for GNR pending. If has bact linked to CRC such as bacteroides should undergo colonoscopy inpatient. Otherwise, agree with pursuing endoscopic evaluation as outpatient as has been arranged by her PCP. Thank you for allowing me to participate in her care. Please do not hesitate to reach out for questions or concerns. Procedures Date of Service Date of Service: 08/29/25
--- NOTE | 2025-08-29 23:36 | W.PM.IDCN ---
History of Present Illness Data of Consult Service Date: 08/29/25 Requesting physician: Ke Maurice Primary Care Provider: Liat Nunez MD HPI Reason for consult: bacteremia,gram negative She presents to ER with right flank and hip pain ,7/10 with eversion. She has gram negative rods in blood and was called back for this. She had Hemophilus influenza 10/29/2024 and was thought to have PID at that time. She is HIV negative. Review of Systems Review of Systems: Yes all other systems are reviewed and are negative PMFSH Past Medical History Medical History Arthritis GERD (gastroesophageal reflux disease) Familial tremor Hx of trichomonal vaginitis Endometriosis PTSD (post-traumatic stress disorder) Depression Insomnia Bursitis HTN (hypertension) Family History Family history: reviewed and not pertinent Surgical History Surgical History No pertinent past surgical history Social History Social History Household Members: None Housing: Apartment Do you presently have visiting nurse or other home services: Yes Patient Tobacco Use Status: Never used Tobacco Smoked in Last 30 Days: No Use of substances other than those prescribed or required for medical reasons: No Substance Use Type: Marijuana Currently Displaying Signs/Symptoms of Drug Intoxication Withdrawal: No Have you been hit, kicked, punched, or otherwise hurt by someone within the past year? If so, by whom?: No Do you feel safe in your current relationship?: No Current Relationship Is there a partner from a previous relationship who is making you feel unsafe now?: No Are you made to feel afraid or neglected: No Advance Directives: No Advance Directives Information Provided: Yes Do you have a plan to hurt others: No Plan Recently lost weight without trying: No Nutrition Risks: No Nutritional Risk Patient : No : No Poor oral hygiene: No service: No Meds Allergies Allergy/AdvReac Type Severity Reaction Status Date / Time nitrofurantoin (From Allergy Severe RASH Verified 08/29/25 03:59 MACROBID) Penicillins (PENICILLINS) Allergy Severe RASH Verified 08/29/25 03:59 lisinopril Allergy Unknown Unknown Verified 08/29/25 03:59 Active Medications: Current Medications Acetaminophen (Acetaminophen 325 Mg Tablet) 975 mg PO Q6H PRN PRN Reason: Pain, Mild 1-3,fever,headache Last Admin: 08/29/25 12:03 Dose: 975 mg Amitriptyline HCl (Amitriptyline Hcl 25 Mg Tablet) 25 mg PO BEDTIME [facility] Last Admin: 08/29/25 20:26 Dose: 25 mg Aripiprazole (Aripiprazole 5 Mg Tablet) 5 mg PO BEDTIME [facility] Last Admin: 08/29/25 20:26 Dose: 5 mg Calcium Carbonate (Calcium Carbonate 750 Mg Tab.Chew) 750 mg PO Q4H PRN PRN Reason: Heartburn Clonidine HCl (Clonidine Hcl 0.1 Mg Tablet) 0.1 mg PO BEDTIME [facility]; Protocol Last Admin: 08/29/25 20:26 Dose: 0.1 mg Cyanocobalamin (Cyanocobalamin (Vitamin B-12) 1,000 Mcg Tablet) 1,000 mcg PO DAILY [facility] Dicyclomine HCl (Dicyclomine Hcl 10 Mg Capsule) 20 mg PO QID [facility] Last Admin: 08/29/25 20:26 Dose: 20 mg Enoxaparin Sodium (Enoxaparin Sodium 40 Mg/0.4 Ml Syringe) 40 mg SUBCUT Q24H [facility] Last Admin: 08/29/25 05:09 Dose: 40 mg Hydroxyzine HCl (Hydroxyzine Hcl 25 Mg Tablet) 25 mg PO BEDTIME [facility] Last Admin: 08/29/25 20:26 Dose: 25 mg Cefepime HCl (Maxipime) 2 gm in 50 mls @ 100 mls/hr IV Q12H [facility] Last Infusion: 08/29/25 17:20 Dose: Infused Magnesium Hydroxide (Milk Of Magnesia 30 Ml Oral.Susp) 30 ml PO DAILY PRN PRN Reason: Constipation Melatonin (Melatonin 3 Mg Tablet) 6 mg PO BEDTIME PRN PRN Reason: Insomnia Omeprazole (Omeprazole 20 Mg Capsule.Dr) 20 mg PO DAILY@0630 [facility] Last Admin: 08/29/25 12:04 Dose: 20 mg Ondansetron HCl (Ondansetron Hcl 4 Mg/2 Ml Vial) 4 mg IVPUSH Q8H PRN PRN Reason: Nausea and Vomiting Oxycodone HCl (Oxycodone Hcl Immed Release 5 Mg Tablet) 5 mg PO Q6H PRN PRN Reason: Pain, Severe (Pain Scale 7-10) Last Admin: 08/29/25 20:26 Dose: 5 mg Propranolol HCl (Propranolol Hcl 20 Mg Tablet) 20 mg PO BID [facility]; Protocol Last Admin: 08/29/25 20:26 Dose: 20 mg Senna/Docusate Sodium (Sennosides/Docusate Sodium Tablet) 1 tab PO DAILY PRN PRN Reason: Constipation Sertraline HCl (Sertraline Hcl 100 Mg Tablet) 100 mg PO DAILY [facility] Sodium Chloride (0.9 % Sodium Chloride Flush 3 Ml Syringe) 3 ml IVFLUSH QSHIFT [facility] Last Admin: 08/29/25 20:30 Dose: 3 ml Vitamin D (Cholecalciferol (Vitamin D3) 25 Mcg Tablet) 50 mcg PO DAILY [facility] Home Medications ?Medication ?Instructions ?Recorded ?Confirmed ?Last Taken ?Type acetaminophen 500 mg tablet 1,000 mg PO Q6H PRN Pain (Scale 10/31/24 08/29/25 10/29/24 History (Tylenol Extra Strength) Score 1-3) clonidine HCl 0.1 mg tablet 0.1 mg PO BEDTIME 10/31/24 08/29/25 2 Days Ago History ~08/27/25 cyanocobalamin (vitamin B-12) 1,000 mcg PO DAILY 10/31/24 08/29/25 2 Days Ago History 1,000 mcg tablet ~08/27/25 hydroxyzine HCl 25 mg tablet 25 mg PO BEDTIME 10/31/24 08/29/25 2 Days Ago History ~08/27/25 lansoprazole 15 mg capsule,delayed 15 mg PO DAILY 10/31/24 08/29/25 2 Days Ago History release ~08/27/25 sennosides 8.6 mg-docusate sodium 1 tab PO DAILY PRN Constipation 10/31/24 08/29/25 10/29/24 History 50 mg tablet (Stimulant Laxative Plus) tramadol 50 mg tablet 50 mg PO Q6H PRN Pain (Scale Score 10/31/24 08/29/25 10/29/24 History 7-10) valacyclovir 1 gram tablet 1,000 mg PO DAILY PRN hsv flare 10/31/24 08/29/25 10/29/24 History aripiprazole 5 mg tablet 5 mg PO BEDTIME 04/10/25 08/29/25 2 Days Ago History ~08/27/25 cholecalciferol (vitamin D3) 50 50 mcg PO DAILY 08/17/25 08/29/25 2 Days Ago History mcg (2,000 unit) tablet ~08/27/25 amitriptyline 25 mg tablet 25 mg PO BEDTIME 08/29/25 08/29/25 2 Days Ago History ~08/27/25 celecoxib 200 mg capsule 200 mg PO BID 08/29/25 08/29/25 2 Days Ago History ~08/27/25 dicyclomine 20 mg tablet 20 mg PO QID 08/29/25 08/29/25 2 Days Ago History ~08/27/25 omeprazole 20 mg capsule,delayed 20 mg PO DAILY@0630 08/29/25 08/29/25 2 Days Ago History release ~08/27/25 propranolol 20 mg tablet 20 mg PO BID 08/29/25 08/29/25 2 Days Ago History ~08/27/25 sertraline 100 mg tablet 100 mg PO DAILY 08/29/25 08/29/25 2 Days Ago History ~08/27/25 tizanidine 4 mg tablet 4 mg PO TID PRN Pain 08/29/25 08/29/25 Unknown History Physical Exam Vital Signs: Vital Signs: Last Vital Signs Temp 98.6 F 08/29/25 19:40 Pulse 66 08/29/25 20:26 Resp 16 08/29/25 19:40 BP 116/62 08/29/25 20:26 Pulse Ox 97 08/29/25 19:40 O2 Del Method Room Air 08/29/25 19:40 BMI result Body Mass Index 36.0 Const: General: cooperative HEENT: Head: Yes normal to inspection Face and sinus: Yes normal facial exam Mouth: Normal oral and palatal mucosa present Teeth and gingiva: dentition normal Eyes: General: appearance normal, both eyes and all related structures Pupils: Equal, round and reactive pupils present Resp: Effort & Inspection: normal respiratory effort Cardio: Rate: regular rate Rhythm: regular rhythm GI: Palpation (GI): Soft to palpation and nontender Back/Spine/Pelvis: Other: right flank discomfort discomfort everting hip Skin: General skin exam: no rashes or lesions noted Neuro: General: moves all extremities Cranial nerves: Yes Equal, round and reactive pupils present Extrem: General: Yes normal to inspection Psych: Appearance: grossly normal Results Labs 08/29/25 04:20 08/29/25 04:20 Labs: Short CBC 08/29/25 Range/Units 04:20 WBC 23.6 H (4.8-10.8) X10*3/uL Hgb 12.8 (12.0-16.0) g/dl Hct 38.2 (37.0-47.0) % Plt Count 299 (160-400) X10*3/uL BMP 08/29/25 04:20 Sodium 142 Potassium 3.3 Chloride 111 H Carbon Dioxide 20 L BUN 10 Creatinine 0.73 Calcium 8.4 Liver Function 08/29/25 Range/Units 04:20 Total Bilirubin 0.4 (0.0-1.0) mg/dL AST 25 (5-31) U/L ALT 17 (0-31) U/L Alkaline Phosphatase 76 (39-117) U/L Albumin 4.2 (3.5-5.0) g/dL Urine 08/29/25 Range/Units 05:57 Urine Color Yellow Urine Appearance Cloudy Urine pH 7.0 (5.0-9.0) Ur Specific [place] 1.010 (1.005-1.025) Urine Protein Negative (Neg-Trace) mg/dL Urine Glucose (UA) Negative (Negative) mg/dL Assessment and Plan (1) Chronic diarrhea: Status: Acute (2) Endometriosis: Status: Acute (3) Gram-negative bacteremia: Status: Acute Plan She has had PID reported in October. She had Hflu bacteremia then,usually respiratory organism. She has loose stools,GI pathogen panel negative,Cdiff to be obtained as well. Possible source respiratory,urine appears unremarkable and nephrolithiasis unlikely cause since not obstructive Would continue Cefepime and can narrow as culture and sensitivities appear. GI has seen patient and if GI related organism patient will get colonoscopy.
[2025-08-30] MEDS: cefEPime HCl/D5W 2 GM/50 ML PIGGYBACK IV ×2 (03:19→16:20)
[2025-08-30 04:00] VITALS: BP 121/65; PULSE 73; RESP 18; TEMP 36.6; O2SAT 97
[2025-08-30 06:16] LABS: Hematocrit 33.9 % (37.0-47.0); Hemoglobin 11.5 g/dl (12.0-16.0); Mean Corpuscular HGB Conc 33.9 g/dl (31.0-35.0); Mean Corpuscular Hemoglobin 30.3 pg (27.0-33.0); Mean Corpuscular Volume 89.2 fL (80.0-98.0); NRBC Abs Auto 0.000 X10*3/uL (0.0-0.012); NRBC Pct Auto 0.0 /100WBC (0.0-0.2); Platelet Count 268 X10*3/uL (160-400); Red Blood Count 3.80 X10*6/uL (4.20-5.50)
[2025-08-30 06:22] LABS: WBC ABN SCTR FOR CBC 1
[2025-08-30 06:56] LABS: Anion Gap 13 (12-20); Blood Urea Nitrogen 11 mg/dL (9-16); Calcium 8.5 mg/dL (8.4-10.2); Carbon Dioxide 25 mmol/L (22-29); Chloride 107 mmol/L (96-108); Creatinine Clr Calc Pharmacy 103.8; Estimated Glomerular Filt Rate > 60; Potassium 3.2 mmol/L (3.3-5.1); Sodium 142 mmol/L (135-145)
[2025-08-30 07:32] VITALS: BP 131/71; PULSE 63; RESP 18; TEMP 37; O2SAT 95
[2025-08-30 08:24] VITALS: BP 131/71; PULSE 63
[2025-08-30] MEDS: 0.9 % Sodium Chloride Flush 3 ML SYRINGE IVFLUSH ×2 (08:24→16:19)
[2025-08-30 08:53] LABS: Atypical Lymphs Percent Manual 1 % (0-6); Eosinophils Percent Manual 2 % (0-4); Lymphocytes Percent Manual 78 % (20-40); Monocytes Percent Manual 4 % (2-11); Neutrophils Percent Manual 15 % (45-73)
[2025-08-30 08:56] LABS: Atypical Lymph Absolute Manual 0.2 x10*3/uL; Burr Cells 1+ (0-2) /OIF; Eosinophils Absolute Manual 0.4 X10*3/uL (0.0-0.4); Lymphocytes Absolute Manual 15.3 X10*3/uL (1.2-4.9); Monocytes Absolute Manual 0.8 X10*3/uL (0.1-1.2); RBC Morphology NOTED; Smudge Cells PRESENT; White Blood Count 19.6 X10*3/uL (4.8-10.8)
--- NOTE | 2025-08-30 09:37 | HO.PM.IMPN ---
Subjective Subjective Date of Service: 08/30/25 Interval History: Patient seen examined at bedside this morning, blood cultures still awaiting final culture results. Per GI, if Gram-negative related to GI, we will proceed with colonoscopy as an inpatient. Patient also mentioned that she has been experiencing menstrual bleeding with associated pain. Review of Systems Review of Systems: Yes all other systems are reviewed and are negative Physical Exam Exam: Exam: General: AxOx3, in pain Head: AT/NC ENT: Moist mucous membranes Neck: supple CVS; RRR, S1 S2 normal Lungs: Clear bilateral breath sounds, no wheezes or crackles Abd: Soft, tender to palpation in RUQ Ext: No edema and no calf tenderness MSK: moving all 4 limbs Skin: No cyanosis or edema Psych: Cooperative with exam Neurology: no focal deficit Vital Signs: Vital Signs: Last Vital Signs Temp 98.6 F 08/30/25 07:32 Pulse 63 08/30/25 08:24 Resp 18 08/30/25 07:32 BP 131/71 08/30/25 08:24 Pulse Ox 95 08/30/25 07:32 O2 Del Method Room Air 08/30/25 07:32 BMI result Body Mass Index 36.0 Objective Data Active Medications Acetaminophen (Acetaminophen 325 Mg Tablet) 975 mg PO Q6H PRN PRN Reason: Pain, Mild 1-3,fever,headache Last Admin: 08/30/25 08:24 Dose: 975 mg Documented By: HAZEL Amitriptyline HCl (Amitriptyline Hcl 25 Mg Tablet) 25 mg PO BEDTIME [facility] Last Admin: 08/29/25 20:26 Dose: 25 mg Documented By: KERLINE Aripiprazole (Aripiprazole 5 Mg Tablet) 5 mg PO BEDTIME [facility] Last Admin: 08/29/25 20:26 Dose: 5 mg Documented By: KERLINE Calcium Carbonate (Calcium Carbonate 750 Mg Tab.Chew) 750 mg PO Q4H PRN PRN Reason: Heartburn Clonidine HCl (Clonidine Hcl 0.1 Mg Tablet) 0.1 mg PO BEDTIME [facility]; Protocol Last Admin: 08/29/25 20:26 Dose: 0.1 mg Documented By: KERLINE Cyanocobalamin (Cyanocobalamin (Vitamin B-12) 1,000 Mcg Tablet) 1,000 mcg PO DAILY [facility] Last Admin: 08/30/25 08:24 Dose: 1,000 mcg Documented By: HAZEL Dicyclomine HCl (Dicyclomine Hcl 10 Mg Capsule) 20 mg PO QID [facility] Last Admin: 08/30/25 08:24 Dose: 20 mg Documented By: HAZEL Enoxaparin Sodium (Enoxaparin Sodium 40 Mg/0.4 Ml Syringe) 40 mg SUBCUT Q24H [facility] Last Admin: 08/30/25 05:45 Dose: 40 mg Documented By: KERLINE Hydroxyzine HCl (Hydroxyzine Hcl 25 Mg Tablet) 25 mg PO BEDTIME [facility] Last Admin: 08/29/25 20:26 Dose: 25 mg Documented By: KERLINE Cefepime HCl (Maxipime) 2 gm in 50 mls @ 100 mls/hr IV Q12H [facility] Last Infusion: 08/30/25 04:00 Dose: Infused Documented By: KERLINE Magnesium Hydroxide (Milk Of Magnesia 30 Ml Oral.Susp) 30 ml PO DAILY PRN PRN Reason: Constipation Melatonin (Melatonin 3 Mg Tablet) 6 mg PO BEDTIME PRN PRN Reason: Insomnia Omeprazole (Omeprazole 40 Mg Capsule.Dr) 40 mg PO BID [facility] Ondansetron HCl (Ondansetron Hcl 4 Mg/2 Ml Vial) 4 mg IVPUSH Q8H PRN PRN Reason: Nausea and Vomiting Oxycodone HCl (Oxycodone Hcl Immed Release 5 Mg Tablet) 5 mg PO Q6H PRN PRN Reason: Pain, Severe (Pain Scale 7-10) Last Admin: 08/29/25 20:26 Dose: 5 mg Documented By: KERLINE Propranolol HCl (Propranolol Hcl 20 Mg Tablet) 20 mg PO BID [facility]; Protocol Last Admin: 08/30/25 08:24 Dose: 20 mg Documented By: HAZEL Senna/Docusate Sodium (Sennosides/Docusate Sodium Tablet) 1 tab PO DAILY [facility] Sertraline HCl (Sertraline Hcl 100 Mg Tablet) 100 mg PO DAILY [facility] Last Admin: 08/30/25 08:24 Dose: 100 mg Documented By: HAZEL Sodium Chloride (0.9 % Sodium Chloride Flush 3 Ml Syringe) 3 ml IVFLUSH QSHIFT [facility] Last Admin: 08/30/25 08:24 Dose: 3 ml Documented By: HAZEL Vitamin D (Cholecalciferol (Vitamin D3) 25 Mcg Tablet) 50 mcg PO DAILY [facility] Last Admin: 08/30/25 08:24 Dose: 50 mcg Documented By: HAZEL Labs 08/30/25 06:05 08/30/25 06:05 Labs: Laboratory Results - last 24 hr 08/29/25 08/29/25 08/30/25 04:57 10:47 06:05 MCV 89.2 MCH 30.3 MCHC 33.9 RDW 12.9 Plt Count 268 MPV 10.5 Immature Gran % (Auto) Cancelled Neut % (Auto) Cancelled Lymph % (Auto) Cancelled [place] % (Auto) Cancelled Eos % (Auto) Cancelled Baso % (Auto) Cancelled Lymph # (Auto) Cancelled [place] # (Auto) Cancelled Eos # (Auto) Cancelled Baso # (Auto) Cancelled Abs Immat Gran (auto) Cancelled Absolute Neuts (auto) Cancelled Absolute Nucleated RBC 0.000 Nucleated RBC % (auto) 0.0 Neutrophils % (Manual) 15 L Lymphocytes % (Manual) 78 H Atypical Lymphs % (Man) 1 Monocytes % (Manual) 4 Eosinophils % (Manual) 2 Lymphocytes # (Manual) 15.3 H Atyp Lymphs # (Manual) 0.2 Monocytes # (Manual) 0.8 Eosinophils # (Manual) 0.4 Smudge Cells PRESENT Platelet Estimate NORMAL Plt Morphology Comment NORMAL RBC Morphology NOTED Katie Cells 1+ (0-2) Anion Gap 13 Estim Creat Clear Calc 103.8 Estimated GFR > 60 Random Glucose 101 Calcium 8.5 Stl C. cayetanensis PCR Not Detected Stool Rotavirus A PCR Not Detected Stl Adenov F 40/41 PCR Not Detected Stool Astrovirus (PCR) Not Detected Stool Campylobacter PCR Not Detected Stool Cryptosporidium PCR Not Detected Stl Sh Tox Pr E STEC PCR Not Detected Stool E coli O157 PCR Not applicable Stl Enterotoxigenic E PCR Not Detected Stool EPEC (PCR) Not Detected Stool EAEC (PCR) Not Detected Stl E. histolytica PCR Not Detected Stool Giardia Lamblia PCR Not Detected Stl P. shigelloides PCR Not Detected Stool Salmonella PCR Not Detected Stool Sapovirus (PCR) Not Detected Stl Shigella/EIEC PCR Not Detected St Y.enterocolitica PCR Not Detected Stool Vibrio (PCR) Not Detected Stl Vibrio cholerae PCR Not Detected Stl Norovirus GI/GII PCR Not Detected Chlam trachomat DNA PCR NOT DETECTED N.gonorrhoeae DNA (PCR) NOT DETECTED T. vaginalis (PCR) NOT DETECTED Bact vaginosis (PCR) POSITIVE A C. krusei/glabrata (PCR) NOT DETECTED Abril group (PCR) NOT DETECTED Microbiology Microbiology Results: Microbiology 08/29/25 04:20 Blood Culture - Preliminary Blood - Venous No growth after 24 hours. 08/29/25 04:20 Blood Culture - Preliminary Blood - Venous No growth after 24 hours. Assessment and Plan (1) Endometriosis: Status: Acute (2) Gram-negative bacteremia: Status: Acute Plan 45-year-old female with a history of right hip bursitis, hypertension, insomnia, depression, PTSD, PID, endometriosis, and hx Haemophilus bacteremia, who was called back to the ED due to a positive blood culture. Bacteremia, growing gram negative Leukocytosis, improving -Will await final blood cultures to decide final antibiotic tx -Continue cefepime at this time -ID consulted and following -GI consulted, if gram negative MO associated with GI, will have inpatient colonoscopy, if not, to follow up as outpatient Diarrhea GI panel reviewed Imaging reviewed Will try senna as imaging showed RUQ stool, to consider stool overflow as cause of diarrhea Endometriosis Menstrual cramps will initiate celebrex 200mg Qd, continue to monitor HTN - Continue home medications insomnia - continue home therapies PTSD - continue home therapies class 2 obesity - BMI 36.0, weight loss encouraged full code VTE prophy: lovenox patient with positive blood culture, requiring admission for at least 2 midnight stay for IV antibiotics pending culture sensitivity. Total time managing care of this patient today: 45 minutes. Quality Stroke Does the patient have a stroke diagnosis?: No VTE Prior VTE?: No VTE Risk Level:: Medical - moderate - high VTE Device Contraindication: Treatment Not Indicated VTE Drug Contraindication: N/A - Med Ordered
[2025-08-30 10:19] LABS: Band Neutrophils Percent 0 % (3-5); Neutrophils Absolute Manual 2.9 X10*3/uL (2.0-8.3)
--- NOTE | 2025-08-30 14:41 | MHC.CM.PN ---
EMR REVIEWED AND PER MD ROUNDS, PT IS NOT MEDICALLY CLEARED FOR DC (AWAITING CULTURES, ?COLONOSCOPY AN I/P) PT MAY NEED IV ABT ON DC. [facility] REFERRAL MADE [facility]LL [facility] (FIRST CHOICE) IF GOING HOME WITH IV. CM WILL CONTINUE TO FOLLOW FOR PLAN.
[2025-08-30 14:59] VITALS: BP 145/83; PULSE 72; RESP 18; TEMP 36.4; O2SAT 97
[2025-08-30] MEDS: oxyCODONE HCl Immed Release 5 MG TABLET PO (18:27)
[2025-08-30 19:21] VITALS: BP 145/73; PULSE 84; RESP 17; TEMP 36.3; O2SAT 94
[2025-08-31] MEDS: 0.9 % Sodium Chloride Flush 3 ML SYRINGE IVFLUSH ×3 (01:35→16:17)
[2025-08-31 03:54] VITALS: BP 137/75; PULSE 62; RESP 16; TEMP 36.7; O2SAT 95
[2025-08-31] MEDS: cefEPime HCl/D5W 2 GM/50 ML PIGGYBACK IV ×2 (04:07→16:17)
[2025-08-31 06:29] LABS: Hematocrit 37.2 % (37.0-47.0); Hemoglobin 12.7 g/dl (12.0-16.0); Imm Gran Abs Auto 0.05 X10*3/uL (0.00-0.03); Imm Gran Pct Auto 0.2 % (0.0-0.4); Lymphocytes Absolute Auto 17.2 X10*3/uL (1.2-4.9); MANUAL DIFF FLAG SCAN; Mean Corpuscular HGB Conc 34.1 g/dl (31.0-35.0); Mean Corpuscular Hemoglobin 30.0 pg (27.0-33.0); Mean Corpuscular Volume 87.9 fL (80.0-98.0); NRBC Abs Auto 0.000 X10*3/uL (0.0-0.012); NRBC Pct Auto 0.0 /100WBC (0.0-0.2); Platelet Count 297 X10*3/uL (160-400); Red Blood Count 4.23 X10*6/uL (4.20-5.50); SCAN SMEAR FLAG 1; White Blood Count 23.0 X10*3/uL (4.8-10.8)
[2025-08-31 06:48] LABS: Anion Gap 11 (12-20); Blood Urea Nitrogen 10 mg/dL (9-16); Calcium 8.4 mg/dL (8.4-10.2); Carbon Dioxide 25 mmol/L (22-29); Chloride 107 mmol/L (96-108); Creatinine Clr Calc Pharmacy 119.8; Estimated Glomerular Filt Rate > 60; Potassium 3.2 mmol/L (3.3-5.1); Sodium 140 mmol/L (135-145)
[2025-08-31 07:35] VITALS: BP 120/78; PULSE 75; RESP 18; TEMP 36.4; O2SAT 93
[2025-08-31 08:26] VITALS: BP 120/78
--- NOTE | 2025-08-31 09:21 | HO.PM.IMPN ---
Subjective Subjective Date of Service: 08/31/25 Interval History: Patient seen and examined at bedside this morning, mentioned that her right abdominal pain has improved, however now with loose stools. Patient also with swab positive for bacterial vaginosis. Review of Systems Review of Systems: Yes all other systems are reviewed and are negative Physical Exam Exam: Exam: General: AxOx3, in pain, improved Head: AT/NC ENT: Moist mucous membranes Neck: supple CVS; RRR, S1 S2 normal Lungs: Clear bilateral breath sounds, no wheezes or crackles Abd: Soft, tender to palpation in RUQ, improved Ext: No edema and no calf tenderness MSK: moving all 4 limbs Skin: No cyanosis or edema Psych: Cooperative with exam Neurology: no focal deficit Vital Signs: Vital Signs: Last Vital Signs Temp 97.6 F 08/31/25 07:35 Pulse 75 08/31/25 07:35 Resp 18 08/31/25 07:35 BP 120/78 08/31/25 08:26 Pulse Ox 93 08/31/25 07:35 O2 Del Method Room Air 08/31/25 07:35 BMI result Body Mass Index 36.0 Objective Data Active Medications Acetaminophen (Acetaminophen 325 Mg Tablet) 975 mg PO Q6H PRN PRN Reason: Pain, Mild 1-3,fever,headache Last Admin: 08/31/25 08:25 Dose: 975 mg Documented By: RYANN Amitriptyline HCl (Amitriptyline Hcl 25 Mg Tablet) 25 mg PO BEDTIME [facility] Last Admin: 08/30/25 19:58 Dose: 25 mg Documented By: KARLA Aripiprazole (Aripiprazole 5 Mg Tablet) 5 mg PO BEDTIME [facility] Last Admin: 08/30/25 19:57 Dose: 5 mg Documented By: KARLA Calcium Carbonate (Calcium Carbonate 750 Mg Tab.Chew) 750 mg PO Q4H PRN PRN Reason: Heartburn Celecoxib (Celecoxib 200 Mg Capsule) 200 mg PO DAILY [facility] Last Admin: 08/31/25 08:26 Dose: 200 mg Documented By: RYANN Clonidine HCl (Clonidine Hcl 0.1 Mg Tablet) 0.1 mg PO BEDTIME [facility]; Protocol Last Admin: 08/30/25 20:09 Dose: Not Given Documented By: KARLA Non-Admin Reason: Patient Refused Cyanocobalamin (Cyanocobalamin (Vitamin B-12) 1,000 Mcg Tablet) 1,000 mcg PO DAILY [facility] Last Admin: 08/31/25 08:26 Dose: 1,000 mcg Documented By: RYANN Dicyclomine HCl (Dicyclomine Hcl 10 Mg Capsule) 20 mg PO QID [facility] Last Admin: 08/31/25 08:25 Dose: 20 mg Documented By: RYANN Enoxaparin Sodium (Enoxaparin Sodium 40 Mg/0.4 Ml Syringe) 40 mg SUBCUT Q24H [facility] Last Admin: 08/31/25 04:07 Dose: 40 mg Documented By: KARLA Hydroxyzine HCl (Hydroxyzine Hcl 25 Mg Tablet) 25 mg PO BEDTIME [facility] Last Admin: 08/30/25 19:58 Dose: 25 mg Documented By: KARLA Cefepime HCl (Maxipime) 2 gm in 50 mls @ 100 mls/hr IV Q12H [facility] Last Infusion: 08/31/25 04:50 Dose: Infused Documented By: KARLA Magnesium Hydroxide (Milk Of Magnesia 30 Ml Oral.Susp) 30 ml PO DAILY PRN PRN Reason: Constipation Melatonin (Melatonin 3 Mg Tablet) 6 mg PO BEDTIME PRN PRN Reason: Insomnia Omeprazole (Omeprazole 40 Mg Capsule.Dr) 40 mg PO BID@0630,1630 [facility] Last Admin: 08/31/25 05:43 Dose: 40 mg Documented By: KARLA Ondansetron HCl (Ondansetron Hcl 4 Mg/2 Ml Vial) 4 mg IVPUSH Q8H PRN PRN Reason: Nausea and Vomiting Oxycodone HCl (Oxycodone Hcl Immed Release 5 Mg Tablet) 5 mg PO Q6H PRN PRN Reason: Pain, Severe (Pain Scale 7-10) Last Admin: 08/30/25 18:27 Dose: 5 mg Documented By: HAZEL Propranolol HCl (Propranolol Hcl 20 Mg Tablet) 20 mg PO BID [facility]; Protocol Last Admin: 08/31/25 08:26 Dose: 20 mg Documented By: RYANN Senna/Docusate Sodium (Sennosides/Docusate Sodium Tablet) 1 tab PO DAILY [facility] Last Admin: 08/31/25 08:26 Dose: 1 tab Documented By: RYANN Sertraline HCl (Sertraline Hcl 100 Mg Tablet) 100 mg PO DAILY [facility] Last Admin: 08/31/25 08:25 Dose: 100 mg Documented By: RYANN Sodium Chloride (0.9 % Sodium Chloride Flush 3 Ml Syringe) 3 ml IVFLUSH QSHIFT [facility] Last Admin: 08/31/25 08:30 Dose: 3 ml Documented By: RYANN Vitamin D (Cholecalciferol (Vitamin D3) 25 Mcg Tablet) 50 mcg PO DAILY [facility] Last Admin: 08/31/25 08:25 Dose: 50 mcg Documented By: RYANN Labs 08/31/25 06:18 08/31/25 06:18 Labs: Laboratory Results - last 24 hr 08/30/25 08/31/25 06:05 06:18 MCV 87.9 MCH 30.0 MCHC 34.1 RDW 12.7 Plt Count 297 MPV 10.4 Immature Gran % (Auto) 0.2 Neut % (Auto) 20.5 L Lymph % (Auto) 74.8 H [place] % (Auto) 2.7 Eos % (Auto) 1.4 Baso % (Auto) 0.4 Lymph # (Auto) 17.2 H [place] # (Auto) 0.6 Eos # (Auto) 0.3 Baso # (Auto) 0.1 Abs Immat Gran (auto) 0.05 H Absolute Neuts (auto) 4.7 Absolute Nucleated RBC 0.000 Nucleated RBC % (auto) 0.0 Band Neutrophils % 0 L Abs Neuts (Manual) 2.9 Smear Tech's Comments VERIFIED Anion Gap 11 L Estim Creat Clear Calc 119.8 Estimated GFR > 60 Random Glucose 95 Calcium 8.4 Microbiology Microbiology Results: Microbiology 08/29/25 04:20 Blood Culture - Preliminary Blood - Venous No growth after 48 hours. 08/29/25 04:20 Blood Culture - Preliminary Blood - Venous No growth after 48 hours. Assessment and Plan (1) Endometriosis: Status: Acute (2) Gram-negative bacteremia: Status: Acute Plan 45-year-old female with a history of right hip bursitis, hypertension, insomnia, depression, PTSD, PID, endometriosis, and hx Haemophilus bacteremia, who was called back to the ED due to a positive blood culture. Bacteremia, growing gram negative Leukocytosis -Will await final blood cultures to decide final antibiotic tx -Continue cefepime at this time -ID consulted and following -GI consulted, if gram negative MO associated with GI, will have inpatient colonoscopy, if not, to follow up as outpatient Bacterial Vaginosis -will initiate Topical metronidazole qd x 5 days Diarrhea GI panel reviewed Imaging reviewed Continue senna as imaging showed RUQ stool, to consider stool overflow as cause of diarrhea Endometriosis Menstrual cramps Continue celebrex 200mg Qd, continue to monitor HTN - Continue home medications insomnia - continue home therapies PTSD - continue home therapies class 2 obesity - BMI 36.0, weight loss encouraged full code VTE prophy: lovenox patient with positive blood culture, requiring admission for at least 2 midnight stay for IV antibiotics pending culture sensitivity. Total time managing care of this patient today: 45 minutes. Quality Stroke Does the patient have a stroke diagnosis?: No VTE Prior VTE?: No VTE Risk Level:: Medical - moderate - high VTE Device Contraindication: Treatment Not Indicated VTE Drug Contraindication: N/A - Med Ordered
[2025-08-31] MEDS: Potassium Chloride Packet 20 MEQ PACKET 40 MEQ PO (10:37)
[2025-08-31 15:00] VITALS: BP 136/72; PULSE 64; RESP 18; TEMP 36.6; O2SAT 95
--- NOTE | 2025-08-31 15:11 | MHC.CM.PN ---
CM AWAITING FINAL CULTURES FOR FINAL ABT PLAN. [facility] FOLLOWING.
[2025-08-31 19:01] VITALS: BP 139/71; PULSE 74; RESP 18; TEMP 36.4; O2SAT 95
[2025-08-31 21:18] VITALS: BP 139/71; PULSE 74
[2025-08-31] MEDS: oxyCODONE HCl Immed Release 5 MG TABLET PO (21:20)
[2025-09-01 03:37] VITALS: BP 142/80; PULSE 61; RESP 16; TEMP 36; O2SAT 94
[2025-09-01] MEDS: cefEPime HCl/D5W 2 GM/50 ML PIGGYBACK IV ×2 (05:45→15:36)
[2025-09-01 07:04] VITALS: BP 150/70; PULSE 69; RESP 15; TEMP 36.6; O2SAT 96
[2025-09-01] MEDS: 0.9 % Sodium Chloride Flush 3 ML SYRINGE IVFLUSH ×2 (08:20→21:23)
--- NOTE | 2025-09-01 09:10 | HO.PM.IMPN ---
Subjective Subjective Date of Service: 09/01/25 Interval History: Patient seen examined at bedside this morning, patient states that her abdominal pain has improved. WBC elevated, mentioned that her stools have slightly improved. Awaiting blood culture final review. Review of Systems Review of Systems: Yes all other systems are reviewed and are negative Physical Exam Exam: Exam: General: AxOx3, in pain, improved Head: AT/NC ENT: Moist mucous membranes Neck: supple CVS; RRR, S1 S2 normal Lungs: Clear bilateral breath sounds, no wheezes or crackles Abd: Soft, non tender to palpation in RUQ Ext: No edema and no calf tenderness MSK: moving all 4 limbs Skin: No cyanosis or edema Psych: Cooperative with exam Neurology: no focal deficit Vital Signs: Vital Signs: Last Vital Signs Temp 98 F 09/01/25 07:04 Pulse 69 09/01/25 07:04 Resp 15 09/01/25 07:04 BP 150/70 H 09/01/25 07:04 Pulse Ox 96 09/01/25 07:04 O2 Del Method Room Air 09/01/25 07:04 BMI result Body Mass Index 36.0 Objective Data Active Medications Acetaminophen (Acetaminophen 325 Mg Tablet) 975 mg PO Q6H PRN PRN Reason: Pain, Mild 1-3,fever,headache Last Admin: 09/01/25 05:49 Dose: 975 mg Documented By: PRINCESS Comments: per pt request tylenol for 10/10 h/a Amitriptyline HCl (Amitriptyline Hcl 25 Mg Tablet) 25 mg PO BEDTIME [facility] Last Admin: 08/31/25 21:18 Dose: 25 mg Documented By: PRINCESS Aripiprazole (Aripiprazole 5 Mg Tablet) 5 mg PO BEDTIME [facility] Last Admin: 08/31/25 21:17 Dose: 5 mg Documented By: PRINCESS Calcium Carbonate (Calcium Carbonate 750 Mg Tab.Chew) 750 mg PO Q4H PRN PRN Reason: Heartburn Celecoxib (Celecoxib 200 Mg Capsule) 200 mg PO DAILY [facility] Last Admin: 09/01/25 08:21 Dose: 200 mg Documented By: RYANN Clonidine HCl (Clonidine Hcl 0.1 Mg Tablet) 0.1 mg PO BEDTIME [facility]; Protocol Last Admin: 08/31/25 21:22 Dose: Not Given Documented By: PRINCESS Non-Admin Reason: Patient Refused Cyanocobalamin (Cyanocobalamin (Vitamin B-12) 1,000 Mcg Tablet) 1,000 mcg PO DAILY [facility] Last Admin: 09/01/25 08:21 Dose: 1,000 mcg Documented By: RYANN Dicyclomine HCl (Dicyclomine Hcl 10 Mg Capsule) 20 mg PO QID [facility] Last Admin: 09/01/25 08:20 Dose: 20 mg Documented By: RYANN Enoxaparin Sodium (Enoxaparin Sodium 40 Mg/0.4 Ml Syringe) 40 mg SUBCUT Q24H [facility] Last Admin: 09/01/25 05:43 Dose: 40 mg Documented By: PRINCESS Hydroxyzine HCl (Hydroxyzine Hcl 25 Mg Tablet) 25 mg PO BEDTIME [facility] Last Admin: 08/31/25 21:19 Dose: 25 mg Documented By: PRINCESS Cefepime HCl (Maxipime) 2 gm in 50 mls @ 100 mls/hr IV Q12H [facility] Last Infusion: 09/01/25 06:15 Dose: Infused Documented By: PRINCESS Magnesium Hydroxide (Milk Of Magnesia 30 Ml Oral.Susp) 30 ml PO DAILY PRN PRN Reason: Constipation Melatonin (Melatonin 3 Mg Tablet) 6 mg PO BEDTIME PRN PRN Reason: Insomnia Metronidazole (Metronidazole 0.75 % Vaginal 70 Gm Gel.W.Appl) 5 gm VAGINAL BEDTIME [facility] Stop: 09/04/25 21:01 Last Admin: 08/31/25 21:17 Dose: 5 gm Documented By: PRINCESS Omeprazole (Omeprazole 40 Mg Capsule.Dr) 40 mg PO BID@0630,1630 [facility] Last Admin: 09/01/25 05:43 Dose: 40 mg Documented By: PRINCESS Ondansetron HCl (Ondansetron Hcl 4 Mg/2 Ml Vial) 4 mg IVPUSH Q8H PRN PRN Reason: Nausea and Vomiting Last Admin: 08/31/25 19:31 Dose: 4 mg Documented By: PRINCESS Oxycodone HCl (Oxycodone Hcl Immed Release 5 Mg Tablet) 5 mg PO Q6H PRN PRN Reason: Pain, Severe (Pain Scale 7-10) Last Admin: 08/31/25 21:20 Dose: 5 mg Documented By: PRINCESS Propranolol HCl (Propranolol Hcl 20 Mg Tablet) 20 mg PO BID [facility]; Protocol Last Admin: 09/01/25 08:21 Dose: 20 mg Documented By: RYANN Senna/Docusate Sodium (Sennosides/Docusate Sodium Tablet) 1 tab PO DAILY [facility] Last Admin: 09/01/25 08:21 Dose: 1 tab Documented By: RYANN Sertraline HCl (Sertraline Hcl 100 Mg Tablet) 100 mg PO DAILY [facility] Last Admin: 09/01/25 08:21 Dose: 100 mg Documented By: RYANN Sodium Chloride (0.9 % Sodium Chloride Flush 3 Ml Syringe) 3 ml IVFLUSH QSHIFT [facility] Last Admin: 09/01/25 08:20 Dose: 3 ml Documented By: RYANN Vitamin D (Cholecalciferol (Vitamin D3) 25 Mcg Tablet) 50 mcg PO DAILY [facility] Last Admin: 09/01/25 08:21 Dose: 50 mcg Documented By: RYANN Labs 09/01/25 09:32 09/01/25 09:32 Microbiology Microbiology Results: Microbiology 08/29/25 04:20 Blood Culture - Preliminary Blood - Venous No growth after 48 hours. 08/29/25 04:20 Blood Culture - Preliminary Blood - Venous No growth after 48 hours. Assessment and Plan (1) Endometriosis: Status: Acute (2) Gram-negative bacteremia: Status: Acute Plan 45-year-old female with a history of right hip bursitis, hypertension, insomnia, depression, PTSD, PID, endometriosis, and hx Haemophilus bacteremia, who was called back to the ED due to a positive blood culture. Bacteremia, growing gram negative Leukocytosis -Will await final blood cultures to decide final antibiotic tx -Continue cefepime at this time -ID consulted and following -GI consulted, if gram negative MO associated with GI, will have inpatient colonoscopy, if not, to follow up as outpatient -C diff ordered -Repeat labs Bacterial Vaginosis -Continue Topical metronidazole qd x 5 days Diarrhea GI panel reviewed Imaging reviewed Continue senna as imaging showed RUQ stool, to consider stool overflow as cause of diarrhea Endometriosis Menstrual cramps Continue celebrex 200mg Qd, continue to monitor HTN - Continue home medications insomnia - continue home therapies PTSD - continue home therapies class 2 obesity - BMI 36.0, weight loss encouraged full code VTE prophy: lovenox patient with positive blood culture, requiring admission for at least 2 midnight stay for IV antibiotics pending culture sensitivity. Total time managing care of this patient today: 45 minutes. Quality Stroke Does the patient have a stroke diagnosis?: No VTE Prior VTE?: No VTE Risk Level:: Medical - moderate - high VTE Device Contraindication: Treatment Not Indicated VTE Drug Contraindication: N/A - Med Ordered
[2025-09-01 09:39] LABS: Hematocrit 37.5 % (37.0-47.0); Hemoglobin 12.8 g/dl (12.0-16.0); Mean Corpuscular HGB Conc 34.1 g/dl (31.0-35.0); Mean Corpuscular Hemoglobin 30.3 pg (27.0-33.0); Mean Corpuscular Volume 88.9 fL (80.0-98.0); NRBC Abs Auto 0.000 X10*3/uL (0.0-0.012); NRBC Pct Auto 0.0 /100WBC (0.0-0.2); Platelet Count 298 X10*3/uL (160-400); Red Blood Count 4.22 X10*6/uL (4.20-5.50); White Blood Count 21.1 X10*3/uL (4.8-10.8)
[2025-09-01 09:58] LABS: Anion Gap 11 (12-20); Blood Urea Nitrogen 13 mg/dL (9-16); Calcium 8.8 mg/dL (8.4-10.2); Carbon Dioxide 24 mmol/L (22-29); Chloride 105 mmol/L (96-108); Creatinine Clr Calc Pharmacy 102.4; Estimated Glomerular Filt Rate > 60; Potassium 3.3 mmol/L (3.3-5.1); Sodium 137 mmol/L (135-145)
[2025-09-01 15:13] VITALS: BP 148/70; PULSE 67; RESP 18; TEMP 36.6; O2SAT 96
--- NOTE | 2025-09-01 15:26 | MHC.CM.PN ---
EMR REVIEWED AND PER MD ROUNDS, PT IS NOT YET MEDICALLY CLEARED FOR DC HOME, AWAITING CULTURES, WBC REMAINS ELEVATED. CM WILL CONTINUE TO FOLLOW FOR PLAN.
--- NOTE | 2025-09-01 15:55 | P.PNID_ITS ---
Subjective Subjective Date of Service: 09/01/25 Critical Care Time (minutes): 15 Comment: She has fusobacterium found in blood,d/w Dr Maurice who is reviewing case with GI Objective Data Labs 09/01/25 09:32 09/01/25 09:32 Labs: Laboratory Results - last 24 hr 09/01/25 09:32 WBC 21.1 H RBC 4.22 Hgb 12.8 Hct 37.5 MCV 88.9 MCH 30.3 MCHC 34.1 RDW 12.8 Plt Count 298 MPV 10.4 Absolute Nucleated RBC 0.000 Nucleated RBC % (auto) 0.0 Sodium 137 Potassium 3.3 Chloride 105 Carbon Dioxide 24 Anion Gap 11 L BUN 13 Creatinine 0.76 Estim Creat Clear Calc 102.4 Estimated GFR > 60 Random Glucose 104 Calcium 8.8 Microbiology Microbiology Results: Microbiology 08/29/25 04:20 Blood - Venous Blood Culture - Preliminary No growth after 48 hours. 08/29/25 04:20 Blood - Venous Blood Culture - Preliminary No growth after 48 hours. Physical Exam 2 Vital Signs: Vital Signs: Last Vital Signs Temp 97.8 F 09/01/25 15:13 Pulse 67 09/01/25 15:13 Resp 18 09/01/25 15:13 BP 148/70 H 09/01/25 15:13 Pulse Ox 96 09/01/25 15:13 O2 Del Method Room Air 09/01/25 15:13 BMI result Body Mass Index 36.0 Const: General: cooperative HEENT: Head: Yes normal to inspection Face and sinus: Yes normal facial exam Mouth: Normal oral and palatal mucosa present Teeth and gingiva: d entition normal Eyes: General: appearance normal, both eyes and all related structures P upils: Equal, round and reactive pupils present Resp: Effort & Inspection: normal respiratory effort Cardio: Rate: regular rate Rhythm: regular rhythm GI: Palpation (GI): Soft to palpation and nontender : General: Yes no CVA tenderness Back/Spine/Pelvis: Back: no CVA tenderness Skin: General skin exam: no rashes or lesions noted Neuro: General: moves all extremities Cranial nerves: Yes Equal, round and reactive pupils present Extrem: General: Yes normal to inspection Psych: Appearance: grossly normal Assessment and Plan Assessment and plan (1) Chronic diarrhea: Status: Acute (2) Fusobacterium infection: Problem details: She feels somewhat better Concern over colon source Status: Acute Assessment and Plan: Would continue Cefepime and add Flagyl per Dr Maurice while in house. Colonoscopy Probable po Cephalosporin and flagyl complete 21 day course outpatient Time Spent With Patient Time: Total time managing care of this patient today ____ minutes.
[2025-09-01] MEDS: metroNIDAZOLE/NS 500 MG/100 ML PIGGYBACK 100 MG IV ×2 (16:18→23:48)
--- NOTE | 2025-09-01 16:19 | PM.GIPN ---
Subjective Subjective Date of Service: 09/01/25 Interval History: Pt seen and evaluated at bedside. Reports sx unchanged, has abdominal cramping but associates that with her menstrual cycle. Has been on Abx for GNR bacteremia. 09/17 bottles pos for fusobacterium species. Critical Care Time (minutes): 0 Physical Exam Exam: Exam: No apparent distress Nonicteric Abdomen soft, nondistended, nontender, no guarding Vital Signs: Vital Signs: Last Vital Signs Temp 97.8 F 09/01/25 15:13 Pulse 67 09/01/25 15:13 Resp 18 09/01/25 15:13 BP 148/70 H 09/01/25 15:13 Pulse Ox 96 09/01/25 15:13 O2 Del Method Room Air 09/01/25 15:13 BMI result Body Mass Index 36.0 Objective Data Labs 09/02/25 09:01 09/02/25 09:01 Labs: Laboratory Results - last 24 hr 09/01/25 09:32 WBC 21.1 H RBC 4.22 Hgb 12.8 Hct 37.5 MCV 88.9 MCH 30.3 MCHC 34.1 RDW 12.8 Plt Count 298 MPV 10.4 Absolute Nucleated RBC 0.000 Nucleated RBC % (auto) 0.0 Sodium 137 Potassium 3.3 Chloride 105 Carbon Dioxide 24 Anion Gap 11 L BUN 13 Creatinine 0.76 Estim Creat Clear Calc 102.4 Estimated GFR > 60 Random Glucose 104 Calcium 8.8 Microbiology Microbiology Results: Microbiology 08/29/25 04:20 Blood - Venous Blood Culture - Preliminary No growth after 48 hours. 08/29/25 04:20 Blood - Venous Blood Culture - Preliminary No growth after 48 hours. Procedures Date of Service Date of Service: 09/03/25 Progress Note: A&P Assessment and plan (1) Fusobacterium infection: Status: Acute (2) Chronic diarrhea: Status: Acute Plan Reviewed with the pt that fusobacterium assoc with CRC and so a colonoscopy is warranted. Even if she didnt have this bacteremia, a colonoscopy is overdue due to her fam hx of CRC. To recall, pt has prev canceled/rescheduled scopes at [facility] including earlier this month. She is agreeable to [place] [facility] Plan: - Will arrange for colonoscopy early next week. Tentatively 09/05. - Already has PEG prep and dulcolax at home. - Instructions reviewed with the pt and written handout given to the pt as well. - PO Abx as per ID and primary team. Late entry - pt seen on 09/01 evening. Time Spent With Patient Time: Total time managing care of this patient today ____ minutes. Quality Stroke Does the patient have a stroke diagnosis?: No VTE Prior VTE?: No VTE Risk Level:: Medical - moderate - high VTE Device Contraindication: Treatment Not Indicated VTE Drug Contraindication: N/A - Med Ordered
--- NOTE | 2025-09-01 16:27 | MHC.CM.PN ---
PER MD ROUNDS PT NOT MEDICALLY CLEARED, CULTURES PENDING CM FOLLOWING FOR DC NEEDS
[2025-09-01 19:13] VITALS: BP 138/85; PULSE 72; RESP 18; TEMP 36.7; O2SAT 96
[2025-09-01] MEDS: oxyCODONE HCl Immed Release 5 MG TABLET PO (21:22)
[2025-09-02] MEDS: cefEPime HCl/D5W 2 GM/50 ML PIGGYBACK IV (03:17)
[2025-09-02 03:52] VITALS: BP 123/61; PULSE 59; RESP 20; TEMP 36.4; O2SAT 95
[2025-09-02 06:48] VITALS: BP 113/61; PULSE 70; RESP 15; TEMP 35.9; O2SAT 96
[2025-09-02] MEDS: metroNIDAZOLE/NS 500 MG/100 ML PIGGYBACK 100 MG IV (08:15)
[2025-09-02] MEDS: 0.9 % Sodium Chloride Flush 3 ML SYRINGE IVFLUSH (08:27)
[2025-09-02 09:09] LABS: Hematocrit 36.8 % (37.0-47.0); Hemoglobin 12.5 g/dl (12.0-16.0); Mean Corpuscular HGB Conc 34.0 g/dl (31.0-35.0); Mean Corpuscular Hemoglobin 30.0 pg (27.0-33.0); Mean Corpuscular Volume 88.5 fL (80.0-98.0); NRBC Abs Auto 0.000 X10*3/uL (0.0-0.012); NRBC Pct Auto 0.0 /100WBC (0.0-0.2); Platelet Count 295 X10*3/uL (160-400); Red Blood Count 4.16 X10*6/uL (4.20-5.50); White Blood Count 20.8 X10*3/uL (4.8-10.8)
[2025-09-02 09:26] LABS: Anion Gap 11 (12-20); Blood Urea Nitrogen 11 mg/dL (9-16); Calcium 8.6 mg/dL (8.4-10.2); Carbon Dioxide 25 mmol/L (22-29); Chloride 109 mmol/L (96-108); Creatinine Clr Calc Pharmacy 111.2; Estimated Glomerular Filt Rate > 60; Potassium 3.4 mmol/L (3.3-5.1); Sodium 142 mmol/L (135-145)
--- NOTE | 2025-09-02 11:12 | PM.DS ---
DS: Providers Provider Date of admission: 08/29/25 04:31 Date of discharge: 09/02/25 Primary care physician: Liat Nunez MD Consults: 08/29/25 04:46 Consult to Infectious Diseases Routine Consulting Provider: [facility] Reason for consultation: +blood culture Has provider been notified: No 08/29/25 11:23 Consult to Gastroenterology Routine Consulting Provider: [facility] Gastroenterology Services Reason for consultation: Loose stools with right abdominal pain, bacteremia family history of cancer Has provider been notified: No DS: Diagnosis Discharge Diagnosis (1) Chronic diarrhea: Status: Acute (2) Fusobacterium infection: Status: Acute DS: Summary Hospital Course Hospital Course: 45-year-old female with a history of right hip bursitis, hypertension, insomnia, depression, PTSD, PID, endometriosis, and PMH Haemophilus bacteremia, who was called back to the ED due to a positive blood culture. With culture growing fusobacterium species. Patient was placed on IV cefepime and Flagyl, with plans on transitioning to p.o. antibiotics for 21 days per ID recommendations. Per GI colonoscopy outpatient likely next week. Patient states that her abdominal pain has improved, stool is now more formed. 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 cefpodoxime and Flagyl to complete total of 21 days per ID recs -spoke with GI, plans on colonoscopy likely next week. Bacterial Vaginosis -Continue Topical metronidazole qd for additional 3 days Diarrhea, improved GI panel reviewed Imaging reviewed We will continue with senna as an outpatient, to follow up with colonoscopy Endometriosis Menstrual cramps, improved Continue celebrex 200mg Qd, for 3 extra days HTN - Continue home medications insomnia - continue home therapies PTSD - continue home therapy class 2 obesity - BMI 36.0, weight loss encouraged Time Attestation Discharge Coordination Time (in mins): 35 minutes Quality: Safe Use of Opioids Does Pt have an Active Cancer Diagnosis on the Problem List?: No Quality: Stroke Does the patient have a stroke diagnosis?: No Physical Exam Exam: Exam: General: AxOx3, comfortable Head: AT/NC ENT: Moist mucous membranes Neck: supple CVS; RRR, S1 S2 normal Lungs: Clear bilateral breath sounds, no wheezes or crackles Abd: Soft, non tender, non distended Ext: No edema and no calf tenderness MSK: moving all 4 limbs Skin: No cyanosis or edema Psych: Cooperative with exam Neurology: no focal deficit Vital Signs: Vital Signs: Last Vital Signs Temp 96.7 F L 09/02/25 06:48 Pulse 70 09/02/25 06:48 Resp 15 09/02/25 06:48 BP 113/61 09/02/25 06:48 Pulse Ox 96 09/02/25 06:48 O2 Del Method Room Air 09/02/25 06:48 BMI result Body Mass Index 36.0 DS: Data Data Completed and Pending Labs on day of discharge: Laboratory Results - last 24 hr 09/02/25 09:01 WBC 20.8 H RBC 4.16 L Hgb 12.5 Hct 36.8 L MCV 88.5 MCH 30.0 MCHC 34.0 RDW 12.8 Plt Count 295 MPV 10.2 Absolute Nucleated RBC 0.000 Nucleated RBC % (auto) 0.0 Sodium 142 Potassium 3.4 Chloride 109 H Carbon Dioxide 25 Anion Gap 11 L BUN 11 Creatinine 0.70 Estim Creat Clear Calc 111.2 Estimated GFR > 60 Random Glucose 95 Calcium 8.6 Preliminary micro results at discharge 08/29/25 04:20 Blood Culture - Preliminary Blood - Venous No growth after 48 hours. 08/29/25 04:20 Blood Culture - Preliminary Blood - Venous No growth after 48 hours. 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 cefpodoxime 200 mg tablet 200 mg PO BID 20 Days Qty: 40 0RF Rx Instructions: must administer with a meal/food metronidazole 500 mg tablet 500 mg PO Q8H 20 Days Qty: 60 0RF Continued clonidine HCl 0.1 mg tablet 0.1 mg PO BEDTIME valacyclovir 1 gram tablet 1,000 mg PO DAILY PRN (Reason: hsv flare) sennosides-docusate sodium [Stimulant Laxative Plus] 8.6-50 mg tablet 1 tab PO DAILY PRN (Reason: Constipation) cyanocobalamin (vitamin B-12) 1,000 mcg Tablet 1,000 mcg PO DAILY tramadol 50 mg Tablet 50 mg PO Q6H PRN (Reason: Pain (Scale Score 7-10)) lansoprazole 15 mg capsule,delayed release(DR/EC) 15 mg PO DAILY hydroxyzine HCl 25 mg tablet 25 mg PO BEDTIME acetaminophen [Tylenol Extra Strength] 500 mg tablet 1,000 mg PO Q6H PRN (Reason: Pain (Scale Score 1-3)) ondansetron 4 mg tablet,disintegrating 4 mg PO Q8H PRN (Reason: nausea and vomiting) Qty: 20 0RF amitriptyline 25 mg tablet 25 mg PO BEDTIME dicyclomine 20 mg tablet 20 mg PO QID omeprazole 20 mg capsule,delayed release(DR/EC) 20 mg PO DAILY@0630 sertraline 100 mg tablet 100 mg PO DAILY tizanidine 4 mg tablet 4 mg PO TID PRN (Reason: Pain) propranolol 20 mg tablet 20 mg PO BID cholecalciferol (vitamin D3) 50 mcg (2,000 unit) tablet 50 mcg PO DAILY aripiprazole 5 mg tablet 5 mg PO BEDTIME Discontinued celecoxib 200 mg capsule 200 mg PO BID Discharge Orders: Discharge Order (Routine); Ordered 09/02/25 Ordered By: Ke Maurice Activity on Discharge: As tolerated Stand Alone Forms: Patient Portal Discharge page Print Language: Lao Care Plan Goals: continue oral antibiotics for 20 days to complete a total of 21 days follow up with Gastroenterology for possible colonoscopy this week Health Concerns: 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 With culture growing fusobacterium species. Patient was placed on IV cefepime and Flagyl, with plans on transitioning to p.o. antibiotics for 21 days per ID recommendations. Per GI colonoscopy outpatient likely next week. Patient states that her abdominal pain has improved, stool is now more formed. Patient Instructions: Bacteremia (DC), Colonoscopy (DC)
[2025-09-02] MEDS: Potassium Chloride Packet 20 MEQ PACKET 40 MEQ PO (11:25)
--- NOTE | 2025-09-02 12:43 | MHC.CM.PN ---
PT TO DC HOME TODAY ON PO MEDS
[2025-09-02 12:45] VITALS: BP 150/80; PULSE 82; RESP 16; TEMP 36.1; O2SAT 94
[2025-09-08 01:24] LABS: Calprotectin, Fecal 202 mcg/g
== END 2025-09-02 12:47 | disposition home or self-care (01) | DRG 758 ==
LOC: HO.ED 04:30 → HO.EDOVER 04:37 → HO.S3 07:40
PROVIDERS: Internal Medicine; Physician Assistant Medical; Admitting Provider Physician Assistant; Emergency Provider Emergency Medicine; PCP Internal Medicine; Visit Provider Student in an Organized Health Care Education/Training Program
DX: N76.0 Acute vaginitis (principal); R78.81 Bacteremia; N80.9 Endometriosis, unspecified; I10 Essential (primary) hypertension; F43.10 Post-traumatic stress disorder, unspecified; E66.812 Obesity, class 2; R19.7 Diarrhea, unspecified; G47.00 Insomnia, unspecified; B96.89 Other specified bacterial agents as the cause of diseases classified elsewhere; Z71.3 Dietary counseling and surveillance; Z68.36 Body mass index [BMI] 36.0-36.9, adult; Z20.822 Contact with and (suspected) exposure to COVID-19; Z79.899 Other long term (current) drug therapy
CPT/HCPCS: 36415; 74177; 80048; 80053; 81001; 81003; 81515; 83605; 83690; 83735; 83993; 84550; 84702; 85007; 85025; 85027; 87040; 87076; 87185; 87205; 87389; 87491; 87493; 87507; 87591; 87633; 87912; 99284; 99285; J0692; J0696; J1171; J1650; J1836; J2405; Q9967

== ENCOUNTER → 2025-08-29 04:31 | Outpatient (BNV) | payer OTHER, SELFPAY | PROVIDERS: Admitting Provider Physician Assistant; Emergency Provider Emergency Medicine; PCP Internal Medicine; Visit Provider Internal Medicine | DX: A49.8 Other bacterial infections of unspecified site (principal); K52.9 Noninfective gastroenteritis and colitis, unspecified | CPT/HCPCS: 99232 ==

== ENCOUNTER → 2025-08-29 04:31 | Outpatient (BNV) | payer OTHER, SELFPAY | PROVIDERS: Admitting Provider Physician Assistant; Emergency Provider Emergency Medicine; PCP Internal Medicine; Visit Provider Student in an Organized Health Care Education/Training Program | DX: N80.9 Endometriosis, unspecified (principal); R78.81 Bacteremia | CPT/HCPCS: 99222; 99233; 99499 ==

== ENCOUNTER → 2025-08-29 04:31 | Outpatient (BNV) | payer OTHER, SELFPAY | PROVIDERS: Admitting Provider Physician Assistant; Emergency Provider Emergency Medicine; PCP Internal Medicine; Visit Provider Internal Medicine | DX: K52.9 Noninfective gastroenteritis and colitis, unspecified (principal); A49.8 Other bacterial infections of unspecified site | CPT/HCPCS: 99232 ==

== ENCOUNTER 2025-09-05 12:24 | Day surgery (SDC) | payer OTHER, SELFPAY ==
--- OUTSIDE RECORDS SUMMARY | 2024-06-21 14:52 | XMS_ITS | Encounter Summary ---
Author Organization [facility] Address [address] [place] [address] Care Team Providers Care Translator Name Role Phone Liat Nunez MD Primary Care Provider [phone] Encounter Details Date Type Department Care Team (Late Contact Info) Description 06/21/2024 3:52 PM EDT Hospital Encounter TH HISTORIC ENCOUNTERS EAST[facility] CONVERSION ONLY Liat Nunez MD [address] [place] [phone] Social History Tobacco Use Types Packs/Day Years Used Date Smoking Tobacco: Never Smokeless Tobacco: Never Alcohol Use Standard Drinks/Week Comments Yes 0 (1 standard drink = 0.6 oz pur e alcohol) Interpersonal Safety Answer Date Record ed Physical Abuse Unrecognized value 01/27/2025 Verbal Abuse Unrecognized value 01/27/2025 Comments No Sex and Gender Information Value Date Recorded Sex Assigned at Female 02/20/2025 1:28 PM EDT Legal Sex Female 10:11 AM EST Gender Identity Female 02/20/2025 1:28 PM EDT Sexual Orientation Choose not to disclose 2024 1:28 PM EDT documented as of this encounter Plan of Treatment Upcoming Encounters Date Type Department Care Team (Late st Contact Info) Description 09/06/2025 10:45 AM EST Consult Bariatric Surgery - [address] [place] [phone] Brenna De MD [address] [place] [address] 10/02/2025 1:45 PM EST Office Visit [facility] Hematology Oncology [address] [place] [phone] Michaela Bergeron MD [address] [place] [address] 11/27/2025 1:00 PM EDT Office Visit Internal Medicine [facility] [address] [phone] Sabrina Lynn NP [address] [address] documented as of this encounter Goals Goal Patient Goal Type Associated Problems Recent Progress Patient-Stated? Author PT LTGs General No Daniel Brenner, PT Note: Pt will report cervical pain no greater than 5/10 with cervical AROM testing Pt will report cervical pain no greater than 3/10 with morning ADLs Pt will be independent with HEP documented as of this encounter Visit Diagnoses Not on filedocumented in this encounter Care Teams Translator Relationship Specialty Start Date End Date Liat Nunez MD PCP - General Internal Medicine 07/19/18 07/29/24 documented as of this encounter
--- OUTSIDE RECORDS SUMMARY | 2025-09-04 06:14 | XMS_ITS | Clinical Summary ---
Author Organization [facility] Prior to 02/11/25 Address [address] [place] [address] Care Team Providers Care Supervisor Char House Name Role Phone Liat Nunez MD Primary Care Provider [phone] Allergies Active Allergy Reactions Criticality Noted Date [...] age to complete this topic Care Teams Supervisor Char House Relationship Specialty Start Date End Date Liat Nunez MD [address] [phone] PCP - General Internal Medicine 01/04/24
--- OUTSIDE RECORDS SUMMARY | 2025-09-04 06:14 | XMS_ITS | Encounter Summary ---
Author Organization [facility] Address [address] [place] [address] Care Team Providers Care Breakfast Supervisor Name Role Phone Liat Nunez MD Primary Care Provider [phone] Reason for Referral * Consultation (Routine) - Authorized Specialty Diagnoses / Procedures Referred By Randal rothman Referred To Contact Hematology and Oncology Diagnoses Leukocytosis, unspecified type Sabrina Lynn NP [address] [address] Phone: tel: fax: [facility] Hematology Oncology [address] [place] [address] Phone: tel: fax: Referral ID Status Reason Start Date Expiration Date Visits Requested Visits Authorized [id number] Authorized Specialty Services Required 08/24/2026 1 1 Encounter Details Date Type Department Care Team ([facility] st Contact Info) Description 08/24/2025 Results Follow-Up Internal Medicine - [place] [address] [phone] Sabrina Lynn NP [address] [address] Social History Tobacco Use Types Packs/Day Years [...] 10:45 AM EST Consult Bariatric Surgery - [place] 175 [facility] [address] [place] [phone] Brenna De MD [address] [place] [phone] 10/02/2025 1:45 PM EST Office Visit [facility] Hematology Oncology [address] [place] [phone] Michaela Bergeron MD [address] [place] [address] 11/27/2025 1:00 PM EDT Office Visit Internal Medicine [facility] 175 [facility] [address] [place] [phone] Sabrina Lynn NP 175 [facility] [address] [place] [address] Scheduled Referrals Name Type Priority Associated Diagnoses Order Schedule Ambulatory referral to Hematology / Oncology Outpatient Referral Routine Leukocytosis, unspecified type 1 Occurrences starting 08/24/2025 until 08/24/2026 documented as of this encounter Goals Goal Patient Goal Type Associated Problems Recent Progress Patient-Stated? Author PT LTGs General No Daniel Brenner PT Note: Pt will report cervical pain [...] as of this encounter Additional Health Concerns Assessment Noted Time PHQ-9 Depression Total Score: 24 025 2:13 PM EST documented as of this encounter Care Teams Breakfast Supervisor Relationship Specialty Start Date End Date Liat Nunez MD [address] [address] PCP - General Internal Medicine 07/30/24 documented as of this encounter
--- OUTSIDE RECORDS SUMMARY | 2025-09-04 06:14 | XMS_ITS | Data Portability ---
Author Organization [facility] Address [address] [place] [address] Care Team Providers Care Mining Consultant Name Role Phone HIM CCA Referring Provider RADHA WHITNEY Primary Care Provider Assessment Encounter Date Assessment Date Assessment LastModified by Organization Details LastModified Time 11/20/2023 11/20/2023 I provided real -time medical direction via phone for this encounter and was available for additional phone-based assistance as needed. I have reviewed and agree with the Assessment and Plan as documented by the Belt Splicer. Patient given the opportunity to ask questions. This service was called for an assessment of Dressing change As per above, patient with a chronic wound and needed assistance for dressing change. Per senior application software engineer on the scene, patient s vitals Stable and the patient has no complaint. Please see uploaded pictures. Impression: Wound care Plan: dressing change discussed with senior application software engineer on the scene. There are no concerning [...] Assessment and Plan as documented by the Belt Splicer. I provided real-time medical direction via phone [...] 2 Ag, QL IA, respiratory specimen [address], [phone] 12:54:11 rapid flu (A+B) [address], [address] 12:53:51 Referral None recorded. Procedures None recorded. Surgeries None recorded. Imaging None recorded. Medication Orders benzonatate 200 mg capsule 2024 [id number], [address] [place] [address], [id number], 12:37:26 Patient TargetsNo targets recorded. Patient InstructionsNo [...] Name and Address Organization Details Recorded Time 39928 Macrobid medicatio n Not available Not available Not available 12/02/2024 58317 1 RxNorm Not Available [facility] - production [...] /min 98 % 82 /min 98.2 [degF] 89307.4 g 155/105 mm[Hg] Not Available [facility] [place] 4 17:58:05 Date Recorded Respiratory rate Body temperature Oxygen saturation Heart rate Systolic And Diastolic Provider Name and Address Organization Details Last Updated DateTime 5 16 /min 98.7 [degF] 99 % 66 /min 136/82 mm[Hg] Not Available [facility] 5 12:35:59 Social History None recorded. Functional Status None recorded. Mental Status None recorded. Family History Nothing Reported. Medical History No medical history recorded. Gynecological HistoryNo gynecological history recorded. Obstetrics History GPAL:G 0 P 0 0 0 0 Past Encounters Encounter ID Performer Location Encounter Start Date Encounter Closed Date Diagnosis/Indication Diagnosis SNOMED-CT Code Diagnosis ICD10 Code Diagnosis IMO Codes Diagnosis Note [id number] Isamar Karimi MD Main - [facility] [address] [place] [phone] 11/20/2023 17:58:00 11/22/2023 16:24:05 Change of dressing 60157840 Z48.00 [id number] Carter Pickering MD [address] [phone] 12/02/2024 12:35:57 12/05/2024 13:38:15 Cough 27750792 R05.9 Health Concerns Section Related Observation LastModified by Organization Detai ls LastModified Time None Recorded Concern Status LastModified by Organization Details LastModified Time None Recorded Advance Directives Directive None Recorded Payers Insurance Date Sequence Insurance Name Policy Number Policy Styles Covered Member ID Styles Member ID Guarantor Name 12/02/2024 1 [facility] - DOS ON OR AFTER 2022 - DUAL ELIGIBLE - JAIL OPTIONS AND ONE CARE (MEDICARE REPLACEMENT/ADV ANTAGE - HMO) Anjelica Evans [id number] Anjelica Evans Notes Date Note Type Note Provider Name and Address Organization Details Recorded Time 11/20/2023 text/html HPI: Member call transferred [facility], member reports she is post left rotator [...] .................. .................. .................. .................. .................. .................. ............... Belt Splicer Note From Preston Szymanski: Pt needed assistance [...] .................. ............... Disposition: Fulfilled Isamar Karimi MD [address] [place] [address],[address], [place], [phone], [facility] 11/20/2023 20:24:03 12/02/2024 text/html HPI: Call received [...] PCN. Initial outreach call to George at [phone] and reached member who stated she has [...] stated she looked at an apartment in [place] yesterday and she has applications in other apartments and assistance programs to help her find an apartment. Mbr stated she did have [facility] call her and help her a [...] and Mbr agreed. Confirmed address and phone/ [phone]. .................. .................. .................. .................. .................. .................. .................. ............... CRC Nurse Triage Notes (Jonel Conroy): Chief Complaints: Cough PMH: Severe Persistent Mental Illness (SPMI) PMH Reviewed at 12/02/2024:22 Allergies Reviewed at 12/02/2024 - :22 Comments: Reviewed [facility] Belt Splicer Organization Information for [employer] Legal Name: [employer]. Address: [address] [place] [id number], Special Events Coordinator: Otoniel Feng MD CLIA No.: [id number] Belt Splicer POC Test Results from [employer] [facility] - ALS Rapid COVID antigen (12:33:58) COVID: - Rapid influenza antigen (12:33:59) Flu: - .................. .................. .................. .................. .................. .................. .................. ............... Belt Splicer Note From [facility]: Dispatched to the [...] dealing with her other issues via her hospice care sales consultant and other recourses via [facility]. Pt advised she just wanted to make [...] with her PCP for this issue. This senior application software engineer made sure Pt had the crisis hotline [...] ............... Disposition: Fulfilled Carter Pickering MD [address] [facility],[address], [place], [address], [facility] 12/03/2024 07:58:26 OBGyn Episode No OBEpisode recorded.
--- OUTSIDE RECORDS SUMMARY | 2025-09-04 06:14 | XMS_ITS | Clinical Summary ---
Author Organization [facility] Address [address] [place] [phone] Phone Care Team Providers Care Engine Hostler Name Role Phone Liat Nunez MD Primary Care Provider [phone] Allergies Active Allergy Reactions Criticality Noted Date [...] - 07/18/2025 11:59 PM EST Hospital Encounter [address] [id number] Flavio Robles MD Discharge Disposition: Home or Self Care 07/18/2025 2:07 PM EST Hospital Encounter [address] [id number] Flavio Robles MD Discharge Disposition: Home or Self Care 07/18/2025 1:30 PM EST Office Visit [facility] [address] [place] [phone] Flavio Robles MD Pain (Primary Dx); Primary osteoarthritis of left hip; Lumbar radiculopathy; Left leg weakness; Occasional tremors 06/06/2025 1:00 PM EDT Office Visit [facility] [address] [place] [id number] Flavio Robles MD Pain (Primary Dx); Lumbar [...] Description 10/03/2025 10:30 AM EST Procedure visit [facility] Neurology Clinic [address] [place] [address] Bharath Chandler MD [address] [place] [address], [address] [place] [id number] [email or web address] Health Maintenance Due Date Last Done Comments [...] VACCINE (#1) 2025 COVID-19 VACCINE (1 - 2024-2 6 season) 2025 LIPID PANEL [...] this date of service. Flavio Robles MD IM XR PELVIS Final Result * XR LUMBOSACRAL SPINE 2-3 VIEWS (07/18/2025 2:17 PM EST) Narrative SYSTEMGENERATED, DOCUMENTATION - 07/18/2025 2:17 PM EST This image report has been auto-finalized and has not been read by a Radiologist. Interpretation has been included in the provider encounter note for this date of service. Flavio Robles MD IMG XR SPINE Final Result from Last 3 Months Insurance [facility] [place] [id number] [facility] MEDICARE REPLACEMENT [facility] MEDICARE REPLACEMENT [facility] MEDICARE REPLACEMENT [facility] MEDICARE REPLACEMENT [facility] MEDICARE REPLACEMENT Care Teams Engine Hostler Relationship Specialty Start Date End Date Liat Nunez MD [address] [place] [phone] PCP - General Internal Medicine 05/25/25 Additional Source Comments The information contained in this document represents components of the legal health record. It is not the complete legal health record.[facility]
--- OUTSIDE RECORDS SUMMARY | 2025-09-04 06:14 | XMS_ITS | Encounter Summary ---
Author Organization [facility] Address [address] [place] [address] Care Team Providers Care Vice President Quality Assurance Name Role Phone Liat Nunez MD Primary Care Provider [phone] Encounter Details Date Type Department Care Team (Late st Contact Info) Description 07/27/2025 Results Follow-Up Internal Medicine - [place] 175 [facility] 200 [place] [phone] Sabrina Lynn NP 175 [facility] [address] [place] [address] Social History Tobacco Use Types Packs/Day Years [...] 10:45 AM EST Consult Bariatric Surgery - [place] 175 [facility] [address] [place] [phone] Brenna De MD [address] [place] [phone] 10/02/2025 1:45 PM EST Office Visit [facility] [place] [facility] Hematology Oncology [address] [place] [phone] Michaela Bergeron MD [address] [place] [address] 11/27/2025 1:00 PM EDT Office Visit Internal Medicine [facility] 175 [facility] 200 [place] [phone] Sabrina Lynn NP 175 [facility] [address] [place] [address] documented as of this encounter Goals Goal [...] documented as of this encounter Care Teams Vice President Quality Assurance Relationship Specialty Start Date End Date Liat Nunez MD [address] [phone] PCP - General Internal Medicine 07/30/24 documented as of this encounter
--- OUTSIDE RECORDS SUMMARY | 2025-09-04 06:14 | XMS_ITS | Clinical Summary ---
Author Organization [facility] Address [address] [place] [address] Phone Care Team Providers Care Semi Driver Name Role Phone Liat Nunez MD Primary Care Provider [phone] Allergies Active Allergy Reactions Criticality Noted Date [...] Date Type Department Care Team Description 08/28/2025 Telephone [facility] Hematology Oncology [address] [place] [phone] Michaela Bergeron MD 08/24/2025 Results Follow-Up Internal Medicine - [address] [phone] Sabrina Lynn NP 08/23/2025 10:30 AM EST Lab Draw Station - [address] [place] [phone] Screening for ischemic heart disease; Vitamin B12 deficiency; Vitamin D deficiency; Leukocytosis, unspecified type; Bilateral hand pain 08/23/2025 9:30 AM EST Office Visit Internal Medicine - [address] [phone] Sabrina Lynn NP Screening for ischemic heart [...] hyperlipidemia type 07/27/2025 Results Follow-Up Internal Medicine [address] [phone] Sabrina Lynn NP 07/26/2025 3:15 PM EST Lab Draw Station - [address] [place] [phone] Lymphoproliferative disease (CMS/HCC V24, CMS/HCC V28); Screening for ischemic heart disease; Routine adult health maintenance; Screening for diabetes mellitus; Vitamin B12 deficiency; Vitamin D deficiency; Urinary frequency; Screen for STD (sexually transmitted disease) 07/26/2025 2:00 PM EST Office Visit Internal Medicine - [address] [phone] Sabrina Lynn NP Routine adult health maintenance [...] unspecified hyperlipidemia type 06/28/2025 Telephone Orthopedic Surgery [facility] 160 175 [facility] 160 [place] [phone] Alvarez Castorena MD 06/06/2025 Telephone Orthopedic Surgery [facility] 250 175 [facility] 250 [place] [phone] Yoli Pineda 06/05/2025 Telephone Internal Medicine [facility] 175 [facility] 200 [place] [phone] Gail Arrington RN 06/05/2025 Telephone Gastroenterology - 299 [facility] 299 [facility] 419 [place] [phone] Carter Chadwick MD from Last 3 Months Immunizations Immunization [...] 10:45 AM EST Consult Bariatric Surgery - [place] 175 [facility] [address] [place] [address] Brenna De MD [address] [place] [phone] 10/02/2025 1:45 PM EST Office Visit [facility] Hematology Oncology [address] [place] [address] Michaela Bergeron MD [address] [place] [address] 11/27/2025 1:00 PM EDT Office Visit Internal Medicine - [place] 175 [facility] 200 [place] [phone] Sabrina Lynn, MINA 175 [facility] 200 [place] [address] Health Maintenance Due Date Last Done Comments [...] Procedure Name Priority Date/Time Associated Diagnosis Comments EXTERNAL CT REPORT 08/27/[address] REPORT 08/27/2025 MANUAL DIFFERENTIAL - SYSMEX WAM Routine 08/23/2025 [...] disease) from Last 3 Months Results * External CT Report (08/27/2025) Only the most recent of2 resultswithin the time period is included. Anatomical Region Laterality Modality Computed Tomogra phy us Provider [facility] PROCEDURES Final Result * (ABNORMAL) Lipid panel with reflex to direct LDL (08/23/2025 10:27 AM EST) Only the most recent of2 resultswithin the time period is included. Cholesterol 218(H) 0 - 200 mg/dL 08/23/2025 4:[address] [facility] Triglycerides 161(H) 0 - 150 mg/dL 08/23/2025 4:[address] [facility] HDL 56 >=40 mg/dL 08/23/2025 4:[address] [facility] LDL Calculated 130(H) 0 - 100 mg/dL 08/23/2025 4:[address] [facility] Comment:Estimated LDL is philomena culated using the Friedewald equation: Total cholesterol - HDL cholesterol - (Triglycerides/5) VLDL Cholesterol Philomena 32.2 mg/dL 08/23/2025 4:[address] [facility] Non HDL Chol. (LDL+VLDL) 162(H) <145 mg/dL 08/23/2025 4:[address] [facility] Chol/HDL Ratio 3.9 0.0 - 4.4 08/23/2025 4:[address] [facility] Blood Venous blood specimen / Unknown Venipuncture / Unknown 08/23/2025 10:27 AM EST 08/23/2025 10:27 AM EST us Sabrina Lynn NP LAB BLOOD ORDERABLES Final Resul t [facility] [address] [place] [address], [place] [phone] * (ABNORMAL) Manual differential (08/23/2025 10:27 AM EST) Only the most recent of2 resultswithin the time period is included. Neutrophils % 17.0 % LAB HEMETOLOGY METHOD 08/23/2025 3:[address] [facility] Lymphocytes % 77.0 % LAB HEMETOLOGY METHOD 08/23/2025 3:[address] [facility] Monocytes % 5.0 % LAB HEMETOLOGY METHOD 08/23/2025 3:[address] [facility] Eosinophils % 0.0 % LAB HEMETOLOGY METHOD 08/23/2025 3:[address] [facility] Basophils % 1.0 % LAB HEMETOLOGY METHOD 08/23/2025 3:[address] [facility] Neutrophils Absolute Manual 3.72 1.50 - 7.00 K/mcL LAB HEMETOLOGY METHOD 08/23/2025 3:[address] [facility] Lymphocytes Absolute 16.86(H) 1.00 - 5.00 K/mcL LAB HEMETOLOGY METHOD 08/23/2025 3:43 PM EST [facility] Monocytes Absolute Manual 1.09(H) 0.20 - 1.00 K/[facility] LAB HEMETOLOGY METHOD 08/23/2025 3:43 PM EST [facility] Eosinophils Absolute Manual 0.00 0.00 - 0.50 K/[facility] LAB HEMETOLOGY METHOD 08/23/2025 3:43 PM EST [facility] Basophils Absolute Manual 0.22(H) 0.00 - 0.20 K/[facility] LAB HEMETOLOGY METHOD 08/23/2025 3:[address] [facility] Rbc Morphology Consistent with indices Consistent with indices, Normal for LAB HEMETOLOGY METHOD 08/23/2025 3:[address] [facility] Platelet Morphology - WAM Normal Normal [facility] 08/23/2025 3:[address] [facility] Blood Venous blood specimen / Unknown Venipuncture / Unknown 08/23/2025 10:27 AM EST 08/23/2025 10:27 AM EST us Sabrina Lynn DRIVER/GUIDE LAB BLOOD ORDERABLES Final Resul t [facility] [address] [place] [address], * (ABNORMAL) KATIE IFA with titer and pattern (08/23/2025 10:27 AM EST) KATIE Positive (A) Negative 08/24/2025 2:47 PM EST [facility] Comment:KATIE performed by ind irect immunofluorescence (IFA) using HEp-2 substrate. KATIE Pattern Homogene ous(A) (none) 08/24/2025 2:[address] [facility] Comment:May be Associated wi th SLE and drug-induced SLE. Titer 1:320(A) <1:160 08/24/2025 2:[address] [facility] Comment: Approximately 3% of healthy persons have KATIE titer of 1:320 or higher Further testing for other autoantibodies should be prompted by specific clinical findings/impressions. Blood Venous blood specimen / Unknown Venipuncture / Unknown 08/23/2025 10:27 AM EST 08/23/2025 10:27 AM EST Sabrina Lynn NP LAB BLOOD ORDERABLES Final Resul t [facility] [address] [place] [address], [place] [phone] * (ABNORMAL) CBC auto differential (08/23/2025 10:27 AM EST) Only the most recent of2 resultswithin the time period is included. WBC 21.9(H) 4.8 - 10.8 K/mcL LAB HEMETOLOGY METHOD 08/23/2025 3:[address] [facility] RBC 4.30 3.80 - 4.80 M/mcL LAB HEMETOLOGY METHOD 08/23/2025 3:[address] [facility] Hemoglobin 13.0 11.5 - 16.0 g/dL LAB HEMETOLOGY METHOD 08/23/2025 3:[address] [facility] Hematocrit 39.8 35.0 - 47.0 % LAB HEMETOLOGY METHOD 08/23/2025 3:[address] [facility] MCV 91.7 79.0 - 98.0 FL LAB HEMETOLOGY METHOD 08/23/2025 3:[address] [facility] MCH 30.0 27.0 - 32.0 pcg LAB HEMETOLOGY METHOD 08/23/2025 3:[address] [facility] MCHC 32.7 32.0 - 37.0 g/dL LAB HEMETOLOGY METHOD 08/23/2025 3:[address] [facility] RDW 12.7 11.0 - 15.0 % LAB HEMETOLOGY METHOD 08/23/2025 3:43 PM EST [facility] Platelets 293 130 - 400 K/mcL LAB HEMETOLOGY METHOD 08/23/2025 3:[address] [facility] MPV 10.9 7.0 - 11.0 FL LAB HEMETOLOGY METHOD 08/23/2025 3:43 PM EST [facility] NRBC 0.0 <1.0 % LAB HEMETOLOGY METHOD 08/23/2025 3:[address] [facility] NRBC Absolute 0.00 <0.10 K/mcL LAB HEMETOLOGY METHOD 08/23/2025 3:[address] [facility] Blood Venous blood specimen / Unknown Venipuncture / Unknown 08/23/2025 10:27 AM EST 08/23/2025 10:27 AM EST Narrative [facility] - 08/23/2025 3:43 PM EST [id number] us Sabrina Lynn NP LAB BLOOD ORDERABLES Final Resul t [facility] [address] [place] [address], [place] [phone] * (ABNORMAL) Iron and TIBC (08/23/2025 10:27 AM EST) Iron 46 40 - 150 mcg/dL 08/23/2025 4:[address] [facility] TIBC 379 250 - 450 mcg/dL 08/23/2025 4:[address] [facility] Iron Saturation 12(L) 15 - 50 % 4:[address] [facility] Blood Venous blood specimen / Unknown Venipuncture / Unknown 08/23/2025 10:27 AM EST 08/23/2025 10:27 AM EST us Sabrina Lynn DRIVER/GUIDE LAB BLOOD ORDERABLES Final Resul t Performing Organization Address City/[facility]/ZIP Co de Phone Number [facility] [address] [place] [address], [place] [phone] * (ABNORMAL) Vitamin D 25 hydroxy (08/23/2025 10:27 AM EST) Only the most recent of2 resultswithin the time period is included. Pathologist [facility] Vit D, 25-Hydroxy 27.8(L) 30.0 - 80.0 ng/mL 08/23/2025 6:18 PM EST [facility] Blood Venous blood specimen / Unknown Venipuncture / Unknown 08/23/2025 10:27 AM EST 08/23/2025 10:27 AM EST Sabrina Lynn DRIVER/GUIDE LAB BLOOD ORDERABLES Final Resul t Performing Organization Address City/[facility] Co de Phone Number [facility] [address] [place] [address], [place] [phone] * Rheumatoid factor (08/23/2025 10:27 AM EST) [facility] Rheumatoid Factor 4.5 <15.0 I Unit/mL 08/23/2025 4:21 PM EST [facility] Blood Venous blood specimen / Unknown Venipuncture / Unknown 08/23/2025 10:27 AM EST 08/23/2025 10:27 AM EST us Sabrina Lynn DRIVER/GUIDE LAB BLOOD ORDERABLES Final Resul t Performing Organization Address City/[facility] Co de Phone Number [facility] [address] [place] [address], [place] [phone] * C-reactive protein (08/23/2025 10:27 AM EST) [facility] C-Reactive Protein <0.50 <=0.50 mg/dL 08/23/2025 4:37 PM EST [facility] Blood Venous blood specimen / Unknown Venipuncture / Unknown 08/23/2025 10:27 AM EST 08/23/2025 10:27 AM EST us Sabrina Lynn DRIVER/GUIDE LAB BLOOD ORDERABLES Final Resul t Performing Organization Address City/[facility] de Phone Number [facility] [address] [place] [address], [place] [phone] * Folate (08/23/2025 10:27 AM EST) Folate 14.2 >=5.4 ng/ml 08/23/2025 4:16 PM EST [facility] Blood Venous blood specimen / Unknown Venipuncture / Unknown 08/23/2025 10:27 AM EST 08/23/2025 10:27 AM EST Narrative [facility] - 08/23/2025 4:16 PM EST Over the counter supplements containing high doses of biotin may interfere with this assay. If interference is suspected, patients shoud be retested after refraining from biotin supplements for 72 hours. us Sabrina Lynn DRIVER/GUIDE LAB BLOOD ORDERABLES Final Resul t Performing Organization Address City/[facility]/ZIP Co de Phone Number [facility] [address] [place] [address], [place] [phone] * Ferritin (08/23/2025 10:27 AM EST) Ferritin 27 7 - 271 ng/mL 08/23/2025 4:15 PM EST [facility] Blood Venous blood specimen / Unknown Venipuncture / Unknown 08/23/2025 10:27 AM EST 08/23/2025 10:27 AM EST us Sabrina Lynn DRIVER/GUIDE LAB BLOOD ORDERABLES Final Resul t Performing Organization Address [facility] de Phone Number [facility] [address] [place] [address], * Vitamin B12 (08/23/2025 10:27 AM EST) Only the most recent of2 resultswithin the time period is included. Pathologist [facility] Vitamin B-12 430 211 - 911 pcg/mL 08/23/2025 4:42 PM EST [facility] Blood Venous blood specimen / Unknown Venipuncture / Unknown 08/23/2025 10:27 AM EST 08/23/2025 10:27 AM EST Sabrina Lynn DRIVER/GUIDE LAB BLOOD ORDERABLES Final Resul t Performing Organization Address [facility] de Phone Number [facility] [address] [place] [address], * Hepatitis C antibody (07/26/2025 3:13 PM EST) [facility] Hepatitis C Antibody Negative Negative LAB CHEMISTRY METHOD 07/26/2025 7:51 PM EST [facility] Blood Venous blood specimen / Unknown Venipuncture / Unknown 07/26/2025 3:13 PM EST 07/26/2025 3:13 PM EST us Sabrina Lynn DRIVER/GUIDE LAB BLOOD ORDERABLES Final Resul t Performing Organization Address [facility] de Phone Number [facility] [address] [place] [address], [place] [phone] * HIV 1,2 antibody, p24 antigen with reflex to differentiation (07/26/2025 3:13 PM EST) [facility] HIV Combo AB/AG Negative Negative LAB CHEMISTRY METHOD 07/26/2025 7:52 PM EST [facility] Blood Venous blood specimen / Unknown Venipuncture / Unknown 07/26/2025 3:13 PM EST 07/26/2025 3:13 PM EST [facility] - 07/26/2025 7:52 PM EST This assay is a 4th generation assay allowing for earlier detection of HIV infection by detecting the presence of the HIV-1 p24 antigen as well as the traditional antibodies to HIV type 1 (including group O) and type 2. Use of a 4th generation assay is the current CDC recommendation for HIV screening. us Sabrina Lynn NP LAB BLOOD ORDERABLES Final Resul t [facility] [address] [place] [address], [place] [phone] * Urinalysis with reflex microscopic (07/26/2025 3:13 PM EST) Specific [place] Urine 1.018 1.003 - 1.030 LAB URINALYSIS - AUTOMATED METHOD 07/26/2025 7:[address] [facility] pH, Urine 7.5 5.0 - 8.0 pH LAB URINALYSIS - AUTOMATED METHOD 07/26/2025 7:[address] [facility] Leukocytes, Urine Negative Negative LAB URINALYSIS - AUTOMATED METHOD 07/26/2025 7:[address] [facility] Nitrite, Urine Negative Negative LAB URINALYSIS - AUTOMATED METHOD 07/26/2025 7:[address] [facility] Protein, Urine Negative <=Trace mg/dL LAB URINALYSIS - AUTOMATED METHOD 07/26/2025 7:[address] [facility] Glucose, Urine Negative Negative mg/dL LAB URINALYSIS - AUTOMATED METHOD 07/26/2025 7:[address] [facility] Ketones, Urine Negative Negative mg/dL LAB URINALYSIS - AUTOMATED METHOD 07/26/2025 7:[address] [facility] Urobilinogen, Urine 0.2 0.2 - 1.0 mg/dL LAB URINALYSIS - AUTOMATED METHOD 07/26/2025 7:05 PM EST [facility] Bilirubin, Urine Negative Negative LAB URINALYSIS - AUTOMATED METHOD 07/26/2025 7:05 PM EST [facility] Blood, Urine Negative Negative LAB URINALYSIS - AUTOMATED METHOD 07/26/2025 7:05 PM EST [facility] Urine Urine specimen obtained by clean catch procedure / Unknown Non-blood Collection / Unknown 07/26/2025 3:13 PM EST 07/26/2025 3:13 PM EST Sabrina Lynn NP LAB URINE ORDERABLES Final Resul t Performing Organization Address [facility]/ZIP Co de Phone Number [facility] [address] [place] [address], [place] [phone] * Treponema pallidum antibody with reflex to RPR and particle agglutination (07/26/2025 3:13 PM EST) Pathologist [facility] T. Pallidum Antibodies Negative Negative LAB CHEMISTRY METHOD 07/26/2025 9:25 PM EST [facility] Blood Venous blood specimen / Unknown Venipuncture / Unknown 07/26/2025 3:13 PM EST 07/26/2025 3:13 PM EST Sabrina Lynn NP LAB BLOOD ORDERABLES Final Resul t [facility] [address] [place] [address], [place] [phone] * Thyroid stimulating hormone with reflex to free t4 and free t3 (07/26/2025 3:13 PM EST) TSH 1.13 0.40 - 4.00 mcIU/mL LAB CHEMISTRY METHOD 07/26/2025 9:14 PM EST [facility] Blood Venous blood specimen / Unknown Venipuncture / Unknown 07/26/2025 3:13 PM EST 07/26/2025 3:13 PM EST Sabrina Eganюлия DRIVER/GUIDE LAB BLOOD ORDERABLES Final Resul t Performing Organization Address City/[facility]/ZIP Co de Phone Number [facility] [address] [place] [address], [place] [phone] * Chlamydia trachomatis and Neisseria gonorrhoeae molecular study (07/26/2025 3:13 PM EST) [facility] Neisseria gonorrhoeae PCR Negative Negative LAB MOLECULAR DIAGNOSTICS METHOD 07/27/2025 9:16 AM EST [facility] Chlamydia trachomatis PCR Negative Negative LAB MOLECULAR DIAGNOSTICS METHOD 07/27/2025 9:16 AM EST [facility] Urine Urine specimen from urethra / Unknown Non-blood Collection / Unknown 07/26/2025 3:13 PM EST 07/26/2025 3:13 PM EST Sabrina Eganюлия LAB MICROBIOLOGY - GENERAL ORDER ROCHELLE Final Result Performing Organization Address [facility]/ZIP Co de Phone Number [facility] [address] [place] [address], [place] [phone] * Magnesium (07/26/2025 3:13 PM EST) [facility] Magnesium 2.2 1.9 - 2.6 mg/dL LAB CHEMISTRY METHOD 07/26/2025 7:00 PM EST [facility] Blood Venous blood specimen / Unknown Venipuncture / Unknown 07/26/2025 3:13 PM EST 07/26/2025 3:13 PM EST Sabrina Lynn DRIVER/GUIDE LAB BLOOD ORDERABLES Final Resul t Performing Organization Address City/[facility]/ZIP Co de Phone Number [facility] [address] [place] [address], [place] [phone] * Lactate dehydrogenase (07/26/2025 3:13 PM EST) Pathologist [facility] LDH 219 120 - 246 unit/L LAB CHEMISTRY METHOD 07/26/2025 7:00 PM EST [facility] Blood Venous blood specimen / Unknown Venipuncture / Unknown 07/26/2025 3:13 PM EST 07/26/2025 3:13 PM EST us Michaela Bergeron MD LAB BLOOD ORDERABLES Final R esult Performing Organization Address City/[facility]/ZIP Co de Phone Number [facility] [address] [place] [address], [place] [phone] * Hemoglobin A1c (07/26/2025 3:13 PM EST) [facility] Hemoglobin A1C 5.6 <6.5 % LAB CHEMISTRY METHOD 07/26/2025 9:54 PM EST [facility] Mean Bld Glu Estim. 114 mg/dL LAB CHEMISTRY METHOD 07/26/2025 9:54 PM EST [facility] Blood Venous blood specimen / Unknown Venipuncture / Unknown 07/26/2025 3:13 PM EST 07/26/2025 3:13 PM EST us Sabrina Lynn NP LAB BLOOD ORDERABLES Final Resul t Performing Organization Address City/[facility]/ZIP Co de Phone Number [facility] [address] [place] [address], [place] [phone] * Comprehensive metabolic panel (07/26/2025 3:13 PM EST) [facility] Sodium 140 133 - 145 mmol/L LAB CHEMISTRY METHOD 07/26/2025 7:25 PM EST [facility] Potassium 3.9 3.5 - 5.5 mmol/L LAB CHEMISTRY METHOD 07/26/2025 7:25 PM EST [facility] Chloride 104 96 - 110 mmol/L LAB CHEMISTRY METHOD 07/26/2025 7:[address] [facility] CO2 30 21 - 32 mmol/L LAB CHEMISTRY METHOD 07/26/2025 7:[address] [facility] Anion Gap 6 3 - 11 LAB CHEMISTRY METHOD 07/26/2025 7:[address] [facility] Glucose 83 70 - 100 mg/dL LAB CHEMISTRY METHOD 07/26/2025 7:[address] [facility] BUN 15 5 - 25 mg/dL LAB CHEMISTRY METHOD 07/26/2025 7:[address] [facility] Creatinine 0.62 0.50 - 1.10 mg/dL LAB CHEMISTRY METHOD 07/26/2025 7:[address] [facility] eGFR 111 >=60 mL/min/1. 73m2 LAB CHEMISTRY METHOD 07/26/2025 7:[address] [facility] Comment:Calculation based on the Chronic Kidney Disease Epidemiology Collaboration (CKD-EPI) equation refit without adjustment for race. BUN/Creatinine Ratio 24.2 LAB CHEMISTRY METHOD 07/26/2025 7:[address] [facility] Calcium 8.9 8.5 - 10.5 mg/dL LAB CHEMISTRY METHOD 07/26/2025 7:[address] [facility] AST (SGOT) 12 10 - 42 unit/L LAB CHEMISTRY METHOD 07/26/2025 7:[address] [facility] ALT (SGPT) 29 10 - 60 unit/L LAB CHEMISTRY METHOD 07/26/2025 7:[address] [facility] Alkaline Phosphatase 95 42 - 121 unit/L LAB CHEMISTRY METHOD 07/26/2025 7:[address] [facility] Total Protein 6.7 6.0 - 8.0 g/dL LAB CHEMISTRY METHOD 07/26/2025 7:[address] [facility] Albumin 3.7 3.2 - 5.0 g/dL LAB CHEMISTRY METHOD 07/26/2025 7:[address] [facility] Total Bilirubin 0.4 0.0 - 1.4 mg/dL LAB CHEMISTRY METHOD 07/26/2025 7:25 PM EST [facility] Blood Venous blood specimen / Unknown Venipuncture / Unknown 07/26/2025 3:13 PM EST 07/26/2025 3:13 PM EST us Sabrina Lynn DRIVER/GUIDE LAB BLOOD ORDERABLES Final Resul t [facility] [address] [place] [address], [place] [phone] from Last 3 Months Insurance [employer] Member Subscriber Plan / Payer (Ef fective 2019-Present) Name:ANJELICA EVANS Relation to Subscriber:Self Name:Evans Anjelica I Payer ID:[id number] Group ID:[id number] Type:Not on file Address: [place] [address] [phone] Advance Directives * Full Code - Default [...] currently active code status orders. Care Teams Semi Driver Relationship Specialty Start Date End Date Liat Nnuez MD [address] [facility] [address] [place] [address] PCP - General Internal Medicine 07/30/24
--- NOTE | 2025-09-04 10:11 | HO.ANESPROP2 ---
Documented by User: Denisa Morris NP 09/04/25 10:15 HPI - Anesthesia Eval Consult details Narrative: 45 yr old female for colonoscopy In [facility] 09/02[place]25 for positive blood culture, growing fusobacterium species. Patient was placed on IV cefepime and Flagyl, with plans on transitioning to p.o. antibiotics for 21 days per ID recommendations. +marijuana use Endometriosis PMFSH Active Problems Active Problems: All Active Problems (Updated 09/04/25 @ 00:01 by Background Taj) Fusobacterium infection (Acute) Family history of colon cancer (Acute) Chronic diarrhea (Acute) Gram-negative bacteremia (Acute) Cervical radiculopathy (Acute) Endometriosis (Acute) Past Medical History Medical History (Updated 09/04/25 @ 00:01 by Background Taj) Fusobacterium infection Arthritis GERD (gastroesophageal reflux disease) Familial tremor Hx of trichomonal vaginitis Endometriosis PTSD (post-traumatic stress disorder) Depression Insomnia Bursitis HTN (hypertension) Surgical History Surgical History No pertinent past surgical history Social History Social History Household Members: None Housing: Apartment Do you presently have visiting nurse or other home services: Yes Patient Tobacco Use Status: Never used Tobacco Use of substances other than those prescribed or required for medical reasons: No Substance Use Type: Marijuana Advance Directives: No Advance Directives Information Provided: Yes service: No Meds Allergies Allergy/AdvReac Type Severity Reaction Status Date / Time nitrofurantoin (From Allergy Severe RASH Verified 09/05/25 12:43 MACROBID) Penicillins (PENICILLINS) Allergy Severe RASH Verified 09/05/25 12:43 lisinopril Allergy Unknown Unknown Verified 09/05/25 12:43 Home Medications ?Medication ?Instructions ?Recorded ?Confirmed ?Last Taken ?Type acetaminophen 500 mg tablet 1,000 mg PO Q6H PRN Pain (Scale 10/31/24 09/05/25 10/29/24 History (Tylenol Extra Strength) Score 1-3) clonidine HCl 0.1 mg tablet 0.1 mg PO BEDTIME 10/31/24 09/05/25 2 Days Ago History ~08/27/25 cyanocobalamin (vitamin B-12) 1,000 mcg PO DAILY 10/31/24 09/05/25 2 Days Ago History 1,000 mcg tablet ~08/27/25 hydroxyzine HCl 25 mg tablet 25 mg PO BEDTIME 10/31/24 09/05/25 2 Days Ago History ~08/27/25 lansoprazole 15 mg capsule,delayed 15 mg PO DAILY 10/31/24 09/05/25 2 Days Ago History release ~08/27/25 sennosides 8.6 mg-docusate sodium 1 tab PO DAILY PRN Constipation 10/31/24 09/05/25 10/29/24 History 50 mg tablet (Stimulant Laxative Plus) tramadol 50 mg tablet 50 mg PO Q6H PRN Pain (Scale Score 10/31/24 09/05/25 10/29/24 History 7-10) valacyclovir 1 gram tablet 1,000 mg PO DAILY PRN hsv flare 10/31/24 09/05/25 10/29/24 History aripiprazole 5 mg tablet 5 mg PO BEDTIME 04/10/25 09/05/25 2 Days Ago History ~08/27/25 cholecalciferol (vitamin D3) 50 50 mcg PO DAILY 08/17/25 09/05/25 2 Days Ago History mcg (2,000 unit) tablet ~08/27/25 amitriptyline 25 mg tablet 25 mg PO BEDTIME 08/29/25 09/05/25 2 Days Ago History ~08/27/25 dicyclomine 20 mg tablet 20 mg PO QID 08/29/25 09/05/25 2 Days Ago History ~08/27/25 omeprazole 20 mg capsule,delayed 20 mg PO DAILY@0630 08/29/25 09/05/25 2 Days Ago History release ~08/27/25 propranolol 20 mg tablet 20 mg PO BID 08/29/25 09/05/25 2 Days Ago History ~08/27/25 sertraline 100 mg tablet 100 mg PO DAILY 08/29/25 09/05/25 2 Days Ago History ~08/27/25 tizanidine 4 mg tablet 4 mg PO TID PRN Pain 08/29/25 09/05/25 Unknown History Exam Pertinent Lab Results Pertinent Lab Results: Laboratory Tests 09/02/25 09:01 WBC 20.8 H RBC 4.16 L Hgb 12.5 Hct 36.8 L Plt Count 295 Sodium 142 Potassium 3.4 Chloride 109 H BUN 11 Creatinine 0.70 Narrative Narrative: EKG 05/2025 Vent. Rate : 69 BPM Atrial Rate : 69 BPM P-R Int : 170 ms QRS Dur : 86 ms QT Int : 418 ms P-R-T Axes : 37 74 32 degrees QTcB Int : 447 ms Normal sinus rhythm Normal ECG No previous ECGs available Documented by User: Cedrick Burgess MD 09/05/25 15:04 [facility] Past Medical History Medical History (Updated 09/04/25 @ 00:01 by Background Taj) Fusobacterium infection Arthritis GERD (gastroesophageal reflux disease) Familial tremor Hx of trichomonal vaginitis Endometriosis PTSD (post-traumatic stress disorder) Depression Insomnia Bursitis HTN (hypertension) Family History Family history of problems with anesthesia: No Surgical History Surgical History No pertinent past surgical history History of Problems with Anesthesia: No Social History Social History Household Members: None Housing: Apartment Do you presently have visiting nurse or other home services: Yes Patient Tobacco Use Status: Never used Tobacco Use of substances other than those prescribed or required for medical reasons: No Substance Use Type: Marijuana Advance Directives: No Advance Directives Information Provided: Yes service: No Meds Allergies Allergy/AdvReac Type Severity Reaction Status Date / Time nitrofurantoin (From Allergy Severe RASH Verified 09/05/25 12:43 MACROBID) Penicillins (PENICILLINS) Allergy Severe RASH Verified 09/05/25 12:43 lisinopril Allergy Unknown Unknown Verified 09/05/25 12:43 Home Medications ?Medication ?Instructions ?Recorded ?Confirmed ?Last Taken ?Type acetaminophen 500 mg tablet 1,000 mg PO Q6H PRN Pain (Scale 10/31/24 09/05/25 10/29/24 History (Tylenol Extra Strength) Score 1-3) clonidine HCl 0.1 mg tablet 0.1 mg PO BEDTIME 10/31/24 09/05/25 2 Days Ago History ~08/27/25 cyanocobalamin (vitamin B-12) 1,000 mcg PO DAILY 10/31/24 09/05/25 2 Days Ago History 1,000 mcg tablet ~08/27/25 hydroxyzine HCl 25 mg tablet 25 mg PO BEDTIME 10/31/24 09/05/25 2 Days Ago History ~08/27/25 lansoprazole 15 mg capsule,delayed 15 mg PO DAILY 10/31/24 09/05/25 2 Days Ago History release ~08/27/25 sennosides 8.6 mg-docusate sodium 1 tab PO DAILY PRN Constipation 10/31/24 09/05/25 10/29/24 History 50 mg tablet (Stimulant Laxative Plus) tramadol 50 mg tablet 50 mg PO Q6H PRN Pain (Scale Score 10/31/24 09/05/25 10/29/24 History 7-10) valacyclovir 1 gram tablet 1,000 mg PO DAILY PRN hsv flare 10/31/24 09/05/25 10/29/24 History aripiprazole 5 mg tablet 5 mg PO BEDTIME 04/10/25 09/05/25 2 Days Ago History ~08/27/25 cholecalciferol (vitamin D3) 50 50 mcg PO DAILY 08/17/25 09/05/25 2 Days Ago History mcg (2,000 unit) tablet ~08/27/25 amitriptyline 25 mg tablet 25 mg PO BEDTIME 08/29/25 09/05/25 2 Days Ago History ~08/27/25 dicyclomine 20 mg tablet 20 mg PO QID 08/29/25 09/05/25 2 Days Ago History ~08/27/25 omeprazole 20 mg capsule,delayed 20 mg PO DAILY@0630 08/29/25 09/05/25 2 Days Ago History release ~08/27/25 propranolol 20 mg tablet 20 mg PO BID 08/29/25 09/05/25 2 Days Ago History ~08/27/25 sertraline 100 mg tablet 100 mg PO DAILY 08/29/25 09/05/25 2 Days Ago History ~08/27/25 tizanidine 4 mg tablet 4 mg PO TID PRN Pain 08/29/25 09/05/25 Unknown History Assessment and Plan Assessment Anesthesia Assessment: Anesthesia Plan Discussed and Chart Reviewed Final Anesthetic Review Family History of Problems with Anesthesia: No History of Problems with Anesthesia: No ASA Class: II Final Preanesthetic Review: No Changes in Pt Med Stat, Meds/Allgs Chart Reviewed, Consent Obtained/Reviewed and Anes Risks/Benef Reviewed Patient Risk: Low Procedure Risk: Low Anesthetic Plan Anesthetic Plan: MAC: Disposition: Standard PACU
[2025-09-05 12:45] VITALS: BMI 35.5
[2025-09-05 12:51] VITALS: BP 144/95; PULSE 94; RESP 18; TEMP 36.1; O2SAT 96
[2025-09-05] MEDS: Lactated Ringers 1,000 ML 100 ML IVCONT (13:01)
[2025-09-05 13:46] LABS: UPreg QC Valid YES
--- NOTE | 2025-09-05 14:28 | MHC.SHP ---
Pre-Procedural Eval Section A - 24 Hr Update-Section A only Date of Service: 09/05/25 The patient is an INPATIENT: No The patient has been examined within 24 hours of the surgical procedure. The History & Physical has been completed within 30 days and I have reviewed it.: Yes Section B - Complete if H&P > 30 days Chief Complaint: Noninfective gastroenteritis and colitis, unspecif Allergies: Allergies Allergy/AdvReac Type Severity Reaction Status Date / Time nitrofurantoin (From Allergy Severe RASH Verified 09/05/25 12:43 MACROBID) Penicillins (PENICILLINS) Allergy Severe RASH Verified 09/05/25 12:43 lisinopril Allergy Unknown Unknown Verified 09/05/25 12:43 Plan Diagnosis/Plan: Unchanged I have reviewed the history and physical and performed a pertinent physical examination on my patient. No changes have occurred unless specified. Time Spent With Patient Time: Total time managing care of this patient today ____ minutes.
--- NOTE | 2025-09-05 15:14 | P.OPN-COLO_ITS ---
Colonoscopy Operative Note Operative Note Date of Service: 09/05/25 Narrative: Procedure: Colonoscopy Indication: Chronic diarrhea, fusobacterium bacteremia, fam hx of CRC Endoscopist: Criselda Pagan MD Anesthesia Provider: Dr Cedrick Burgess Anesthesia type: MAC Instrument: Olympus [id number]-[id number] Consent: Indication, risks vs benefits, and alternatives were discussed with the patient who gave written informed consent to proceed. EKG, pulse, pulse oximetry and blood pressure were monitored throughout the procedure. Please see anesthesia flowsheet. Procedure: The patient was brought to the procedure room and placed in the left lateral decubitus position. IV medications were administered by the anesthesia provider in attendance. A digital rectal exam was performed which was normal. A distal attachment cap was affixed to the tip of the colonoscope which was then inserted through the anus and advanced through the colon to the cecum at 75 cm,and terminal ileum. Appendiceal orifice and ileocecal valve were identified. Mucosa was carefully examined under high definition white light as the i nstrument was slowly withdrawn in a retrograde panoramic fashion. Retroflexion was performed in rectum. The procedure was not difficult. There were no immediate obvious complications. The quality of the prep was BBPS: 3+3+3 = adequate Withdrawal time 8 minutes. Limitations: No limitations. Findings: Mucosa: Normal to cecum and terminal ileum. Jumbo forceps biopsies were taken from right and left side of the colon to rule out microscopic colitis. Protruding lesions: * Medium internal hemorrhoids without stigmata of recent bleeding. Excavated lesions: * Mild diverticulosis of sigmoid colon. Impression: 1. Normal colon and terminal mucosa (biopsy) 2. Diverticulosis 3. Internal hemorrhoids Recommendations: - Follow path results. - Recommend repeat colonoscopy in 5 years due to family history
[2025-09-05 15:20] VITALS: BP 110/75; PULSE 83; RESP 16; TEMP 36.8; O2SAT 99
[2025-09-05 15:35] VITALS: BP 126/83; PULSE 75; RESP 16; TEMP 36.5; O2SAT 97
== END 2025-09-05 16:02 | disposition home or self-care (01) ==
PROVIDERS: Nurse Practitioner; PCP Internal Medicine; Visit Provider Internal Medicine
PROC: 0DJD8ZZ Inspection of Lower Intestinal Tract, Via Natural or Artificial Opening Endoscopic (ICD-10-PCS; CPT 45378; principal; 2025-09-05 14:20)
DX: K52.9 Noninfective gastroenteritis and colitis, unspecified (principal); Z80.0 Family history of malignant neoplasm of digestive organs; B96.89 Other specified bacterial agents as the cause of diseases classified elsewhere; K57.30 Diverticulosis of large intestine without perforation or abscess without bleeding; K64.8 Other hemorrhoids
CPT/HCPCS: 45380; 81025; 88305; J2704; J3010

== ENCOUNTER → 2025-09-05 12:24 | Outpatient (BNV) | payer OTHER, SELFPAY | PROVIDERS: PCP Internal Medicine; Visit Provider Internal Medicine | DX: K52.9 Noninfective gastroenteritis and colitis, unspecified (principal); K57.30 Diverticulosis of large intestine without perforation or abscess without bleeding; K64.8 Other hemorrhoids | CPT/HCPCS: 45380 ==